=== PATIENT | female | born 1935 | race Two or more races ===

== ENCOUNTER 2016-11-28 20:26 | Inpatient (IN) | payer MEDICARE, OTHER ==
[~2016-11-28] VITALS: Ht 152.4 cm; Wt 47.2 kg
[2016-11-28] MEDS ORDERED: ALBUTEROL FS 2.5 MG/3 ML VIAL.NEB CONTNEB ONE (21:00)
[2016-11-28] MEDS ORDERED: IPRATROPIUM NEB FS 0.5 MG/2.5 ML AMPUL.NEB NEB ONE (21:00)
[2016-11-28] MEDS ORDERED: methylPREDNISolone SOD SUCC 125 MG/2ML VIAL IV ONE (21:00)
[2016-11-28] MEDS ORDERED: ALBUTEROL FS 2.5 MG/3 ML VIAL.NEB ONE (21:01)
[2016-11-28] MEDS ORDERED: IPRATROPIUM NEB FS 0.5 MG/2.5 ML AMPUL.NEB ONE (21:01)
[2016-11-28] MEDS ORDERED: methylPREDNISolone SOD SUCC 125 MG/2ML VIAL ONE (21:02)
[2016-11-28] MEDS ORDERED: CLAR500T PO (21:03)
[2016-11-28 21:05] LABS: BASOPHILS # (AUTO) 0.4 /CMM (0.0-0.2); BASOPHILS % (AUTO) 4.1 % (0.0-2.0); DIFF TOTAL % 100 %; EOSINOPHILS # (AUTO) 0.1 /CMM (0.0-0.7); EOSINOPHILS % (AUTO) 1.4 % (0.0-6.0); HEMATOCRIT 49 % (33-45); HEMOGLOBIN 15.2 g/dL (11.5-14.8); LYMPHOCYTES # (AUTO) 0.8 /CMM (0.8-4.8); LYMPHOCYTES % (AUTO) 7.5 % (20.0-44.0); MEAN CORPUSCULAR HEMOGLOBIN 29 PG (26.0-33.0); MEAN CORPUSCULAR HGB CONC 31 g/dl (31.0-36.0); MEAN CORPUSCULAR VOLUME 92 fL (82-100); MONOCYTES % (AUTO) 9.4 % (2.0-12.0); NEUTROPHILS # (AUTO) 7.9 /CMM (1.8-8.9); NEUTROPHILS % (AUTO) 77.6 % (43.0-81.0); PLATELET COUNT (AUTO) 380 /CMM (150-450); RED BLOOD CELL COUNT(AUTO) 5.28 MIL/uL (4.0-5.2); WHITE BLOOD COUNT (AUTO) 10.2 K/uL (4.3-11.0)
[2016-11-28 21:19] LABS: CALCIUM, SERUM 8.6 mg/dL (8.5-10.1); CREATININE 0.6 mg/dL (0.6-1.3); POTASSIUM 5.8 mmol/L (3.5-5.1)
[2016-11-28] MEDS ORDERED: FLUC50TA PO (21:35)
[2016-11-28] MEDS ORDERED: MIRALAX (21:35)
[2016-11-28] MEDS ORDERED: ALPR-388 PO (21:35)
[2016-11-28] MEDS ORDERED: GAS-X (21:35)
[2016-11-28] MEDS ORDERED: SPIRIVA (21:35)
[2016-11-28] MEDS ORDERED: RIFA300C4 PO (21:35)
[2016-11-28] MEDS ORDERED: ZOFRAN (21:35)
[2016-11-28] MEDS ORDERED: LEVA15HF2 INH (21:35)
[2016-11-28] MEDS ORDERED: ETHA400T8 PO (21:35)
[2016-11-28] MEDS ORDERED: MOXI400T31 PO (21:35)
[2016-11-28] MEDS ORDERED: IV SET PRIMARY PUMP SET 1 EA INFUS.SET MC ONE (22:23)
[2016-11-28] MEDS ORDERED: LEVOFLOXACIN 750 MG /D5W 150ML 150 ML IV ONE ×2 (22:23→22:30)
[2016-11-28 22:46] VITALS: BP 128/61
[2016-11-28 23:02] LABS: INR 0.93 (0.87-1.13)
[2016-11-28] MEDS ORDERED: MAGNESIUM HYDROXIDE 30 ML UDC PO PRN (23:30)
[2016-11-28] MEDS ORDERED: HYDROCODONE/APAP 5/325MG 1 EACH TABLET PO PRN (23:30)
[2016-11-28] MEDS ORDERED: ZOLPIDEM TARTRATE 5 MG TABLET PO PRN (23:30)
[2016-11-28] MEDS ORDERED: ONDANSETRON HCL/PF 4 MG/2 ML VIAL IVP PRN (23:30)
[2016-11-28] MEDS ORDERED: LEVOFLOXACIN 750 MG /D5W 150ML 750 MG in PREMIX 1 EA IV SCH (23:30)
[2016-11-28] MEDS ORDERED: ACETAMINOPHEN 325 MG TABLET PO PRN (23:30)
[2016-11-28] MEDS ORDERED: LORAZEPAM 0.5 MG TABLET PO PRN (23:30)
[2016-11-28] MEDS ORDERED: MAG HYDROX/AL HYDROX/SIMETH 30 ML UDC PO PRN (23:30)
[2016-11-28] MEDS ORDERED: Z GUARD REMEDY 2 OZ OINT TP PRN (23:30)
[2016-11-28] MEDS ORDERED: MORPHINE SULFATE INJ 2 MG/ML DISP.SYRIN IV PRN (23:30)
[2016-11-28] MEDS ORDERED: ENOXAPARIN SODIUM 40 MG/0.4 ML DISP.SYRIN SQ SCH (23:30)
[2016-11-29] VITALS: BP 109/45
[2016-11-29] MEDS ORDERED: ENOXAPARIN SODIUM 40 MG/0.4 ML DISP.SYRIN SQ ONE (00:29)
[2016-11-29] MEDS ORDERED: LORAZEPAM INJ 2 MG/ML VIAL ONE (03:49)
[2016-11-29 04:00] VITALS: BP 106/53
[2016-11-29] MEDS ORDERED: LORAZEPAM INJ 2 MG/ML VIAL IV PRN (04:00)
[2016-11-29 07:57] LABS: DIFF TOTAL % 100 %; HEMATOCRIT 41 % (33-45); HEMOGLOBIN 13.2 g/dL (11.5-14.8); LYMPHOCYTES # (AUTO) 0.3 /CMM (0.8-4.8); LYMPHOCYTES % (AUTO) 3.6 % (20.0-44.0); MEAN CORPUSCULAR HEMOGLOBIN 30 PG (26.0-33.0); MEAN CORPUSCULAR HGB CONC 32 g/dl (31.0-36.0); MEAN CORPUSCULAR VOLUME 93 fL (82-100); MONOCYTES # (AUTO) 0.1 /CMM (0.1-1.30); MONOCYTES % (AUTO) 1.8 % (2.0-12.0); NEUTROPHILS % (AUTO) 94.6 % (43.0-81.0); PLATELET COUNT (AUTO) 311 /CMM (150-450); RED BLOOD CELL COUNT(AUTO) 4.44 MIL/uL (4.0-5.2); WHITE BLOOD COUNT (AUTO) 7.4 K/uL (4.3-11.0)
[2016-11-29 08:00] VITALS: BP 106/47
[2016-11-29] MEDS: FUROSEMIDE 20 MG/2 ML VIAL IV SCH ×2 (09:00→17:48)
[2016-11-29] MEDS ORDERED: MOXIFLOXACIN HCL 400 MG PO SCH (09:00)
[2016-11-29] MEDS: PANTOPRAZOLE 40 MG VIAL IV SCH (09:00)
[2016-11-29] MEDS: CLARITHROMYCIN 500 MG TABLET PO SCH ×3 (09:00→17:49)
[2016-11-29] MEDS ORDERED: LEVOFLOXACIN 750 MG /D5W 150ML 750 MG in PREMIX 1 EA IV SCH (09:34)
[2016-11-29 09:41] LABS: ALBUMIN 2.3 g/dL (3.4-5.0); BILIRUBIN,TOTAL 0.2 mg/dL (0.2-1.0); CALCIUM, SERUM 8.3 mg/dL (8.5-10.1); CREATININE 0.5 mg/dL (0.6-1.3); PHOSPHORUS 4.3 mg/dL (2.5-4.9); POTASSIUM 5.7 mmol/L (3.5-5.1); TOTAL PROTEIN, SERUM 5.8 g/dL (6.4-8.2)
[2016-11-29] MEDS: methylPREDNISolone SOD SUCC 125 MG/2ML VIAL IV SCH (10:54)
[2016-11-29 12:00] VITALS: BP 132/62
[2016-11-29] MEDS: HYDROGEL DRESSING 90 GM TUBE TP SCH (13:00)
[2016-11-29] MEDS: ETHAMBUTOL HCL (400 MG) 400 MG TABLET PO SCH (14:37)
[2016-11-29] MEDS: RIFAMPIN 300 MG CAPSULE PO SCH (14:37)
[2016-11-29] MEDS: FLUCONAZOLE (100 MG) 100 MG TABLET PO SCH (14:37)
[2016-11-29 16:00] VITALS: BP 150/73
[2016-11-29] MEDS: ACETYLCYSTEINE 10% SOLN 400 MG/4 ML VIAL NEB SCH ×2 (17:19→23:00)
[2016-11-29] MEDS ORDERED: MORPHINE SULFATE INJ 2 MG/ML DISP.SYRIN IV PRN (18:00)
[2016-11-29 20:00] VITALS: BP 116/53
[2016-11-29] MEDS: IPRATROPIUM NEB FS 0.5 MG/2.5 ML AMPUL.NEB NEB SCH (20:25)
[2016-11-29] MEDS: ALBUTEROL HALF STRENGTH 1.25 MG/3 ML VIAL.NEB NEB SCH (20:25)
[2016-11-29] MEDS: ENOXAPARIN SODIUM 30 MG/0.3 ML DISP.SYRIN SQ SCH (21:39)
[2016-11-29] MEDS: LEVOFLOXACIN 750 MG /D5W 150ML 750 MG in PREMIX 1 EA IV SCH (23:19)
[2016-11-30] VITALS: BP 111/55
[2016-11-30] MEDS: ALBUTEROL HALF STRENGTH 1.25 MG/3 ML VIAL.NEB NEB SCH ×4 (01:37→19:32)
[2016-11-30] MEDS: IPRATROPIUM NEB FS 0.5 MG/2.5 ML AMPUL.NEB NEB SCH ×4 (01:37→19:32)
[2016-11-30 04:00] VITALS: BP 111/51
[2016-11-30] MEDS: ACETYLCYSTEINE 10% SOLN 400 MG/4 ML VIAL NEB SCH ×2 (07:22→15:14)
[2016-11-30 08:00] VITALS: BP 120/44
[2016-11-30] MEDS: CLARITHROMYCIN 500 MG TABLET PO SCH ×2 (08:48→17:32)
[2016-11-30] MEDS: RIFAMPIN 300 MG CAPSULE PO SCH (08:48)
[2016-11-30] MEDS: ETHAMBUTOL HCL (400 MG) 400 MG TABLET PO SCH (08:49)
[2016-11-30] MEDS: PANTOPRAZOLE 40 MG VIAL IV SCH (08:50)
[2016-11-30] MEDS: methylPREDNISolone SOD SUCC 125 MG/2ML VIAL IV SCH (08:50)
[2016-11-30] MEDS: FUROSEMIDE 20 MG/2 ML VIAL IV SCH (08:50)
[2016-11-30] MEDS: HYDROGEL DRESSING 90 GM TUBE TP SCH (08:51)
[2016-11-30 12:00] VITALS: BP 114/59
[2016-11-30 16:00] VITALS: BP 123/68
[2016-11-30 20:00] VITALS: BP 131/69
[2016-11-30] MEDS: ENOXAPARIN SODIUM 30 MG/0.3 ML DISP.SYRIN SQ SCH (21:17)
[2016-12-01] VITALS: BP 141/80
[2016-12-01] MEDS: ACETYLCYSTEINE 10% SOLN 400 MG/4 ML VIAL NEB SCH ×4 (00:13→23:38)
[2016-12-01] MEDS: IPRATROPIUM NEB FS 0.5 MG/2.5 ML AMPUL.NEB NEB SCH ×4 (00:14→20:18)
[2016-12-01] MEDS: ALBUTEROL HALF STRENGTH 1.25 MG/3 ML VIAL.NEB NEB SCH ×4 (00:14→20:18)
[2016-12-01] MEDS ORDERED: DILTIAZEM HCL 50 MG IV IV ONE (01:30)
[2016-12-01] MEDS ORDERED: DILTIAZEM HCL IV 125 MG in IV D5W 100 ML IV PRN (01:30)
[2016-12-01] MEDS ORDERED: IV SET PRIMARY PUMP SET 1 EA INFUS.SET MC ONE ×2 (01:48→20:47)
[2016-12-01] MEDS ORDERED: DILTIAZEM HCL 50 MG IV ONE (01:48)
[2016-12-01] MEDS ORDERED: DILTIAZEM HCL 25 MG IV ONE (01:49)
[2016-12-01] MEDS ORDERED: IV D5W 100 ML IV ONE (01:52)
[2016-12-01 04:00] VITALS: BP 132/68
[2016-12-01 08:00] VITALS: BP 126/58
[2016-12-01] MEDS: RIFAMPIN 300 MG CAPSULE PO SCH (08:41)
[2016-12-01] MEDS: PANTOPRAZOLE 40 MG VIAL IV SCH (08:41)
[2016-12-01] MEDS: ETHAMBUTOL HCL (400 MG) 400 MG TABLET PO SCH (08:41)
[2016-12-01] MEDS: FUROSEMIDE 20 MG/2 ML VIAL IV SCH (08:41)
[2016-12-01] MEDS: CLARITHROMYCIN 500 MG TABLET PO SCH ×2 (08:41→16:26)
[2016-12-01] MEDS: methylPREDNISolone SOD SUCC 125 MG/2ML VIAL IV SCH (08:41)
[2016-12-01] MEDS: HYDROGEL DRESSING 90 GM TUBE TP SCH (08:42)
[2016-12-01] MEDS: FLUCONAZOLE (100 MG) 100 MG TABLET PO SCH (09:16)
[2016-12-01 12:00] VITALS: BP 148/65
[2016-12-01 13:31] LABS: CALCIUM, SERUM 8.3 mg/dL (8.5-10.1); CREATININE 0.6 mg/dL (0.6-1.3)
[2016-12-01 16:00] VITALS: BP 130/72
[2016-12-01 20:00] VITALS: BP 119/68
[2016-12-01] MEDS: MEROPENEM 500 MG in IV NS 0.9% 50 ML IV SCH (20:44)
[2016-12-01] MEDS: ENOXAPARIN SODIUM 30 MG/0.3 ML DISP.SYRIN SQ SCH (20:46)
[2016-12-01] MEDS ORDERED: IV NS 0.9% 250 ML IV ONE (20:46)
[2016-12-01] MEDS ORDERED: SECONDARY IV SET 1 EA INFUS.SET MC ONE (20:47)
[2016-12-01] MEDS: LEVOFLOXACIN 750 MG /D5W 150ML 750 MG in PREMIX 1 EA IV SCH (23:56)
[2016-12-02] MEDS: ALBUTEROL HALF STRENGTH 1.25 MG/3 ML VIAL.NEB NEB SCH ×4 (01:19→20:18)
[2016-12-02] MEDS: IPRATROPIUM NEB FS 0.5 MG/2.5 ML AMPUL.NEB NEB SCH ×4 (01:19→20:18)
[2016-12-02 06:00] VITALS: BP 120/72
[2016-12-02] MEDS: methylPREDNISolone SOD SUCC 125 MG/2ML VIAL IV SCH (07:34)
[2016-12-02 08:00] VITALS: BP 144/71
[2016-12-02] MEDS: ACETYLCYSTEINE 10% SOLN 400 MG/4 ML VIAL NEB SCH ×3 (08:34→23:39)
[2016-12-02] MEDS ORDERED: SECONDARY IV SET 1 EA INFUS.SET MC ONE (08:49)
[2016-12-02] MEDS: PANTOPRAZOLE 40 MG VIAL IV SCH (08:55)
[2016-12-02] MEDS: FUROSEMIDE 20 MG/2 ML VIAL IV SCH (08:55)
[2016-12-02] MEDS: ETHAMBUTOL HCL (400 MG) 400 MG TABLET PO SCH (08:56)
[2016-12-02] MEDS: RIFAMPIN 300 MG CAPSULE PO SCH (08:56)
[2016-12-02] MEDS: CLARITHROMYCIN 500 MG TABLET PO SCH ×2 (08:56→16:55)
[2016-12-02] MEDS: MEROPENEM 500 MG in IV NS 0.9% 50 ML IV SCH ×2 (08:56→20:58)
[2016-12-02] MEDS: HYDROGEL DRESSING 90 GM TUBE TP SCH (08:57)
[2016-12-02 14:00] VITALS: BP 131/62
[2016-12-02 16:00] VITALS: BP 131/62
[2016-12-02 20:00] VITALS: BP 142/77
[2016-12-02] MEDS: ENOXAPARIN SODIUM 30 MG/0.3 ML DISP.SYRIN SQ SCH (20:59)
[2016-12-03] MEDS: ALBUTEROL HALF STRENGTH 1.25 MG/3 ML VIAL.NEB NEB SCH ×4 (01:36→19:26)
[2016-12-03] MEDS: IPRATROPIUM NEB FS 0.5 MG/2.5 ML AMPUL.NEB NEB SCH ×4 (01:36→19:26)
[2016-12-03 04:00] VITALS: BP 133/68
[2016-12-03] MEDS: ACETYLCYSTEINE 10% SOLN 400 MG/4 ML VIAL NEB SCH ×3 (07:18→22:33)
[2016-12-03 08:00] VITALS: BP 128/65
[2016-12-03] MEDS: FUROSEMIDE 20 MG/2 ML VIAL IV SCH (08:52)
[2016-12-03] MEDS: ETHAMBUTOL HCL (400 MG) 400 MG TABLET PO SCH (08:52)
[2016-12-03] MEDS: CLARITHROMYCIN 500 MG TABLET PO SCH ×2 (08:52→16:50)
[2016-12-03] MEDS: RIFAMPIN 300 MG CAPSULE PO SCH (08:52)
[2016-12-03] MEDS: MEROPENEM 500 MG in IV NS 0.9% 50 ML IV SCH ×2 (08:52→20:30)
[2016-12-03] MEDS: PANTOPRAZOLE 40 MG VIAL IV SCH (08:52)
[2016-12-03] MEDS ORDERED: methylPREDNISolone SOD SUCC 125 MG/2ML VIAL IV SCH (09:00)
[2016-12-03] MEDS: HYDROGEL DRESSING 90 GM TUBE TP SCH (09:00)
[2016-12-03] MEDS: HYDROGEL DRESSING 90 GM TUBE TP PRN ×2 (09:03→09:06)
[2016-12-03] MEDS: FLUCONAZOLE (100 MG) 100 MG TABLET PO SCH (10:08)
[2016-12-03 12:00] VITALS: BP 130/69
[2016-12-03 12:50] LABS: BASOPHILS % (AUTO) 0.5 % (0.0-2.0); DIFF TOTAL % 100 %; EOSINOPHILS # (AUTO) 0.1 /CMM (0.0-0.7); EOSINOPHILS % (AUTO) 0.9 % (0.0-6.0); HEMATOCRIT 46 % (33-45); HEMOGLOBIN 14.7 g/dL (11.5-14.8); LYMPHOCYTES # (AUTO) 0.8 /CMM (0.8-4.8); LYMPHOCYTES % (AUTO) 8.8 % (20.0-44.0); MEAN CORPUSCULAR HEMOGLOBIN 30 PG (26.0-33.0); MEAN CORPUSCULAR HGB CONC 32 g/dl (31.0-36.0); MEAN CORPUSCULAR VOLUME 91 fL (82-100); MONOCYTES # (AUTO) 0.7 /CMM (0.1-1.30); MONOCYTES % (AUTO) 7.5 % (2.0-12.0); NEUTROPHILS # (AUTO) 7.9 /CMM (1.8-8.9); NEUTROPHILS % (AUTO) 82.3 % (43.0-81.0); PLATELET COUNT (AUTO) 300 /CMM (150-450); WHITE BLOOD COUNT (AUTO) 9.6 K/uL (4.3-11.0)
[2016-12-03 13:01] LABS: CALCIUM, SERUM 8.2 mg/dL (8.5-10.1); CREATININE 0.4 mg/dL (0.6-1.3); POTASSIUM 4.3 mmol/L (3.5-5.1)
[2016-12-03] MEDS: predniSONE 20 MG TABLET PO SCH (14:03)
[2016-12-03 16:00] VITALS: BP 108/70
[2016-12-03 20:00] VITALS: BP 149/64
[2016-12-03] MEDS ORDERED: IV NS 0.9% 250 ML IV ONE (20:25)
[2016-12-03] MEDS: ENOXAPARIN SODIUM 30 MG/0.3 ML DISP.SYRIN SQ SCH (20:31)
[2016-12-03] MEDS ORDERED: ZOLPIDEM TARTRATE 5 MG TABLET ONE (21:39)
[2016-12-03] MEDS ORDERED: ZOLPIDEM TARTRATE 5 MG TABLET PO PRN (22:00)
[2016-12-03] MEDS: LEVOFLOXACIN 750 MG /D5W 150ML 750 MG in PREMIX 1 EA IV SCH (23:54)
[2016-12-04] MEDS: IPRATROPIUM NEB FS 0.5 MG/2.5 ML AMPUL.NEB NEB SCH ×3 (00:56→13:12)
[2016-12-04] MEDS: ALBUTEROL HALF STRENGTH 1.25 MG/3 ML VIAL.NEB NEB SCH ×3 (00:56→13:12)
[2016-12-04 04:00] VITALS: BP 115/61
[2016-12-04] MEDS: ACETYLCYSTEINE 10% SOLN 400 MG/4 ML VIAL NEB SCH ×2 (07:10→13:12)
[2016-12-04 08:00] VITALS: BP 116/56
[2016-12-04] MEDS: CLARITHROMYCIN 500 MG TABLET PO SCH ×2 (09:29→16:48)
[2016-12-04] MEDS: RIFAMPIN 300 MG CAPSULE PO SCH (09:29)
[2016-12-04] MEDS: MEROPENEM 500 MG in IV NS 0.9% 50 ML IV SCH ×2 (09:29→17:42)
[2016-12-04] MEDS: PANTOPRAZOLE 40 MG VIAL IV SCH (09:29)
[2016-12-04] MEDS ORDERED: SECONDARY IV SET 1 EA INFUS.SET MC ONE (09:29)
[2016-12-04] MEDS: ETHAMBUTOL HCL (400 MG) 400 MG TABLET PO SCH (09:29)
[2016-12-04] MEDS: FUROSEMIDE 20 MG/2 ML VIAL IV SCH (09:30)
[2016-12-04] MEDS: predniSONE 20 MG TABLET PO SCH (09:30)
[2016-12-04] MEDS: HYDROGEL DRESSING 90 GM TUBE TP SCH (09:45)
[2016-12-04 12:00] VITALS: BP 124/67
[2016-12-04 16:00] VITALS: BP 113/56
[2016-12-05] MEDS ORDERED: predniSONE 20 MG TABLET PO SCH (09:00)
== END 2016-12-04 19:30 | disposition home health service (06) | DRG 177 ==
LOC: ER 20:28 → TELE-TD 22:23 → TELE1 11-30 16:36 → TELE-TD 12-01 02:32 → TELE1 12-01 09:46 → MEDSG1 12-01 16:30
PROVIDERS: ADMIT Family Medicine; ATTEND Family Medicine
DX: A31.0 Pulmonary mycobacterial infection (principal); J96.01 Acute respiratory failure with hypoxia; I50.31 Acute diastolic (congestive) heart failure; E43 Unspecified severe protein-calorie malnutrition; G92 Toxic encephalopathy; J96.02 Acute respiratory failure with hypercapnia; J47.0 Bronchiectasis with acute lower respiratory infection; R64 Cachexia; J90 Pleural effusion, not elsewhere classified; J15.9 Unspecified bacterial pneumonia; E87.5 Hyperkalemia; J42 Unspecified chronic bronchitis; I27.2 Other secondary pulmonary hypertension; I48.0 Paroxysmal atrial fibrillation; I87.8 Other specified disorders of veins; Z99.81 Dependence on supplemental oxygen; G14 Postpolio syndrome; J20.8 Acute bronchitis due to other specified organisms; Z68.20 Body mass index [BMI] 20.0-20.9, adult
CPT/HCPCS: 36415; 71010-TC; 80048-TC; 80053-TC; 80061-TC; 82962-TC; 83605-TC; 83735-TC; 83880; 84100-TC; 84484-TC; 85025-TC; 85730-TC; 87040-TC; 87081-TC; 87400; 93307-TC; 93970-TC; 94799-TC; 97001-TC; 97110-TC; A4216; A4606; A6248; C9113; J1650; J1940; J1956; J2060; J2185; J2270; J2930; J3490; J7050; J7060; Z7610

== ENCOUNTER 2019-11-11 21:57 | Inpatient (IN) | payer MEDICARE, BC ==
[~2019-11-11] VITALS: Ht 172.7 cm; Wt 38.1 kg
[~2019-11-11 21:57] MED LIST: ALPR-388 PO; CLAR500T PO; ETHA400T8 PO; FLUC50TA PO; GAS-X; LEVA15HF4 INH; MIRALAX; MOXI400T31 PO; RIFA300C4 PO; SPIRIVA; ZOFRAN
--- NOTE | 2019-11-11 22:03 | NUR ---
PT BIB [facility] WITH A C/O SOB. PT IS ON 3L O2 VIA NC AND IS TRIPODING UPON ARRIVAL. RT WAS CALLED. PT SOUNDS TIGHT WITH SLIGHT AIR MOVEMENT. INSPIRATORY WHEEZES NOTED BILATERALLY. PT HAS COPD AND STATED THAT SHE IS ON 5L O2 AT HOME AND 3L O2 ON THE [facility]ER[facility] WHEN SHE IS OUT. PT IS ABLE TO SAY A FEW WORDS AT A TIME. PT IS ON THE MONITOR AND CONTINUOUS PULSE OX.
--- NOTE | 2019-11-11 22:07 | NUR ---
RT IS AT THE BEDSIDE.
--- NOTE | 2019-11-11 22:12 | NUR ---
PT IS ON A BREATHING TX.
[2019-11-11] MEDS ORDERED: ALBUTEROL FS 2.5 MG/3 ML VIAL.NEB ONE (22:13)
[2019-11-11] MEDS ORDERED: IPRATROPIUM NEB FS 0.5 MG/2.5 ML AMPUL.NEB ONE (22:14)
--- NOTE | 2019-11-11 22:23 | NUR ---
RFA 20G IV STARTED. BLOOD WAS DRAWN AND SENT TO LAB.
[2019-11-11 22:28] LABS: BASOPHILS % (AUTO) 0.3 % (0.0-2.0); HEMATOCRIT 39 % (33-45); HEMOGLOBIN 12.9 g/dL (11.5-14.8); LYMPHOCYTES # (AUTO) 0.9 /CMM (0.8-4.8); LYMPHOCYTES % (AUTO) 6.9 % (20.0-44.0); MEAN CORPUSCULAR HGB CONC 33 g/dl (31.0-36.0); MEAN CORPUSCULAR VOLUME 97 fL (82-100); MONOCYTES % (AUTO) 7.7 % (2.0-12.0); NEUTROPHILS # (AUTO) 11.2 /CMM (1.8-8.9); NEUTROPHILS % (AUTO) 83.1 % (43.0-81.0); PLATELET COUNT (AUTO) 383 /CMM (150-450); RED BLOOD CELL COUNT(AUTO) 4.07 MIL/uL (4.0-5.2); WHITE BLOOD COUNT (AUTO) 13.5 K/uL (4.3-11.0)
[2019-11-11] MEDS ORDERED: methylPREDNISolone SOD SUCC 125 MG/2ML VIAL ONE (22:29)
[2019-11-11] MEDS ORDERED: ALBUTEROL FS 2.5 MG/3 ML VIAL.NEB NEB ONE (22:30)
[2019-11-11] MEDS ORDERED: methylPREDNISolone SOD SUCC 125 MG/2ML VIAL IV ONE (22:30)
[2019-11-11] MEDS ORDERED: IPRATROPIUM NEB FS 0.5 MG/2.5 ML AMPUL.NEB NEB ONE (22:30)
--- NOTE | 2019-11-11 22:30 | NUR ---
DR BRADEN IS AT THE BEDSIDE.
--- NOTE | 2019-11-11 22:32 | NUR ---
CALLED PT'S HOUSE AND LEFT A VOICE MESSAGE FOR HER , POLLY. AT PT'S REQUEST.
--- NOTE | 2019-11-11 22:38 | NUR ---
PT'S , POLLY, ARRIVED AND IS AT THE BEDSIDE.
[2019-11-11 22:39] LABS: CALCIUM, SERUM 8.9 mg/dL (8.5-10.1); CARBON DIOXIDE 30 mmol/L (21-32); CHLORIDE 94 mmol/L (98-107); CREATININE 0.4 mg/dL (0.6-1.3); GLUCOSE 105 mg/dL (74-106); POTASSIUM 4.1 mmol/L (3.5-5.1); SODIUM SERUM 128 mmol/L (136-145); UREA NITROGEN, BLOOD 16 mg/dL (7-18)
--- NOTE | 2019-11-11 22:40 | NUR ---
PT'S CAREGIVER, MARLEN, ARRIVED AND IS AT THE BEDSIDE.
[2019-11-11 22:42] LABS: ABG BASE EXCESS 4.4 mmol/L; ABG OXYGEN SATURATION 97.8 % (92.0-98.5); ABG PCO2 55.6 mmHg (35.0-45.0); ABG PH 7.366 (7.350-7.450); ABG PO2 126.5 mmHg (75.0-100.0); AaDO2 152.9 mmHg; COHb 0.3 % (0.5-1.5); MetHb 0.4 % (0.0-1.5); O2Hb 97.1 % (94.0-97.0); SITE, ABG Right Radial
--- NOTE | 2019-11-11 22:43 | NUR ---
UNABLE TO OBTAIN EKG AT THIS TIME. WILL TRY AGAIN SHORTLY.
[2019-11-11 22:51] LABS: B-TYPE NATRIURETIC PEPTIDE 243 PG/ML (0-125)
--- NOTE | 2019-11-11 22:52 | NUR ---
CALL PRIMARY MANE GOMEZ [phone]. LEFT A MESSAGE WITH HIS ANSWERING SERVICE
--- NOTE | 2019-11-11 22:58 | NUR ---
WAS UNABLE TO OBTAIN A CXR
--- NOTE | 2019-11-11 22:58 | NUR ---
CXR IN PROGRESS AT THE BEDSIDE.
[2019-11-11] MEDS ORDERED: Magnesium 1GM/D5W 100ML PREMIX 200 ML IV ONE (22:59)
[2019-11-11] MEDS ORDERED: Magnesium 1 GM/2 ML VIAL IV ONE (23:00)
--- NOTE | 2019-11-11 23:06 | NUR ---
DR BRADEN IS AT THE BEDSIDE SPEAKING TO THE PT AND HER FAMILY.
--- NOTE | 2019-11-11 23:10 | NUR ---
PT WAS PLACED ON 5L O2 PER DR BRADEN.
--- NOTE | 2019-11-11 23:12 | NUR ---
CXR IN PROGRESS AT THE BEDSIDE.
--- NOTE | 2019-11-11 23:47 | NUR ---
PT WAS READJUSTED IN BED. PT HAS A WOUND ON THE RT BUTTOCK. PILLOW WAS PLACED UNDER THE RT SIDE TO OFF LOAD. PILLOW PLACED ON THE LEFT UNDER PT'S ARM FOR SUPPORT. PT REC'D A JUG OF WATER TO SWISH AND SPIT. PT IS C/O DRY MOUTH. PT IS ON 4L VIA NC AND IS SATURATING AT 96%. PT'S CAREGIVER IS AT THE BEDSIDE WITH HER .
[2019-11-12] MEDS ORDERED: IBUP-23 PO (00:02)
[2019-11-12] MEDS ORDERED: ONDA4TAB5 PO (00:02)
[2019-11-12] MEDS ORDERED: TIOT18CA3 IH (00:02)
--- NOTE | 2019-11-12 00:04 | NUR ---
MED REC REVIEWED WITH PT'S CAREGIVER.
--- NOTE | 2019-11-12 00:15 | NUR ---
REPORT GIVEN TO ALMA MONAHAN
[2019-11-12 00:30] VITALS: BP 153/73
--- NOTE | 2019-11-12 00:35 | NUR ---
PT WAS TRANSPORTED TO [facility] VIA [facility] PER PROTOCOL.
--- NOTE | 2019-11-12 00:40 | NUR ---
comber fixercatering administrative assistant notes Received Pt from ER nurse ALMA Sandy. Pt arrived at the unit with a gurney and ACLS protocol. Pt is alert and orientedX4. Pt's Juan Carlos and Pt's archana Arias at the bedside. Respiration is normal in 4 L NC. No SOB. No S/S of distress noted. IV sites RFA# 20 is clean, intact, patent and flush without resistance. Tele monitor showed sinus rhytm. Pt's belonging was checked by MARIO Snow. Pt's took all the belongings. Admission Orders received from Dr. Chu. Pt's refused skin assessment and pictures. Informed Pt that our hospital policy. Made aware risks and benefits. Pt keep refusing for skin assessment. Instructed to call. Safety precautions is maintained. Bed at low position, brakes locked, side rails upx3 and call light is within reach. Will continue to monitor.
[2019-11-12] MEDS ORDERED: ACETAMINOPHEN 325 MG TABLET PO PRN (01:00)
[2019-11-12] MEDS: ENOXAPARIN SODIUM 40 MG/0.4 ML DISP.SYRIN SQ SCH ×2 (01:00→22:19)
[2019-11-12] MEDS ORDERED: IBUPROFEN 200 MG TABLET PO PRN (01:00)
[2019-11-12] MEDS ORDERED: MAG HYDROX/AL HYDROX/SIMETH 30 ML UDC PO PRN (01:00)
[2019-11-12] MEDS ORDERED: Z GUARD REMEDY 2 OZ OINT TP PRN (01:00)
[2019-11-12] MEDS ORDERED: ONDANSETRON HCL/PF 4 MG/2 ML VIAL IVP PRN (01:00)
[2019-11-12] MEDS ORDERED: MAGNESIUM HYDROXIDE 30 ML UDC PO PRN (01:00)
[2019-11-12] MEDS ORDERED: HYDROCODONE/APAP 5/325MG 1 EACH TABLET PO PRN (01:00)
[2019-11-12] MEDS ORDERED: Medication Not On Formulary EA (Ondansetron Hcl (Zofran) 4 MG) PO SCH (01:00)
[2019-11-12] MEDS ORDERED: LEVOFLOXACIN 750 MG /D5W 150ML 750 MG in PREMIX 1 EA IV SCH (01:00)
[2019-11-12] MEDS ORDERED: Medication Not On Formulary EA (Levalbuterol Tartrate (Xopenex Hfa) 2 PUFF) INH SCH (01:00)
[2019-11-12] MEDS ORDERED: ZOLPIDEM TARTRATE 5 MG TABLET PO PRN (01:00)
[2019-11-12] MEDS ORDERED: LEVOFLOXACIN 500 MG /D5W 100ML 500 MG in PREMIX 1 EA IV ONE (01:30)
--- NOTE | 2019-11-12 01:48 | NUR ---
drapery cutter machine notes Pt is requesting meds to sleep. Administered ambien 5 mg/po as ordered for sleeping per Pt's request. Instructed to call. Will continue to monitor.
--- NOTE | 2019-11-12 01:55 | NUR ---
assembly detailer notes Pt refused lovenox 40 mg and levaquin/D5w 500 mg IVPB. Made aware risks and benefits. Offered multiple times. Pt's Juan Carlos and Pt's care provider Darshana are at the bedside. Pt keep refusing. Dr. Chu is aware and informed.
--- NOTE | 2019-11-12 02:00 | NUR ---
traveling accountant notes Dr. Chu is at the bedside.
[2019-11-12] MEDS: ALBUTEROL HALF STRENGTH 1.25 MG/3 ML VIAL.NEB NEB SCH ×5 (02:24→20:03)
[2019-11-12 04:00] VITALS: BP 139/75
--- NOTE | 2019-11-12 07:00 | NUR ---
nursing education specialist closing notes Pt is resting in bed comfortably. Respiration is normal in 4 L NC. No SOB. No S/S of distress noted. Peripheral IV sites at RFA# 20 is clean, intact, patent and SL. Pt's caregiver at the bedside. Pt refused routine meds. MD is aware and informed. Tele monitor showed sinus rhytm at 78. VS is stable. Afebrile. Kept Pt clean, dry and comfortable. Instructed to call. Bed at low position, brakes locked, side rails upX3 and call light is within reach. Will endorse to morning nurse for JULIA.
--- NOTE | 2019-11-12 07:00 | NUR ---
MOBILITY SPECIALIST NOTES PATIENT A/O X4 PATIENT IS AWAKE. PATIENT STATED " SHE DOESN'T FEEL COMFORTABLE. PATIENT HAS NC WITH 2L OXYGEN. PATIENT HAS WEAKNESS IN THE UPPER EXTREMITIES AND SEVER WEAKNESS IN THE LOWER EXTREMITIES. PATENT HAS RIGHT FA 20# PATENT AND INTACT. PATIENT SHOWS NO SIGNS OF ACUTE RESPIRATORY DISTRESS, NO SOB. BED LOCKED AND LOWEST POSITION CALL LIGHT WITH IN REACH. ALL SAFETY MEASURES IMPLEMENTED PER HOSPITAL POLICY PATIENTS SPA DIRECTOR/FINANCE BY BED SIDE
[2019-11-12 08:00] VITALS: BP 121/64
[2019-11-12] MEDS: methylPREDNISolone SOD SUCC 40 MG/ML VIAL IV SCH ×3 (09:10→16:43)
--- NOTE | 2019-11-12 09:30 | NUR ---
COTTONSEED MEAT PRESSER NOTES ATTENDING DR. CANALES IN ROOM WITH PATIENT AND FAMILY BY BED SIDE
--- NOTE | 2019-11-12 09:45 | NUR ---
CENTRAL SUPPLY TECHNICIAN SUPERVISOR NOTES DR OLEARY IN ROOM WITH PATIENT
[2019-11-12] MEDS ORDERED: ALPRAZOLAM 0.25 MG TABLET PO SCH (10:30)
[2019-11-12] MEDS: FLUCONAZOLE (100 MG) 100 MG TABLET PO SCH (10:50)
--- NOTE | 2019-11-12 11:32 | NUR ---
DR. OLEARY SEEN AND EVALUATED PATIENT AND ORDER TRANSFER BACK TO [facility] AGAIN,
--- NOTE | 2019-11-12 11:35 | NUR ---
PATIENT REFUSING TELE AND CT VERBALIZING TO LEAVE HER ALONE AND SHE WANTED TO REST.FAMILY AT BEDSIDE.DR. OLEARY NOTIFIED PATIENT NONCOMPLIANT AND REFUSING TELE/CT.WILL CONTINUE TO MONITOR ON [facility] FOR NOW.
[2019-11-12] MEDS: ACETYLCYSTEINE 10% SOLN 400 MG/4 ML VIAL NEB SCH ×3 (11:41→23:17)
[2019-11-12 12:00] VITALS: BP 142/65
--- NOTE | 2019-11-12 12:02 | NUR ---
REPORT RECEIVED FROM SIDRA MARQUEZ FOR JULIA.
--- NOTE | 2019-11-12 12:07 | NUR ---
EXTRACTION MACHINE OPERATOR NOTES ENDORSED TO JAVIER
--- NOTE | 2019-11-12 12:19 | NUR ---
SPOKE WITH DR. CANALES, ORDERS RECEIVED AND VERBAL READBACK. CONFIRMED ORDER. ORDERS CARRIED OUT.
[2019-11-12] MEDS ORDERED: ALPRAZOLAM 0.25 MG TABLET PO ONE (12:30)
--- NOTE | 2019-11-12 12:38 | NUR ---
PT REFUSING TO HAVE TELEMETRY BOX PLACED ON HER. PT WAS EDUCATED ON THE NEEDS FOR HAVING THE TELEMETRY BOX WILL CONTINUE TO MONITOR.
[2019-11-12] MEDS: ENSURE ENLIVE 237 ML LIQUID (VANILLA) PO SCH ×2 (13:58→16:43)
[2019-11-12] MEDS: IPRATROPIUM NEB FS 0.5 MG/2.5 ML AMPUL.NEB NEB SCH ×3 (15:09→23:17)
[2019-11-12 16:00] VITALS: BP 131/63
[2019-11-12] MEDS: ALPRAZOLAM 0.25 MG TABLET PO SCH (16:43)
--- NOTE | 2019-11-12 17:16 | NUR ---
PT COMPLAINING IV IS CAUSING PAIN. IV WAS REMOVED AND PT REFUSING TO START ANOTHER IV AT THIS POINT IN TIME.
--- NOTE | 2019-11-12 18:39 | NUR ---
RN NOTES NEW IV 22 GAUGE INSERTED R FOREARM BY [facility] CHARGE LOADER.
--- NOTE | 2019-11-12 18:42 | NUR ---
RN CLOSING NOTES PT DENIES ANY PAIN OR SOB AT PRESENT MOMENT. PT HAS A NEW 22 GAUGE IV IN RIGHT FOREARM SL. PT IN BED ON 4L O2 VIA NC. PT IN BED IN HIGH CALABRESE POSITION. CAREGIVER AND SPOUSE AT BEDSIDE. PT REPOSITIONED TO HER POSITION OF COMFORT. BED IS IN LOWEST POSITION WITH CALL LIGHT IN REACH WILL ENDORSE JULIA TO REEL AND REWINDER OPERATOR RN.
[2019-11-12 20:00] VITALS: BP 116/63
[2019-11-13] VITALS: BP 137/66
[2019-11-13] MEDS ORDERED: ZOLPIDEM TARTRATE 10 MG TABLET PO PRN (00:30)
--- NOTE | 2019-11-13 00:54 | NUR ---
TELE-TD/RN PATIENT REQUESTED SLEEPING MEDICATION, OBTAINED ORDER OF AMBIEN 5 MG PO Q HS PRN FROM DR. YU. AMBIEN WAS GIVEN. WILL MONITOR.
--- NOTE | 2019-11-13 02:08 | NUR ---
TELE-TD/RN PATIENT IS SLEEPING AT THIS TIME, APPEAR COMFORTABLE, NO DISTRESS NOTED, CAREGIVER AT BEDSIDE. WILL CONTINUE TO MONITOR.
[2019-11-13 06:00] VITALS: BP 129/71
[2019-11-13 06:21] LABS: BASOPHILS # (AUTO) 0.1 /CMM (0.0-0.2); BASOPHILS % (AUTO) 0.9 % (0.0-2.0); HEMATOCRIT 37 % (33-45); HEMOGLOBIN 12.4 g/dL (11.5-14.8); LYMPHOCYTES # (AUTO) 0.4 /CMM (0.8-4.8); LYMPHOCYTES % (AUTO) 3.6 % (20.0-44.0); MEAN CORPUSCULAR HGB CONC 33 g/dl (31.0-36.0); MEAN CORPUSCULAR VOLUME 96 fL (82-100); MONOCYTES # (AUTO) 1.1 /CMM (0.1-1.30); MONOCYTES % (AUTO) 9.2 % (2.0-12.0); NEUTROPHILS # (AUTO) 10.6 /CMM (1.8-8.9); NEUTROPHILS % (AUTO) 86.3 % (43.0-81.0); PLATELET COUNT (AUTO) 372 /CMM (150-450); RED BLOOD CELL COUNT(AUTO) 3.86 MIL/uL (4.0-5.2); WHITE BLOOD COUNT (AUTO) 12.3 K/uL (4.3-11.0)
--- NOTE | 2019-11-13 06:26 | NUR ---
TELE-TD/RN PATIENT APPEAR SLEEPING, APPEAR COMFORTABLE, NO DISTRESS NOTED, ALL NEEDS ATTENDED AT THIS TIME, PRIVATE CAREGIVER AT BEDSIDE. WILL CONTINUE TO MONITOR.
[2019-11-13 06:32] LABS: CALCIUM, SERUM 9.1 mg/dL (8.5-10.1); CARBON DIOXIDE 39 mmol/L (21-32); CHLORIDE 100 mmol/L (98-107); CREATININE 0.3 mg/dL (0.6-1.3); GLUCOSE 127 mg/dL (74-106); MAGNESIUM 2.6 mg/dL (1.8-2.4); PHOSPHORUS 2.6 mg/dL (2.5-4.9); POTASSIUM 4.8 mmol/L (3.5-5.1); SODIUM SERUM 139 mmol/L (136-145); UREA NITROGEN, BLOOD 29 mg/dL (7-18)
[2019-11-13 06:46] LABS: CHOLESTEROL 188 mg/dL (<200); HDL CHOLESTEROL 120 mg/dL (40-60); LDL 64 mg/dL (0-99); TRIGLYCERIDES 44 mg/dL (30-150)
[2019-11-13 08:00] VITALS: BP 133/81
--- NOTE | 2019-11-13 08:00 | NUR ---
[facility] RN NOTES Received pt in bed A/O x4. No sob noted. Congestion upon auscultation noted. PT has RT LF HL intact and flushed well. Bed in lowest position. Plan of care discussed with pt. Will continue to monitor closely. Put call light within reach. Caregiver at bedside.
[2019-11-13] MEDS ORDERED: ZOLPIDEM TARTRATE 5 MG TABLET PO PRN (08:32)
[2019-11-13] MEDS: IPRATROPIUM NEB FS 0.5 MG/2.5 ML AMPUL.NEB NEB SCH ×3 (08:59→19:35)
[2019-11-13] MEDS: ALBUTEROL HALF STRENGTH 1.25 MG/3 ML VIAL.NEB NEB SCH ×4 (08:59→19:35)
[2019-11-13] MEDS: ACETYLCYSTEINE 10% SOLN 400 MG/4 ML VIAL NEB SCH ×3 (08:59→23:51)
[2019-11-13] MEDS: ALPRAZOLAM 0.25 MG TABLET PO SCH ×2 (09:07→17:09)
[2019-11-13] MEDS: methylPREDNISolone SOD SUCC 40 MG/ML VIAL IV SCH ×3 (09:07→18:50)
[2019-11-13] MEDS: ENSURE ENLIVE 237 ML LIQUID (VANILLA) PO SCH ×3 (09:08→17:00)
[2019-11-13] MEDS: LEVOFLOXACIN 250 MG /D5W 50 ML 250 MG in PREMIX 1 EA IV SCH (09:08)
--- NOTE | 2019-11-13 11:51 | NUR ---
grayson rn note dr huntley at bedside aware that patient wants to go home , ok to give flu vaccine
--- NOTE | 2019-11-13 11:52 | NUR ---
[facility] RN NOTES Breathing tx given by rt, assisted to bedside commode , family at beside.
[2019-11-13 12:00] VITALS: BP 128/72
[2019-11-13] MEDS ORDERED: INFLUENZA VACCINE 2019-20 0.5 ML DISP.SYRIN IM ONE (12:00)
--- NOTE | 2019-11-13 15:26 | NUR ---
[facility] Rn NOTES PT at bedside, tried to do treatment but family and pt refused. Offered 2x, explained risks and benefits still refused. Will follow up tomorrow.
[2019-11-13 16:00] VITALS: BP 133/81
--- NOTE | 2019-11-13 19:13 | NUR ---
[facility] RN NOTES Patient in no acute distress. All meds were given and tolerated well. Family at bedside. All needs attended.
--- NOTE | 2019-11-13 19:30 | NUR ---
RN [facility] OPENING NOTES RECEIVED PATIENT IN BED AWAKE, ALERT AND ORIENTED X4, VERBALLY RESPONSIVE, ABLE TO MAKE NEEDS KNOWN. CAREGIVER AT BEDSIDE. BREATHING EVEN AND UNLABORED, ON 4LNC, NO SOB NOTED. DENIES PAIN OR DISCOMFORT. DENIES N/V. IV ON RIGHT FOREARM INTACT AND PATENT. PATIENT ABLE TO USE BEDSIDE COMMODE WITH ASSIST. PATIENT NOT ON TELE MONITOR DUE TO REFUSAL. ALL OTHER NEEDS ATTENDED TO. SAFETY MEASURES IN PLACE. CALL LIGHT WITHIN REACH. WILL CONTINUE TO MONITOR.
[2019-11-13 20:00] VITALS: BP 139/91
[2019-11-13] MEDS: ENOXAPARIN SODIUM 40 MG/0.4 ML DISP.SYRIN SQ SCH (21:29)
[2019-11-14] VITALS: BP 129/66
[2019-11-14] MEDS: IPRATROPIUM NEB FS 0.5 MG/2.5 ML AMPUL.NEB NEB SCH ×2 (01:30→07:35)
[2019-11-14 04:00] VITALS: BP 159/75
--- NOTE | 2019-11-14 05:38 | NUR ---
RN [facility] NOTES PATIENT REFUSED BLOOD DRAW THIS AM. PER PATIENT, SHE WANTS TO SLEEP MORE. INSTRUCTED PHLEB TO COME BACK AT A LATER TIME.
--- NOTE | 2019-11-14 06:16 | NUR ---
RN [facility] CLOSING NOTES PATIENT CURRENTLY SLEEPING. EASILY AROUSABLE. CAREGIVER AT BEDSIDE. BREATHING EVEN AND UNLABORED, ON 3LNC, NO SOB NOTED. DENIES PAIN OR DISCOMFORT. DENIES N/V. IV ON RIGHT FOREARM INTACT AND PATENT. ASSISTED TO BEDSIDE COMMODE THROUGHOUT SHIFT WITH MAX ASSIST. PATIENT IS NOT AMBULATORY. PATIENT NOT ON TELE MONITOR DUE TO REFUSAL. ALL OTHER NEEDS ATTENDED TO. SAFETY MEASURES IN PLACE. CALL LIGHT WITHIN REACH. WILL ENDORSE TO ONCOMING NURSE FOR JULIA.
--- NOTE | 2019-11-14 07:00 | NUR ---
RN NOTES RECEIVED PATIENT IN BED A/OX4 , VERBALLY RESPONSIVE, ABLE TO MAKE NEEDS KNOWN. CAREGIVER AT BEDSIDE. BREATHING EVEN AND UNLABORED, ON 4LNC, NO SOB NOTED. PT STATED WILL GO HOME TODAY, IV ON RIGHT FOREARM INTACT AND PATENT. PATIENT ABLE TO USE BEDSIDE COMMODE WITH ASSIST. PATIENT NOT ON TELE MONITOR DUE TO REFUSAL. SR UP x3, CALL LIGHT WITHIN EASY REACH, BED LOCKED AND IN LOWEST POSITION, WILL CONTINUE TO MONITOR.
[2019-11-14 07:17] LABS: BASOPHILS % (AUTO) 0.1 % (0.0-2.0); EOSINOPHILS % (AUTO) 0.1 % (0.0-6.0); HEMATOCRIT 38 % (33-45); HEMOGLOBIN 12.5 g/dL (11.5-14.8); LYMPHOCYTES # (AUTO) 0.8 /CMM (0.8-4.8); LYMPHOCYTES % (AUTO) 3.8 % (20.0-44.0); MEAN CORPUSCULAR HGB CONC 33 g/dl (31.0-36.0); MEAN CORPUSCULAR VOLUME 97 fL (82-100); MONOCYTES # (AUTO) 2.4 /CMM (0.1-1.30); MONOCYTES % (AUTO) 11.7 % (2.0-12.0); NEUTROPHILS % (AUTO) 84.3 % (43.0-81.0); PLATELET COUNT (AUTO) 422 /CMM (150-450); RED BLOOD CELL COUNT(AUTO) 3.97 MIL/uL (4.0-5.2); WHITE BLOOD COUNT (AUTO) 20.1 K/uL (4.3-11.0)
[2019-11-14] MEDS: ALBUTEROL HALF STRENGTH 1.25 MG/3 ML VIAL.NEB NEB SCH (07:35)
[2019-11-14] MEDS: ACETYLCYSTEINE 10% SOLN 400 MG/4 ML VIAL NEB SCH (07:35)
[2019-11-14 07:39] LABS: CALCIUM, SERUM 9.3 mg/dL (8.5-10.1); CARBON DIOXIDE 38 mmol/L (21-32); CHLORIDE 100 mmol/L (98-107); CREATININE 0.3 mg/dL (0.6-1.3); GLUCOSE 84 mg/dL (74-106); POTASSIUM 4.9 mmol/L (3.5-5.1); SODIUM SERUM 139 mmol/L (136-145); UREA NITROGEN, BLOOD 36 mg/dL (7-18)
[2019-11-14 08:00] VITALS: BP_SYST 139; BP_SYST 159; BP_DIAS 81; BP_DIAS 91
[2019-11-14] MEDS: ALPRAZOLAM 0.25 MG TABLET PO SCH (08:20)
[2019-11-14] MEDS: methylPREDNISolone SOD SUCC 40 MG/ML VIAL IV SCH ×2 (08:20→12:49)
[2019-11-14] MEDS: LEVOFLOXACIN 250 MG /D5W 50 ML 250 MG in PREMIX 1 EA IV SCH (08:20)
[2019-11-14] MEDS: ENSURE ENLIVE 237 ML LIQUID (VANILLA) PO SCH ×2 (08:23→12:48)
[2019-11-14] MEDS ORDERED: RIFAMPIN 300 MG CAPSULE PO SCH (09:00)
[2019-11-14] MEDS ORDERED: ETHAMBUTOL HCL (400 MG) 400 MG TABLET PO SCH (09:00)
[2019-11-14] MEDS: FLUCONAZOLE (100 MG) 100 MG TABLET PO SCH (10:15)
[2019-11-14 12:00] VITALS: BP 140/72
[2019-11-14] MEDS ORDERED: IV NS 0.9% 1,000 ML BAG IV PRN (12:00)
[2019-11-14] MEDS ORDERED: IV NS 0.9% 1,000 ML IV PRN (12:00)
--- NOTE | 2019-11-14 12:00 | NUR ---
RN NOTES PT STATED WANTS TO GO HOME , MD PARKSFED .
[2019-11-14] MEDS ORDERED: ALBU2.5V38 IH (13:26)
[2019-11-14] MEDS ORDERED: LEVO500T75 PO (13:26)
--- NOTE | 2019-11-14 14:00 | NUR ---
RN NOTE DISCHARGE INSTRUCTIONS GIVEN TO PT AND HIS , THEY VERBALIZED UNDERSTANDING , R AC IV SITE D/YOGI, PT LEFT THE FLOOR TO MAIN ENTRANCE ACCOMPANIED BY STAFF MEMBER AND HER IN STABLE CONDITION VIA W/C .
== END 2019-11-14 14:12 | disposition home health service (06) | DRG 189 ==
LOC: ER 21:58 → TELE1 11-12 00:14 → MEDSG1 11-12 10:05 → TELE-TD 11-12 11:25
PROVIDERS: ADMIT Hospitalist; ATTEND Hospitalist
DX: J96.21 Acute and chronic respiratory failure with hypoxia (principal); J84.9 Interstitial pulmonary disease, unspecified; E22.2 Syndrome of inappropriate secretion of antidiuretic hormone; A31.8 Other mycobacterial infections; J96.22 Acute and chronic respiratory failure with hypercapnia; Z87.891 Personal history of nicotine dependence; J47.9 Bronchiectasis, uncomplicated; G14 Postpolio syndrome; F41.9 Anxiety disorder, unspecified; E86.1 Hypovolemia; Z90.710 Acquired absence of both cervix and uterus; Z99.81 Dependence on supplemental oxygen; D72.829 Elevated white blood cell count, unspecified; I35.0 Nonrheumatic aortic (valve) stenosis; I37.1 Nonrheumatic pulmonary valve insufficiency
CPT/HCPCS: 36415; 36600; 71045-TC; 80048-TC; 80061-TC; 82803-TC; 83735-TC; 83880; 84100-TC; 84484-TC; 85025-TC; 87040-TC; 87081-TC; 93307-TC; 94799-TC; A4216; A6403; G0378; J1650; J1956; J2920; J2930; J3475; J7030; Q2036

== ENCOUNTER 2021-02-27 21:53 | Inpatient (IN) | payer MEDICARE, BC ==
[~2021-02-27] VITALS: Ht 172.7 cm; Wt 40.9 kg
[~2021-02-27 21:53] MED LIST changes: +ALBU2.5V38 IH; -CLAR500T PO; +ETHA400T31 PO; -ETHA400T8 PO; -GAS-X; +IBUP-23 PO; +LEVO500T23 PO; -MIRALAX; +ONDA4TAB5 PO; -SPIRIVA; +TIOT18CA3 IH; -ZOFRAN
[2021-02-27] MEDS ORDERED: VANCOMYCIN 1 GM VIAL ONE (22:18)
[2021-02-27] MEDS ORDERED: PIPERACILLIN /TAZOBACTAM 3.375 G VIAL IV ONE (22:18)
[2021-02-27] MEDS ORDERED: PIPERACILLIN /TAZOBACTAM 3.375 G in IV D5W 50 ML IV ONE (22:30)
[2021-02-27] MEDS ORDERED: VANCOMYCIN 1 GM in IV D5W 250 ML IV ONE (22:30)
[2021-02-27] MEDS ORDERED: IV NS 0.9% 1,000 ML BAG IV ONE (22:30)
[2021-02-27 22:31] LABS: BASOPHILS % (AUTO) 0.1 % (0.0-2.0); EOSINOPHILS % (AUTO) 0.4 % (0.0-6.0); HEMATOCRIT 38 % (33-45); HEMOGLOBIN 12.2 g/dL (11.5-14.8); LYMPHOCYTES # (AUTO) 0.4 /CMM (0.8-4.8); LYMPHOCYTES % (AUTO) 4.2 % (20.0-44.0); MEAN CORPUSCULAR HGB CONC 32 g/dl (31.0-36.0); MEAN CORPUSCULAR VOLUME 97 fL (82-100); MONOCYTES # (AUTO) 1.1 /CMM (0.1-1.30); MONOCYTES % (AUTO) 12.5 % (2.0-12.0); NEUTROPHILS # (AUTO) 7.5 /CMM (1.8-8.9); NEUTROPHILS % (AUTO) 82.8 % (43.0-81.0); PLATELET COUNT (AUTO) 346 /CMM (150-450); RED BLOOD CELL COUNT(AUTO) 3.93 MIL/uL (4.0-5.2); WHITE BLOOD COUNT (AUTO) 9.1 K/uL (4.3-11.0)
[2021-02-27 22:39] LABS: CALCIUM, SERUM 8.7 mg/dL (8.5-10.1); CHLORIDE 95 mmol/L (98-107); CREATININE 0.5 mg/dL (0.6-1.3); GLUCOSE 171 mg/dL (74-106); POTASSIUM 4.6 mmol/L (3.5-5.1); SODIUM SERUM 133 mmol/L (136-145); UREA NITROGEN, BLOOD 21 mg/dL (7-18)
[2021-02-27 22:42] LABS: ABG BASE EXCESS 2.4 mmol/L; ABG OXYGEN SATURATION 98.8 % (92.0-98.5); ABG PCO2 92.7 mmHg (35.0-45.0); ABG PO2 232.6 mmHg (75.0-100.0); COHb 0.3 % (0.5-1.5); MetHb 0.8 % (0.0-1.5); O2Hb 97.7 % (94.0-97.0); SITE, ABG Right Radial; VENT MODE, BG Nasal Cannula
[2021-02-27 22:42] LABS: BILIRUBIN,URINE NEGATIVE (NEGATIVE); LEUKOCYTE ESTERASE ,URINE MODERATE (NEGATIVE); NITRITE, URINE POSITIVE (NEGATIVE); PROTEIN,URINE 100 mg/dl (NEGATIVE); UGLUCOSE NEGATIVE (NEGATIVE); UROBILINOGEN,URINE 0.2 EU/dL (0.2)
--- NOTE | 2021-02-27 22:52 | NUR ---
SPOKE TO CHAD RE: PT'S CONDITION. EXPLAINED RE: POSS INTUBATION, AWARE. WILL DISCUSS WITH SON AND CALL BACK. DR FALLON MONTALVO
[2021-02-27 22:57] LABS: ALANINE AMINOTRANSFERASE 23 U/L (12-78); ALBUMIN 2.8 g/dL (3.4-5.0); ALKALINE PHOSPHATASE 91 U/L (46-116); ASPARTATE AMINOTRANSFERASE 27 U/L (15-37); BILIRUBIN,DIRECT 0.1 mg/dL (0.0-0.2); BILIRUBIN,TOTAL 0.2 mg/dL (0.2-1.0); TOTAL PROTEIN, SERUM 6.6 g/dL (6.4-8.2)
[2021-02-27 23:09] LABS: CARBON DIOXIDE 42 mmol/L (21-32)
[2021-02-27 23:18] LABS: COLOR,URINE YELLOW (YELLOW)
[2021-02-27 23:20] LABS: RBC,URINE 21-50 /HPF (0-2); WBC,URINE TOO NUMEROUS TO COUN /HPF (0-3)
[2021-02-27 23:21] LABS: BACTERIA,URINE Many /HPF (None Seen); SQUAMOUS EPITHELIAL CELL,UR Few /HPF (None Seen)
--- NOTE | 2021-02-27 23:28 | NUR ---
RT NOTE Pt rec'd on 6lnc. ABG taken and critical results given to md. Pt placed on Bipap on noted settings as charted per md orders. Alarms are set and audible. Bipap plugged into red outlet. Ambu bag bedside. Post bipap ABG to be taken within 1hr. will continue to monitor closely. Addendum: 02/27/21 at 2332 by DAVID DUCKWORTH RT Amended: Links added.
[2021-02-28] VITALS (22 sets, daily range): BP systolic 121–163; BP diastolic 54–98
--- NOTE | 2021-02-28 | NUR ---
CHAD () [phone] MI (SON) [phone] MARCH (CAREGIVER)
[2021-02-28 01:31] LABS: ABG BASE EXCESS 7.7 mmol/L; ABG PCO2 90.4 mmHg (35.0-45.0); ABG PH 7.241 (7.350-7.450); AaDO2 98.2 mmHg; MetHb 0.6 % (0.0-1.5); O2Hb 95.4 % (94.0-97.0); SITE, ABG Left Radial; VENT MODE, BG BIPAP 20/5 RR20 40%
--- NOTE | 2021-02-28 01:34 | NUR ---
RT NOTE ABG TAKEN POST BIPAP. BIPAP CHANGES MADE PER MD REQUEST. WILL CONTINUE TO MONITOR CLOSELY Addendum: 02/28/21 at 0135 by DAVID DUCKWORTH RT Amended: Links added.
--- NOTE | 2021-02-28 02:20 | NUR ---
REPORT GIVEN TO ALMA MARTINEZ FOR JULIA PT WILL BE TRANSPORTED TO ICU
[2021-02-28] MEDS ORDERED: ACETAMINOPHEN 650 MG/SUPP.RECT RC PRN (02:30)
[2021-02-28] MEDS ORDERED: ALBUTEROL FS 2.5 MG/3 ML VIAL.NEB IH PRN (02:30)
[2021-02-28] MEDS ORDERED: Z GUARD REMEDY 2 OZ OINT TP PRN (02:30)
[2021-02-28 03:08] LABS: ABG BASE EXCESS 13.6 mmol/L; ABG OXYGEN SATURATION 94.6 % (92.0-98.5); ABG PCO2 82.9 mmHg (35.0-45.0); ABG PH 7.331 (7.350-7.450); ABG PO2 69.7 mmHg (75.0-100.0); AaDO2 83.5 mmHg; COHb 0.3 % (0.5-1.5); MetHb 0.5 % (0.0-1.5); O2Hb 93.8 % (94.0-97.0); SITE, ABG Left Radial; VENT MODE, BG Bipap 24/5 RR20 35%
[2021-02-28] MEDS ORDERED: PIPERACILLIN /TAZOBACTAM 2.25 G VIAL IV ONE (03:48)
[2021-02-28] MEDS: IV NS 0.9% 250 ML IV PRN (04:00)
[2021-02-28] MEDS: ENOXAPARIN SODIUM 40 MG/0.4 ML DISP.SYRIN SQ SCH ×2 (04:01→21:26)
[2021-02-28 04:29] LABS: BASOPHILS % (AUTO) 0.4 % (0.0-2.0); EOSINOPHILS % (AUTO) 0.9 % (0.0-6.0); HEMATOCRIT 35 % (33-45); HEMOGLOBIN 11.2 g/dL (11.5-14.8); LYMPHOCYTES # (AUTO) 0.6 /CMM (0.8-4.8); MEAN CORPUSCULAR HGB CONC 32 g/dl (31.0-36.0); MEAN CORPUSCULAR VOLUME 96 fL (82-100); MONOCYTES # (AUTO) 1.4 /CMM (0.1-1.30); MONOCYTES % (AUTO) 15.7 % (2.0-12.0); NEUTROPHILS # (AUTO) 6.7 /CMM (1.8-8.9); PLATELET COUNT (AUTO) 303 /CMM (150-450); WHITE BLOOD COUNT (AUTO) 8.8 K/uL (4.3-11.0)
[2021-02-28] MEDS ORDERED: ZOSYN IVPB 2.25 G in IV D5W 50ml IV ONE (04:30)
[2021-02-28 05:04] LABS: ALANINE AMINOTRANSFERASE 20 U/L (12-78); ALBUMIN 2.6 g/dL (3.4-5.0); ALKALINE PHOSPHATASE 82 U/L (46-116); ASPARTATE AMINOTRANSFERASE 17 U/L (15-37); BILIRUBIN,TOTAL 0.2 mg/dL (0.2-1.0); CALCIUM, SERUM 8.6 mg/dL (8.5-10.1); CHLORIDE 96 mmol/L (98-107); CREATININE 0.4 mg/dL (0.6-1.3); GLUCOSE 109 mg/dL (74-106); MAGNESIUM 2.1 mg/dL (1.8-2.4); PHOSPHORUS 2.7 mg/dL (2.5-4.9); POTASSIUM 4.4 mmol/L (3.5-5.1); SODIUM SERUM 136 mmol/L (136-145); TOTAL PROTEIN, SERUM 6.2 g/dL (6.4-8.2); UREA NITROGEN, BLOOD 19 mg/dL (7-18)
[2021-02-28 05:43] LABS: CARBON DIOXIDE 42 mmol/L (21-32)
[2021-02-28 06:26] LABS: ABG BASE EXCESS 12.7 mmol/L; ABG OXYGEN SATURATION 96.7 % (92.0-98.5); ABG PCO2 69.3 mmHg (35.0-45.0); ABG PH 7.384 (7.350-7.450); ABG PO2 78.1 mmHg (75.0-100.0); AaDO2 90.9 mmHg; COHb 0.6 % (0.5-1.5); MetHb 0.3 % (0.0-1.5); O2Hb 95.8 % (94.0-97.0); SITE, ABG Right Radial; VENT MODE, BG Bipap 24/5 35% RR 20
[2021-02-28 06:34] LABS: BAND % (MANUAL) 2 % (0.0-5.0); LYMPHOCYTES % (MANUAL) 10 % (16-48); MONOCYTES % (MANUAL) 13 % (0-11.0); NEUTROPHILS % (MANUAL) 75 (42-76)
--- NOTE | 2021-02-28 07:20 | NUR ---
ICU/RN PT IS ON BI-PAP, FIO2-35%.SAT O2-98%.V/S STABLE,AFEBRILE.NO PAIN REPORTED AT THIS TIME.PT IS AWAKE,ALERT.FOLLOWS COMMAND .PERIFERAL IV.TKO. F/C DRAINING WITH MINIMAL AMOUNT OF CLOUDY URINE OUTPUT .GENERELIZED EDEMA PRESENT.PT HAS MULTIPLY WOUNDS ON BLE AND LOWER BACK COVERED WITH DRESSING.LABS REVIEW.
--- NOTE | 2021-02-28 08:30 | NUR ---
WOUND CARE CONSULT: PT PRESENTS WITH LOWER LEG WOUNDS, DUSKY COLOR TO FEET WITH EDEMA, DEEP TISSUE INJURIES IN EVOLUTION TO SACRUM, RT BUTTOCK AND LEFT BUTTOCK INTACT DEEP TISSUE INJURY, ALL PRESENT ON ADMISSION. RECOMMEND DPM AND SURGICAL CONSULTS. DR BHATIA AND RADHA CASSIDY NOTIFIED OF CONSULT REQUESTS. RECOMMENDATIONS MADE FOR SKIN PROTECTION AND FOR WOUND CARE OF DEEP TISSUE INJURIES. DISCUSSED WITH NURSING STAFF. PT IS ON CARLOS ISOFLEX LOW AIRSS BED. IN AGREEMENT WITH PLAN OF CARE. Addendum: 02/28/21 at 0833 by ISABELL LAUREN WNDNU Amended: Links added.
--- NOTE | 2021-02-28 09:00 | NUR ---
ICU/RN PT WAS LESS THEN 2HRS OFF BI-PAP.HAS SOB,SAT O2-85%.DR OLEARY NOTIFIED.PT PLACED BACK ON BI-PAP.TALK TO THE FAMILY SON [facility] [phone]. PT IS FULL CODE.CONTINUE MONITORING.REPOSITION FOR COMFORT.
[2021-02-28] MEDS ORDERED: ENOXAPARIN SODIUM 40 MG/0.4 ML DISP.SYRIN SQ SCH (10:00)
[2021-02-28] MEDS: IPRATROPIUM NEB FS 0.5 MG/2.5 ML AMPUL.NEB NEB SCH ×3 (10:29→19:42)
[2021-02-28] MEDS: ALBUTEROL FS 2.5 MG/3 ML VIAL.NEB IH SCH ×3 (10:30→19:42)
[2021-02-28] MEDS ORDERED: ENOXAPARIN SODIUM 30 MG/0.3 ML DISP.SYRIN SQ SCH (10:30)
[2021-02-28] MEDS: PIPERACILLIN /TAZOBACTAM 2.25 G in IV D5W 50 ML IV SCH ×2 (12:24→17:42)
[2021-02-28] MEDS ORDERED: IBUPROFEN 400 MG TABLET PO PRN (14:00)
[2021-02-28] MEDS ORDERED: ETHAMBUTOL HCL (400 MG) 400 MG TABLET PO SCH (14:00)
[2021-02-28] MEDS ORDERED: RIFAMPIN 300 MG CAPSULE PO SCH (14:00)
--- NOTE | 2021-02-28 16:03 | NUR ---
Boring Mill Operator For Metal: This SW made an APS report for multiple bed sores/deep tissue injuries. Report number is #[id number].
--- NOTE | 2021-02-28 16:03 | NUR ---
Dado Operator Consult: director of maternity services consult requested to assess patients living arrangements and safe plan of care. Patient is a 85-year-old, white female. SW met with the patient in her hospital room on the [facility] surgical unit. Patient was alert and oriented x4. Patient appears to be lethargic. Patient was admitted 02/28/2021 due to sepsis. Patient is currently living at home with her and has multiple caregivers. Patient is disabled and bed bound. Patient is currently on a BI-PAP machine and attempted to mouth words but was not understandable. Patient was able to nod yes and no to answer questions as well. SW asked patient if this SW could speak to the patients son Garry [phone]. Patient nodded yes. SW will discuss plan of care with the patients son. PLAN: SW will contact patients son, Garry to discuss the patients plan of care at a later time. This SW will make an APS report due to multiple bed sores/deep tissue injuries. SW will follow up with nursing, as needed.
--- NOTE | 2021-02-28 17:00 | NUR ---
ICU/RN PM CARE PROVIDED.WOUND DRESSING DONE ORDERED.DUE MEDS ARE GIVEN ORDERED.PT IS STILL ON BI-PAP FIO2-305.SAT O2-94-97%.V/S STABLE ,AFEBRILE.NO PAIN REPORTED AT THIS TIME.
[2021-02-28] MEDS: VANCOMYCIN 500 MG in IV D5W 100 ML IV SCH (17:42)
[2021-02-28] MEDS: PANTOPRAZOLE 40 MG VIAL IV SCH (17:43)
[2021-02-28] MEDS: ALPRAZOLAM 0.25 MG TABLET PO SCH (17:43)
[2021-02-28] MEDS: CIPROFLOXACIN HCL 0.3% 5 ML BOTTLE EACHEYE SCH (17:43)
--- NOTE | 2021-02-28 19:30 | NUR ---
LOBBY ATTENDANT RCD PT W/DX RESP FAIL. NSR ON MONITOR. ON BIPAP 24/5 20 30%. LEONARDO CATH DRAINING YELLOW COLORED URINE W/SEDIMENT. PT NPO AT THIS TIME. MULTIPLE WOUNDS W/DRESSING C/D/I. PT FOR MIDLINE PLACEMENT.
--- NOTE | 2021-02-28 21:00 | NUR ---
DELIVERY RECRUITER MIDLINE PLACED ON DENNIS. PT TOLERATED WELL.
--- NOTE | 2021-02-28 23:57 | NUR ---
WILD LIFE MANAGER PT CONSTANTLY REMOVING BIPAP; EDUCATED PT ON THE NEED TO MAINTAIN BIPAP ON; REQUIRES REINFORCEMENT.
[2021-03-01] VITALS (25 sets, daily range): BP systolic 108–156; BP diastolic 47–114
[2021-03-01] MEDS: PIPERACILLIN /TAZOBACTAM 2.25 G in IV D5W 50 ML IV SCH ×5 (00:50→23:15)
[2021-03-01] MEDS: IPRATROPIUM NEB FS 0.5 MG/2.5 ML AMPUL.NEB NEB SCH ×4 (02:40→19:36)
[2021-03-01] MEDS: ALBUTEROL FS 2.5 MG/3 ML VIAL.NEB IH SCH ×4 (02:40→19:36)
[2021-03-01 04:25] LABS: BASOPHILS # (AUTO) 0.1 /CMM (0.0-0.2); BASOPHILS % (AUTO) 0.8 % (0.0-2.0); EOSINOPHILS % (AUTO) 1.4 % (0.0-6.0); HEMATOCRIT 35 % (33-45); HEMOGLOBIN 11.5 g/dL (11.5-14.8); LYMPHOCYTES # (AUTO) 0.7 /CMM (0.8-4.8); LYMPHOCYTES % (AUTO) 9.1 % (20.0-44.0); MEAN CORPUSCULAR HGB CONC 33 g/dl (31.0-36.0); MEAN CORPUSCULAR VOLUME 95 fL (82-100); MONOCYTES # (AUTO) 1.2 /CMM (0.1-1.30); MONOCYTES % (AUTO) 14.9 % (2.0-12.0); NEUTROPHILS # (AUTO) 6.1 /CMM (1.8-8.9); NEUTROPHILS % (AUTO) 73.8 % (43.0-81.0); PLATELET COUNT (AUTO) 343 /CMM (150-450); WHITE BLOOD COUNT (AUTO) 8.2 K/uL (4.3-11.0)
[2021-03-01 04:36] LABS: CALCIUM, SERUM 8.5 mg/dL (8.5-10.1); CARBON DIOXIDE 38 mmol/L (21-32); CHLORIDE 95 mmol/L (98-107); CREATININE 0.4 mg/dL (0.6-1.3); GLUCOSE 78 mg/dL (74-106); PHOSPHORUS 2.4 mg/dL (2.5-4.9); POTASSIUM 3.6 mmol/L (3.5-5.1); SODIUM SERUM 136 mmol/L (136-145); UREA NITROGEN, BLOOD 14 mg/dL (7-18)
--- NOTE | 2021-03-01 05:15 | NUR ---
RT NOTE Pt rec'd on Bipap on noted settings as charted. pt shows no signs of resp distress or sob. pt on under the nose bipap mask. no skin tear or redness noted. Alarms are set and audible. Bipap plugged into red outlet. Ambu bag bedside. will continue to monitor closely. Addendum: 03/01/21 at 0516 by DAVID DUCKWROTH RT Amended: Links added.
--- NOTE | 2021-03-01 06:52 | NUR ---
EXPERIENCED TRUCK DRIVER PT NOTED TO BE IN AFIB 150s. EKG ORDERED. CALL PLACED TO .
--- NOTE | 2021-03-01 07:25 | NUR ---
ICU/RN PTIS ON BI-PAP,FIO2-30%,SAT O2-98%.PT A-FIB WITH RVR HR-13O-160 BPM.MD NOTIFIED. EKG DONE.BP STABLE,PT IS AWAKE.ALERT. RIGHT UPPER ARM ML.F/C DRAINING WITH CLOUDY URINE.BLE WOUNDS COVERED WITH DRESSING SACRAL AREA WOUND AND RIGHT BUTTOCK COVERED WITH DRY CLEAN DRESSING.LABS REVIEW.GENERELIZED EDEMA PRESENT.
[2021-03-01] MEDS: ALPRAZOLAM 0.25 MG TABLET PO SCH ×2 (08:29→16:45)
[2021-03-01] MEDS: CIPROFLOXACIN HCL 0.3% 5 ML BOTTLE EACHEYE SCH ×3 (08:31→16:46)
--- NOTE | 2021-03-01 09:00 | NUR ---
ICU/RN PT IS OFF BI-PAP,ON 3L N/C .SAT O2-98%.DUE MEDS ARE GIVEN ORDERED.HR IS 80-90 SR WITH PVC .CONTINUE MONITORING.
[2021-03-01] MEDS: FUROSEMIDE 40 MG/4 ML VIAL IV SCH (09:23)
--- NOTE | 2021-03-01 10:00 | NUR ---
ICU/RN ABG DONE.PT PLACED ON 1 L N/C,SAT O2-92-93%.PT HAS COPD.LASIX 40 MG IV GIVEN ORDERED BY DR HUSSEIN.CONTINUE MONITORING.
--- NOTE | 2021-03-01 11:20 | NUR ---
ICU/RN PT IS BACK TO A-FIB.DR SORIANO NOTIFIED.NEW ORDERS RECIEVED.
[2021-03-01] MEDS: VANCOMYCIN 500 MG in IV D5W 100 ML IV SCH (11:34)
[2021-03-01] MEDS: DIGOXIN INJ 0.5 MG/2 ML AMPUL IV SCH ×3 (11:37→23:15)
[2021-03-01] MEDS ORDERED: Sodium Phosphate 15 MMOL in IV NS 0.9% 245 ML IV SCH (12:00)
[2021-03-01] MEDS: PANTOPRAZOLE 40 MG VIAL IV SCH (13:56)
--- NOTE | 2021-03-01 15:35 | NUR ---
ICU/RN PM CARE PROVIDED.WOUND DRESSING DONE ORDERED.REPOSITION FOR COMFORT.CONTINUE MONITORING.
[2021-03-01 16:19] LABS: ABG BASE EXCESS 12.9 mmol/L; ABG OXYGEN SATURATION 97.5 % (92.0-98.5); ABG PCO2 53.8 mmHg (35.0-45.0); ABG PH 7.474 (7.350-7.450); ABG PO2 91.7 mmHg (75.0-100.0); AaDO2 73.5 mmHg; COHb 0.2 % (0.5-1.5); MetHb 0.3 % (0.0-1.5); SITE, ABG Right Radial
[2021-03-01] MEDS: IV NS 0.9% 250 ML IV PRN (18:24)
--- NOTE | 2021-03-01 19:15 | NUR ---
RECEIVED PT ON BED AWAKE A/OX 2 WITH EPISODE OF CONFUSION, CURRENTLY ON O2 1L VIA NC SPO2 97% NO SIGN AND SYMPTOMS OF DISTRESS, BEDSIDE MONITOR READS AFIB CONTROLLED 110'S MD IS AWARE, HAVE DENNIS MIDLINE PATENT AND FLUSHED, BED ON LOWEST POSITION AND LOCKED SIDE RAILS UP X2 CALL LIGHT WITHIN REACH WILL CONT TO MONITOR THE PT
[2021-03-01] MEDS: ENOXAPARIN SODIUM 40 MG/0.4 ML DISP.SYRIN SQ SCH (20:44)
--- NOTE | 2021-03-01 23:53 | NUR ---
RT PUT ON THE BIPAP TO THE PATIENT SETTING PER MD PT TOLERATING WELL WITH CURRENT SPO2 96% NO COMPLAINT FROM THE PT WILL CONT TO MONITOR THE PT
[2021-03-02] VITALS (19 sets, daily range): BP systolic 108–157; BP diastolic 43–78
--- NOTE | 2021-03-02 | NUR ---
PT PLACED ON NOC BIPAP Addendum: 03/02/21 at 0000 by MALACHI WHITMORE RT Amended: Links added.
[2021-03-02] MEDS: IPRATROPIUM NEB FS 0.5 MG/2.5 ML AMPUL.NEB NEB SCH ×4 (01:38→20:21)
[2021-03-02] MEDS: ALBUTEROL FS 2.5 MG/3 ML VIAL.NEB IH SCH ×4 (01:38→20:21)
[2021-03-02 04:46] LABS: BASOPHILS # (AUTO) 0.1 /CMM (0.0-0.2); BASOPHILS % (AUTO) 0.5 % (0.0-2.0); EOSINOPHILS % (AUTO) 1.6 % (0.0-6.0); HEMATOCRIT 34 % (33-45); HEMOGLOBIN 11.3 g/dL (11.5-14.8); LYMPHOCYTES # (AUTO) 0.8 /CMM (0.8-4.8); LYMPHOCYTES % (AUTO) 8.4 % (20.0-44.0); MEAN CORPUSCULAR HGB CONC 33 g/dl (31.0-36.0); MEAN CORPUSCULAR VOLUME 93 fL (82-100); MONOCYTES # (AUTO) 1.3 /CMM (0.1-1.30); MONOCYTES % (AUTO) 13.2 % (2.0-12.0); NEUTROPHILS # (AUTO) 7.4 /CMM (1.8-8.9); NEUTROPHILS % (AUTO) 76.3 % (43.0-81.0); PLATELET COUNT (AUTO) 348 /CMM (150-450); RED BLOOD CELL COUNT(AUTO) 3.63 MIL/uL (4.0-5.2); WHITE BLOOD COUNT (AUTO) 9.7 K/uL (4.3-11.0)
[2021-03-02 05:15] LABS: CARBON DIOXIDE 38 mmol/L (21-32); CHLORIDE 94 mmol/L (98-107); CREATININE 0.4 mg/dL (0.6-1.3); GLUCOSE 78 mg/dL (74-106); MAGNESIUM 1.9 mg/dL (1.8-2.4); PHOSPHORUS 4.4 mg/dL (2.5-4.9); POTASSIUM 3.2 mmol/L (3.5-5.1); SODIUM SERUM 136 mmol/L (136-145); UREA NITROGEN, BLOOD 12 mg/dL (7-18)
[2021-03-02] MEDS: PIPERACILLIN /TAZOBACTAM 2.25 G in IV D5W 50 ML IV SCH ×2 (05:34→12:11)
--- NOTE | 2021-03-02 05:36 | NUR ---
PT TAKEN OFF BIPAP AND PLACED ON 2L NC. RN NOTIFIED.
[2021-03-02] MEDS: VANCOMYCIN 500 MG in IV D5W 100 ML IV SCH (06:12)
--- NOTE | 2021-03-02 06:53 | NUR ---
PT ON BED SLEEPING EASY TO WAKE UP STILL ON 02 1L VIA NC SPO2 98% NO SIGN OF ANY DISTRESS, PATIENT BACK TO SINUS RHYTHM 80S SINCE OTHER THAN THAT NO SIGNIFICANT CHANGES ON CONDITION NOTED, ALL NEEDS ATTENDED BED ON LOWEST POSITION AND LOCKED, SIDE RAILS UP X2 CALL LIGHT WITHIN REACH WILL ENDORSE TO AM SHIFT NURSE
--- NOTE | 2021-03-02 07:30 | NUR ---
INSIDE SALES SPECIALIST OPENING NOTE PT AWAKE A/Ox3 WITH PERIODS OF CONFUSION, SR ON BEDSIDE TELEMONITOR, BREATHING ON NC 5LPM WITH NO SIGNS OF RESP DISTRESS OR SOB, BREATHING EVEN AND UNLABORED, SPO2 97%. PT DENIES PAIN. PT HAS DENNIS MIDLINE TKO AND LAC #20 SL, BOTH FLUSHED, PATENT WITH NO S/S OF INFECTION OR INFILTRATION. PT HAS BLE SKIN TEARS CURRENTLY COVERED IN MEPILEX AND KERLIX; SACRAL AND RT BUTTOCK DTI COVERED IN MEPILEX. PT HAS LEONARDO CATH PATENT AND DRAINING CLEAR YELLOW URINE TO GRAVITY. ALL PT SAFETY PRECAUTIONS IN PLACE, WILL CONT TO MONITOR FOR JULIA
[2021-03-02] MEDS: ALPRAZOLAM 0.25 MG TABLET PO SCH ×2 (08:43→19:20)
[2021-03-02] MEDS: ETHAMBUTOL HCL (400 MG) 400 MG TABLET PO SCH (08:44)
[2021-03-02] MEDS: FUROSEMIDE 40 MG/4 ML VIAL IV SCH (08:44)
[2021-03-02] MEDS: RIFAMPIN 300 MG CAPSULE PO SCH (08:44)
[2021-03-02] MEDS: CIPROFLOXACIN HCL 0.3% 5 ML BOTTLE EACHEYE SCH ×3 (08:46→16:13)
[2021-03-02] MEDS ORDERED: FLUCONAZOLE (100 MG) 100 MG TABLET PO SCH (09:00)
--- NOTE | 2021-03-02 10:15 | NUR ---
RN NOTE SPOKE WITH PT'S SON MI REGARDING PT CONDITION, ALL QUESTIONS ANSWERED TO HIS SATISFACTION
[2021-03-02] MEDS: POTASSIUM CHLORIDE 20 MEQ POWDER PACKET PO SCH ×2 (10:46→11:29)
[2021-03-02] MEDS: ONDANSETRON HCL/PF 4 MG/2 ML VIAL IVP PRN (11:29)
--- NOTE | 2021-03-02 12:00 | NUR ---
Casino Dealer Follow Up: OWEN discussed plan of care with the patient's son, Garry [phone]. Garry expressed concern regarding the patient's bed sores/deep tissue wounds. Garry stated that the patient has been receiving care for her wounds but they are reoccurring as the patient is bed bound and has polio. Prior to admission, patient was living with her at home and cared for by multiple caregivers. [facility] stated that the patient requires medical care and would prefer to have an RN come to their home in order to provide her with consistent medical care. [facility] requested for the patient to have home health care or care in a facility if needed. OWEN stated that these options will be discussed with case management and also provided [facility] with contact information for case management [phone]. OWEN will follow up as needed.
[2021-03-02] MEDS: ENSURE ENLIVE 237 ML LIQUID (VANILLA) PO SCH ×2 (13:30→17:00)
[2021-03-02] MEDS ORDERED: POTASSIUM CHLORIDE 20 MEQ TAB.PRT.SR PO ONE (14:00)
[2021-03-02] MEDS: METOCLOPRAMIDE HCL 10 MG/2 ML VIAL IV PRN (14:07)
[2021-03-02] MEDS: CEFTRIAXONE 1 G in IV D5W 50 ML IV SCH (16:13)
--- NOTE | 2021-03-02 18:00 | NUR ---
ELECTRONICS ENGINEER NOTE PT TRANSFERRED TO [facility] IN STABLE CONDITION, NO SIGNS OF RESP DISTRESS OR SOB. I WILL CONTINUE TO CARE FOR PT IN [facility] FOR REMAINDER OF SHIFT Addendum: 03/02/21 at 1950 by SUSI HORTON RN PT VITALS: TEMP 98.0, HR 63, RR 18, SPO2 97%, BP 144/60
--- NOTE | 2021-03-02 19:00 | NUR ---
RN [facility] CLOSING NOTE NO CHANGES TO PT STATUS DURING SHIFT. NO SIGNS OF RESP DISTRESS OR SOB. ALL PT SAFETY PRECAUTIONS IN PLACE. WILL ENDORSE JULIA TO ONCOMING RN
[2021-03-02] MEDS: ENOXAPARIN SODIUM 40 MG/0.4 ML DISP.SYRIN SQ SCH (21:37)
[2021-03-02] MEDS ORDERED: VANCOMYCIN 0.75 GM in IV D5W 250 ML IV SCH (23:00)
[2021-03-03] VITALS: BP 119/65
[2021-03-03] MEDS: ALBUTEROL FS 2.5 MG/3 ML VIAL.NEB IH SCH ×4 (01:42→20:05)
[2021-03-03] MEDS: IPRATROPIUM NEB FS 0.5 MG/2.5 ML AMPUL.NEB NEB SCH ×4 (01:42→20:05)
[2021-03-03 04:00] VITALS: BP 138/78
--- NOTE | 2021-03-03 05:44 | NUR ---
TELE-TD/EXECUTIVE ADVISOR PT TAKEN OFF OF BIPAP. PLACED ON 1L NASAL CANULA.
[2021-03-03 06:49] LABS: BASOPHILS # (AUTO) 0.1 /CMM (0.0-0.2); BASOPHILS % (AUTO) 0.7 % (0.0-2.0); EOSINOPHILS % (AUTO) 2.5 % (0.0-6.0); HEMATOCRIT 35 % (33-45); HEMOGLOBIN 11.6 g/dL (11.5-14.8); LYMPHOCYTES # (AUTO) 0.8 /CMM (0.8-4.8); LYMPHOCYTES % (AUTO) 8.4 % (20.0-44.0); MEAN CORPUSCULAR HGB CONC 33 g/dl (31.0-36.0); MEAN CORPUSCULAR VOLUME 94 fL (82-100); MONOCYTES # (AUTO) 1.2 /CMM (0.1-1.30); MONOCYTES % (AUTO) 13.2 % (2.0-12.0); NEUTROPHILS # (AUTO) 6.8 /CMM (1.8-8.9); NEUTROPHILS % (AUTO) 75.2 % (43.0-81.0); PLATELET COUNT (AUTO) 334 /CMM (150-450); RED BLOOD CELL COUNT(AUTO) 3.75 MIL/uL (4.0-5.2); WHITE BLOOD COUNT (AUTO) 9.1 K/uL (4.3-11.0)
[2021-03-03 07:16] LABS: CALCIUM, SERUM 8.4 mg/dL (8.5-10.1); CHLORIDE 92 mmol/L (98-107); CREATININE 0.3 mg/dL (0.6-1.3); GLUCOSE 78 mg/dL (74-106); MAGNESIUM 2.1 mg/dL (1.8-2.4); PHOSPHORUS 3.4 mg/dL (2.5-4.9); POTASSIUM 4.1 mmol/L (3.5-5.1); SODIUM SERUM 131 mmol/L (136-145); UREA NITROGEN, BLOOD 8 mg/dL (7-18)
[2021-03-03 07:29] LABS: CARBON DIOXIDE 41 mmol/L (21-32)
--- NOTE | 2021-03-03 07:30 | NUR ---
RN [facility] OPENING NOTE PT AWAKE A/Ox3 WITH PERIODS OF CONFUSION, SR ON TELE-BOX, BREATHING ON NC 1 LPM WITH NO SIGNS OF RESP DISTRESS OR SOB, BREATHING EVEN AND UNLABORED, SPO2 100%. PT DENIES PAIN. PT HAS DENNIS MIDLINE SL FLUSHED, PATENT WITH NO S/S OF INFECTION OR INFILTRATION. PT HAS BLE SKIN TEARS CURRENTLY COVERED IN MEPILEX AND KERLIX; SACRAL AND RT BUTTOCK DTI COVERED IN MEPILEX. PT HAS LEONARDO CATH PATENT AND DRAINING CLEAR YELLOW URINE TO GRAVITY. ALL PT SAFETY PRECAUTIONS IN PLACE, WILL CONT TO MONITOR FOR JULIA
[2021-03-03 08:00] VITALS: BP 150/69
--- NOTE | 2021-03-03 08:00 | NUR ---
RN NOTE NOTIFIED DR ORTEGA OF COS VALUE 41
[2021-03-03] MEDS: FUROSEMIDE 40 MG/4 ML VIAL IV SCH ×2 (09:00→09:04)
[2021-03-03] MEDS: ALPRAZOLAM 0.25 MG TABLET PO SCH ×2 (09:04→17:40)
[2021-03-03] MEDS: PANTOPRAZOLE 40 MG TABLET.DR PO SCH (09:04)
[2021-03-03] MEDS: CIPROFLOXACIN HCL 0.3% 5 ML BOTTLE EACHEYE SCH ×3 (09:04→16:11)
[2021-03-03] MEDS: ENSURE ENLIVE 237 ML LIQUID (VANILLA) PO SCH ×3 (09:04→17:41)
[2021-03-03 12:00] VITALS: BP 103/54
[2021-03-03] MEDS ORDERED: LIDOCAINE 1% INJ 50 ML MDV IJ ONE (13:00)
[2021-03-03] MEDS ORDERED: SILVER NITRATE APPLICATOR 1 EA BOX TP ONE (13:30)
[2021-03-03] MEDS ORDERED: MORPHINE SULFATE INJ 2 MG/ML DISP.SYRIN IV ONE (13:30)
[2021-03-03] MEDS: ONDANSETRON HCL/PF 4 MG/2 ML VIAL IVP PRN (13:41)
--- NOTE | 2021-03-03 15:00 | NUR ---
RN NOTE PT SACRAL PRESSURE ULCER EXCISIONAL DEBRIDEMENT COMPLETED. 9ML OF 1% LIDOCAINE GIVEN, MORPHINE 1MG GIVEN. PT TOLERATED WELL. WILL CONT TO MONITOR
[2021-03-03 16:00] VITALS: BP 115/60
[2021-03-03] MEDS: CEFTRIAXONE 1 G in IV D5W 50 ML IV SCH (17:40)
--- NOTE | 2021-03-03 19:00 | NUR ---
RN CLOSING NOTE NO CHANGES TO PT DURING SHIFT, NO SIGNS OF RESP DEPRESSION OR SOB. PT IN STABLE CONDITION. ALL PT SAFETY PRECAUTIONS IN PLACE. WILL ENDORSE JULIA TO ONCOMING RN
--- NOTE | 2021-03-03 19:20 | NUR ---
RECEIVED PT ON BED AWAKE A/OX 2 WITH EPISODE OF CONFUSION, CURRENTLY ON O2 1L VIA NC SPO2 97% NO SIGN AND SYMPTOMS OF DISTRESS,TELE MONIOR READS SINUS RHYTHM 80'S, HAVE DENNIS MIDLINE PATENT AND FLUSHED, BED ON LOWEST POSITION AND LOCKED SIDE RAILS UP X2 CALL LIGHT WITHIN REACH WILL CONT TO MONITOR THE PT
[2021-03-03 20:00] VITALS: BP 106/51
[2021-03-03] MEDS: ENOXAPARIN SODIUM 40 MG/0.4 ML DISP.SYRIN SQ SCH (20:16)
--- NOTE | 2021-03-03 23:36 | NUR ---
RT NOTE PT REFUSED NOC BIPAP. INFORMED HER OF BENEFITS TO NOC BIPAP. STILL REFUSED. CURRENTLY ON 2LPM NC. NO SOB OR S/S OF DISTRESS NOTED. RN RAJIV MONTALVO. WILL CONTINUE TO MONITOR T/O SHIFT
[2021-03-04] VITALS: BP 114/50
[2021-03-04] MEDS: ALBUTEROL FS 2.5 MG/3 ML VIAL.NEB IH SCH ×4 (00:50→20:24)
[2021-03-04] MEDS: IPRATROPIUM NEB FS 0.5 MG/2.5 ML AMPUL.NEB NEB SCH ×4 (00:50→20:24)
[2021-03-04 04:00] VITALS: BP 133/64
--- NOTE | 2021-03-04 06:51 | NUR ---
PT ON BED SLEEPING EASY TO WAKE UP A/O X2 WITH EPISODES OF CONFUSION STILL ON 02 1L VIA NC SPO2 94% NO SIGN OF ANY DISTRESS, PATIENT TELE READINGS OF SINUS RHYTHM 80S NO SIGNIFICANT CHANGES ON CONDITION NOTED, ALL NEEDS ATTENDED BED ON LOWEST POSITION AND LOCKED, SIDE RAILS UP X2 CALL LIGHT WITHIN REACH WILL ENDORSE TO AM SHIFT NURSE
--- NOTE | 2021-03-04 07:15 | NUR ---
rn notes received patient aox1-2 with confusion , re oriented to date time and place , on 1lpm nc spo2 of 95% , sr 75 on bedside monitor , fc drianing via gravity , sacral wound dressing c/d/i , moriah midline patent and intact sl , lac # 20 patent and intact sl , all needs attended , bed on low and locked position , side rails x2 ,call light within reach hob @ 45 , will continue to monitor .
[2021-03-04 08:00] VITALS: BP 140/57
[2021-03-04] MEDS: ENSURE ENLIVE 237 ML LIQUID (VANILLA) PO SCH ×3 (08:22→16:08)
[2021-03-04] MEDS: ALPRAZOLAM 0.25 MG TABLET PO SCH ×2 (08:34→16:08)
[2021-03-04] MEDS: PANTOPRAZOLE 40 MG TABLET.DR PO SCH (08:34)
[2021-03-04] MEDS: RIFAMPIN 300 MG CAPSULE PO SCH (08:34)
[2021-03-04] MEDS: ETHAMBUTOL HCL (400 MG) 400 MG TABLET PO SCH (08:34)
[2021-03-04] MEDS: CIPROFLOXACIN HCL 0.3% 5 ML BOTTLE EACHEYE SCH ×3 (08:35→16:08)
[2021-03-04 09:02] LABS: ABG BASE EXCESS 5.3 mmol/L; ABG OXYGEN SATURATION 87.7 % (92.0-98.5); ABG PCO2 51.2 mmHg (35.0-45.0); ABG PH 7.403 (7.350-7.450); ABG PO2 52.2 mmHg (75.0-100.0); COHb 0.6 % (0.5-1.5); MetHb 0.4 % (0.0-1.5); O2Hb 86.8 % (94.0-97.0); SITE, ABG Right Radial; VENT MODE, BG 2L NC
[2021-03-04 11:32] LABS: BASOPHILS % (AUTO) 0.4 % (0.0-2.0); EOSINOPHILS % (AUTO) 1.1 % (0.0-6.0); HEMATOCRIT 38 % (33-45); HEMOGLOBIN 12.3 g/dL (11.5-14.8); LYMPHOCYTES # (AUTO) 0.4 /CMM (0.8-4.8); LYMPHOCYTES % (AUTO) 3.4 % (20.0-44.0); MEAN CORPUSCULAR HGB CONC 33 g/dl (31.0-36.0); MEAN CORPUSCULAR VOLUME 94 fL (82-100); MONOCYTES # (AUTO) 0.9 /CMM (0.1-1.30); MONOCYTES % (AUTO) 8.2 % (2.0-12.0); NEUTROPHILS % (AUTO) 86.9 % (43.0-81.0); PLATELET COUNT (AUTO) 358 /CMM (150-450); RED BLOOD CELL COUNT(AUTO) 4.01 MIL/uL (4.0-5.2); WHITE BLOOD COUNT (AUTO) 10.4 K/uL (4.3-11.0)
[2021-03-04 12:00] VITALS: BP 129/53
[2021-03-04 12:11] LABS: CALCIUM, SERUM 8.9 mg/dL (8.5-10.1); CARBON DIOXIDE 35 mmol/L (21-32); CHLORIDE 97 mmol/L (98-107); CREATININE 0.3 mg/dL (0.6-1.3); GLUCOSE 181 mg/dL (74-106); MAGNESIUM 2.3 mg/dL (1.8-2.4); PHOSPHORUS 2.6 mg/dL (2.5-4.9); POTASSIUM 4.4 mmol/L (3.5-5.1); SODIUM SERUM 136 mmol/L (136-145); UREA NITROGEN, BLOOD 15 mg/dL (7-18)
--- NOTE | 2021-03-04 12:41 | NUR ---
Depositing Machine Operator Note: protective services social worker followed up with Bench Manager Abida and patient's son Garry [phone] to discuss discharge plan. LILY Tai stated that the patient's family will be visiting [facility] ([address] [place] [address]; ) today and are looking into SNF placement options at this time. SW spoke to patient's son Garry to discuss this plan and ask if any assistance or resources were needed. Garry stated that the family is on their way to see the facility and will contact LILY Tai to discuss discharge plan. No SS interventions needed at this time however, SW will remain available as needed.
[2021-03-04] MEDS: CEFTRIAXONE 1 G in IV D5W 50 ML IV SCH (15:02)
[2021-03-04 16:00] VITALS: BP 134/61
--- NOTE | 2021-03-04 19:30 | NUR ---
RN OPENING NOTES: RECEIVED PT A/OX1-2 IN BED RESTING COMFORTABLY. PATIENT IN NO S/SX OF ACUTE DISTRESS AT THIS TIME. NO SOB NOTED. PATIENT'S BREATHING IS EVEN AND UNLABORED. PATIENT IS ON 2.5L OF OXYGEN VIA NC; TOLERATING WELL. PATIENT ON TELE MONITORING READING SINUS RHYTHM HR IS @80S AT THE TIME OF RECEIVED. PATIENT ON REGULAR DIET; TOLERATES WELL. NOTED IV SITE ON R UA MIDLINE #18 AND L AC #20; PATENT, INTACT AND FLUSHING WELL; NO S/S OF INFECTION OR INFILTRATION. LEONARDO CATH IN PLACE, MINIMAL URINE OUTPUT NOTED. SAFETY MEASURES HAVE BEEN PROVIDED AND IMPLEMENTED. PATIENT BED ALARM IS ON. HEAD OF BED ELEVATED. BED IS LOCKED, IN LOWEST POSITION AND SIDE RAILS UP. CALL LIGHT WITHIN REACH OF THE PATIENT. APPLICABLE ISOLATION PRECAUTIONS IN PLACE. WILL CONTINUE TO MONITOR AND REASSESS FOR ANY CHANGES AND WILL CARRY OUT ANY ONGOING AND ACTIVE MD ORDER.
[2021-03-04] MEDS: METOCLOPRAMIDE HCL 10 MG/2 ML VIAL IV PRN (19:56)
[2021-03-04 20:00] VITALS: BP 135/66
[2021-03-04] MEDS: ENOXAPARIN SODIUM 40 MG/0.4 ML DISP.SYRIN SQ SCH (21:04)
--- NOTE | 2021-03-04 22:50 | NUR ---
RN NOTES PATIENT'S FAMILY CALLED TO GET UPDATES. SPOKE WITH ([facility]-[phone]), PROVIDED GENERAL UPDATES ABOUT PT'S CONDITION.FACILITATED CALL OF THE PATIENT WITH MI (SON). ASSURED PATIENT RELATIVE THAT WILL KEEP THEM POSTED FOR ANY SUDDEN CHANGES TO PT'S CONDITION. FAMILY VERY THANKFUL ABOUT CARE BEING PROVIDED TO THE PATIENT. RN ACKNOWLEDGED.
--- NOTE | 2021-03-04 23:00 | NUR ---
RN NOTES NO CHANGE IN PATIENT CONDITION AT THIS TIME PATIENT VITALS STABLE, NO SIGNS OF ACUTE RESPIRATORY DISTRESS. LENS HARDENER MADE AWARE. WILL CONTINUE TO MONITOR AND REASSESS FOR ANY CHANGES THROUGHOUT THE SHIFT
[2021-03-05] VITALS (8 sets, daily range): BP systolic 116–147; BP diastolic 45–100
--- NOTE | 2021-03-05 01:00 | NUR ---
RN NOTES NOTED EPISODES OF CONFUSION, PT IS CALM BUT CONFUSED AND DISORIENTED. WILL CONTINUE TO ASSESS AND MONITOR THROUGHOUT THE SHIFT.
[2021-03-05] MEDS: IPRATROPIUM NEB FS 0.5 MG/2.5 ML AMPUL.NEB NEB SCH ×5 (02:00→20:13)
[2021-03-05] MEDS: ALBUTEROL FS 2.5 MG/3 ML VIAL.NEB IH SCH ×5 (02:00→20:13)
--- NOTE | 2021-03-05 02:05 | NUR ---
RN NOTES RT COORDINATED THAT PT REQUESTED FOR BIPAP TO BE UN-HOOKED DUE TO FEELING UNEASY; WAS HOOKED BACK TO NC WITH 3L OF 02, RN ACKNOWLEDGED. REVISITED O2 SAT OF PT; RUNNING O2 SAT IS @98%. CLOTHESPIN DRIER OPERATOR MADE AWARE. WILL CONTINUE TO MONITOR AND ASSESS THROUGHOUT THE SHIFT.
--- NOTE | 2021-03-05 03:00 | NUR ---
RN NOTES PATIENT REMAINS IN NO ACUTE RESPIRATORY DISTRESS AT THIS TIME, NO CHANGES TO CONDITION/STATUS. SAUSAGE SMOKER WELL AWARE. WILL CONTINUE TO MONITOR AND REASSESS FOR ANY CHANGES THROUGHOUT THE SHIFT
--- NOTE | 2021-03-05 04:05 | NUR ---
RN NOTES NOTED EPISODES OF CONFUSION, PT IS CALM BUT CONFUSED AND DISORIENTED. PT IS ALSO ASKING FOR SLEEP MEDICATION AT THIS TIME, ADVISED PT THAT THERES NO CURRENT ORDER FOR ANY SLEEPING MEDICATION, ADVISED PT THAT RN WILL SECURE ORDER IN THE MORNING FOR PT'S REQUEST. NON DESTRUCTIVE EVALUATION TECHNICIAN MADE AWARE. WILL CONTINUE TO ASSESS AND MONITOR THROUGHOUT THE SHIFT.
--- NOTE | 2021-03-05 04:28 | NUR ---
RN NOTES ATTEMPTED TO CALL [facility]- [phone] (SON OF PT) TO PROVIDE UPDATE. ROUTED TO AND REQUESTED FOR CALLBACK. SPORTS AGENT MADE AWARE.
[2021-03-05 06:28] LABS: BASOPHILS # (AUTO) 0.1 /CMM (0.0-0.2); BASOPHILS % (AUTO) 0.5 % (0.0-2.0); EOSINOPHILS % (AUTO) 1.8 % (0.0-6.0); HEMATOCRIT 36 % (33-45); HEMOGLOBIN 11.5 g/dL (11.5-14.8); LYMPHOCYTES # (AUTO) 0.8 /CMM (0.8-4.8); LYMPHOCYTES % (AUTO) 6.1 % (20.0-44.0); MEAN CORPUSCULAR HGB CONC 32 g/dl (31.0-36.0); MEAN CORPUSCULAR VOLUME 95 fL (82-100); MONOCYTES # (AUTO) 1.2 /CMM (0.1-1.30); MONOCYTES % (AUTO) 9.5 % (2.0-12.0); NEUTROPHILS # (AUTO) 10.2 /CMM (1.8-8.9); NEUTROPHILS % (AUTO) 82.1 % (43.0-81.0); PLATELET COUNT (AUTO) 309 /CMM (150-450); WHITE BLOOD COUNT (AUTO) 12.4 K/uL (4.3-11.0)
--- NOTE | 2021-03-05 06:42 | NUR ---
RN CLOSING NOTE: PATIENT REMAINS IN ROOM IN NO SIGNS OF RESPIRATORY DISTRESS, PATIENT STILL ON 3L OF 02 VIA NC;TOLERATING WELL SATURATING @ >95% SP02. SAFETY MEASURES IMPLEMENTED, BED IN LOWEST POSITION, LOCKED, SIDE RAILS UP, CALL LIGHT WITHIN REACH. ALL NEEDS AND ORDERS ADDRESSED DURING THE SHIFT. IV ACCESS MAINTAINED INTACT, SECURED AND FLUSHING WELL. ALL DUE MEDS GIVEN ORDERED & SCHEDULED ; PATIENT TOLERATED WELL. PATIENT KEPT CLEAN AND COMFORTABLE WITHIN THE SHIFT. PATIENT ENDORSED TO INCOMING SHIFT RN WITH STABLE VITAL SIGN AND FOR CONTINUITY OF CARE, WILL ALSO ADVISE AM SHIFT RN TO TOUCH BASE WITH MD TO SECURE PRN MEDS FOR SLEEPING REQUESTED BY PATIENT. AM EXTENSION AGENT MADE AWARE.
--- NOTE | 2021-03-05 07:30 | NUR ---
RN OPENING NOTES PATIENT RECEIVED IN BED ON 3 LITERS 02 VIA N/C WITH 02 SATURATION OF 98%. NO C/O PAIN OR DISCOMFORT. HOB KEPT ELEVATED. BED IS IN LOWEST AND LOCKED POSITION. CALL LIGHT WITH IN REACH,.
--- NOTE | 2021-03-05 07:30 | NUR ---
RN OPENING NOTES PATIENT RECEIVED IN BED IN STABLE CONDITION. ON ROOM AIR WITH 02 OF 98 %. IV SITE TO LEFT ARM NOTED PATENT AND WITH SALINE LOCK. BED IS IN LOWEST AND LOCKED POSITION. CALL LIGHT WITH IN REACH. Addendum: 03/05/21 at 1233 by JOSELITO BELLO RN WRONG PATIENT'S CHART
[2021-03-05 07:57] LABS: ALANINE AMINOTRANSFERASE 20 U/L (12-78); ALBUMIN 2.7 g/dL (3.4-5.0); ALKALINE PHOSPHATASE 68 U/L (46-116); ASPARTATE AMINOTRANSFERASE 28 U/L (15-37); BILIRUBIN,TOTAL 0.2 mg/dL (0.2-1.0); CALCIUM, SERUM 8.7 mg/dL (8.5-10.1); CARBON DIOXIDE 35 mmol/L (21-32); CHLORIDE 98 mmol/L (98-107); CREATININE 0.3 mg/dL (0.6-1.3); GLUCOSE 86 mg/dL (74-106); MAGNESIUM 2.5 mg/dL (1.8-2.4); PHOSPHORUS 2.9 mg/dL (2.5-4.9); POTASSIUM 4.6 mmol/L (3.5-5.1); SODIUM SERUM 136 mmol/L (136-145); TOTAL PROTEIN, SERUM 6.3 g/dL (6.4-8.2); UREA NITROGEN, BLOOD 20 mg/dL (7-18)
[2021-03-05] MEDS: PANTOPRAZOLE 40 MG TABLET.DR PO SCH (09:49)
[2021-03-05] MEDS: ALPRAZOLAM 0.25 MG TABLET PO SCH ×2 (09:49→16:46)
[2021-03-05] MEDS: ENSURE ENLIVE 237 ML LIQUID (VANILLA) PO SCH ×3 (09:55→16:43)
[2021-03-05] MEDS: CIPROFLOXACIN HCL 0.3% 5 ML BOTTLE EACHEYE SCH ×3 (09:55→16:43)
--- NOTE | 2021-03-05 12:30 | NUR ---
Patient discharged to home in stable condition and no c/o pain or discomfort. Patient teaching done regarding discharge and to follow up with cardiology and digoxin to be taken qday per MD españa. Patient left the facility with daughter shadia in private car. VITALS WNL. Addendum: 03/05/21 at 1233 by JOSELITO BELLO RN WRONG PATIENT CHART
[2021-03-05] MEDS: CEFTRIAXONE 1 G in IV D5W 50 ML IV SCH (16:00)
--- NOTE | 2021-03-05 17:27 | NUR ---
Patient transferred to [facility] on 3 liters 02 via n/c, accompanied by investment underwriter and son. Patient did not c/o respiratory distress. patient given motrin and pm meds prior to transfer. Report given to kala and patient in stable condition during and after transfer. Informed Dr Canela that patient is requesting a sleeping aid prn and awaiting response.
--- NOTE | 2021-03-05 17:30 | NUR ---
ROUSTABOUT SUPERVISOR NOTE RECEIVED PATIENT FROM [facility]. PATIENT IS IN NO ACUTE DISTRESS. PATIENT IS ON 3L OXYGEN ON NASAL CANNULA. PATIENT IS ANXIOUS WITH THE MOVE. PATIENT IS ON TELE MONITOR READING SR. PATIENT HAS MULTIPLE WOUNDS ON RIGHT BUTTOCK AND BILATERAL EXTREMITIES. SAFETY PRECAUTIONS ARE ON, BED IN THE LOWEST POSITION WITH SIDE RAILS UP, CALL LIGHT WITHIN REACH. WILL CONTINUE TO MONITOR.
--- NOTE | 2021-03-05 19:00 | NUR ---
RECEIVED PT ALERT AND ORIENTATED X4 IN BED NO RESP DISTRESS NOTES VERBALIZES HER NEEDS BED ALARM SUPERVISOR OVENS LIGHT WITHIN REACH TV ON
--- NOTE | 2021-03-05 19:32 | NUR ---
TRAFFIC CHIEF CLOSING NOTE PATIENT IS IN BED RESTING, PATIENT IS IN NO ACUTE DISTRESS. PATIENT IS ON 3L OXYGEN ON NASAL CANNULA. PATIENT IS ON TELE MONITOR READING SR. PATIENT HAS MULTIPLE WOUNDS ON RIGHT BUTTOCK AND BILATERAL EXTREMITIES. SAFETY PRECAUTIONS ARE ON, BED IN THE LOWEST POSITION WITH SIDE RAILS UP, CALL LIGHT WITHIN REACH. ENDORSE PATIENT TO MEASUREMENT SPECIALIST NURSE FOR JULIA.
[2021-03-05] MEDS: ENOXAPARIN SODIUM 40 MG/0.4 ML DISP.SYRIN SQ SCH (20:25)
[2021-03-06] VITALS: BP 123/58
[2021-03-06] MEDS: IPRATROPIUM NEB FS 0.5 MG/2.5 ML AMPUL.NEB NEB SCH ×4 (01:40→19:48)
[2021-03-06] MEDS: ALBUTEROL FS 2.5 MG/3 ML VIAL.NEB IH SCH ×4 (01:40→19:48)
--- NOTE | 2021-03-06 02:30 | NUR ---
RT NOTE PATIENT REFUSING TO WEAR BIPAP. PT EXPRESSES THAT SHE CANNOT STAND WEARING IT. EXPLAINED TO THE PATIENT BENEFITS OF BIPAP AND RISKS OF NOT USING IT BUT PATIENT STILL REFUSING. PT PLACED ON 3LPM N/C. NO DISTRESS NOTED. WILL CONTINUE TO MONITOR PATIENT. Addendum: 03/06/21 at 0359 by SONIA BROWN RT Amended: Links added.
--- NOTE | 2021-03-06 03:46 | NUR ---
ENDING NOTES: RESP ATTEMPTED TO PLACE THE BIPAP ON. PT REFUSED. SHE CAN'T STAND TO WEAR THW MASK. EXPLAINATION EXPLAINED TO HER , CONTINUE TO NOT WANT THE BIPAP. RESP EVEN AND UNLABORED. CALL LIGHT WITHIN HER REACH. NO SOB THIS 12 HOURS. A COMFORTABLE NIGHT
[2021-03-06 03:58] VITALS: BP 143/72
[2021-03-06 04:00] VITALS: BP 143/72
[2021-03-06 06:11] LABS: BASOPHILS # (AUTO) 0.1 /CMM (0.0-0.2); BASOPHILS % (AUTO) 0.5 % (0.0-2.0); HEMATOCRIT 35 % (33-45); HEMOGLOBIN 11.3 g/dL (11.5-14.8); LYMPHOCYTES # (AUTO) 0.7 /CMM (0.8-4.8); LYMPHOCYTES % (AUTO) 6.7 % (20.0-44.0); MEAN CORPUSCULAR HGB CONC 32 g/dl (31.0-36.0); MEAN CORPUSCULAR VOLUME 95 fL (82-100); NEUTROPHILS % (AUTO) 80.8 % (43.0-81.0); PLATELET COUNT (AUTO) 327 /CMM (150-450); RED BLOOD CELL COUNT(AUTO) 3.72 MIL/uL (4.0-5.2); WHITE BLOOD COUNT (AUTO) 11.1 K/uL (4.3-11.0)
[2021-03-06 06:12] LABS: CARBON DIOXIDE 35 mmol/L (21-32); CHLORIDE 97 mmol/L (98-107); CREATININE 0.3 mg/dL (0.6-1.3); GLUCOSE 81 mg/dL (74-106); MAGNESIUM 2.4 mg/dL (1.8-2.4); PHOSPHORUS 3.5 mg/dL (2.5-4.9); POTASSIUM 4.6 mmol/L (3.5-5.1); SODIUM SERUM 135 mmol/L (136-145); UREA NITROGEN, BLOOD 20 mg/dL (7-18)
--- NOTE | 2021-03-06 07:17 | NUR ---
CLERK OPENING NOTES PT RECEIVED AWAKE IN BED IN NO ACUTE SIGNS OF DISTRESS. A/O X3. VERBALLY RESPONSIVE, DENIES PAIN OR ANY DISCOMFORTS AT THIS TIME. ON TELE MONITORING WITH CURRENT READING OF NSR WITH HR ON THE 70'S, NO C/O CARDIAC DISTRESS VOICED. ON 02 VIA N/C @ 3LPM, TOLERATING WELL, BREATHING EVEN AND UNLABORED. IV SL ON LAC G#20 AND DENNIS MIDLINE BOTH INTACT, PATENT AND FLUSHES WELL. LEONARDO CATH IN PLACE WITH CLOUDY YELLOW URINE OUTPUT NOTED. SAFETY PRECAUTIONS IN PLACE: BED IN LOWEST LOCKED POSITION WITH SR UP X2. CALL LIGHT W/I REACH. WILL CONTINUE TO MONITOR PT ACCORDINGLY.
[2021-03-06 08:00] VITALS: BP 114/57
[2021-03-06] MEDS: PANTOPRAZOLE 40 MG TABLET.DR PO SCH (08:14)
[2021-03-06] MEDS: ALPRAZOLAM 0.25 MG TABLET PO SCH ×2 (08:14→17:12)
[2021-03-06] MEDS: CIPROFLOXACIN HCL 0.3% 5 ML BOTTLE EACHEYE SCH ×3 (08:16→17:12)
[2021-03-06] MEDS: ENSURE ENLIVE 237 ML LIQUID (VANILLA) PO SCH ×3 (08:16→17:12)
[2021-03-06] MEDS: ONDANSETRON HCL/PF 4 MG/2 ML VIAL IVP PRN (09:46)
--- NOTE | 2021-03-06 09:56 | NUR ---
RN NOTES PT C/O NAUSEA, PRN ZOFRAN 4MG/2 ML IVP ADMINISTERED AT 0946. WILL CONTINUE TO MONITOR.
--- NOTE | 2021-03-06 11:10 | NUR ---
RN NOTES PT NOTED FORGETFUL AND CONFUSED. RE-ORIENTED AND EMOTIONAL SUPPORT GIVEN. WILL CONTINUE TO MONITOR
[2021-03-06] MEDS: CEFTRIAXONE 1 G in IV D5W 50 ML IV SCH (15:25)
[2021-03-06] MEDS: KETOROLAC TROMETHAMINE INJ 30 MG/ML VIAL IV PRN ×2 (15:31→22:10)
--- NOTE | 2021-03-06 15:35 | NUR ---
RN NOTES/PAIN MANAGEMENT PT C/O PAIN ON HER SACRAL WOUND, PRN TORADOL 15MG IV ADMINISTERED AT 1531, WILL CONTINUE TO MONITOR AND REASSESS PT.
[2021-03-06 16:00] VITALS: BP 107/49
--- NOTE | 2021-03-06 18:49 | NUR ---
ARTILLERY METEOROLOGICAL MAN CLOSING NOTES PT IN BED AWAKE AND WATCHING TV AT THIS TIME. A/O X3. ABLE TO MAKE NEEDS KNOWN. FORGETFUL WITH PERIODS OF CONFUSION NOTED DURING THE DAY. RE-ORIENTATION AND EMOTIONAL SUPPORT GIVEN. ON TELE MONITORING WITH CURRENT READING OF NSR WITH HR ON THE 7-80'S, NO C/O CARDIAC DISTRESS VOICED. ON 02 VIA N/C @ 2LPM, TOLERATING WELL, BREATHING EVEN AND UNLABORED. IV SL ON LAC G#20 AND DENNIS MIDLINE BOTH INTACT, PATENT AND FLUSHES WELL. LEONAROD CATH IN PLACE WITH CLOUDY YELLOW URINE OUTPUT NOTED, LEONARDO CARE DONE. PT TURNED AND REPOSITIONED Q 2HRS AND PRN. ALL NEEDS AND CARE PROVIDED WELL. SAFETY PRECAUTIONS IN PLACE: BED IN LOWEST LOCKED POSITION WITH SR UP X2. CALL LIGHT W/I REACH. WILL ENDORSE JULIA TO SPIRAL TUBE WINDER HELPER NURSE
[2021-03-06] MEDS: ENOXAPARIN SODIUM 40 MG/0.4 ML DISP.SYRIN SQ SCH (21:58)
[2021-03-06 23:58] VITALS: BP 108/52
--- NOTE | 2021-03-07 00:30 | NUR ---
PARKER CONTACTED REGARDING PAIN; NO ORDERS RECIEVED. PATIENT COMPLAINING OF PAIN 07/05 TO LEFT HIP AND LEG. INFORMED DR. CANALES OF PT REQUEST FOR MORE PAIN MEDICATION. REVIEWED PAIN MEDICATION ORDERED. REVIEWED HISTORY AND CURRENT CONDITION. NO NEW ORDERS RECIEVED. Addendum: 03/07/21 at 0243 by RANDY TRINIDAD RN ENTERED ON WRONG PATIENT.
[2021-03-07] MEDS: IPRATROPIUM NEB FS 0.5 MG/2.5 ML AMPUL.NEB NEB SCH ×3 (01:44→13:50)
[2021-03-07] MEDS: ALBUTEROL FS 2.5 MG/3 ML VIAL.NEB IH SCH ×3 (01:44→13:50)
[2021-03-07 04:00] VITALS: BP 126/67
--- NOTE | 2021-03-07 05:40 | NUR ---
dressing change performed; new pics taken of wounds; placed on chart
[2021-03-07 06:09] LABS: CALCIUM, SERUM 9.1 mg/dL (8.5-10.1); CARBON DIOXIDE 37 mmol/L (21-32); CHLORIDE 98 mmol/L (98-107); CREATININE 0.4 mg/dL (0.6-1.3); GLUCOSE 88 mg/dL (74-106); MAGNESIUM 2.4 mg/dL (1.8-2.4); PHOSPHORUS 3.7 mg/dL (2.5-4.9); POTASSIUM 5.1 mmol/L (3.5-5.1); SODIUM SERUM 135 mmol/L (136-145); UREA NITROGEN, BLOOD 38 mg/dL (7-18)
[2021-03-07 06:23] LABS: BASOPHILS % (AUTO) 0.4 % (0.0-2.0); EOSINOPHILS % (AUTO) 2.2 % (0.0-6.0); HEMATOCRIT 35 % (33-45); HEMOGLOBIN 11.4 g/dL (11.5-14.8); LYMPHOCYTES # (AUTO) 0.7 /CMM (0.8-4.8); LYMPHOCYTES % (AUTO) 6.6 % (20.0-44.0); MEAN CORPUSCULAR HGB CONC 32 g/dl (31.0-36.0); MEAN CORPUSCULAR VOLUME 94 fL (82-100); MONOCYTES # (AUTO) 0.9 /CMM (0.1-1.30); MONOCYTES % (AUTO) 7.7 % (2.0-12.0); NEUTROPHILS # (AUTO) 9.3 /CMM (1.8-8.9); NEUTROPHILS % (AUTO) 83.1 % (43.0-81.0); PLATELET COUNT (AUTO) 348 /CMM (150-450); RED BLOOD CELL COUNT(AUTO) 3.72 MIL/uL (4.0-5.2); WHITE BLOOD COUNT (AUTO) 11.2 K/uL (4.3-11.0)
[2021-03-07 08:00] VITALS: BP 112/64
--- NOTE | 2021-03-07 08:00 | NUR ---
RN OPENING NOTE PATIENT AWAKE IN BED RESTING. A/O X3 AND FLUENT IN AZERI. NO COMPLAINT OF PAIN OR NAUSEA. NO SOB OR RESPIRATORY DISTRESS PRESENT. SINUS RHYTHM ON HOUSEKEEPING/LAUNDRY. NO EDEMA PRESENT. REDNESS PRESENT ON SACRUM, B HEELS. WOUNDS PRESENT ON L KNEE. F/C PRESENT. HL PRESNET ON L AC. ML PRESENT ON R AC. SAFETY MEASURES IN PLACE. SIDE RAILS RAISED. BED LOWERED. CALL LIGHT WITHIN REACH. WILL CONTINUE TO MONITOR.
[2021-03-07] MEDS: RIFAMPIN 300 MG CAPSULE PO SCH (08:06)
[2021-03-07] MEDS: CIPROFLOXACIN HCL 0.3% 5 ML BOTTLE EACHEYE SCH ×3 (08:06→16:14)
[2021-03-07] MEDS: ENSURE ENLIVE 237 ML LIQUID (VANILLA) PO SCH ×3 (08:06→16:14)
[2021-03-07] MEDS: PANTOPRAZOLE 40 MG TABLET.DR PO SCH (08:06)
[2021-03-07] MEDS: ALPRAZOLAM 0.25 MG TABLET PO SCH ×2 (08:06→16:14)
[2021-03-07] MEDS: ETHAMBUTOL HCL (400 MG) 400 MG TABLET PO SCH (08:06)
[2021-03-07] MEDS ORDERED: HYDROGEL DRESSING 90 GM TUBE TP SCH (09:00)
[2021-03-07] MEDS: ONDANSETRON HCL/PF 4 MG/2 ML VIAL IVP PRN (11:45)
[2021-03-07] MEDS ORDERED: RIFA300C4 PO (13:52)
[2021-03-07] MEDS ORDERED: CIPR5DRO18 EACHEYE (13:52)
[2021-03-07] MEDS ORDERED: ALPR0.255 PO (13:52)
[2021-03-07] MEDS ORDERED: ETHA400T31 PO (13:52)
[2021-03-07] MEDS ORDERED: ALLA266C2 TP (13:52)
[2021-03-07] MEDS ORDERED: AMOX-427 PO (14:36)
[2021-03-07] MEDS ORDERED: FLUC150T PO (14:36)
[2021-03-07 16:00] VITALS: BP 108/43
[2021-03-07] MEDS: CEFTRIAXONE 1 G in IV D5W 50 ML IV SCH (16:14)
[2021-03-07] MEDS ORDERED: ACETAMINOPHEN 325 MG TABLET PO ONE (17:30)
--- NOTE | 2021-03-07 19:35 | NUR ---
HAULING CONTRACTOR NOTE PATIENT DISCHARGED TO [facility]. FAMILY NOTIFIED AND PATIENT NOTIFIED. IV LINES REMOVED. ID BANDS REMOVED. PICTURES OF WOUNDS TAKEN. EXITCARE EDUCATION UTILIZED. REPORT GIVEN TO NAEEM MARQUEZ. TRANSPORTED TO FACILITY VIA AMBULANCE WITH REPORT GIVEN TO EMT. VITALS STABLE.
== END 2021-03-07 19:35 | DRG 166 ==
LOC: ER 21:55 → ICU 02-28 01:37 → TELE-TD 03-02 17:40 → TELE1 03-04 08:13 → TELE 03-05 17:15 → MED 03-07 10:34
PROVIDERS: ADMIT Nurse Practitioner Acute Care; ATTEND Student in an Organized Health Care Education/Training Program
PROC: 5A09457 Assistance with Respiratory Ventilation, 24-96 Consecutive Hours, Continuous Positive Airway Pressure (ICD-10-PCS; 2021-02-27)
PROC: 0JBP0ZZ Excision of Left Lower Leg Subcutaneous Tissue and Fascia, Open Approach (ICD-10-PCS; principal; 2021-02-28)
PROC: 0JBN0ZZ Excision of Right Lower Leg Subcutaneous Tissue and Fascia, Open Approach (ICD-10-PCS; 2021-02-28)
PROC: 05H933Z Insertion of Infusion Device into Right Brachial Vein, Percutaneous Approach (ICD-10-PCS; 2021-02-28)
PROC: 0JB70ZZ Excision of Back Subcutaneous Tissue and Fascia, Open Approach (ICD-10-PCS; 2021-03-03)
PROC: 0JB90ZZ Excision of Buttock Subcutaneous Tissue and Fascia, Open Approach (ICD-10-PCS; 2021-03-03)
PROC: 0JBN0ZZ Excision of Right Lower Leg Subcutaneous Tissue and Fascia, Open Approach (ICD-10-PCS; 2021-03-07)
DX: J96.22 Acute and chronic respiratory failure with hypercapnia (principal); G93.41 Metabolic encephalopathy; I21.A1 Myocardial infarction type 2; E43 Unspecified severe protein-calorie malnutrition; I87.313 Chronic venous hypertension (idiopathic) with ulcer of bilateral lower extremity; L97.829 Non-pressure chronic ulcer of other part of left lower leg with unspecified severity; L97.819 Non-pressure chronic ulcer of other part of right lower leg with unspecified severity; N39.0 Urinary tract infection, site not specified; E22.2 Syndrome of inappropriate secretion of antidiuretic hormone; E87.4 Mixed disorder of acid-base balance; J84.9 Interstitial pulmonary disease, unspecified; J96.21 Acute and chronic respiratory failure with hypoxia; B96.20 Unspecified Escherichia coli [E. coli] as the cause of diseases classified elsewhere; D64.9 Anemia, unspecified; E87.6 Hypokalemia; F03.90 Unspecified dementia, unspecified severity, without behavioral disturbance, psychotic disturbance, mood disturbance, and anxiety; Z20.822 Contact with and (suspected) exposure to COVID-19; G14 Postpolio syndrome; Z79.51 Long term (current) use of inhaled steroids; Z79.899 Other long term (current) drug therapy; M89.9 Disorder of bone, unspecified; Z90.710 Acquired absence of both cervix and uterus; F09 Unspecified mental disorder due to known physiological condition; I87.2 Venous insufficiency (chronic) (peripheral); E88.9 Metabolic disorder, unspecified; I35.0 Nonrheumatic aortic (valve) stenosis; I48.91 Unspecified atrial fibrillation; I73.9 Peripheral vascular disease, unspecified; I27.20 Pulmonary hypertension, unspecified; J47.9 Bronchiectasis, uncomplicated; T50.2X5A Adverse effect of carbonic-anhydrase inhibitors, benzothiadiazides and other diuretics, initial encounter; Y92.9 Unspecified place or not applicable; M62.562 Muscle wasting and atrophy, not elsewhere classified, left lower leg; M62.561 Muscle wasting and atrophy, not elsewhere classified, right lower leg; L89.316 Pressure-induced deep tissue damage of right buttock; R73.9 Hyperglycemia, unspecified; L89.156 Pressure-induced deep tissue damage of sacral region
CPT/HCPCS: 36415; 36600; 70450-TC; 71045-TC; 80048-TC; 80053-TC; 80076-TC; 80202-TC; 81001; 82140-TC; 82803-TC; 82962-TC; 83605-TC; 83735-TC; 84100-TC; 84484-TC; 85025-TC; 85730-TC; 87040-TC; 87070-TC; 87081-TC; 87086-TC; 87186-TC; 93307-TC; 94003-TC; 94660; 94760-TC; 94799-TC; 97112-TC; 97530-TC; A6248; A6253; A6403; A9563; C9113; C9803; G0378; J0696; J1160; J1650; J1885; J1940; J2270; J2405; J2543; J2765; J3370; J3490; J7030; J7050; J7060

== ENCOUNTER 2021-04-04 12:13 | Emergency (ER) | payer MEDICARE, BC ==
[~2021-04-04] VITALS: Ht 170.2 cm; Wt 61.2 kg
[~2021-04-04 12:13] MED LIST changes: +ALLA266C2 TP; +ALPR0.255 PO; +AMOX-427 PO; +CIPR5DRO18 EACHEYE; +FLUC150T PO; -FLUC50TA PO; -LEVO500T23 PO; -MOXI400T31 PO
[2021-04-04 12:15] VITALS: BP 153/68
--- NOTE | 2021-04-04 12:15 | NUR ---
The patient is bibpa, from home, for nelson catheter change. Noted bladder distension.
--- NOTE | 2021-04-04 12:37 | NUR ---
The patient alert and oriented x3. Phillip cath changed. Drained 1000 ml urine. Vital signs checked. Patient discharged to home in stable condition. Written and verbal after care instructions given. Patient verbalizes understanding of instruction.
== END 2021-04-04 12:39 | disposition home or self-care (01) ==
LOC: ER 12:23
DX: Z46.6 Encounter for fitting and adjustment of urinary device (principal); N13.9 Obstructive and reflux uropathy, unspecified; I10 Essential (primary) hypertension; Z88.2 Allergy status to sulfonamides; Z88.5 Allergy status to narcotic agent; Z79.899 Other long term (current) drug therapy

== ENCOUNTER 2021-04-07 20:59 | Inpatient (IN) | payer MEDICARE, BC ==
[~2021-04-07] VITALS: Ht 172.7 cm; Wt 37.2 kg
--- NOTE | 2021-04-07 21:11 | NUR ---
PRESENTED TO THE ER FOR C/O SOB X 2 HRS. PT W/ HX OF COPD AND ON O2 AT 2LPM VIA NC ON BASE LINE AT HOME, CURRENTLY SATTING AT 96% ON 4 LITER O2. PT A, OX3, WAS ASSISTED TO BED 5 ER AND WAS PLACED ON A MONITOR, AFEBRILE .WILL CONT TO MONITOR ,
--- NOTE | 2021-04-07 21:13 | NUR ---
DR KATZ AT BED SIDE
[2021-04-07] MEDS ORDERED: ALBUTEROL FS 2.5 MG/3 ML VIAL.NEB NEB ONE (21:30)
[2021-04-07] MEDS ORDERED: IPRATROPIUM NEB FS 0.5 MG/2.5 ML AMPUL.NEB NEB ONE (21:30)
[2021-04-07 21:38] LABS: ABG BASE EXCESS 7.8 mmol/L; ABG OXYGEN SATURATION 98.2 % (92.0-98.5); ABG PCO2 59.9 mmHg (35.0-45.0); ABG PH 7.381 (7.350-7.450); ABG PO2 137.2 mmHg (75.0-100.0); AaDO2 79.1 mmHg; COHb 0.4 % (0.5-1.5); MetHb 0.5 % (0.0-1.5); O2Hb 97.3 % (94.0-97.0); SITE, ABG Left Brachial
[2021-04-07] MEDS ORDERED: ALBUTEROL FS 2.5 MG/3 ML VIAL.NEB ONE (21:43)
[2021-04-07] MEDS ORDERED: IPRATROPIUM NEB FS 0.5 MG/2.5 ML AMPUL.NEB ONE (21:44)
[2021-04-07 21:52] LABS: BASOPHILS # (AUTO) 0.1 /CMM (0.0-0.2); BASOPHILS % (AUTO) 0.7 % (0.0-2.0); EOSINOPHILS % (AUTO) 5.9 % (0.0-6.0); HEMATOCRIT 36 % (33-45); HEMOGLOBIN 11.7 g/dL (11.5-14.8); LYMPHOCYTES # (AUTO) 0.9 /CMM (0.8-4.8); MEAN CORPUSCULAR HGB CONC 33 g/dl (31.0-36.0); MEAN CORPUSCULAR VOLUME 91 fL (82-100); MONOCYTES # (AUTO) 0.9 /CMM (0.1-1.30); MONOCYTES % (AUTO) 10.2 % (2.0-12.0); NEUTROPHILS # (AUTO) 6.6 /CMM (1.8-8.9); NEUTROPHILS % (AUTO) 73.2 % (43.0-81.0); PLATELET COUNT (AUTO) 351 /CMM (150-450); RED BLOOD CELL COUNT(AUTO) 3.92 MIL/uL (4.0-5.2)
[2021-04-07 21:58] LABS: CALCIUM, SERUM 8.7 mg/dL (8.5-10.1); CARBON DIOXIDE 33 mmol/L (21-32); CHLORIDE 91 mmol/L (98-107); CREATININE 0.2 mg/dL (0.6-1.3); GLUCOSE 105 mg/dL (74-106); POTASSIUM 4.3 mmol/L (3.5-5.1); SODIUM SERUM 125 mmol/L (136-145); UREA NITROGEN, BLOOD 11 mg/dL (7-18)
--- NOTE | 2021-04-07 22:00 | NUR ---
COVID SWAB SENT TO LAB
--- NOTE | 2021-04-07 22:00 | NUR ---
, SORIANO: [phone] AGRICULTURAL MECHANIC, [place]: [phone]
[2021-04-07 22:08] LABS: ALANINE AMINOTRANSFERASE 26 U/L (12-78); ALBUMIN 2.9 g/dL (3.4-5.0); ALKALINE PHOSPHATASE 89 U/L (46-116); ASPARTATE AMINOTRANSFERASE 28 U/L (15-37); B-TYPE NATRIURETIC PEPTIDE 522 PG/ML (0-125); BILIRUBIN,DIRECT 0.1 mg/dL (0.0-0.2); BILIRUBIN,TOTAL 0.2 mg/dL (0.2-1.0); TOTAL PROTEIN, SERUM 6.5 g/dL (6.4-8.2)
[2021-04-07] MEDS ORDERED: CLAR-45 PO (22:42)
[2021-04-07] MEDS ORDERED: IBUPROFEN 200 MG TABLET PO PRN (23:30)
[2021-04-07] MEDS ORDERED: ACETAMINOPHEN 325 MG TABLET PO PRN (23:30)
[2021-04-07] MEDS ORDERED: MAGNESIUM HYDROXIDE 30 ML UDC PO PRN (23:30)
[2021-04-07] MEDS ORDERED: HYDROCODONE/APAP 5/325MG TABLET PO PRN (23:30)
[2021-04-07] MEDS ORDERED: Z GUARD REMEDY 2 OZ OINT TP PRN (23:30)
[2021-04-07] MEDS ORDERED: ONDANSETRON HCL/PF 4 MG/2 ML VIAL IVP PRN (23:30)
[2021-04-07] MEDS ORDERED: IV NS 0.9% 1,000 ML IV PRN (23:30)
[2021-04-07] MEDS ORDERED: ZOLPIDEM TARTRATE 5 MG TABLET PO PRN (23:30)
--- NOTE | 2021-04-07 23:55 | NUR ---
RN NOTES RECEIVED ER ADMISSION REPORT FROM [facility]. ALL PERTINENT ADMISSION INFO REGARDING PT NOTED. WILL WAIT FOR PT TO BE TRANSFERRED TO UNIT AND ADDRESS NEEDS ACCORDINGLY.
--- NOTE | 2021-04-07 23:57 | NUR ---
REPORT GIVEN TO HOLLIS ON FIRST FLOOR
[2021-04-08] MEDS ORDERED: TEMAZEPAM 7.5 MG CAPSULE PO PRN
--- NOTE | 2021-04-08 00:02 | NUR ---
PT WAS TRANSFERRED TO [facility] RM 107 UNDER ACLS.
--- NOTE | 2021-04-08 00:05 | NUR ---
RN NOTES RECEIVED PT FROM ER VIA GURNEY ACCOMPANIED BY 2 ER STAFF AND TRANSFERRED TO BED VIA 2 PERSON ASSIST. PT IS ALERT AND ORIENTED X3-4. PT ON 3L OF 02 VIA NC WITH RESPIRATIONS EVEN AND SLIGHTLY LABORED; 02 SATURATION AT THE TIME OF RECEIVED IS AT 97%. COMPREHENSIVE PHYSICAL ASSESSMENT AND PATIENT CARE DONE. CALL LIGHT WITHIN REACH, SAFETY MEASURES AND ISOLATION PRECAUTION IN PLACE, WILL CONTINUE MONITOR AND ASSESS THROUGHOUT THE SHIFT. WILL CARRY OUT MD ORDERS ACCORDINGLY. UPPER LINING CEMENTER MADE AWARE.
[2021-04-08 00:30] VITALS: BP 112/56
[2021-04-08] MEDS: IPRATROPIUM NEB FS 0.5 MG/2.5 ML AMPUL.NEB NEB SCH ×4 (01:43→19:46)
--- NOTE | 2021-04-08 03:00 | NUR ---
RN NOTES PATIENT REMAINS IN NO ACUTE RESPIRATORY DISTRESS AT THIS TIME, NO CHANGES TO CONDITION/STATUS. AM PATIENT CARE DONE. WILL CONTINUE TO MONITOR AND REASSESS FOR ANY CHANGES THROUGHOUT THE SHIFT
[2021-04-08 04:00] VITALS: BP 101/67
[2021-04-08 06:39] LABS: BASOPHILS # (AUTO) 0.1 /CMM (0.0-0.2); BASOPHILS % (AUTO) 0.9 % (0.0-2.0); EOSINOPHILS % (AUTO) 5.6 % (0.0-6.0); HEMATOCRIT 33 % (33-45); HEMOGLOBIN 11.1 g/dL (11.5-14.8); LYMPHOCYTES # (AUTO) 0.8 /CMM (0.8-4.8); LYMPHOCYTES % (AUTO) 10.5 % (20.0-44.0); MEAN CORPUSCULAR HGB CONC 33 g/dl (31.0-36.0); MEAN CORPUSCULAR VOLUME 90 fL (82-100); MONOCYTES # (AUTO) 0.8 /CMM (0.1-1.30); MONOCYTES % (AUTO) 10.9 % (2.0-12.0); NEUTROPHILS # (AUTO) 5.4 /CMM (1.8-8.9); NEUTROPHILS % (AUTO) 72.1 % (43.0-81.0); PLATELET COUNT (AUTO) 295 /CMM (150-450); RED BLOOD CELL COUNT(AUTO) 3.68 MIL/uL (4.0-5.2); WHITE BLOOD COUNT (AUTO) 7.5 K/uL (4.3-11.0)
[2021-04-08 06:45] LABS: CHOLESTEROL 187 mg/dL (<200); HDL CHOLESTEROL 93 mg/dL (40-60); LDL 82 mg/dL (0-99); TRIGLYCERIDES 26 mg/dL (30-150)
--- NOTE | 2021-04-08 06:53 | NUR ---
RN CLOSING NOTE: PATIENT REMAINS IN ROOM IN NO SIGNS OF RESPIRATORY DISTRESS, PATIENT STILL ON 3L OF 02 VIA NC;TOLERATING WELL SATURATING @ >95% SP02. SAFETY MEASURES IMPLEMENTED, BED IN LOWEST POSITION, LOCKED, SIDE RAILS UP, CALL LIGHT WITHIN REACH. ALL NEEDS AND ORDERS ADDRESSED DURING THE SHIFT. IV ACCESS MAINTAINED INTACT, SECURED AND FLUSHING WELL. ALL DUE MEDS GIVEN ORDERED & SCHEDULED ; PATIENT TOLERATED WELL. PATIENT KEPT CLEAN AND COMFORTABLE WITHIN THE SHIFT. PATIENT ENDORSED TO INCOMING SHIFT RN WITH STABLE VITAL SIGN AND FOR CONTINUITY OF CARE.
[2021-04-08 06:56] LABS: CALCIUM, SERUM 8.7 mg/dL (8.5-10.1); CARBON DIOXIDE 35 mmol/L (21-32); CHLORIDE 95 mmol/L (98-107); CREATININE 0.2 mg/dL (0.6-1.3); GLUCOSE 81 mg/dL (74-106); MAGNESIUM 2.1 mg/dL (1.8-2.4); PHOSPHORUS 3.4 mg/dL (2.5-4.9); POTASSIUM 4.2 mmol/L (3.5-5.1); SODIUM SERUM 130 mmol/L (136-145); UREA NITROGEN, BLOOD 9 mg/dL (7-18)
--- NOTE | 2021-04-08 07:30 | NUR ---
RN OPENING NOTES PATIENT PRESENT IN BED, A//OX4, WITH NC ON 2L, TOLERATING SETTINGS WELL, SPO2 MONITOR ON, 97%, NO SOB NOTED, DENIES PAIN, POSITIONED COMFORTABLY, IV LINE NOTED OCCLUDED AND REMOVED, LEONARDO CATH IN PLACE, DRAINING YELLOW URINE BY GRAVITY, SAFETY MEASURES IN PLACE, BED LOCKED, LOWEST POSITION, CALL LIGHT AND TELEPHONE IN REACH, WILL CONT TO MONITOR
[2021-04-08 08:00] VITALS: BP 119/66
[2021-04-08] MEDS ORDERED: HYDROCODONE/APAP 5/325MG TABLET PO PRN (08:30)
[2021-04-08 08:48] LABS: IRON, SERUM 24 ug/dl (50-175); TOTAL IRON BINDING CAPACITY 299 ug/dl (250-450)
[2021-04-08] MEDS ORDERED: ETHAMBUTOL HCL (400 MG) 400 MG TABLET PO SCH (09:00)
[2021-04-08] MEDS ORDERED: MORPHINE SULFATE INJ 2 MG/ML DISP.SYRIN IV PRN (09:00)
[2021-04-08] MEDS ORDERED: ALPRAZOLAM 0.25 MG TABLET PO SCH (09:00)
[2021-04-08] MEDS ORDERED: RIFAMPIN 300 MG CAPSULE PO SCH (09:00)
[2021-04-08] MEDS: CIPROFLOXACIN HCL 0.3% 5 ML BOTTLE EACHEYE SCH ×3 (09:00→17:00)
[2021-04-08] MEDS ORDERED: TIOTROPIUM BROMIDE 6 CAP/BOX CAP.W.DEV IH SCH (09:00)
[2021-04-08 09:06] LABS: FERRITIN 19 ng/mL (8-388)
--- NOTE | 2021-04-08 09:10 | NUR ---
WOUND CARE CONSULT: PT PRESENTS WITH SACRAL AND RT BUTTOCK STAGE 3 ULCERS AND WOUNDS TO LOWER EXTREMITIES, PRESENT ON ADMISSION. PT IS CACHECTIC. RECOMMENDATIONS MADE FOR SKIN PROTECTION AND WOUND CARE. DISCUSSED WITH NURSING STAFF. SURGICAL AND DPM CONSULTS CALLED TO DR YOLI CASSIDY AND DR BHATIA. DIETARY CONSULT IN PLACE. PT IS ON CARLOS ISOFLEX LOW AIRLOSS BED. IN AGREEMENT WITH PLAN OF CARE. Addendum: 04/08/21 at 0911 by ISABELL LAUREN WNDNU Amended: Links added.
[2021-04-08] MEDS ORDERED: HYDROGEL DRESSING 90 GM TUBE TP PRN (09:30)
[2021-04-08] MEDS: ENOXAPARIN SODIUM 40 MG/0.4 ML DISP.SYRIN SQ SCH (09:31)
--- NOTE | 2021-04-08 10:02 | NUR ---
CHARGE NURSE NOTE SPOKE WITH DR. ZAVALA FOR MIDLINE PLACEMENT, PER HIM, OKAY WITH NO IV ACCESS.
[2021-04-08] MEDS: CLARITHROMYCIN 500 MG TABLET PO SCH ×2 (10:15→17:56)
[2021-04-08] MEDS: HYDROGEL DRESSING 90 GM TUBE TP SCH (10:16)
[2021-04-08 12:00] VITALS: BP 123/57
[2021-04-08] MEDS ORDERED: ALPRAZOLAM 0.25 MG TABLET PO PRN (13:00)
--- NOTE | 2021-04-08 13:00 | NUR ---
RN NOTE Non administer eye drops, since it is not stocked in patient's cassette, pharmacy notifyed
--- NOTE | 2021-04-08 13:56 | NUR ---
TERRAZZO FINISHER NOTES PER NURSING SENIOR PRODUCT DESIGNER NADEEM MENDOSA, PATIENT'S CAREGIVER ALLOWED BY Cahy SIMEON SWANSON TO STAY FOR THE NIGHT. PER NADEEM, ACCORDING TO SPOUSE, CAREGIVER IS FULLY VACCINATED. INSTRUCTED THAT CAREGIVER MUST WEAR A FACEMASK AT ALL TIMES DURING HOSPITAL STAY.
[2021-04-08] MEDS: GUAIFENESIN LA 600 MG TABLET.SA PO SCH ×2 (14:01→21:03)
--- NOTE | 2021-04-08 15:42 | NUR ---
Sales Apprentice consult: social services designee consult requested to discuss plan of care due to stage 3 ulcers. Patient is an 85-year-old, female. SW met with the patient at her bedside on the med-surg unit. Patient was alert and oriented x4. Patient was resting and watching television. Per chart, patient presented to the ER on 04/07/21 for respiratory failure. SW asked patient about her current living arrangement and patient stated that she currently lives with her [place], [place], [place] [address] [place] [address]; [phone]. SW discussed her current care at home and patient stated that she has caretakers come in 24h/day and reports that her family plans to hire RNs for additional care. Patient stated that her ulcers have improved since her last visit at [facility]. SW assessed patients current social support and patient stated that she has adequate support from her family. Patient is disabled and bed bound. Patient receives SSI. Patient denies history of substance use. Patient denies any history of mental illness or suicidal or homicidal ideation. SW discussed discharge plan with the patient and patient stated that she plans to return to her home at the time of discharge. Patient stated that her family will call an ambulance to pick her up. SW will file an APS report due to the patient's ulcers. PLAN: Patient plans to return to her prior living arrangement with her spouse. SW will file an APS report due to the patients ulcers. No further SS interventions at this time, however SS will be available as needed.
[2021-04-08 16:00] VITALS: BP 130/71
--- NOTE | 2021-04-08 19:03 | NUR ---
RN CLOSING NOTE CAREGIVER FLOR AT BED SITE, VACCINATION CARD CHECKED, INSTRUCTIONS GIVEN, PATIENT RESTING COMFORTABLY, MEDICATIONS GIVEN, COMFORT NEEDS ATTENDED, REPOSITIONED Q2H, WILL ENDORSE TO PM SHIFT RN FOR JULIA
--- NOTE | 2021-04-08 19:30 | NUR ---
RN OPENING NOTES: RECEIVED PT A/OX 4 IN BED RESTING COMFORTABLY. PATIENT IN NO S/SX OF ACUTE DISTRESS AT THIS TIME. NO SOB NOTED. PATIENT'S BREATHING IS EVEN AND UNLABORED. PATIENT IS ON 2L OF OXYGEN VIA NC; TOLERATING WELL. PATIENT ON TELE MONITORING READING SINUS RHYTHM HR IS @70S AT THE TIME OF RECEIVED. PATIENT ON 2G SODIUM DIET; TOLERATES WELL. NO IV SITE/ACCESS NOTED; DR ZAVALA WELL AWARE PER AM ENDORSEMENT. LEONARDO CATH IN PLACE, MODERATE URINE OUTPUT NOTED. PATIENT'S CAREGIVER IN PT'S ROOM AND WILL BE STAYING UNTIL JAY AM. SAFETY MEASURES HAVE BEEN PROVIDED AND IMPLEMENTED. PATIENT BED ALARM IS ON. HEAD OF BED ELEVATED. BED IS LOCKED, IN LOWEST POSITION AND SIDE RAILS UP. CALL LIGHT WITHIN REACH OF THE PATIENT. APPLICABLE ISOLATION PRECAUTIONS IN PLACE. WILL CONTINUE TO MONITOR AND REASSESS FOR ANY CHANGES AND WILL CARRY OUT ANY ONGOING AND ACTIVE MD ORDER.
[2021-04-08 20:00] VITALS: BP 123/82
--- NOTE | 2021-04-08 23:00 | NUR ---
RN NOTES NO CHANGE IN PATIENT CONDITION AT THIS TIME PATIENT VITALS STABLE, NO SIGNS OF ACUTE RESPIRATORY DISTRESS. WILL CONTINUE TO MONITOR AND REASSESS FOR ANY CHANGES THROUGHOUT THE SHIFT.
[2021-04-09] VITALS: BP 115/60
[2021-04-09] MEDS: IPRATROPIUM NEB FS 0.5 MG/2.5 ML AMPUL.NEB NEB SCH ×2 (01:27→08:09)
--- NOTE | 2021-04-09 01:41 | NUR ---
RT PT TOLERATED BIPAP FOR AN HOUR. TX WAS GIVING WITH NEB AND MASK AND PATIENT REFUSED TO GO BACK ON BIPAP. PT PLACED ON 2 LPM NC. NO RESPIRATORY DISTRESS OR SOB AT THIS TIME.
[2021-04-09] MEDS ORDERED: diphenhydrAMINE HCL 25 MG CAPSULE PO ONE (02:00)
--- NOTE | 2021-04-09 03:50 | NUR ---
RT ATTEMPTED TO PLACE PT ON BIPAP, PT REFUSED BIPAP WITH CAREGIVER AT BEDSIDE. PT REMAINS ON 2 LPM NC
[2021-04-09 04:00] VITALS: BP 120/65
[2021-04-09 06:26] LABS: CARBON DIOXIDE 35 mmol/L (21-32); CHLORIDE 93 mmol/L (98-107); CREATININE 0.3 mg/dL (0.6-1.3); GLUCOSE 85 mg/dL (74-106); PHOSPHORUS 3.5 mg/dL (2.5-4.9); POTASSIUM 4.5 mmol/L (3.5-5.1); SODIUM SERUM 131 mmol/L (136-145); UREA NITROGEN, BLOOD 10 mg/dL (7-18)
--- NOTE | 2021-04-09 06:57 | NUR ---
RN CLOSING NOTE: PATIENT REMAINS IN ROOM IN NO SIGNS OF RESPIRATORY DISTRESS, PATIENT STILL ON 2L OF 02 VIA NC;TOLERATING WELL SATURATING @ >95% SP02. SAFETY MEASURES IMPLEMENTED, BED IN LOWEST POSITION, LOCKED, SIDE RAILS UP, CALL LIGHT WITHIN REACH. ALL NEEDS AND ORDERS ADDRESSED DURING THE SHIFT. NO IV ACCESS. ALL DUE MEDS GIVEN ORDERED & SCHEDULED ; PATIENT TOLERATED WELL. PATIENT KEPT CLEAN AND COMFORTABLE WITHIN THE SHIFT. PATIENT ENDORSED TO INCOMING SHIFT RN WITH STABLE VITAL SIGN AND FOR CONTINUITY OF CARE.
--- NOTE | 2021-04-09 07:30 | NUR ---
RN OPENING NOTES: PT A/OX 4 IN BED SEMIFOWLER'S BREATHING NC 2L SPO2 OF 97%, NO S/S OF RESP DISTRESS OR SOB, BREATHING EVEN AND UNLABORED. PATIENT ON TELE MONITORING READING SINUS RHYTHM HR IN 70S CURRENTLY. NO IV SITE/ACCESS; AWARE, POSSIBLE D/C TODAY. LEONARDO CATH IN PLACE, CLEAR IVET URINE DRAINING TO GRAVITY. PATIENT'S CAREGIVER IN PT'S ROOM AND WILL BE STAYING A FEW HOURS LONGER. ALL PT SAFETY MEASURES IN PLACE, PATIENT BED ALARM IS ON. HEAD OF BED ELEVATED. BED IS LOCKED, IN LOWEST POSITION AND SIDE RAILS UP. CALL LIGHT WITHIN REACH OF THE PATIENT. WILL CONTINUE TO MONITOR
[2021-04-09 08:00] VITALS: BP 102/46
[2021-04-09] MEDS: CLARITHROMYCIN 500 MG TABLET PO SCH (08:53)
[2021-04-09] MEDS: GUAIFENESIN LA 600 MG TABLET.SA PO SCH (08:53)
[2021-04-09] MEDS: HYDROGEL DRESSING 90 GM TUBE TP SCH (08:55)
[2021-04-09] MEDS: CIPROFLOXACIN HCL 0.3% 5 ML BOTTLE EACHEYE SCH ×2 (08:58→13:02)
[2021-04-09] MEDS: ENOXAPARIN SODIUM 40 MG/0.4 ML DISP.SYRIN SQ SCH (08:58)
[2021-04-09 09:35] LABS: THYROID STIMULATING HORMONE 2.985 uIU/mL (0.358-3.74); URIC ACID 2.2 mg/dL (2.6-7.2)
[2021-04-09 12:00] VITALS: BP 120/52
[2021-04-09] MEDS ORDERED: ENSURE ENLIVE 237 ML LIQUID (VANILLA) PO SCH (13:00)
--- NOTE | 2021-04-09 13:15 | NUR ---
patient cleared by dr. oliveira for discharge,instructed patient about discharge and ok to leave nelson in per patient request,hanane javier aware and per cm pt. has her own private nurse and 24 hours caregiver.
[2021-04-09] MEDS ORDERED: SOD FERRIC GLUC 125 MG in IV NS 0.9% 100 ML IV SCH (14:00)
--- NOTE | 2021-04-09 14:30 | NUR ---
RN NOTE PT DISCHARGED TO HOME IN STABLE CONDITION, NO SIGNS OF RESP DISTRESS OR SOB, PT ON NC 2L.
== END 2021-04-09 14:28 | disposition home health service (06) | DRG 166 ==
LOC: ER 20:59 → TELE1 23:52 → TELE-TD 04-08 05:17 → TELE1 04-08 09:32
PROVIDERS: ADMIT Nurse Practitioner Acute Care
PROC: 0JBN0ZZ Excision of Right Lower Leg Subcutaneous Tissue and Fascia, Open Approach (ICD-10-PCS; principal; 2021-04-08)
DX: J96.21 Acute and chronic respiratory failure with hypoxia (principal); L89.154 Pressure ulcer of sacral region, stage 4; E44.0 Moderate protein-calorie malnutrition; E22.2 Syndrome of inappropriate secretion of antidiuretic hormone; R64 Cachexia; J96.22 Acute and chronic respiratory failure with hypercapnia; G14 Postpolio syndrome; E86.1 Hypovolemia; J44.9 Chronic obstructive pulmonary disease, unspecified; J96.12 Chronic respiratory failure with hypercapnia; J96.11 Chronic respiratory failure with hypoxia; Z90.710 Acquired absence of both cervix and uterus; Z99.81 Dependence on supplemental oxygen; I11.0 Hypertensive heart disease with heart failure; F41.9 Anxiety disorder, unspecified; F03.90 Unspecified dementia, unspecified severity, without behavioral disturbance, psychotic disturbance, mood disturbance, and anxiety; Z88.5 Allergy status to narcotic agent; Z88.2 Allergy status to sulfonamides; Z79.51 Long term (current) use of inhaled steroids; Z79.899 Other long term (current) drug therapy; I50.9 Heart failure, unspecified; I87.2 Venous insufficiency (chronic) (peripheral); I25.2 Old myocardial infarction; I35.0 Nonrheumatic aortic (valve) stenosis; Z86.19 Personal history of other infectious and parasitic diseases; D64.9 Anemia, unspecified; L89.316 Pressure-induced deep tissue damage of right buttock; I48.0 Paroxysmal atrial fibrillation
CPT/HCPCS: 36415; 36600; 71045-TC; 80048-TC; 80061-TC; 80076-TC; 82728-TC; 83540-TC; 83605-TC; 83735-TC; 83880; 84100-TC; 84295-TC; 84443-TC; 84484-TC; 84550-TC; 85025-TC; 85730-TC; 87040-TC; 87081-TC; 94760-TC; 94799-TC; A6248; A6253; A6403; C9803; G0378; J1650; J2916; J7030; Q0163

== ENCOUNTER 2021-04-24 21:15 | Inpatient (IN) | payer MEDICARE, BC ==
[~2021-04-24] VITALS: Ht 172.7 cm; Wt 37.2 kg
[~2021-04-24 21:15] MED LIST changes: +CLAR-45 PO
--- NOTE | 2021-04-24 21:27 | NUR ---
PATIENT CAME TO ER BED 7 BIBRA FROM HOME C/O SOB ALL DAY. PATIENT HX OF COPD. PATIENT SATURATION AT 89% AT 2L N/C ON ARRIVAL. PATIENT IS AAOX4. BREATHING WITH ACCESSORY MUSCLES. PATIENT PLACED ON 4L N/C WITH 93% O2 SATURATION. PATIENT IS CONNECTED TO THE COMPOSITION WORKER.
--- NOTE | 2021-04-24 21:45 | NUR ---
BLOOD AND URINE COLLECTED AND SENT TO THE LAB.
--- NOTE | 2021-04-24 22:01 | NUR ---
XRAY AT BEDSIDE
[2021-04-24 22:09] LABS: BASOPHILS % (AUTO) 0.2 % (0.0-2.0); EOSINOPHILS % (AUTO) 1.6 % (0.0-6.0); HEMATOCRIT 38 % (33-45); HEMOGLOBIN 12.6 g/dL (11.5-14.8); LYMPHOCYTES # (AUTO) 0.1 /CMM (0.8-4.8); LYMPHOCYTES % (AUTO) 1.3 % (20.0-44.0); MEAN CORPUSCULAR HGB CONC 33 g/dl (31.0-36.0); MEAN CORPUSCULAR VOLUME 89 fL (82-100); MONOCYTES # (AUTO) 0.4 /CMM (0.1-1.30); MONOCYTES % (AUTO) 3.6 % (2.0-12.0); NEUTROPHILS # (AUTO) 9.6 /CMM (1.8-8.9); NEUTROPHILS % (AUTO) 93.3 % (43.0-81.0); PLATELET COUNT (AUTO) 363 /CMM (150-450); WHITE BLOOD COUNT (AUTO) 10.3 K/uL (4.3-11.0)
--- NOTE | 2021-04-24 22:12 | NUR ---
RT AT BEDSIDE. PATIENT ON BREATHING TREATMENT.
[2021-04-24] MEDS ORDERED: ALBUTEROL FS 2.5 MG/3 ML VIAL.NEB ONE (22:18)
[2021-04-24 22:19] LABS: CARBON DIOXIDE 30 mmol/L (21-32); CHLORIDE 90 mmol/L (98-107); CREATININE 0.5 mg/dL (0.6-1.3); GLUCOSE 182 mg/dL (74-106); POTASSIUM 3.7 mmol/L (3.5-5.1); SODIUM SERUM 127 mmol/L (136-145); UREA NITROGEN, BLOOD 18 mg/dL (7-18)
[2021-04-24 22:27] LABS: BILIRUBIN,URINE NEGATIVE (NEGATIVE); COLOR,URINE YELLOW (YELLOW); LEUKOCYTE ESTERASE ,URINE SMALL (NEGATIVE); NITRITE, URINE NEGATIVE (NEGATIVE); PH,URINE 5.5 (5.0-8.0); PROTEIN,URINE 30 mg/dl (NEGATIVE); UGLUCOSE NEGATIVE (NEGATIVE); UROBILINOGEN,URINE 0.2 EU/dL (0.2)
[2021-04-24] MEDS ORDERED: LEVOFLOXACIN 750 MG /D5W 150ML 750 MG in PREMIX 1 EA IV SCH (22:30)
[2021-04-24] MEDS ORDERED: methylPREDNISolone SOD SUCC 125 MG/2ML VIAL IV ONE (22:30)
[2021-04-24] MEDS ORDERED: ALBUTEROL FS 2.5 MG/3 ML VIAL.NEB CONTNEB ONE (22:30)
[2021-04-24 22:31] LABS: ALANINE AMINOTRANSFERASE 42 U/L (12-78); ALBUMIN 3.7 g/dL (3.4-5.0); ALKALINE PHOSPHATASE 120 U/L (46-116); ASPARTATE AMINOTRANSFERASE 40 U/L (15-37); BILIRUBIN,DIRECT 0.1 mg/dL (0.0-0.2); BILIRUBIN,TOTAL 0.3 mg/dL (0.2-1.0); NT-PRO BNP 540 pg/mL (0-125); TOTAL PROTEIN, SERUM 7.7 g/dL (6.4-8.2)
[2021-04-24] MEDS ORDERED: LEVOFLOXACIN 750 MG /D5W 150ML 150 ML IV ONE (22:33)
[2021-04-24] MEDS ORDERED: methylPREDNISolone SOD SUCC 125 MG/2ML VIAL ONE (22:33)
--- NOTE | 2021-04-24 23:00 | NUR ---
INFLUENZA SWAB COLLECTED AND SENT TO THE LAB.
[2021-04-24 23:05] LABS: BACTERIA,URINE Many /HPF (None Seen); SQUAMOUS EPITHELIAL CELL,UR Moderate /HPF (None Seen); WBC,URINE 81-100 /HPF (0-3)
--- NOTE | 2021-04-24 23:27 | NUR ---
[facility] CALLED. FACESHEET AND CLINICALS FAXED.
--- NOTE | 2021-04-24 23:41 | NUR ---
PATIENT FINISHED WITH BREATHING TREATMENT.
--- NOTE | 2021-04-24 23:51 | NUR ---
PATIENT PLACED ON 10L FACE MASK PER MD ORDER
--- NOTE | 2021-04-24 23:55 | NUR ---
CALL BACK FROM [facility]. NO AVAILABLE BEDS AT [place].
--- NOTE | 2021-04-24 23:57 | NUR ---
PT WAS PLACED ON O2 AT 10LPM VIA NRB MASK PER DR PALMA'S ORDER. O2 SAT INCREASED TO 95%
--- NOTE | 2021-04-25 | NUR ---
BED ASSIGNMENT: 310-1
--- NOTE | 2021-04-25 00:28 | NUR ---
REPORT GIVEN ASHLEY MARQUEZ FOR JULIA.
[2021-04-25] MEDS ORDERED: MAG HYDROX/AL HYDROX/SIMETH 30 ML UDC PO PRN (00:30)
[2021-04-25] MEDS ORDERED: IPRATROPIUM NEB FS 0.5 MG/2.5 ML AMPUL.NEB NEB PRN (00:30)
[2021-04-25] MEDS ORDERED: Z GUARD REMEDY 2 OZ OINT TP PRN (00:30)
[2021-04-25] MEDS ORDERED: ACETAMINOPHEN 325 MG TABLET PO PRN (00:30)
[2021-04-25] MEDS ORDERED: MAGNESIUM HYDROXIDE 30 ML UDC PO PRN (00:30)
[2021-04-25] MEDS ORDERED: ONDANSETRON HCL/PF 4 MG/2 ML VIAL IVP PRN (00:30)
[2021-04-25] MEDS ORDERED: ALBUTEROL FS 2.5 MG/0.5 ML VIAL.NEB NEB PRN (00:30)
--- NOTE | 2021-04-25 00:35 | NUR ---
RN OPENING NOTE ADMIT 85 YEAR OLD FEMALE TO [facility] FROM ER TO ROOM 116 WITH DIAGNOSIS:CUTE HYPOXIC HYPERCAPNIC, RESPIRATORY FAILURE,ALERT ORIENTED X3 VERBALLY RESPONSIVE ON 10 L OXYGEN VIA MASK O2:98% IV SITE IS ON LEFT FOREARM #20 INTACT PATENT MULTIPLES SKIN DISCOLORATION AND DTI ON BUTTOCKS AND SACRUM AREA,AND SKIN TEAR ON LEFT LOWER LEG INCONTINENT TO BOWEL/BLADDER SAFETY MEASURE IMPLEMENT,BED IN LOW POSITION AND LOCKED CONTINUE TO MONITOR.
[2021-04-25] MEDS ORDERED: LORAZEPAM INJ 2 MG/ML VIAL IV PRN (01:00)
[2021-04-25] MEDS ORDERED: ENOXAPARIN SODIUM 40 MG/0.4 ML DISP.SYRIN SQ SCH (01:00)
--- NOTE | 2021-04-25 01:50 | NUR ---
RN NOTE RECEIVED CRITICAL LAB REPORT LACTIC ACID 4.1 NOTIFIED MOJGAN CHEEK WITH NO NEW ORDER.
--- NOTE | 2021-04-25 02:00 | NUR ---
RN NOTE RT PUT PATIENT ON 2L OXYGEN VIA NASAL CANNULA O2:98% CONTINUE TO MONITOR.
[2021-04-25 04:00] VITALS: BP 97/46
[2021-04-25] MEDS: methylPREDNISolone SOD SUCC 40 MG/ML VIAL IV SCH ×2 (05:09→12:52)
[2021-04-25] MEDS ORDERED: PANTOPRAZOLE 40 MG TABLET.DR PO SCH (07:00)
--- NOTE | 2021-04-25 07:11 | NUR ---
RN CLOSING NOTE PATIENT REMAINS ON ALERT ORIENTED X3 VERBALLY RESPONSIVE NO [facility] MONITORING ON 2L OXYGEN VIA NASAL CANNULA, 02:98% ALL DUE MED GIVEN MD ORDERED KEEP CLEAN AND DRY ALL THE TIME ALL NEEDS MET.
--- NOTE | 2021-04-25 07:30 | NUR ---
RN OPENING NOTE PT A/Ox3 WITH PERIODS OF CONFUSION BREATHING NC 2LPM, SPO2 93%, SOB NOTED WHEN SPEAKING WITH PT, INCREASED NC TO 4LPM, WILL MONITOR. PT HAS RFA #20 SL, FLUSHED, INTACT AND PATENT WITH NO SIGNS OF INFECTION/INFILTRATION. PT STATES 5/10 RT HIP PAIN, WILL ADMIN MEDS ORDERED. PT HAS SACRAL AND BUTTOCKS WOUNDS COVERED IN MEPILEX AND BILAT LEG SKIN TEARS COVERED WELL. ALL PT SAFETY PRECAUTIONS IN PLACE, WILL CONT TO MONITOR
[2021-04-25 08:00] VITALS: BP 115/59
[2021-04-25] MEDS ORDERED: ZOLP5TAB8 PO (08:31)
[2021-04-25] MEDS ORDERED: ALBU2.5V38 IH (08:31)
--- NOTE | 2021-04-25 09:35 | NUR ---
RN NOTE NOTIFIED BLIND TEACHER GINNA MUÑIZ OF PT LACTIC ACID LEVEL OF 4.1
[2021-04-25] MEDS ORDERED: LEVOFLOXACIN 500 MG /D5W 100ML 500 MG in PREMIX 1 EA IV SCH (10:00)
[2021-04-25] MEDS ORDERED: IV NS 0.9% 1,000 ML IV ONE (10:00)
[2021-04-25] MEDS ORDERED: IV NS 0.9% 500 ML IV ONE (10:30)
[2021-04-25] MEDS: ACETYLCYSTEINE 10% SOLN 400 MG/4 ML VIAL NEB SCH ×2 (11:00→15:11)
[2021-04-25] MEDS: IPRATROPIUM NEB FS 0.5 MG/2.5 ML AMPUL.NEB NEB SCH ×2 (11:13→15:11)
[2021-04-25] MEDS: ALBUTEROL FS 2.5 MG/0.5 ML VIAL.NEB NEB SCH ×2 (11:13→15:11)
[2021-04-25 12:00] VITALS: BP 111/57
[2021-04-25] MEDS ORDERED: ENSURE ENLIVE 237 ML LIQUID (VANILLA) PO SCH (13:00)
[2021-04-25 14:18] LABS: ABG BASE EXCESS 2.1 mmol/L; ABG OXYGEN SATURATION 96.5 % (92.0-98.5); ABG PCO2 44.6 mmHg (35.0-45.0); ABG PH 7.403 (7.350-7.450); ABG PO2 81.3 mmHg (75.0-100.0); AaDO2 101.9 mmHg; COHb 0.1 % (0.5-1.5); MetHb 0.4 % (0.0-1.5); SITE, ABG Right Brachial; VENT MODE, BG nasal cannula
[2021-04-25 16:00] VITALS: BP 117/49
--- NOTE | 2021-04-25 16:30 | NUR ---
RN NOTE PT REPORT GIVEN TO [facility] AT [facility] FOR JULIA
--- NOTE | 2021-04-25 17:29 | NUR ---
RN NOTE PT REPORT GIVEN TO EMT FOR PT TRANSFER TO [facility] Addendum: 04/25/21 at 1731 by SUSI HORTON RN PT ON NC 3L SPO2 OF 95%, NO SIGNS OF RESP DISTRESS OR SOB. PT RFA #[address] PER RECEIVING FACILITY REQUEST. PT IN STABLE CONDITION.
[2021-04-25] MEDS ORDERED: LEVO500P10 IV (18:25)
[2021-04-25] MEDS ORDERED: PANT40TA2 PO (18:25)
[2021-04-25] MEDS ORDERED: ALBUT2 CONTNEB (18:25)
[2021-04-25] MEDS ORDERED: ACET1OOV6 NEB (18:25)
[2021-04-25] MEDS ORDERED: methylPREDNISolone SOD SUCC IV (18:25)
[2021-04-25] MEDS ORDERED: ENOX40DI SQ (18:25)
[2021-04-25] MEDS ORDERED: LEVOFLOXACIN 250 MG /D5W 50 ML 250 MG in PREMIX 1 EA IV SCH (21:00)
== END 2021-04-25 17:33 | disposition short-term general hospital (02) | DRG 190 ==
LOC: ER 21:17 → TELE1 04-25 00:12 → TELE-TD 04-25 05:49 → TELE1 04-25 12:13
PROVIDERS: ADMIT Nurse Practitioner Acute Care; ATTEND Nurse Practitioner Acute Care
DX: J44.1 Chronic obstructive pulmonary disease with (acute) exacerbation (principal); A41.9 Sepsis, unspecified organism; J96.01 Acute respiratory failure with hypoxia; J96.02 Acute respiratory failure with hypercapnia; E43 Unspecified severe protein-calorie malnutrition; N39.0 Urinary tract infection, site not specified; D68.59 Other primary thrombophilia; E87.2 Acidosis; R64 Cachexia; I87.313 Chronic venous hypertension (idiopathic) with ulcer of bilateral lower extremity; L97.829 Non-pressure chronic ulcer of other part of left lower leg with unspecified severity; L97.819 Non-pressure chronic ulcer of other part of right lower leg with unspecified severity; Z68.1 Body mass index [BMI] 19.9 or less, adult; E22.2 Syndrome of inappropriate secretion of antidiuretic hormone; D50.9 Iron deficiency anemia, unspecified; E86.0 Dehydration; F41.9 Anxiety disorder, unspecified; I10 Essential (primary) hypertension; I48.0 Paroxysmal atrial fibrillation; Z74.01 Bed confinement status; Z87.891 Personal history of nicotine dependence; Z90.710 Acquired absence of both cervix and uterus; Z87.440 Personal history of urinary (tract) infections; I35.0 Nonrheumatic aortic (valve) stenosis; Z86.11 Personal history of tuberculosis; B96.20 Unspecified Escherichia coli [E. coli] as the cause of diseases classified elsewhere; I70.90 Unspecified atherosclerosis; Z20.822 Contact with and (suspected) exposure to COVID-19; G14 Postpolio syndrome; I73.9 Peripheral vascular disease, unspecified; L89.159 Pressure ulcer of sacral region, unspecified stage
CPT/HCPCS: 36415; 36600; 71045-TC; 80048-TC; 80076-TC; 81001; 82803-TC; 83605-TC; 83880; 84484-TC; 85025-TC; 85730-TC; 87040-TC; 87081-TC; 87086-TC; 87186-TC; 92526; 92611-TC; 94799-TC; A4216; C9803; G0378; J1650; J1956; J2920; J2930; J7040

== ENCOUNTER 2021-11-16 12:54 | Inpatient (IN) | payer MEDICARE, BC ==
[~2021-11-16] VITALS: Ht 157.5 cm; Wt 49.6 kg
[2021-11-16] VITALS (32 sets, daily range): BP systolic 61–115; BP diastolic 26–65
[~2021-11-16 12:54] MED LIST changes: +ACET1OOV6 NEB; +ALBUT2 CONTNEB; -ALLA266C2 TP; -ALPR0.255 PO; -AMOX-427 PO; -CIPR5DRO18 EACHEYE; +ENOX40DI SQ; -ETHA400T31 PO; +ETHA400T8 PO; -FLUC150T PO; -IBUP-23 PO; +LEVO500P10 IV; -ONDA4TAB5 PO; +PANT40TA2 PO; +ZOLP5TAB8 PO; +methylPREDNISolone SOD SUCC IV
--- NOTE | 2021-11-16 12:59 | NUR ---
PT BIB RA 78 FROM HOME,AMS, O2SAT 80-85% ON R/A. PUT ON O2 TOLERATING 4L N/C AT 100%. CONNECECTEC PT TO POX AND MONITOR. SAFETY MEASURES IN PLACE
--- NOTE | 2021-11-16 13:20 | NUR ---
RAC #20G S/L; PATENT AND INTACT. BLOOD COLLECTED AND SENT TO LAB URINE COLLECTED AND SENT TO LAB
--- NOTE | 2021-11-16 13:23 | NUR ---
CEMENT HANDLER AT PT'S BEDSIDE
--- NOTE | 2021-11-16 13:26 | NUR ---
COVID ANTIGEN AND PCR COLLECTED AND SENT TO LAB
--- NOTE | 2021-11-16 13:36 | NUR ---
PT TAKEN TO CT ON M[place] VIA ACLS PROTOCOL
[2021-11-16 13:39] LABS: BILIRUBIN,URINE NEGATIVE (NEGATIVE); COLOR,URINE YELLOW (YELLOW); NITRITE, URINE POSITIVE (NEGATIVE); PH,URINE 5.5 (5.0-8.0); PROTEIN,URINE 100 mg/dl (NEGATIVE); UGLUCOSE NEGATIVE (NEGATIVE); UROBILINOGEN,URINE 0.2 EU/dL (0.2)
[2021-11-16 13:44] LABS: BACTERIA,URINE 1+ /HPF (None Seen); LEUKOCYTE ESTERASE ,URINE 2+ (NEGATIVE); RBC,URINE 0-2 /HPF (0-2); SQUAMOUS EPITHELIAL CELL,UR Few /HPF (None Seen); WBC,URINE TOO NUMEROUS TO COUN /HPF (0-3); YEAST,URINE Many /HPF (None Seen)
--- NOTE | 2021-11-16 13:52 | NUR ---
RT AT PT'S BEDSIDE FOR ABG
[2021-11-16 14:15] LABS: ALCOHOL, BLOOD < 3 mg/dL (0-0)
[2021-11-16 14:16] LABS: ACETAMINOPHEN 0 ug/ml (10-30)
[2021-11-16] MEDS ORDERED: LEVA0.6320 INH (14:27)
[2021-11-16] MEDS ORDERED: PANT40TA49 PO (14:27)
[2021-11-16] MEDS ORDERED: SENN8.6T19 PO (14:27)
[2021-11-16] MEDS ORDERED: SENN-261 PO (14:27)
[2021-11-16] MEDS ORDERED: NITR100C PO (14:27)
[2021-11-16] MEDS ORDERED: IPRA0.2S9 INH (14:27)
[2021-11-16] MEDS ORDERED: LACT10SO3 PO (14:27)
[2021-11-16] MEDS ORDERED: FURO20TA4 PO (14:27)
[2021-11-16] MEDS ORDERED: ALPR0.255 PO (14:27)
[2021-11-16] MEDS ORDERED: FERR325T23 PO (14:27)
[2021-11-16] MEDS ORDERED: SUCR1TAB PO (14:27)
[2021-11-16] MEDS ORDERED: FUROSEMIDE 40 MG/4 ML VIAL ONE (14:29)
[2021-11-16] MEDS ORDERED: IV NS 0.9% 500 ML BAG IV ONE (14:30)
[2021-11-16] MEDS ORDERED: CEFTRIAXONE 1GM BAG (ER ONLY) 50 ML IV ONE ×2 (14:30)
[2021-11-16] MEDS ORDERED: PROPOFOL 100 ML ONE (14:30)
--- NOTE | 2021-11-16 14:40 | NUR ---
RT AND JAY SPRAGUE AT PT'S BEDSIDE JAY SPRAGUE GAVER VERBAL ORDERS AND WERE ADMINISTERED: -1420 EPI .2MG IVP -1420 BICARB 25MG -1421 ETOMIDATE 20 MG IVP -1422 ROCURONIUM 50MG IVP 1423 PT INTUBATED BY JAY SPRAGUE ETT 7.0; 21CM AT THE LIP VENT SETTINGS: -TV 400 RR 222 FIO2 50% PEEP 5 1427 - PACK PULLER AT PT'S BEDSIDE 1435 - ETT ADVANCED TO 26CM AT THE LIP. 1440INITATED PROPOFOL AT 5MCG/ML IV PT TOLREATED PROCEDURE WELL SPO2 100%. VSS
--- NOTE | 2021-11-16 14:41 | NUR ---
[facility] CALLED [employer] [facility] PAGED.
[2021-11-16] MEDS ORDERED: FUROSEMIDE 40 MG/4 ML VIAL IV ONE (15:00)
[2021-11-16] MEDS ORDERED: RIFAMPIN 300 MG CAPSULE PO SCH ×2 (15:00→17:45)
[2021-11-16] MEDS ORDERED: ETHAMBUTOL HCL (400 MG) 400 MG TABLET PO SCH (15:00)
--- NOTE | 2021-11-16 15:11 | NUR ---
DR. VEGAS AT PT'S BEDSIDE
[2021-11-16 15:14] LABS: BASOPHILS % (AUTO) 0.3 % (0.0-2.0); EOSINOPHILS % (AUTO) 3.4 % (0.0-6.0); HEMATOCRIT 35 % (33-45); HEMOGLOBIN 10.8 g/dL (11.5-14.8); LYMPHOCYTES # (AUTO) 0.8 K/uL (0.8-4.8); LYMPHOCYTES % (AUTO) 5.6 % (20.0-44.0); MEAN CORPUSCULAR HGB CONC 31 g/dl (31.0-36.0); MEAN CORPUSCULAR VOLUME 91 fL (82-100); MONOCYTES # (AUTO) 0.9 K/uL (0.1-1.30); MONOCYTES % (AUTO) 6.2 % (2.0-12.0); NEUTROPHILS # (AUTO) 12.4 K/uL (1.8-8.9); NEUTROPHILS % (AUTO) 84.5 % (43.0-81.0); PLATELET COUNT (AUTO) 327 K/uL (150-450); RED BLOOD CELL COUNT(AUTO) 3.82 MIL/uL (4.0-5.2); WHITE BLOOD COUNT (AUTO) 14.7 K/uL (4.3-11.0)
[2021-11-16 15:33] LABS: ALBUMIN 3.3 g/dL (3.4-5.0); BILIRUBIN,DIRECT 0.2 mg/dL (0.0-0.2); BILIRUBIN,TOTAL 0.3 mg/dL (0.2-1.0); TOTAL PROTEIN, SERUM 7.3 g/dL (6.4-8.2)
--- NOTE | 2021-11-16 15:34 | NUR ---
ASSIGNED TO [id number]
[2021-11-16 15:38] LABS: CARBON DIOXIDE 33 mmol/L (21-32); CHLORIDE 98 mmol/L (98-107); GLUCOSE 143 mg/dL (74-106); POTASSIUM 4.7 mmol/L (3.5-5.1); SODIUM SERUM 139 mmol/L (136-145)
[2021-11-16 15:39] LABS: CALCIUM, SERUM 9.1 mg/dL (8.5-10.1); CREATININE 0.4 mg/dL (0.6-1.3); UREA NITROGEN, BLOOD 19 mg/dL (7-18)
--- NOTE | 2021-11-16 15:40 | NUR ---
REPORT GIVEN TO MAGALIS MARQUEZ FOR JULIA
--- NOTE | 2021-11-16 15:51 | NUR ---
UPDATED CHAD () ON PT'S CARE AND PT BEING TRANSFERRED TO ICU CAREGIVER LIUDMILA
--- NOTE | 2021-11-16 15:51 | NUR ---
PT COVID VACCINATED PER [facility] 1) PFIZER 12/23/20 2) PFIZER 01/13/21 3) PFIZER 11/10/21
[2021-11-16] MEDS ORDERED: PANTOPRAZOLE 40 MG VIAL IV SCH (16:00)
[2021-11-16] MEDS ORDERED: IPRATROPIUM NEB FS 0.5 MG/2.5 ML AMPUL.NEB NEB SCH (16:00)
[2021-11-16] MEDS ORDERED: ENOXAPARIN SODIUM 40 MG/0.4 ML DISP.SYRIN SQ SCH (16:00)
[2021-11-16] MEDS ORDERED: PROPOFOL 100 ML IV PRN ×2 (16:00)
[2021-11-16] MEDS ORDERED: ACETAMINOPHEN 325 MG TABLET PO PRN (16:00)
[2021-11-16] MEDS ORDERED: ZOLPIDEM TARTRATE 5 MG TABLET PO PRN (16:00)
--- NOTE | 2021-11-16 16:15 | NUR ---
PT TRANSFERRED TO ICU VIA ACLS PROTOCOL WITH RT. PT ON PROPOFOL. PT TOLERATED TRANSFER WELL.
--- NOTE | 2021-11-16 16:20 | NUR ---
ICU/RN PT IS ADMITTED FROM ER.INTUBATED ON THE VENT AC MODE ,FIO2-50% .SAT O2-100%.LOW BP.SEDATED WITH DIPRIVAN .RIGHT HAND IV.OG TUBE INSERTED ORDERED.F/C IN PLACE,DRAINING WITH YELLOW URINE. MULTIPLY BRUISES AND SKIN TEARS NOTED ALL OVER THE BODY.BILATERAL LOWER LEGS WOUNDS NOTED.WOUND CARE DONE.SACRAL AREA WOUND,AND RIGHT BUTTOCK DTI.PHOTO TAKEN .WOUND NURSE NOTIFIED. LABS REVIEW.BILATERAL SOFT WRIST RESTRAINS ON.
[2021-11-16 16:41] LABS: ABG BASE EXCESS 8.3 mmol/L; ABG OXYGEN SATURATION 99.3 % (92.0-98.5); ABG PCO2 174.7 mmHg (35.0-45.0); ABG PO2 262.2 mmHg (75.0-100.0); COHb 0.2 % (0.5-1.5); MetHb 0.3 % (0.0-1.5); O2Hb 98.8 % (94.0-97.0); SITE, ABG Left Radial; VENT MODE, BG Nasal Cannula
[2021-11-16 16:41] LABS: ABG BASE EXCESS 10.3 mmol/L; ABG OXYGEN SATURATION 99.6 % (92.0-98.5); ABG PCO2 64.8 mmHg (35.0-45.0); ABG PH 7.381 (7.350-7.450); ABG PO2 239.6 mmHg (75.0-100.0); COHb 0.6 % (0.5-1.5); MetHb 0.2 % (0.0-1.5); O2Hb 98.8 % (94.0-97.0); PEEP,BG 5 cm H2O; SITE, ABG Right Brachial; VT, ABG 400 mL
[2021-11-16] MEDS ORDERED: FERROUS SULFATE (325 MG) 325 MG/TAB TABLET PO SCH (17:00)
[2021-11-16] MEDS ORDERED: CLARITHROMYCIN 500 MG TABLET PO SCH (17:00)
[2021-11-16] MEDS ORDERED: SUCRALFATE 1 G TABLET PO SCH (17:00)
[2021-11-16] MEDS ORDERED: PHARMACY TO CHANGE PO MEDS TO GT/NG XX PRN (17:30)
[2021-11-16] MEDS ORDERED: ZOLPIDEM TARTRATE 5 MG TABLET GT PRN (17:33)
[2021-11-16] MEDS ORDERED: CLARITHROMYCIN 500 MG TABLET GT SCH (17:39)
[2021-11-16] MEDS ORDERED: ACETAMINOPHEN 650 MG/20.3 ML UDC PO PRN (18:00)
[2021-11-16] MEDS ORDERED: SENNOSIDES 8.6 MG TABLET PO SCH (18:00)
[2021-11-16] MEDS ORDERED: ACETAMINOPHEN 650 MG/20.3 ML UDC GT PRN (18:00)
[2021-11-16 18:20] LABS: BAND % (MANUAL) 1 % (0.0-5.0); EOSINOPHILS % (MANUAL) 5 % (0-4); LYMPHOCYTES % (MANUAL) 8 % (16-48); MONOCYTES % (MANUAL) 3 % (0-11.0); NEUTROPHILS % (MANUAL) 83 (42-76)
--- NOTE | 2021-11-16 18:25 | NUR ---
ICU/RN DUE MEDS ARE GIVEN ORDERED.LEVOPHED STARTED.PICC LINE CONSENT SIGN.WAITING FOR THE PICC LINE NURSE.
[2021-11-16] MEDS: PROPOFOL 100 ML IV PRN (18:33)
[2021-11-16] MEDS: NOREPINEPHRINE 8 MG in IV NS 0.9% 242 ML IV PRN (18:34)
[2021-11-16] MEDS: PIPERACILLIN /TAZOBACTAM 4.5 G in IV D5W 50 ML IV SCH (18:41)
[2021-11-16] MEDS: IV NS 0.9% 1,000 ML IV PRN (18:41)
[2021-11-16] MEDS: LEVOFLOXACIN 500 MG /D5W 100ML 100 ML IV SCH (18:41)
[2021-11-16] MEDS: methylPREDNISolone SOD SUCC 125 MG/2ML VIAL IV SCH ×2 (18:42→21:00)
[2021-11-16] MEDS: Z GUARD REMEDY 2 OZ OINT TP SCH (18:42)
[2021-11-16] MEDS: VANCOMYCIN 1 GM in IV D5W 250ml IV SCH (18:42)
[2021-11-16] MEDS: FERROUS SULFATE (325 MG) 325 MG/TAB TABLET GT SCH (18:43)
[2021-11-16] MEDS: SENNOSIDES 8.6 MG TABLET GT SCH (18:43)
[2021-11-16] MEDS: RIFAMPIN 300 MG CAPSULE GT SCH (18:43)
[2021-11-16] MEDS: ETHAMBUTOL HCL (400 MG) 400 MG TABLET GT SCH (18:43)
[2021-11-16] MEDS: ENOXAPARIN SODIUM 40 MG/0.4 ML DISP.SYRIN SQ SCH (18:44)
[2021-11-16] MEDS: SUCRALFATE 1 G TABLET GT SCH ×2 (18:44→21:00)
[2021-11-16] MEDS: CLARITHROMYCIN 500 MG TABLET GT SCH (18:45)
[2021-11-16] MEDS: ALBUTEROL FS 2.5 MG/3 ML VIAL.NEB NEB SCH ×2 (19:30→23:30)
[2021-11-16] MEDS: IPRATROPIUM BROMIDE 14 GM INHALER (or 12.9 GM) IH SCH (19:43)
--- NOTE | 2021-11-16 20:29 | NUR ---
RECEIVED PT INTUBATED 7.0 ETT SECURED AT 26CM AT THE LIP. SX'D SMALL AMT OF THICK YELLOW SECRETIONS. PT TOLERATING VENT SETTINGS. ALARMS SET AND AUDIBLE. CONTINUE TO MONITOR. Addendum: 11/16/21 at 2030 by MALACHI WHITMORE RT Amended: Links added.
[2021-11-16] MEDS: MICAFUNGIN SODIUM 100 MG in IV NS 0.9% 100 ML IV SCH (20:35)
[2021-11-16 21:10] LABS: CALCIUM, SERUM 8.2 mg/dL (8.5-10.1); CARBON DIOXIDE 28 mmol/L (21-32); CHLORIDE 98 mmol/L (98-107); CREATININE 0.4 mg/dL (0.6-1.3); GLUCOSE 103 mg/dL (74-106); POTASSIUM 4.4 mmol/L (3.5-5.1); SODIUM SERUM 133 mmol/L (136-145); UREA NITROGEN, BLOOD 20 mg/dL (7-18)
--- NOTE | 2021-11-16 21:42 | NUR ---
POST TRONIC MACHINE OPERATOR NON ADMIN MEDS THEY WERE PREVIOUSLY GIVEN TOO CLOSE IN PROXIMITY
[2021-11-16] MEDS: IV NS 0.9% 250 ML IV PRN (23:40)
[2021-11-17] VITALS (96 sets, daily range): BP systolic 75–144; BP diastolic 18–69
[2021-11-17] MEDS: PIPERACILLIN /TAZOBACTAM 4.5 G in IV D5W 50 ML IV SCH ×5 (00:15→23:13)
[2021-11-17] MEDS: PROPOFOL 100 ML IV PRN ×3 (00:31→20:16)
[2021-11-17 00:53] LABS: CALCIUM, SERUM 7.7 mg/dL (8.5-10.1); CARBON DIOXIDE 36 mmol/L (21-32); CHLORIDE 96 mmol/L (98-107); CREATININE 0.4 mg/dL (0.6-1.3); GLUCOSE 92 mg/dL (74-106); POTASSIUM 3.3 mmol/L (3.5-5.1); SODIUM SERUM 137 mmol/L (136-145); UREA NITROGEN, BLOOD 18 mg/dL (7-18)
[2021-11-17] MEDS: IPRATROPIUM BROMIDE 14 GM INHALER (or 12.9 GM) IH SCH ×4 (01:11→19:30)
[2021-11-17] MEDS: ALBUTEROL FS 2.5 MG/3 ML VIAL.NEB NEB SCH ×6 (03:25→23:30)
[2021-11-17 05:07] LABS: BASOPHILS # (AUTO) 0.1 K/uL (0.0-0.2); BASOPHILS % (AUTO) 0.5 % (0.0-2.0); EOSINOPHILS % (AUTO) 6.2 % (0.0-6.0); HEMATOCRIT 29 % (33-45); HEMOGLOBIN 9.5 g/dL (11.5-14.8); LYMPHOCYTES # (AUTO) 0.6 K/uL (0.8-4.8); LYMPHOCYTES % (AUTO) 5.6 % (20.0-44.0); MEAN CORPUSCULAR HGB CONC 32 g/dl (31.0-36.0); MEAN CORPUSCULAR VOLUME 88 fL (82-100); MONOCYTES # (AUTO) 0.8 K/uL (0.1-1.30); MONOCYTES % (AUTO) 7.7 % (2.0-12.0); NEUTROPHILS # (AUTO) 8.7 K/uL (1.8-8.9); PLATELET COUNT (AUTO) 278 K/uL (150-450); RED BLOOD CELL COUNT(AUTO) 3.34 MIL/uL (4.0-5.2); WHITE BLOOD COUNT (AUTO) 10.8 K/uL (4.3-11.0)
[2021-11-17 05:20] LABS: ALANINE AMINOTRANSFERASE 31 U/L (12-78); ALBUMIN 2.4 g/dL (3.4-5.0); ALKALINE PHOSPHATASE 79 U/L (46-116); ASPARTATE AMINOTRANSFERASE 22 U/L (15-37); BILIRUBIN,TOTAL 0.3 mg/dL (0.2-1.0); CARBON DIOXIDE 35 mmol/L (21-32); CHLORIDE 97 mmol/L (98-107); CREATININE 0.4 mg/dL (0.6-1.3); GLUCOSE 85 mg/dL (74-106); PHOSPHORUS 2.5 mg/dL (2.5-4.9); POTASSIUM 3.1 mmol/L (3.5-5.1); SODIUM SERUM 138 mmol/L (136-145); TOTAL PROTEIN, SERUM 5.7 g/dL (6.4-8.2); UREA NITROGEN, BLOOD 18 mg/dL (7-18)
[2021-11-17] MEDS: methylPREDNISolone SOD SUCC 125 MG/2ML VIAL IV SCH (05:25)
[2021-11-17] MEDS ORDERED: PANTOPRAZOLE 40 MG TABLET.DR PO SCH (07:30)
--- NOTE | 2021-11-17 07:40 | NUR ---
ICU/RN PT IS INTUBATED ON THE VENT AC MODE,FIO2-40%,SAT O2-100%.SEDATED WITH DIPRIVAN .ON LEVOPHED DRIP.RIGHT UPPER ARM PICC LINE.IV FLUIDS ON.OG TUBE CLAMPED.BILATERAL SOFT WRIST RESTRAINS ON.F/C IN PLACE DRAINING WITH YELLOW URINE .PT HAS BRUISES AND SKIN TEARS ON BILATERAL ARMS.BILATERAL LOWER LEGS WOUNDS COVERED WITH DRESSING.BLE EDEMA NOTED.SACRAL AREA WOUND COVERED WITH CLEAN DRESSING.LABS REVIEW K-3.1 .DR SORIANO NOTIFIED.NEW ORDERS RECEIVED.
[2021-11-17] MEDS ORDERED: POTASSIUM CHLORIDE 20 MEQ POWDER PACKET GT ONE (08:30)
[2021-11-17] MEDS ORDERED: ETOMIDATE 2 MG/ML VIAL IV ONE (08:34)
[2021-11-17] MEDS ORDERED: ROCURONIUM BROMIDE 50 MG/5 ML IV ONE (08:34)
[2021-11-17] MEDS: PANTOPRAZOLE 40 MG VIAL IV SCH (08:35)
[2021-11-17] MEDS: SUCRALFATE 1 G TABLET GT SCH ×4 (08:36→20:16)
[2021-11-17] MEDS: SENNOSIDES 8.6 MG TABLET GT SCH ×2 (08:36→17:45)
[2021-11-17] MEDS: FERROUS SULFATE (325 MG) 325 MG/TAB TABLET GT SCH ×2 (08:36→17:07)
--- NOTE | 2021-11-17 08:36 | NUR ---
WOUND CARE CONSULT: PT PRESENTS WITH MULTIPLE SKIN ISSUES INCLUDING UNSTAGEABLE SACRAL PRESSURE ULCER, INTACT DEEP TISSUE INJURY TO RT BUTTOCK, CACHEXIA, DUSKY COLOR TO HEELS, SKIN TEAR WITH DISCOLORATIONS TO LEFT UPPER ARM AND LOWER LEGS, ALL PRESENT ON ADMISSION. RECOMMENDATIONS MADE FOR SKIN PROTECTION AND WOUND CARE. DISCUSSED WITH NURSING STAFF. SURGICAL AND DPM CONSULTS CALLED TO DR YOLI CASSIDY AND DR HAMPAPUR. SPRAGUE IN AGREEMENT WITH PLAN OF CARE. PT IS ON CARLOS ISOFLEX LOW AIRLOSS BED. Addendum: 11/17/21 at 0840 by ISABELL LAUREN WNDNU Amended: Links added.
[2021-11-17] MEDS: CLARITHROMYCIN 500 MG TABLET GT SCH ×2 (08:37→17:06)
[2021-11-17] MEDS: Z GUARD REMEDY 2 OZ OINT TP SCH ×2 (08:37→20:17)
[2021-11-17 08:55] LABS: ABG BASE EXCESS 3.6 mmol/L; ABG PO2 108.1 mmHg (75.0-100.0); AaDO2 121.9 mmHg; COHb 0.3 % (0.5-1.5); MetHb 0.2 % (0.0-1.5); O2Hb 97.5 % (94.0-97.0); PEEP,BG 5 cm H2O; SITE, ABG Right Brachial; VT, ABG 380 mL
[2021-11-17] MEDS: HYDROCORTISONE SOD SUCCINATE 100 MG/2 ML VIAL IV SCH ×3 (09:00→20:16)
--- NOTE | 2021-11-17 09:24 | NUR ---
ICU/RN DUE MEDS ARE GIVEN ORDERED.SUCTION PROVIDED.SEDATION VACATION PROVIDED.PT IS AWAKE,FOLLOWS COMMAND.
[2021-11-17] MEDS: HYDROGEL DRESSING 90 GM TUBE TP SCH (09:47)
[2021-11-17] MEDS: NOREPINEPHRINE 8 MG in IV NS 0.9% 242 ML IV PRN (09:48)
[2021-11-17] MEDS: IV NS 0.9% 1,000 ML IV PRN (11:49)
--- NOTE | 2021-11-17 12:04 | NUR ---
SS consult: SS Consult requested for pt. "comes from home with pressure ulcers, Cachexia". The pt. is an 86 year old female admitted to ICU for SOB & AMS per EMR. The pt. is not able to able to provide Hx. at this time. SW called the pt.'s , Les Alvarez [phone] to gather collateral information. Per Les, the pt. has Hx. of Polio, Pneumonia and has been bedridden for the past 3-5 years. Per , the pt. has 4 caregivers available to provide 24 hour caregiving. states caregivers turn the pt. to minimize pressure wounds and they sit her in wheelchair at times. Kylah Lubin [phone] is one of the caregivers. SW explored if pt. has a wound care nurse. states pt. does have a wound nurse who sees pt. 1x/week provided by [employer]. could not provide phone number for company at this time. SW explored pt.'s mental health Hx. states pt. has no Hx. of mental illness. states pt. does not use drug or ETOH. states pt. does not receive financial assistance like SSI or SSDI. states pt. is not in need of any additional resources/ services at this time. SW will remain available as needed. OWEN placed senior resources in chart to be given to family upon DC: ABUSE PREVENTION: ELDER ABUSE HOTLINE (18/06) ADULT PROTECTIVE SERVICES HOTLINE LONG-TERM CARE [facility] Region AREA ON AGING (HOTLINE) ADULT DAY HEALTH CARE CARE CENTERS: Private pay or Medi-dale funded adult day care [place] [facility] [place] , [facility] Services , [facility] , [facility] Adult [facility] Care , [facility] Adult [facility] Health Care , [facility] Adult [facility] , [facility] , [facility] Adult Center , [place] ALZHEIMERS DISEASE/DEMENTIA: Alzheimers Association Helpline [facility] Chapter www.alz.org/[facility] Department of Aging www.lacity.org Family Caregiver [place] www.caregiver.org [place] Caregiver Resources Center/Family Support www.[facility].org CANCER RESOURCES: [place] Cancer Society www.cancer.org Cancer Support Community www.CancerSupportVvsb.org: CancerCare www.cancercare.org [facility] Cancer Support [place] www.[facility].org [facility] HEALTH ASSOCIATIONS: AARP www.aarp.org ALS Association (ask for Debra) www.als.org [place] Diabetes Association www.diabetes.org [place] Heart Association www.heart.org Iceland[place] Lung Association www.lungusa.org Icelandic Parkinson Disease Association www.apdaparkinson.org [place]ic Pateros , www.redcross.org Arthritis Foundation www.arthritis.org Crohns & Colitis Foundation of [place]ic www.ccfa.org/chapters/reece National Multiple Sclerosis Society www.nationalmssociety.org Myasthenia Gravis Foundation www.myasthenia-ca.org National Stroke Association www.stroke.org CONSERVATORSHIP & GUARDIANSHIP: AARP Zoe [place] Legal Services Center for Health Care Rights Eldercare Information and Referral Veterinary Laboratory Technician [place] [facility]: [facility] Bar Referral Service [facility] Legal Services Office of the Public Guardian [place] EYESIGHT DISORDER RESOURCES: [place] Macular Degeneration Foundation [facility] www.[facility].org GRIEF AND BEREAVEMENT RESOURCES: The Gathering Place , [facility] THE HOPE Connection , [facility] Bereavement Center , [place] HEARING DISORDER RESOURCES: [place] Telephone Access Program Deaf and Disabled Telecommunications Program www.ddtp.[facility].ca.gov HearRx Hearing Centers ([place]) Better Hearing Systems , [place] GLAD ([facility] Agency on Deafness) V/ TTY; Double Bass Player , [facility] Hearing [place] [facility] -low income hearing aid assistance www.[facility] centerfoundation.org [place] Hearing Care , Joceline HELP AT HOME CAREGIVER SUPPORT: In Home Support Services (Must have Medi-Dale to be eligible) *Ask for a list of agencies that provide services to assist with care in the home. Local Senior Centers also have listings of care providers. HOME SAFETY MODIFICATIONS AND EQUIPMENT: Senior centers have additional referrals. MD Housing and Community Investment Dept. Handyworker Program (low income) or Visit http://hcidla.[facility].org/yph-osihzo-kj for more information National Seating and Mobility and/or ; Forever Active www.foreverCmyCasa.Protagonist Therapeutics Stay Home Safe www.Stayhomesafe.com LIFE ALERT RESPONSE SYSTEM: Brainiac TV Services 932-677-7756 www. QuizFortune Life Alert 719-637-0696 www.WorkVoices.Protagonist Therapeutics Life Station 680-941-1064 www.Zooppaation.Protagonist Therapeutics Safe Return 386-246-7590 www.eCareer.or/safereturn Cell Phones for Seniors www.Bundlr MEALS AND FOOD PROGRAMS: [place] Meals on Wheels [phone] [place] Meals on Wheels [phone] [facility] [phone] [place] to the Homebound [phone] [place] to the Homebound [phone] [facility] to the Homebound [phone] [facility] to the Homebound [phone] [facility] [phone] [facility] [phone] ONE Generation [phone] [facility] [phone] [facility] [phone] Meals on Wheels [phone] For all ages: $6.85/ meal w side. Delivered M-F from 10 am-1pm. Application and payment is done over the phone. Frozen meals available for weekends. Emergency Food [facility] [phone] [facility] Fire Sprinkler Installer [phone] [facility] [phone] [facility]- Brown bag lunches [phone] [facility] [phone] MEAL/GROCERY DELIVERY PROGRAMS: [facility] Gourmet Meals [phone]- [facility] [phone] [facility] Magic Kitchen [phone] Moms Meals [phone] (ask Zapata for Discount Select grocery stores may provide delivery. MEDICAL INSURANCE SUPPORT SERVICES: Center for Health Care Rights [phone] Health Insurance Counseling/Advocacy Programs (HICAP)-Must have Medicare. Offers counseling for Medi-Dale eligibility [phone] Department of Public Fire Sprinkler Installer [phone] www.[facility].ca.gov Medicare [phone] www.socialsecurity.org Social Security [phone] SENIOR ACTIVITY PROGRAMS: *Contact a local senior center, adult school, recreation facility or community college for education, fitness, recreation, and social programs. Aquatic Therapy and Adapted Exercise programs through [facility] [phone] Encore at [facility] [phone] www.[facility]/encore U- Senior Friends [phone] [place] Senior Programs [phone] www.oasisnet.org Suddenly 65 www.wjyzbrzp77.Protagonist Therapeutics SENIOR CENTERS: [facility] [phone] [facility] [place] [phone] [facility] [phone] [facility] [phone] [facility] [phone] [facility] [phone] [facility] [phone] [facility] [phone] [facility] [phone] [facility] [phone] [facility] [phone] [facility] [phone] [facility] [phone] TRANSPORTATION: Local [facility] may have applications for transportation programs and additional resources. ACCESS Services [phone] Transportation for seniors and disabled persons 7 days a week requiring 254 hr. advance reservation. Must apply and register for program curt eligible. CITY RIDE [phone] or [phone] Transportation for seniors and persons with ADA card/metro disabled card in the [facility]. M-F only. Must register for services. ONE GENERATION [phone] Serves 65 years + in conjunction with [facility] ride program. Must be registered with both programs. A to B Transport [phone] Provides wheelchair/gurney van service. Adult Medical Transport [phone] Accepts [facility] with prior authorization. Care Van [phone] Provides wheelchair Transport. [facility] Wide Transportation [phone] Provides gurney service Gentle Care [phone] Gurney Transport. All Town Transportation [phone] wheelchair & gurney transport D Transportation [phone] wheelchair & gurney transport [place] Non-Emergency Transport [phone] wheelchair & gurney transport [facility] [phone] Short Term Transportation primarily for adults with disabilities on social security income. Nominal fee may apply and a reservation is required. City Cab [phone] or [phone] [facility] [phone] [place] [address] Services [phone] For additional programs & services VETERANS RESOURCES: Submissions for Aid and Attendance should be done directly to Federal VA office locatd at : [address] [facility] [phone] National Caregiver Support Line [phone] [place] [facility] Field Office [phone] [place] Department of [place] Affairs [phone] Pension Information [phone]
--- NOTE | 2021-11-17 13:00 | NUR ---
APS REPORT COMPLETED (INTAKE # [id number]) FOR POSSIBLE NEGLECT.
[2021-11-17 13:34] LABS: FERRITIN 96 ng/mL (8-388); IRON, SERUM 26 ug/dl (50-175); TOTAL IRON BINDING CAPACITY 211 ug/dl (250-450)
[2021-11-17] MEDS: ENOXAPARIN SODIUM 40 MG/0.4 ML DISP.SYRIN SQ SCH (15:12)
[2021-11-17] MEDS: VANCOMYCIN 1 GM in IV D5W 250ml IV SCH (17:06)
--- NOTE | 2021-11-17 19:30 | NUR ---
RN OPENING NOTE RECEIVED PATIENT IN BED. SEDATED, ON PROPOFOL @45. ON MECHANICAL VETN VIA ET TUBE 06/19. SETTINGS AC 16 TV 380 FIO2 40 PEEP 5. NO RESP DISTRESS NOTED. NO S/S OF PAIN. TELE MONITOR READS SINUS RHYTHM/ SINUS MAITE WITH BBB. IN NO APPARENT DISTRESS. IV ACCESS IN DENNIS PICC LINE RUNNING PROPOFOL, LEVOPHED@0.15, NS @75ML/HR. AND RIGHT HAND #20 SALINE LOCKED. LEONARDO CATHETER IS DRAINING BY GRAVITY, URINE IS YELLOW WITH SEDIMENTS. BILATERAL SOFT WRIST RESTRAINTS PRESENT, NO REDNESS. OG TUBE IS PRESENT. BED IS LOW AND LOCKED, HOB ELEVTAED IN SEMI FOWLERS, SIDE RAILS UP X2.
[2021-11-17] MEDS: MICAFUNGIN SODIUM 100 MG in IV NS 0.9% 100 ML IV SCH (20:12)
[2021-11-17] MEDS: IV NS 0.9% 250 ML IV PRN (23:14)
[2021-11-18] VITALS (69 sets, daily range): BP systolic 70–181; BP diastolic 21–94
[2021-11-18] MEDS: IPRATROPIUM BROMIDE 14 GM INHALER (or 12.9 GM) IH SCH ×4 (00:56→19:30)
[2021-11-18] MEDS: IV NS 0.9% 1,000 ML IV PRN ×2 (02:51→17:09)
[2021-11-18] MEDS: ALBUTEROL FS 2.5 MG/3 ML VIAL.NEB NEB SCH ×6 (03:10→23:30)
[2021-11-18] MEDS: HYDROCORTISONE SOD SUCCINATE 100 MG/2 ML VIAL IV SCH ×3 (04:24→20:32)
[2021-11-18] MEDS: PIPERACILLIN /TAZOBACTAM 4.5 G in IV D5W 50 ML IV SCH ×4 (05:47→23:54)
[2021-11-18] MEDS: PROPOFOL 100 ML IV PRN (05:47)
--- NOTE | 2021-11-18 07:05 | NUR ---
RN NOTES RECEIVED PT ON BED, INTUBATED AND SEDATED, TOLERAING VENT SETTING WELL, ON TELE SB HR IN 50'S , LEONARDO DRAINING TO GRAVITY, ON LEVO AT .01 AND DIPRIVAN AT 25MCG/KG/MIN , NS AT 75CC/HR RUNNING , IV SITES CLEAN ,DRY AND INTACT, SR UP x3, CALL LIGHT WITHIN EASY REACH, BED LOCKED AND IN LOWEST POSITION, CONTINUE TO MONITOR.
--- NOTE | 2021-11-18 07:23 | NUR ---
RN CLOSING NOTE PATIENT IN BED. SEDATED, ON PROPOFOL @25. MECHANICAL VENT, NO CHANGES IN SETTINGS. NO RESP DISTRESS. NO PAIN. SINUS MAITE WITH BBB. DENNIS PICC RUNNING PROPOFOL, LEVOPHED@0.01, NS @75ML/HR. AND RIGHT HAND #20INTACT. LEONARDO CATHETER OUTPUT 425CC. BILATERAL SOFT WRIST RESTRAINTS MAINTAINED WITH NO REDNESS. OG TUBE IS MAINTAINED. BED REMAINS LOW AND LOCKED, HOB ELEVATED IN SEMI FOWLERS, SIDE RAILS UP X2. WILL ENDORSE TO ONCOMING SHIFT.
[2021-11-18] MEDS: NOREPINEPHRINE 8 MG in IV NS 0.9% 242 ML IV PRN (07:47)
[2021-11-18 08:21] LABS: CALCIUM, SERUM 7.9 mg/dL (8.5-10.1); CARBON DIOXIDE 27 mmol/L (21-32); CHLORIDE 100 mmol/L (98-107); CREATININE 0.4 mg/dL (0.6-1.3); GLUCOSE 104 mg/dL (74-106); POTASSIUM 3.2 mmol/L (3.5-5.1); SODIUM SERUM 138 mmol/L (136-145); UREA NITROGEN, BLOOD 15 mg/dL (7-18)
[2021-11-18] MEDS: RIFAMPIN 300 MG CAPSULE GT SCH (08:23)
[2021-11-18] MEDS: PANTOPRAZOLE 40 MG VIAL IV SCH (08:23)
[2021-11-18] MEDS: SENNOSIDES 8.6 MG TABLET GT SCH ×2 (08:24→17:09)
[2021-11-18] MEDS: ETHAMBUTOL HCL (400 MG) 400 MG TABLET GT SCH (08:24)
[2021-11-18] MEDS: SUCRALFATE 1 G TABLET GT SCH ×4 (08:25→20:32)
[2021-11-18] MEDS: CLARITHROMYCIN 500 MG TABLET GT SCH ×2 (08:25→16:45)
[2021-11-18] MEDS: HYDROGEL DRESSING 90 GM TUBE TP SCH (08:26)
[2021-11-18] MEDS: Z GUARD REMEDY 2 OZ OINT TP SCH ×2 (08:26→20:30)
--- NOTE | 2021-11-18 08:45 | NUR ---
RECEIVED CALL FROM RADIOLOGY RE: OROGASTRIC TUBE - ADVANCED 10 CM PER RECS BY ALMA DONATO.
[2021-11-18] MEDS ORDERED: DC PROPOFOL WHEN EXTUBATED XX PRN (09:00)
--- NOTE | 2021-11-18 09:00 | NUR ---
RN NOTES OGT ADVANCE 10 CC PER RADIOLOGY REPORT, OG TUBE PLACEMENT CHECKED , CONTINUE TO MONITOR .
[2021-11-18] MEDS: POTASSIUM CL. PREMIX PERIPHER. 50 ML IV SCH ×4 (10:12→13:43)
--- NOTE | 2021-11-18 11:46 | NUR ---
PT SX ORALLY AND THRU ET TUBE. PT EXTUBATED. AYSHA WELL. RESP TX DEFERRED PER PTS REQUEST PT PLACED ON 2LPM VIA N/C Addendum: 11/18/21 at 1147 by FABRICIO PATTON RT Amended: Links added.
--- NOTE | 2021-11-18 11:46 | NUR ---
RN NOTES PT EXTUBATED BY DR MAMTA THOMPSON , ON 2L O2 N/C , O2 SAT WNL, CONTINUE TO MONITOR .
[2021-11-18 13:03] LABS: ABG BASE EXCESS 0.3 mmol/L; ABG OXYGEN SATURATION 98.8 % (92.0-98.5); ABG PCO2 40.8 mmHg (35.0-45.0); ABG PH 7.406 (7.350-7.450); ABG PO2 148.7 mmHg (75.0-100.0); AaDO2 89.6 mmHg; COHb 0.3 % (0.5-1.5); MetHb 0.1 % (0.0-1.5); O2Hb 98.4 % (94.0-97.0); SITE, ABG Right Radial; VENT MODE, BG SIMV 4 40% +5
--- NOTE | 2021-11-18 14:00 | NUR ---
RN NOTES PT STATED THAT SHE IS VERY HUNGERY , SWALLOWING EVAL ORDERED, NURSING SWALLOWING EVAL DONE ,NO PROBLEM NOTED .
[2021-11-18] MEDS: SOD FERRIC GLUC 125 MG in IV NS 0.9% 100 ML IV SCH (14:45)
[2021-11-18] MEDS: LEVOFLOXACIN 500 MG /D5W 100ML 100 ML IV SCH (16:25)
[2021-11-18] MEDS: ENOXAPARIN SODIUM 40 MG/0.4 ML DISP.SYRIN SQ SCH (16:25)
[2021-11-18] MEDS: VANCOMYCIN 1 GM in IV D5W 250ml IV SCH (17:34)
--- NOTE | 2021-11-18 18:00 | NUR ---
RN NOTES PT REMAINS ON O2 AT 2-3 L, N/C , O2 SAT WNL, NO RESPIRATORY DISTRESS NOTED , PT OFF LEVO AND DIPRIVAN, BP STABLE, TOLERATING PUREE DIET WELL, SR UP x3, CALL LIGHT WITHIN EASY REACH, BED LOCKED AND IN LOWEST POSITION, WILL ENDORSE TO ELECTRICAL APPLIANCE MECHANIC NURSE FOR CONTINUITY OF CARE .
--- NOTE | 2021-11-18 19:30 | NUR ---
RN OPENING NOTE RECEIVED PATIENT IN BED. A/OX3.ON OXYGEN 3L /MIN VIA NASAL CANNULA. RESPIRATIONS ARE EVEN AND UNLABORED. NO S/S SOB NOTED. NO C/O OF PAIN. TELE MONITOR READS SINUS TACHYCARDIA HR 120S. PATIENT IS ANXIOUS. IV ACCESS IN DENNIS PICC LINE RUNNING NS @75ML/HR. AND RIGHT HAND #20 SALINE LOCKED. LEONARDO CATHETER IS DRAINING BY GRAVITY, URINE IS YELLOW WITH SEDIMENTS. BED IS LOW AND LOCKED, HOB ELEVATED IN SEMI FOWLERS, SIDE RAILS UP X2.
[2021-11-18] MEDS: MICAFUNGIN SODIUM 100 MG in IV NS 0.9% 100 ML IV SCH (20:29)
[2021-11-19] VITALS (24 sets, daily range): BP systolic 88–126; BP diastolic 32–62
[2021-11-19] MEDS: IPRATROPIUM BROMIDE 14 GM INHALER (or 12.9 GM) IH SCH ×3 (01:15→19:30)
--- NOTE | 2021-11-19 02:00 | NUR ---
RN NOTE ASKED PATIENT IF SHE WOULD LIKE A BED BATH OR LINEN CHANGE, SHE STATES NO. REPOSITIONING ALLOWED AND DONE TO HER LIKING. WILL ASK AGAIN FOR CHANGE OF [place] AND BED BATH.
[2021-11-19] MEDS: ALBUTEROL FS 2.5 MG/3 ML VIAL.NEB NEB SCH ×6 (03:30→23:30)
--- NOTE | 2021-11-19 04:40 | NUR ---
RN NOTE PATIENT HAS REFUSED BED BATH AND LINEN CHANGE AGAIN.
[2021-11-19] MEDS: PIPERACILLIN /TAZOBACTAM 4.5 G in IV D5W 50 ML IV SCH ×4 (05:23→23:08)
[2021-11-19] MEDS: HYDROCORTISONE SOD SUCCINATE 100 MG/2 ML VIAL IV SCH (05:23)
[2021-11-19] MEDS: IV NS 0.9% 250 ML IV PRN (06:14)
[2021-11-19] MEDS: IV NS 0.9% 1,000 ML IV PRN (06:14)
--- NOTE | 2021-11-19 06:27 | NUR ---
RN OPENING NOTE PATIENT RESTING IN BED. A/OX3.ON OXYGEN 2L /MIN VIA NASAL CANNULA.NO RESP DISTRESS. I DID ATTEMPT TO TITRATE TO ROOM AIR BUT PATIENTS SPO2 DECREASED TO 88%. PLACED BACK ON 2L/MIN VIA NASAL CANNULA. CO PAIN IN LEFT POLLARD BUT REFUSED PAIN MEDICATION. TELE IS SINUS RHYTHM. PATIENT REFUSED BED BATH AND LINEN CHANGE, PARTIAL LINENS WERE CHANGED. TURNED PATIENT Q2HR. DENNIS PICC LINE RUNNING NS @75ML/HR. LEONARDO CATHETER OUTPUT 325CC. BED REMAINS LOW AND LOCKED, HOB ELEVATED IN SEMI FOWLERS, SIDE RAILS UP X2. WILL ENDORSE TO ONCOMING SHIFT. Addendum: 11/19/21 at 0635 by KWAKU KOHLI RN THIS IS A CLOSING NOTE, NOT AN OPENING NOTE
--- NOTE | 2021-11-19 07:00 | NUR ---
RN NOTES RECEIVED PT ON BED ,A/Ox3, ON 2L O2 N/C , O2 SAT WNL, ON TELE SR , LEONARDO DRAINING TO GRAVITY, IV SITES CLEAN ,DRY AND INTACT , PT DENIES ANY DISTRESS AT THIS TIME, CONTINUE TO MONITOR .
[2021-11-19 07:26] LABS: EOSINOPHILS % (AUTO) 0.1 % (0.0-6.0); HEMATOCRIT 29 % (33-45); HEMOGLOBIN 9.5 g/dL (11.5-14.8); LYMPHOCYTES # (AUTO) 0.3 K/uL (0.8-4.8); LYMPHOCYTES % (AUTO) 3.3 % (20.0-44.0); MEAN CORPUSCULAR HGB CONC 33 g/dl (31.0-36.0); MEAN CORPUSCULAR VOLUME 89 fL (82-100); MONOCYTES # (AUTO) 0.5 K/uL (0.1-1.30); MONOCYTES % (AUTO) 5.8 % (2.0-12.0); NEUTROPHILS % (AUTO) 90.8 % (43.0-81.0); PLATELET COUNT (AUTO) 243 K/uL (150-450); RED BLOOD CELL COUNT(AUTO) 3.27 MIL/uL (4.0-5.2); WHITE BLOOD COUNT (AUTO) 8.8 K/uL (4.3-11.0)
[2021-11-19] MEDS: SENNOSIDES 8.6 MG TABLET GT SCH ×2 (08:11→17:06)
[2021-11-19] MEDS: PANTOPRAZOLE 40 MG VIAL IV SCH (08:12)
[2021-11-19] MEDS: SUCRALFATE 1 G TABLET GT SCH ×4 (08:12→22:22)
[2021-11-19] MEDS: CLARITHROMYCIN 500 MG TABLET GT SCH ×2 (08:12→16:21)
[2021-11-19] MEDS: Z GUARD REMEDY 2 OZ OINT TP SCH ×2 (08:13→22:23)
[2021-11-19] MEDS: HYDROGEL DRESSING 90 GM TUBE TP SCH (08:13)
[2021-11-19] MEDS ORDERED: FUROSEMIDE 20 MG/2 ML VIAL IV SCH (09:00)
[2021-11-19] MEDS: predniSONE 20 MG TABLET PO SCH (10:58)
--- NOTE | 2021-11-19 12:00 | NUR ---
RN NOTES PT JUNIOR ANY DISTRESS , CONTINUE TO MONITOR ,
[2021-11-19] MEDS: SOD FERRIC GLUC 125 MG in IV NS 0.9% 100 ML IV SCH (14:37)
[2021-11-19] MEDS: ENOXAPARIN SODIUM 40 MG/0.4 ML DISP.SYRIN SQ SCH (16:20)
[2021-11-19] MEDS ORDERED: VANCOMYCIN 0.75 GM in IV D5W 250 ML IV SCH (17:00)
--- NOTE | 2021-11-19 17:40 | NUR ---
RN NOTES PT TRANSFERRED TO ROOM 116-1 DARIA STATUS VIA ACLS PROTOCOL IN STABLE CONDITION, NO BELONGINGS NOTED, REPORT GIVEN TO NICOLE MARQUEZ FOR CONTINUITY OF CARE .
--- NOTE | 2021-11-19 17:55 | NUR ---
RN NOTE RECEIVE BED SIDE REPORT FROM ICU NURSE JANNA. PATIENT IN STABLE CONDITION WITH NO SIGN OF DISTRESS. ON 2L OF OXYGEN VIA NC. A/O X3. LACING OPERATOR SHOWS SINUS RHYTHM IN THE 60S. PROPER ISOLATION PRECAUTION PROTOCOL IN PLACE. ALL SAFETY MEASURE IN PLACE. BED ON LOWEST POSITION WITH HOB ELEVATED. WITH 3 SIDE RAIL UP. BED ALARM ON. CALL LIGHT WITHIN REACH. WILL CONTINUE TO MONITOR.
--- NOTE | 2021-11-19 18:38 | NUR ---
RN CLOSING NOTE PATIENT IN STABLE CONDITION WITH NO SIGN OF DISTRESS. ON 2L OF OXYGEN VIA NC. A/O X3. CONSUME 75% OF DINNER. SWALLOW EVALUATION PENDING. DR. ROBLEDO TO GIVE PUREED DIET. ALL WOUND DRESSING WAS CHANGED PER ICU NURSE PRIOR TO TRANSFER. ALL DRESSING CLEAN AND DRY. OPERATIONS ADMINISTRATIVE ASSISTANT SHOWS SINUS RHYTHM IN THE 60S. PROPER ISOLATION PRECAUTION PROTOCOL IN PLACE. ALL SAFETY MEASURE IN PLACE. BED ON LOWEST POSITION WITH HOB ELEVATED. WITH 3 SIDE RAIL UP. BED ALARM ON. CALL LIGHT WITHIN REACH. WILL CONTINUE TO MONITOR AND GIVE REPORT TO ANIMAL SHELTER CLERK NURSE.
--- NOTE | 2021-11-19 19:30 | NUR ---
RN NOTES RECEIVED PT FOR JULIA. PATIENT IN NO S/SX OF ACUTE DISTRESS AT THIS TIME. WILL ENSURE SAFETY MEASURES WITHIN THE SHIFT. PATIENT BED ALARM IS ON. HEAD OF BED ELEVATED. BED IS LOCKED, IN LOWEST POSITION AND SIDE RAILS UP. CALL LIGHT WITHIN REACH OF THE PATIENT. APPLICABLE ISOLATION PRECAUTIONS IN PLACE. WILL CONTINUE TO MONITOR AND REASSESS FOR ANY CHANGES AND WILL CARRY OUT ANY ONGOING AND ACTIVE MD ORDER.
--- NOTE | 2021-11-19 19:52 | NUR ---
RT BREATHING TREATMENT WAS NOT GIVEN AT THIS TIME DUE TO PENDING PCR TEST. Addendum: 11/19/21 at 4 by SOTO BUITRAGO RT Amended: Links added.
[2021-11-19] MEDS: MICAFUNGIN SODIUM 100 MG in IV NS 0.9% 100 ML IV SCH (20:04)
[2021-11-19 20:08] LABS: ALANINE AMINOTRANSFERASE 22 U/L (12-78); ALBUMIN 2.1 g/dL (3.4-5.0); ALKALINE PHOSPHATASE 59 U/L (46-116); ASPARTATE AMINOTRANSFERASE 18 U/L (15-37); BILIRUBIN,TOTAL 0.2 mg/dL (0.2-1.0); CALCIUM, SERUM 7.5 mg/dL (8.5-10.1); CARBON DIOXIDE 30 mmol/L (21-32); CHLORIDE 104 mmol/L (98-107); CREATININE 0.3 mg/dL (0.6-1.3); GLUCOSE 104 mg/dL (74-106); MAGNESIUM 2.2 mg/dL (1.8-2.4); PHOSPHORUS 3.2 mg/dL (2.5-4.9); SODIUM SERUM 140 mmol/L (136-145); TOTAL PROTEIN, SERUM 4.8 g/dL (6.4-8.2); UREA NITROGEN, BLOOD 13 mg/dL (7-18)
[2021-11-20] VITALS: BP 103/48
--- NOTE | 2021-11-20 | NUR ---
RN NOTES PATIENT REMAINED TO BE IN NO SIGNS OF ACUTE RESPIRATORY DISTRESS , VITAL SIGNS WNL AT THIS TIME. ENGINEER STATION MAINLINE MADE AWARE. WILL CONTINUE TO MONITOR AND REASSESS FOR ANY CHANGES THROUGHOUT THE SHIFT.
[2021-11-20] MEDS: IPRATROPIUM BROMIDE 14 GM INHALER (or 12.9 GM) IH SCH ×4 (01:30→22:00)
[2021-11-20] MEDS: ALBUTEROL FS 2.5 MG/3 ML VIAL.NEB NEB SCH ×6 (03:30→23:51)
[2021-11-20 04:00] VITALS: BP 110/48
--- NOTE | 2021-11-20 04:00 | NUR ---
ALMA NOTES BORING MACHINE FEEDER INFORMED RN THAT PT REFUSED TO GET AM PATIENT CARE. WENT TO SEE PT AND EXPLAINED BENEFITS OF GETTING AM PATIENT CARE BUT PT STILL REFUSED. RN AND BORING MACHINE FEEDER ACKNOWLEDGED. ANA MARQUEZ MADE AWARE. WILL ATTEMPT TO OFFER PT CARE AGAIN WITHIN THE SHIFT. Addendum: 11/20/21 at 0636 by CLARENCE LAU RN @0630- REATTEMPTED TO INITIATE PT CARE BU PT STILL REFUSED AND VERBALIZED THAT SHE WANTS MORE SLEEP. RN ACKNOWLEDGED. WILL ENDORSE TO AM SHIFT. ANA MARQUEZ MADE AWARE.
[2021-11-20] MEDS: PIPERACILLIN /TAZOBACTAM 4.5 G in IV D5W 50 ML IV SCH ×3 (05:11→17:03)
--- NOTE | 2021-11-20 06:48 | NUR ---
RN CLOSING NOTE: PATIENT REMAINS IN ROOM IN NO SIGNS OF RESPIRATORY DISTRESS, PATIENT STILL ON 2L OF 02 VIA NC; TOLERATING WELL SATURATING @ >95% SP02. SAFETY MEASURES IMPLEMENTED, BED IN LOWEST POSITION, LOCKED, SIDE RAILS UP, CALL LIGHT WITHIN REACH. ALL NEEDS AND ORDERS ADDRESSED DURING THE SHIFT. IV ACCESS MAINTAINED INTACT, SECURED AND FLUSHING WELL. ALL DUE MEDS GIVEN ORDERED & SCHEDULED ; PATIENT TOLERATED WELL. PATIENT KEPT CLEAN AND COMFORTABLE WITHIN THE SHIFT. PATIENT ENDORSED TO INCOMING SHIFT RN WITH STABLE VITAL SIGN AND FOR CONTINUITY OF CARE.
[2021-11-20 07:19] LABS: BASOPHILS % (AUTO) 0.1 % (0.0-2.0); EOSINOPHILS % (AUTO) 0.6 % (0.0-6.0); HEMATOCRIT 31 % (33-45); LYMPHOCYTES # (AUTO) 0.8 K/uL (0.8-4.8); LYMPHOCYTES % (AUTO) 11.4 % (20.0-44.0); MEAN CORPUSCULAR HGB CONC 32 g/dl (31.0-36.0); MEAN CORPUSCULAR VOLUME 89 fL (82-100); MONOCYTES # (AUTO) 0.8 K/uL (0.1-1.30); MONOCYTES % (AUTO) 11.8 % (2.0-12.0); NEUTROPHILS # (AUTO) 5.3 K/uL (1.8-8.9); NEUTROPHILS % (AUTO) 76.1 % (43.0-81.0); PLATELET COUNT (AUTO) 285 K/uL (150-450); WHITE BLOOD COUNT (AUTO) 6.9 K/uL (4.3-11.0)
[2021-11-20 07:48] LABS: ALANINE AMINOTRANSFERASE 20 U/L (12-78); ALBUMIN 2.1 g/dL (3.4-5.0); ALKALINE PHOSPHATASE 55 U/L (46-116); ASPARTATE AMINOTRANSFERASE 17 U/L (15-37); BILIRUBIN,TOTAL 0.2 mg/dL (0.2-1.0); CALCIUM, SERUM 8.6 mg/dL (8.5-10.1); CARBON DIOXIDE 33 mmol/L (21-32); CHLORIDE 106 mmol/L (98-107); CREATININE 0.4 mg/dL (0.6-1.3); GLUCOSE 83 mg/dL (74-106); MAGNESIUM 2.2 mg/dL (1.8-2.4); PHOSPHORUS 2.6 mg/dL (2.5-4.9); POTASSIUM 3.2 mmol/L (3.5-5.1); SODIUM SERUM 144 mmol/L (136-145); TOTAL PROTEIN, SERUM 5.3 g/dL (6.4-8.2); UREA NITROGEN, BLOOD 13 mg/dL (7-18)
[2021-11-20 08:00] VITALS: BP 102/59
[2021-11-20] MEDS: predniSONE 20 MG TABLET PO SCH (09:29)
[2021-11-20] MEDS: SUCRALFATE 1 G TABLET GT SCH ×4 (09:30→20:20)
[2021-11-20] MEDS: SENNOSIDES 8.6 MG TABLET GT SCH ×2 (09:30→17:12)
[2021-11-20] MEDS: CLARITHROMYCIN 500 MG TABLET GT SCH ×2 (09:30→16:44)
[2021-11-20] MEDS: PANTOPRAZOLE 40 MG VIAL IV SCH (09:30)
[2021-11-20] MEDS: Z GUARD REMEDY 2 OZ OINT TP SCH ×2 (09:52→20:20)
[2021-11-20] MEDS: HYDROGEL DRESSING 90 GM TUBE TP PRN (09:52)
[2021-11-20] MEDS ORDERED: POTASSIUM CHLORIDE 20 MEQ POWDER PACKET PO SCH (10:00)
[2021-11-20] MEDS: HYDROGEL DRESSING 90 GM TUBE TP SCH (10:07)
[2021-11-20] MEDS: POTASSIUM CHLORIDE 20 MEQ POWDER PACKET PO SCH ×2 (11:10→12:04)
[2021-11-20 12:00] VITALS: BP 102/59
[2021-11-20] MEDS: SOD FERRIC GLUC 125 MG in IV NS 0.9% 100 ML IV SCH (14:50)
[2021-11-20] MEDS: LEVOFLOXACIN 500 MG /D5W 100ML 100 ML IV SCH (15:52)
[2021-11-20] MEDS: ENOXAPARIN SODIUM 40 MG/0.4 ML DISP.SYRIN SQ SCH (16:45)
[2021-11-20] MEDS: ENSURE ENLIVE 237 ML LIQUID (VANILLA) PO SCH (18:00)
--- NOTE | 2021-11-20 18:45 | NUR ---
TRANSFER NOTE Received patient from DARIA. Patient is A/O x 3-4, able to make needs known. On O2 at 2 LPM, breathing evenly and unlabored. No SOB or s/s of distress noted. V/S taken as follows: BP 100/47, RR 18, IA 69, Temp 97.8, SPO2 100%. Patient made comfortable, oriented to room and how to use the call light. Safety measures in place: bed in low, locked position; siderails up x 2; call light within reach. Will endorse to plant operator/shift supervisor nurse for JULIA.
--- NOTE | 2021-11-20 18:54 | NUR ---
RN NOTE PT TRANSFERRED TO [place] 3 [place]. IN [place] CONDITION, CONTINUES IN O2 @2L VIA NC, NOT IN RESPIRATORY DISTRESS. ALERT AND VERBALLY RESPONSIVE. NO COMPLAINTS OF PAIN AND DISCOMFORT. ENDORSED AND GAVE REPORT TO RN REKHA.
[2021-11-20 20:00] VITALS: BP_SYST 100; BP_SYST 109; BP_DIAS 47; BP_DIAS 54
[2021-11-20] MEDS: MICAFUNGIN SODIUM 100 MG in IV NS 0.9% 100 ML IV SCH (20:24)
[2021-11-21] VITALS: BP 113/53
[2021-11-21] MEDS: IPRATROPIUM BROMIDE 14 GM INHALER (or 12.9 GM) IH SCH ×3 (00:33→13:30)
--- NOTE | 2021-11-21 01:00 | NUR ---
Pt. tips of fingers purpleish, blanchable. Improves with heat pack. history of PAD. but pt caregiver says she has not seen this. Pt. reports being cold. O2 sat to earlobe 100% on 2L via NC. Mentation at baseline. On-call provider misc. order for warm blankets on pt. and heat pack to both hands.
[2021-11-21] MEDS: ALBUTEROL FS 2.5 MG/3 ML VIAL.NEB NEB SCH ×6 (03:30→23:59)
[2021-11-21 04:00] VITALS: BP 109/54
--- NOTE | 2021-11-21 04:24 | NUR ---
RT PT NEB TX NOT GIVEN, PT ADVISED SHE DID NOT WANT TO WAKEN UP. RN INFORMED.
[2021-11-21 06:37] LABS: BASOPHILS % (AUTO) 0.3 % (0.0-2.0); EOSINOPHILS % (AUTO) 1.2 % (0.0-6.0); HEMATOCRIT 34 % (33-45); HEMOGLOBIN 10.7 g/dL (11.5-14.8); LYMPHOCYTES # (AUTO) 0.8 K/uL (0.8-4.8); LYMPHOCYTES % (AUTO) 9.3 % (20.0-44.0); MEAN CORPUSCULAR HGB CONC 32 g/dl (31.0-36.0); MEAN CORPUSCULAR VOLUME 92 fL (82-100); MONOCYTES # (AUTO) 0.9 K/uL (0.1-1.30); MONOCYTES % (AUTO) 10.9 % (2.0-12.0); NEUTROPHILS # (AUTO) 6.7 K/uL (1.8-8.9); NEUTROPHILS % (AUTO) 78.3 % (43.0-81.0); PLATELET COUNT (AUTO) 277 K/uL (150-450); RED BLOOD CELL COUNT(AUTO) 3.68 MIL/uL (4.0-5.2); WHITE BLOOD COUNT (AUTO) 8.5 K/uL (4.3-11.0)
--- NOTE | 2021-11-21 06:48 | NUR ---
MARKETING AUTOMATION SPECIALIST CLOSING NOTES Patient is A&Ox3, VSS overnight. Purple fingertips greatly improved with heat packs and warms blankets to body -Cap refill <3 seconds and fingertip color WNL well perfused after intervention. Caregiver at bedside. Pt. appetite has improved though does not want to drink fluids, though encouraged. Phillip cath output 300cc overnight. x2 soft brown BMs. Tolerating IV ABX well. Denies pain or discomfort. wound care given and pictures taken for chart. O2 sat 100% on 2L via NC.
[2021-11-21 08:00] VITALS: BP 113/59
[2021-11-21] MEDS: ENSURE ENLIVE 237 ML LIQUID (VANILLA) PO SCH ×3 (08:00→17:34)
[2021-11-21] MEDS ORDERED: PHARMACY TO CHANGE GT/NG MEDS TO PO XX PRN (08:00)
--- NOTE | 2021-11-21 08:00 | NUR ---
RN OPENING NOTE PT AWAKE IN BED RESTING. ON RA WITH SOB PRESENT. A/O X4 AND PERSIAN SPEAKING. ON WOUND CARE SPECIALIST. DIAPER PRESENT. F/C PRESENT. ON BEDREST. WOUND PRESENT AND WOUND CARE TO BE GIVEN. PUREE DIET, ASPIRATION PRECAUTIONS. DENNIS PICC LINE PRESENT. LABS AND ORDERS CHECKED. SAFETY MEASURES IN PLACE. SIDE RAILS RAISED. BED LOWERED. CALL LIGHT WITHIN REACH. WILL CONTINUE TO MONITOR.
[2021-11-21 08:34] LABS: ALANINE AMINOTRANSFERASE 25 U/L (12-78); ALBUMIN 2.2 g/dL (3.4-5.0); ALKALINE PHOSPHATASE 60 U/L (46-116); ASPARTATE AMINOTRANSFERASE 30 U/L (15-37); BILIRUBIN,TOTAL 0.2 mg/dL (0.2-1.0); CALCIUM, SERUM 8.3 mg/dL (8.5-10.1); CARBON DIOXIDE 30 mmol/L (21-32); CHLORIDE 109 mmol/L (98-107); CREATININE 0.3 mg/dL (0.6-1.3); GLUCOSE 102 mg/dL (74-106); MAGNESIUM 2.1 mg/dL (1.8-2.4); PHOSPHORUS 2.3 mg/dL (2.5-4.9); POTASSIUM 4.5 mmol/L (3.5-5.1); SODIUM SERUM 144 mmol/L (136-145); TOTAL PROTEIN, SERUM 5.5 g/dL (6.4-8.2)
--- NOTE | 2021-11-21 08:45 | NUR ---
RT: PATIENT SAT ON THE FINGER WAS 85% WITH FINGER NAILS AND POOR CIRCULATION. PATIENT CHARGE AND RN NOTIFIED . PROCED TECH SAID FOR PATIENT RN TO PLACED PATIENT ON PULSE OXIMETER. PATIENT APPEARED WITH DISTRESS OR SOB.
[2021-11-21] MEDS: predniSONE 20 MG TABLET PO SCH (08:55)
[2021-11-21] MEDS: PANTOPRAZOLE 40 MG TABLET.DR PO SCH (08:55)
[2021-11-21] MEDS: SENNOSIDES 8.6 MG TABLET PO SCH ×2 (08:55→17:17)
[2021-11-21] MEDS: RIFAMPIN 300 MG CAPSULE PO SCH (08:55)
[2021-11-21] MEDS: SUCRALFATE 1 G TABLET PO SCH ×4 (08:56→21:36)
[2021-11-21] MEDS: CLARITHROMYCIN 500 MG TABLET PO SCH ×2 (08:59→16:23)
[2021-11-21] MEDS: HYDROGEL DRESSING 90 GM TUBE TP SCH (09:00)
[2021-11-21] MEDS: Z GUARD REMEDY 2 OZ OINT TP SCH ×2 (09:00→21:36)
[2021-11-21] MEDS: ETHAMBUTOL HCL (400 MG) 400 MG TABLET GT SCH (10:20)
[2021-11-21 10:24] LABS: ABG BASE EXCESS 3.6 mmol/L; ABG OXYGEN SATURATION 94.9 % (92.0-98.5); ABG PCO2 59.2 mmHg (35.0-45.0); ABG PH 7.332 (7.350-7.450); ABG PO2 72.2 mmHg (75.0-100.0); AaDO2 57.6 mmHg; COHb 0.3 % (0.5-1.5); MetHb 0.1 % (0.0-1.5); O2Hb 94.5 % (94.0-97.0); SITE, ABG Right Radial; VENT MODE, BG NASAL CANNULA
--- NOTE | 2021-11-21 10:29 | NUR ---
RT: 02 FLOW DECREASED TO [address] GREGORIO RN NOTIFIED. Addendum: 11/21/21 at 1030 by ANNEMARIE MURRAY RT Amended: Links added.
[2021-11-21] MEDS ORDERED: K PHOS NEUTRAL 250 MG TABLET PO ONE (10:30)
[2021-11-21 10:37] LABS: UREA NITROGEN, BLOOD 12 mg/dL (7-18)
[2021-11-21] MEDS ORDERED: FLUC100T8 PO (11:11)
[2021-11-21] MEDS: FLUCONAZOLE (100 MG) 100 MG TABLET PO SCH (14:47)
[2021-11-21] MEDS: SOD FERRIC GLUC 125 MG in IV NS 0.9% 100 ML IV SCH (14:48)
[2021-11-21] MEDS: LEVOFLOXACIN (250MG) 250 MG TABLET PO SCH (14:48)
[2021-11-21] MEDS: LIDOCAINE 5% (PATCH) 1 EA PATCH TP SCH (14:53)
[2021-11-21 16:00] VITALS: BP 126/59
[2021-11-21] MEDS: ENOXAPARIN SODIUM 40 MG/0.4 ML DISP.SYRIN SQ SCH (16:00)
--- NOTE | 2021-11-21 18:53 | NUR ---
RN CLOSING NOTE PT IN STABLE CONDITION. GIVE REPORT TO NIGHT NURSE FOR JULIA
--- NOTE | 2021-11-21 19:05 | NUR ---
MS RN OPENING NOTES: RECEIVED PATIENT IN BED, AWAKE, A/OX3, NO S/S OF DISTRESS NOTED. NO COMPLAIN OF PAIN. CALL LIGHT WITHIN REACH. BED ALRM ON. BED IN LOWEST AND LOCKED POSITION. HOB ELEVATED. WITH CAREGIVER AT THE BEDSIDE. ON O2 AT 1L/MIN NASAL CANNULA. BREATHING IS EVEN AND UN-LABORED. WITH LEONARDO CATHETER INTACT,DRAINING CLEAR YELLOW URINE OUTPUT.
[2021-11-21 20:00] VITALS: BP 109/54
--- NOTE | 2021-11-21 21:03 | NUR ---
RT NOTE TX GIVEN, NO COMPLAINTS. ATTEMPTED PLACED PT ON NOC BIPAP. PT WAS NOT COMFY WITH HOSPITAL FACE MASK FROM [facility]. PTS WELL HER CAREGIVER ASKED TO BRING FULL FACE FROM HOME TO ATTEMPT USE ON OUR V60 BIPAP. WILL ATTEMPT TO USE FACE MASK FROM HOME. PT WAS NOT SHOWING S/S OF SOB OR INCREASED WOB ON 1 LPM NC. PTS SPO2 IS 91-94% ON CURRENT LPMS. WILL CONTINUE TO MONITOR.
--- NOTE | 2021-11-21 21:09 | NUR ---
RT NOTE CONTINUOUS PULSE OX BY BEDSIDE.
[2021-11-21] MEDS: ZOLPIDEM TARTRATE 5 MG TABLET PO PRN (22:29)
--- NOTE | 2021-11-22 01:34 | NUR ---
RT NOTE PT FAMILY BROUGHT FULL FACE MASK FROM HOME FOR BIPAP. ATTEMPTED TO HAVE PT USE FULL FACE MASK FOR COMFORT. PT REFUSED SAID SHE DIDN'T LIKE THE FEELING. RN REDD NOTIFIED OF PT COMPLAINT. INSTRUCTED PT OF BENEFITS OF BIPAP. WILL CONTINUE TO MONITOR T/O SHIFT. CONTINUOUS PULSEOX ON.
[2021-11-22] MEDS: IPRATROPIUM BROMIDE 14 GM INHALER (or 12.9 GM) IH SCH ×4 (01:54→20:04)
[2021-11-22] MEDS: ALBUTEROL FS 2.5 MG/3 ML VIAL.NEB NEB SCH ×6 (03:21→23:22)
[2021-11-22 06:31] LABS: BASOPHILS # (AUTO) 0.1 K/uL (0.0-0.2); BASOPHILS % (AUTO) 0.6 % (0.0-2.0); EOSINOPHILS % (AUTO) 1.5 % (0.0-6.0); HEMATOCRIT 30 % (33-45); HEMOGLOBIN 9.8 g/dL (11.5-14.8); LYMPHOCYTES # (AUTO) 0.8 K/uL (0.8-4.8); LYMPHOCYTES % (AUTO) 8.5 % (20.0-44.0); MEAN CORPUSCULAR HGB CONC 33 g/dl (31.0-36.0); MEAN CORPUSCULAR VOLUME 89 fL (82-100); MONOCYTES # (AUTO) 0.8 K/uL (0.1-1.30); MONOCYTES % (AUTO) 8.7 % (2.0-12.0); NEUTROPHILS # (AUTO) 7.7 K/uL (1.8-8.9); NEUTROPHILS % (AUTO) 80.7 % (43.0-81.0); PLATELET COUNT (AUTO) 268 K/uL (150-450); WHITE BLOOD COUNT (AUTO) 9.5 K/uL (4.3-11.0)
[2021-11-22 06:50] LABS: ALANINE AMINOTRANSFERASE 24 U/L (12-78); ALKALINE PHOSPHATASE 58 U/L (46-116); ASPARTATE AMINOTRANSFERASE 21 U/L (15-37); BILIRUBIN,TOTAL 0.2 mg/dL (0.2-1.0); CALCIUM, SERUM 8.2 mg/dL (8.5-10.1); CARBON DIOXIDE 31 mmol/L (21-32); CHLORIDE 106 mmol/L (98-107); CREATININE 0.3 mg/dL (0.6-1.3); GLUCOSE 82 mg/dL (74-106); MAGNESIUM 2.3 mg/dL (1.8-2.4); PHOSPHORUS 1.8 mg/dL (2.5-4.9); POTASSIUM 4.2 mmol/L (3.5-5.1); SODIUM SERUM 141 mmol/L (136-145); TOTAL PROTEIN, SERUM 5.2 g/dL (6.4-8.2); UREA NITROGEN, BLOOD 12 mg/dL (7-18)
--- NOTE | 2021-11-22 07:18 | NUR ---
RN NOTES PATIENT IN BED RESTING, AWAKE AND VERBALLY RESPONSIVE. A/O X3, ABLE TO MAKE NEEDS KNOWN. BREATHING EVEN AND UNLABORED, ON O2 AT 1L VIA NC, NO RESPIRATORY DISTRESS NOTED. BIPAP AT NIGHT PER FACILITY SUPERVISOR RN REPORT. CAREGIVER AT BEDSIDE ABLE TO ASSIST PATIENT. DENNIS PICC LINE INTACT AND PATENT. LEONARDO CATH IN PLACE, DRAINING YELLOW-COLORED URINE. WOUND CARE NURSE AT BEDSIDE TO DO WOUND CARE EVAL. SAFETY MEASURES IN PLACE. WILL CONTINUE TO MONITOR.
[2021-11-22 08:00] VITALS: BP 132/54
[2021-11-22] MEDS: ENSURE ENLIVE 237 ML LIQUID (VANILLA) PO SCH ×3 (08:08→17:05)
[2021-11-22] MEDS: PANTOPRAZOLE 40 MG TABLET.DR PO SCH (08:11)
[2021-11-22] MEDS: FLUCONAZOLE (100 MG) 100 MG TABLET PO SCH (08:11)
[2021-11-22] MEDS: SUCRALFATE 1 G TABLET PO SCH ×4 (08:12→22:15)
[2021-11-22] MEDS: SENNOSIDES 8.6 MG TABLET PO SCH ×2 (08:12→17:03)
[2021-11-22] MEDS: predniSONE 20 MG TABLET PO SCH (08:14)
[2021-11-22] MEDS: CLARITHROMYCIN 500 MG TABLET PO SCH ×2 (08:14→16:40)
--- NOTE | 2021-11-22 08:25 | NUR ---
RN NOTES PATIENT SEEN BY DR. CANALES, MADE AWARE OF PLAN OF CARE.
[2021-11-22] MEDS: HYDROGEL DRESSING 90 GM TUBE TP SCH (08:36)
[2021-11-22] MEDS: Z GUARD REMEDY 2 OZ OINT TP SCH ×2 (08:37→22:18)
[2021-11-22] MEDS: ONDANSETRON HCL/PF 4 MG/2 ML VIAL IVP PRN (08:39)
--- NOTE | 2021-11-22 08:40 | NUR ---
WOUND CARE CONSULT: PT SEEN FOR DIFFUSE AREAS OF DISCOLORATION TO LEFT HIP AND BUTTOCK. PT NOTED TO HAVE VERY FRAGILE SKIN WITH GENERALIZED EDEMA. RECOMMENDATIONS MADE FOR SKIN PROTECTION. DISCUSSED WITH NURSING STAFF AND SURGICAL Justyna YEUNG. PT CAREGIVER AT BEDSIDE. IN AGREEMENT WITH PLAN OF CARE. Addendum: 11/22/21 at 0841 by ISABELL LAUREN WNDNU Amended: Links added.
--- NOTE | 2021-11-22 11:05 | NUR ---
RN NOTES RECEIVED CALL FROM PATIENT'S SON, [place] ([phone]), AND EMPHASIZED THAT PATIENT CANNOT GO HOME AT THIS TIME BECAUSE SHE IS NOT STABLE; REQUESTS TO SPEAK W/ DR. OLEARY.
[2021-11-22] MEDS: LEVOFLOXACIN (250MG) 250 MG TABLET PO SCH (12:53)
[2021-11-22] MEDS: LIDOCAINE 5% (PATCH) 1 EA PATCH TP SCH (14:23)
--- NOTE | 2021-11-22 15:22 | NUR ---
RN NOTES SPOKE W/ DR. OLEARY AND WAS INFORMED THAT HE SPOKE W/ THE SON (MI) VIA PHONE; ORDERS NOTED.
[2021-11-22] MEDS: SOD FERRIC GLUC 125 MG in IV NS 0.9% 100 ML IV SCH (15:46)
[2021-11-22 16:00] VITALS: BP 117/57
[2021-11-22] MEDS: ENOXAPARIN SODIUM 40 MG/0.4 ML DISP.SYRIN SQ SCH (16:00)
--- NOTE | 2021-11-22 16:03 | NUR ---
RN NOTES LOVENOX DOSE HELD PATIENT HAS EXCISIONAL DEBRIDEMENT OF SACRAL WOUND W/ MIC TAPIA.
[2021-11-22] MEDS ORDERED: K PHOS NEUTRAL 250 MG TABLET PO ONE (16:30)
--- NOTE | 2021-11-22 17:28 | NUR ---
RN NOTES MI, SON, AT BEDSIDE; MADE AWARE OF PLAN OF CARE.
--- NOTE | 2021-11-22 19:02 | NUR ---
RN NOTES CAREGIVER AT BEDSIDE ASSISTING PATIENT. NOTED IN BED RESTING, AWAKE AND VERBALLY RESPONSIVE. A/O X3, ABLE TO MAKE NEEDS KNOWN. BREATHING EVEN AND UNLABORED, CONTINUES ON O2 AT 1L VIA NC, NO RESPIRATORY DISTRESS NOTED. DENNIS PICC LINE INTACT AND PATENT; DUE MEDS GIVEN. LEONARDO CATH IN PLACE, DRAINING YELLOW-COLORED URINE. WOUND CARE DONE IN AM; ASSISTED W/ REPOSITIONING FOR COMFORT AND OFF-LOADING. SAFETY MEASURES MAINTAINED. WILL ENDORSE TO TRACE CLERK RN FOR JULIA.
--- NOTE | 2021-11-22 19:10 | NUR ---
MS RN OPENING NOTES: RECEIVED PATIENT RESTING IN BED, EATING ASSISTED BY THE CAREGIVER, A/O X3. NO S/S OF DISTRESS NOTED. NO COMPLAIN OF PAIN. CALL LIGHT WITHIN REACH. BED ALARM ON. BED IN LOWEST AND LOCKED POSITION. HOB ELEVATED. HAD A DEBRIDEMENT OF SACRAL WOUND TODAY BY MIC TAPIA. WITH LEONARDO CATHETER INTACT. ON O2 AT 1L/MIN NASAL CANNULA.
[2021-11-22 20:51] VITALS: BP 117/49
[2021-11-22] MEDS: ALPRAZOLAM 0.25 MG TABLET PO SCH (22:15)
[2021-11-22] MEDS: ZOLPIDEM TARTRATE 5 MG TABLET PO PRN (23:11)
--- NOTE | 2021-11-22 23:18 | NUR ---
CALLED RT VALENTE FOR THE BIPAP MACHINE.
[2021-11-23] MEDS: IPRATROPIUM BROMIDE 14 GM INHALER (or 12.9 GM) IH SCH ×2 (01:36→19:30)
[2021-11-23] MEDS: ALBUTEROL FS 2.5 MG/3 ML VIAL.NEB NEB SCH ×6 (03:28→23:49)
--- NOTE | 2021-11-23 06:04 | NUR ---
MS RN CLOSING NOTES: PATIENT IN BED, AWAKE, A/O X3. NO S/S OF DISTRESS NOTED. NO COMPLAIN OF PAIN. CALL LIGHT WITHIN REACH. BED ALARM ON. BED IN LOWEST AND LOCKED POSITION. TURNED AND REPOSITIONED. HEELS OFFLOADED. WITH CAREGIVER AT THE BEDSIDE. HOB ELEVATED. WITH LEONARDO CATHETER INTACT. WOUND TREATMENTS DONE ORDERED. HAD BM TODAY, CLEANED WITH SOAP AND WATER, Z-GUARD APPLIED. DRESSING ON THE SACRAL AREA IS CLEAN, DRY AND INTACT. OFFLOADED.
[2021-11-23 06:53] LABS: BASOPHILS % (AUTO) 0.2 % (0.0-2.0); EOSINOPHILS % (AUTO) 2.1 % (0.0-6.0); HEMATOCRIT 30 % (33-45); HEMOGLOBIN 9.7 g/dL (11.5-14.8); LYMPHOCYTES # (AUTO) 1.1 K/uL (0.8-4.8); LYMPHOCYTES % (AUTO) 12.5 % (20.0-44.0); MEAN CORPUSCULAR HGB CONC 33 g/dl (31.0-36.0); MEAN CORPUSCULAR VOLUME 88 fL (82-100); MONOCYTES # (AUTO) 0.8 K/uL (0.1-1.30); MONOCYTES % (AUTO) 8.6 % (2.0-12.0); NEUTROPHILS % (AUTO) 76.6 % (43.0-81.0); PLATELET COUNT (AUTO) 252 K/uL (150-450); RED BLOOD CELL COUNT(AUTO) 3.36 MIL/uL (4.0-5.2); WHITE BLOOD COUNT (AUTO) 9.2 K/uL (4.3-11.0)
--- NOTE | 2021-11-23 07:30 | NUR ---
MS RN OPENING NOTES: RECEIVED PATIENT RESTING IN BED AND A/O X3. NO S/S OF DISTRESS NOTED. ON O2 AT 1LPM VIA NASAL CANNULA TOLERATING WELL. WITH NO COMPLAINTS OF PAIN OR DISCOMFORT AT THIS TIME WITH IV ACCESS AT RIGHT UPPER ARM PICC LINE, SALINE LOCKED, INTACT AND PATENT. WITH LEONARDO CATHETER IN PLACED. SAFETY MEASURES IN PLACED. CALL LIGHT WITHIN REACH. BED ALARM ON. BED IN LOWEST AND LOCKED POSITION. HOB ELEVATED. WILL CONTINUE TO MONITOR.
[2021-11-23 07:35] LABS: CALCIUM, SERUM 8.7 mg/dL (8.5-10.1); CARBON DIOXIDE 35 mmol/L (21-32); CHLORIDE 102 mmol/L (98-107); CREATININE 0.3 mg/dL (0.6-1.3); GLUCOSE 79 mg/dL (74-106); POTASSIUM 4.5 mmol/L (3.5-5.1); SODIUM SERUM 140 mmol/L (136-145); UREA NITROGEN, BLOOD 13 mg/dL (7-18)
[2021-11-23 07:36] LABS: PHOSPHORUS 2.4 mg/dL (2.5-4.9)
[2021-11-23 08:00] VITALS: BP 112/51
[2021-11-23] MEDS: PANTOPRAZOLE 40 MG TABLET.DR PO SCH (08:47)
[2021-11-23] MEDS: ETHAMBUTOL HCL (400 MG) 400 MG TABLET GT SCH (08:47)
[2021-11-23] MEDS: FLUCONAZOLE (100 MG) 100 MG TABLET PO SCH (08:48)
[2021-11-23] MEDS: NEUTRA PHOS 1 POWD.PACKET PO SCH ×2 (08:49→17:19)
[2021-11-23] MEDS: SENNOSIDES 8.6 MG TABLET PO SCH ×2 (08:49→17:18)
[2021-11-23] MEDS: predniSONE 20 MG TABLET PO SCH (08:49)
[2021-11-23] MEDS: CLARITHROMYCIN 500 MG TABLET PO SCH ×2 (08:49→17:18)
[2021-11-23] MEDS: SUCRALFATE 1 G TABLET PO SCH ×4 (08:49→21:55)
[2021-11-23] MEDS: RIFAMPIN 300 MG CAPSULE PO SCH (08:49)
[2021-11-23] MEDS: ENSURE ENLIVE 237 ML LIQUID (VANILLA) PO SCH ×3 (08:52→17:19)
[2021-11-23] MEDS: Z GUARD REMEDY 2 OZ OINT TP SCH (08:59)
[2021-11-23] MEDS: HYDROGEL DRESSING 90 GM TUBE TP PRN (09:46)
[2021-11-23] MEDS: HYDROGEL DRESSING 90 GM TUBE TP SCH (09:48)
[2021-11-23] MEDS: ACETAMINOPHEN 650 MG/20.3 ML UDC PO PRN ×3 (11:08→23:36)
[2021-11-23] MEDS: LEVOFLOXACIN (250MG) 250 MG TABLET PO SCH (13:12)
[2021-11-23] MEDS: ENOXAPARIN SODIUM 40 MG/0.4 ML DISP.SYRIN SQ SCH (15:47)
[2021-11-23] MEDS: LIDOCAINE 5% (PATCH) 1 EA PATCH TP SCH (15:48)
[2021-11-23 16:00] VITALS: BP 133/56
--- NOTE | 2021-11-23 18:43 | NUR ---
MS RN CLOSING NOTES: PATIENT RESTING IN BED AND A/O X3. NO S/S OF DISTRESS NOTED. ON O2 AT 1LPM VIA NASAL CANNULA TOLERATING WELL. WITH NO COMPLAINTS OF PAIN OR DISCOMFORT AT THIS TIME. WITH LEONARDO CATHETER IN PLACED. SAFETY MEASURES IN PLACED. CALL LIGHT WITHIN REACH. BED ALARM ON. BED IN LOWEST AND LOCKED POSITION. HOB ELEVATED. FOR INSERTION OF PICC LINEON RIGHT UPPER ARM. FOR REMOVAL OF PICC LINE ON RIGHT UPPER ARM. WILL ENDORSE TO NEXT SHIFT FOR JULIA.
--- NOTE | 2021-11-23 19:25 | NUR ---
MS RN OPENING NOTES RECEIVED PATIENT RESTING IN BED AND A/O X3. RESPIRATORY EVEN AND UNLABORED NO SOB NOTED, NO S/S OF DISTRESS NOTED. ON O2 AT 1LPM VIA NASAL CANNULA TOLERATING WELL. WITH IV ACCESS AT RIGHT UPPER ARM PICC LINE, SALINE LOCKED, INTACT AND PATENT. WITH LEONARDO CATHETER IN PLACED, DRFAINING WELL. SAFETY MEASURES IN PLACED. CALL LIGHT WITHIN REACH. BED ALARM ON. BED IN LOWEST AND LOCKED POSITION. HOB ELEVATED. WILL CONTINUE TO MONITOR.
[2021-11-23] MEDS: ONDANSETRON HCL/PF 4 MG/2 ML VIAL IVP PRN (19:54)
--- NOTE | 2021-11-23 19:55 | NUR ---
RN NOTES PATIENT C/O OF NAUSEA, ZOFRAN GIVEN PER MD'S ORDER. WILL MONITOR FOR ANY ADVERSE CHANGES.
[2021-11-23 20:00] VITALS: BP 125/63
[2021-11-23] MEDS: Z GUARD REMEDY 2 OZ OINT TP PRN (23:15)
[2021-11-23] MEDS: ALPRAZOLAM 0.25 MG TABLET PO SCH (23:35)
--- NOTE | 2021-11-23 23:58 | NUR ---
RT NOTE PT PLACED ON BIPAP AT THIS TIME. MASK SECURED. CONT. PULSE OX CONNECTED. ALARMS ON AND AUDIBLE. SITTER @ BEDSIDE. NO RESPIRATORY DISTRESS NOTED AT THIS TIME. WILL CONTINUE TO MONITOR.
[2021-11-24] MEDS: IPRATROPIUM BROMIDE 14 GM INHALER (or 12.9 GM) IH SCH ×2 (01:30→07:35)
[2021-11-24] MEDS: ALBUTEROL FS 2.5 MG/3 ML VIAL.NEB NEB SCH ×6 (03:30→23:42)
[2021-11-24] MEDS: Z GUARD REMEDY 2 OZ OINT TP PRN (04:52)
[2021-11-24] MEDS: Z GUARD REMEDY 2 OZ OINT TP SCH ×3 (04:53→20:53)
[2021-11-24 07:02] LABS: BASOPHILS % (AUTO) 0.5 % (0.0-2.0); HEMATOCRIT 29 % (33-45); HEMOGLOBIN 9.5 g/dL (11.5-14.8); LYMPHOCYTES # (AUTO) 1.2 K/uL (0.8-4.8); LYMPHOCYTES % (AUTO) 14.7 % (20.0-44.0); MEAN CORPUSCULAR HGB CONC 33 g/dl (31.0-36.0); MEAN CORPUSCULAR VOLUME 89 fL (82-100); MONOCYTES # (AUTO) 0.7 K/uL (0.1-1.30); MONOCYTES % (AUTO) 8.4 % (2.0-12.0); NEUTROPHILS # (AUTO) 6.1 K/uL (1.8-8.9); NEUTROPHILS % (AUTO) 72.4 % (43.0-81.0); PLATELET COUNT (AUTO) 260 K/uL (150-450); RED BLOOD CELL COUNT(AUTO) 3.23 MIL/uL (4.0-5.2); WHITE BLOOD COUNT (AUTO) 8.4 K/uL (4.3-11.0)
--- NOTE | 2021-11-24 07:30 | NUR ---
RN CLOSING NOTES PATIENT REMAIN STABLE THROUGH OUT THE SHIFT, RESTING IN BED AND A/O X3. RESPIRATORY EVEN AND UNLABORED NO SOB NOTED, NO S/S OF DISTRESS NOTED. ON O2 AT 1LPM VIA NASAL CANNULA TOLERATING WELL. WITH IV ACCESS AT RIGHT UPPER ARM PICC LINE, SALINE LOCKED, INTACT AND PATENT. WITH LEONARDO CATHETER IN PLACED, DRAINING WELL. ALL DUE MEDS GIVEN ORDERED. SAFETY MEASURES IN PLACED. CALL LIGHT WITHIN REACH. BED ALARM ON. BED IN LOWEST AND LOCKED POSITION. HOB ELEVATED. WILL CONTINUE TO MONITOR.
--- NOTE | 2021-11-24 07:30 | NUR ---
MS RN OPENING NOTES: RECEIVED PATIENT RESTING IN BED AND A/O X3. NO S/S OF DISTRESS NOTED. ON O2 AT 1LPM VIA NASAL CANNULA TOLERATING WELL. WITH NO COMPLAINTS OF PAIN OR DISCOMFORT AT THIS TIME WITH IV ACCESS AT RIGHT UPPER ARM PICC LINE, SALINE LOCKED, INTACT AND PATENT. WITH LEONARDO CATHETER IN PLACED. SAFETY MEASURES IN PLACED. CALL LIGHT WITHIN REACH. BED ALARM ON. BED IN LOWEST AND LOCKED POSITION. HOB ELEVATED. FOR INSERTION OF PICC LINE AT LEFT UPPER ARM AND FOR REMOVAL OF PICC LINE ON RIGHT UPPER ARM DUE TO SWELLING. WILL CONTINUE TO MONITOR.
[2021-11-24 07:40] LABS: CALCIUM, SERUM 8.5 mg/dL (8.5-10.1); CARBON DIOXIDE 37 mmol/L (21-32); CHLORIDE 99 mmol/L (98-107); CREATININE 0.3 mg/dL (0.6-1.3); GLUCOSE 77 mg/dL (74-106); POTASSIUM 4.6 mmol/L (3.5-5.1); SODIUM SERUM 138 mmol/L (136-145); UREA NITROGEN, BLOOD 11 mg/dL (7-18)
[2021-11-24 08:00] VITALS: BP 130/63
[2021-11-24] MEDS: SUCRALFATE 1 G TABLET PO SCH ×4 (09:07→21:03)
[2021-11-24] MEDS: SENNOSIDES 8.6 MG TABLET PO SCH ×2 (09:07→17:02)
[2021-11-24] MEDS: predniSONE 20 MG TABLET PO SCH (09:07)
[2021-11-24] MEDS: FLUCONAZOLE (100 MG) 100 MG TABLET PO SCH (09:07)
[2021-11-24] MEDS: PANTOPRAZOLE 40 MG TABLET.DR PO SCH (09:07)
[2021-11-24] MEDS: CLARITHROMYCIN 500 MG TABLET PO SCH ×2 (09:07→16:29)
[2021-11-24] MEDS: ENSURE ENLIVE 237 ML LIQUID (VANILLA) PO SCH ×4 (09:08→16:29)
[2021-11-24] MEDS: HYDROGEL DRESSING 90 GM TUBE TP SCH (09:11)
--- NOTE | 2021-11-24 09:32 | NUR ---
WOUND CARE CONSULT: PT PRESENTS WITH DISCOLORATION TO LOWER LEGS WITH SKIN TEAR TO RT LOWER LEG. THERE IS XEROFORM DRESSING ON SKIN TEAR. PT NOTED TO HAVE VERY FRAGILE SKIN WITH WEEPING EDEMA TO UPPER AND LOWER EXTREMITIES. DR BHATIA NOTIFIED OF SKIN TEAR AND DISCOLORATION TO LOWER EXTREMITIES. DEFER TO DPM. IN AGREEMENT WITH PLAN OF CARE.
--- NOTE | 2021-11-24 10:30 | NUR ---
MS MARQUEZ OPENING NOTES: RECEIVED PATIENT RESTING IN BED AND A/O X3. NO S/S OF DISTRESS NOTED. ON O2 AT 1LPM VIA NASAL CANNULA TOLERATING WELL. WITH NO COMPLAINTS OF PAIN OR DISCOMFORT AT THIS TIME WITH IV ACCESS AT RIGHT UPPER ARM PICC LINE, SALINE LOCKED, INTACT AND PATENT. WITH LEONARDO CATHETER IN PLACED. SAFETY MEASURES IN PLACED. CALL LIGHT WITHIN REACH. BED ALARM ON. BED IN LOWEST AND LOCKED POSITION. HOB ELEVATED. FOR INSERTION OF PICC LINE AT LEFT UPPER ARM AND FOR REMOVAL OF PICC LINE ON RIGHT UPPER ARM DUE TO SWELLING. WILL CONTINUE TO MONITOR. Addendum: 11/24/21 at 1033 by BLAKE YOU RN ERROR.
[2021-11-24] MEDS: ACETAMINOPHEN 650 MG/20.3 ML UDC PO PRN (11:51)
[2021-11-24] MEDS: ARGININE/GLUTAMINE/CALCIUM BMB 1 EACH POWD.PACK PO SCH ×2 (13:44→16:30)
--- NOTE | 2021-11-24 15:00 | NUR ---
RN NOTES REMOVED PICC LINE ON RIGHT UPPER ARM AND APPLIED PRESSURE. NO BLEEDING NOTED.
--- NOTE | 2021-11-24 15:02 | NUR ---
APS FOLLOW UP: OWEN received call from QUEENIE camilo [phone] stating she is the assigned APS worker tot he case. OWEN addressed her questions regarding DC plan and provided number to [facility] for DC date. SW will remain available.
[2021-11-24 16:00] VITALS: BP 117/64
[2021-11-24] MEDS: ENOXAPARIN SODIUM 40 MG/0.4 ML DISP.SYRIN SQ SCH (16:28)
[2021-11-24] MEDS: LIDOCAINE 5% (PATCH) 1 EA PATCH TP SCH (16:29)
--- NOTE | 2021-11-24 19:32 | NUR ---
MS RN CLOSING NOTES: PATIENT RESTING IN BED AND A/O X3. NO S/S OF DISTRESS NOTED. ON O2 AT 1LPM VIA NASAL CANNULA TOLERATING WELL. WITH NO COMPLAINTS OF PAIN OR DISCOMFORT AT THIS TIME. WITH IV ACCESS AT LEFT UPPER ARM, SALINE LOCKED, INTACT AND PATENT. WITH LEONARDO CATHETER IN PLACED. DUE MEDS GIVEN. SAFETY MEASURES IN PLACED. CALL LIGHT WITHIN REACH. BED ALARM ON. BED IN LOWEST AND LOCKED POSITION. HOB ELEVATED. WILL ENDORSE TO NEXT SHIFT FOC JULIA.
--- NOTE | 2021-11-24 19:35 | NUR ---
MS RN OPENING NOTES: RECEIVED REPORT AT PATIENT'S BEDSIDE. PATIENT IS COMMUNICATIVE AND VERBALIZING NEEDS EFFECTIVELY, IN NAD AND VSS AT THIS TIME. MENTATION TO BASELINE. HOB IN SEMI FOWLERS POSITION. BED LOW AND LOCKED. SIDE RAILS UP X3. CAREGIVER AT BEDSIDE. NC IN PLACE AT 1 LPM. KITA PERIPHERAL IV SL FLUSHED PER FACILITY POLICY -- PATENT AND WITHOUT S/SX OF INFILTRATION. DRESSING CDI. PATIENT DEMONSTRATES ABILITY TO USE CALL LIGHT. CALL LIGHT AND FREQUENTLY USED ITEMS WITHIN REACH.
[2021-11-24 20:00] VITALS: BP 146/69
[2021-11-24] MEDS: ALPRAZOLAM 0.25 MG TABLET PO SCH (21:03)
--- NOTE | 2021-11-24 22:00 | NUR ---
MS RN NOTES: NOTIFIED UTILITY PLANT OPERATIVE RE PATIENT'S C/O 8-09/04 PAIN TO SACRUM AND BUTTOCKS THAT IS UNRELIEVED WITH TYLENOL PER PATIENT'S REPORTS. NEW ORDER FOR DILAUDID 0.25 MG IVP Q4 HR PRN SEVERE PAIN OBTAINED.
[2021-11-24] MEDS: HYDROMORPHONE 1 MG/1 ML DISP.SYRIN IV PRN (22:37)
--- NOTE | 2021-11-25 00:04 | NUR ---
RT PT PLACED ON BIPAP, ALARMS ARE ON AND AUDIBLE. PT COMFORTABLE AND SHOWS NO SIGNS OF SOB OR RESPIRATORY DISTRESS. SITTER IS IN PT ROOM AT THIS TIME. RN MADE AWARE.
[2021-11-25] MEDS: IPRATROPIUM BROMIDE 14 GM INHALER (or 12.9 GM) IH SCH ×2 (00:13→01:30)
[2021-11-25] MEDS: ZOLPIDEM TARTRATE 5 MG TABLET PO PRN (00:39)
[2021-11-25] MEDS: ALBUTEROL FS 2.5 MG/3 ML VIAL.NEB NEB SCH ×3 (04:04→11:33)
--- NOTE | 2021-11-25 04:15 | NUR ---
RT PT ASKED TO BE REMOVED FROM BIPAP, PT PLACED ON 2 LPM NC. NO SOB OR RESPIRATORY DISTRESS NOTED. SITTER IS AT PT BEDSIDE IN ROOM AND RN INFORMED PT OFF BIPAP.
[2021-11-25] MEDS: HYDROMORPHONE 1 MG/1 ML DISP.SYRIN IV PRN (05:08)
--- NOTE | 2021-11-25 05:30 | NUR ---
RT PT PLACED BACK ON BIPAP. ALARMS ARE ON AND AUDIBLE. SITTER IS IN ROOM AT BEDSIDE. RN MADE AWARE. Addendum: 11/25/21 at 0540 by SRINIVASA CARRERO RT NO SOB OR RESPIRATORY DISTRESS NOTED AT THIS TIME. PT WAS AWAKE AND VERBAL.
--- NOTE | 2021-11-25 06:41 | NUR ---
MS RN CLOSING NOTES: PATIENT SLEEPING. EYES CLOSED, RR EVEN AND UNLABORED, IN NAD, VSS. PATIENT IS EASILY AROUSED TO VOICE COMMAND, ALERT AND ORIENTED TO BASELINE; IS CURRENTLY ON BIPAP DEVICE. PATIENT'S DENNIS IS WEEPY AND WRAPPED WITH KERLIX IT FREQUENTLY DRENCHES HER GOWN AND CHUCKS PADS -- THIS NURSE CHANGED HER TWICE IN THE SHIFT. L UA #20 SL AT THIS TIME FLUSHED AND PATENT. NO INFILTRATION AND NO S/SX OF INFECTION TO OR SURROUNDING INSERTION SITE. BUTTOCKS AND SACRAL WOUNDS CLEANSED AND REDRESSED WITH MEPILEX. DRESSINGS TO BLE AND BILATERAL HEELS CDI AT THIS TIME. PATIENT'S SKIN IS VERY FRAGILE. SHE C/O SEVERE PAIN AND ADMINISTERED DILAUDID 0.25 MG IVP X2 WITH MODERATE EFFECTIVENESS. BILATERAL LUNG SOUNDS DIMINISHED AT BASES.
[2021-11-25 06:51] LABS: BASOPHILS % (AUTO) 0.3 % (0.0-2.0); HEMATOCRIT 30 % (33-45); HEMOGLOBIN 9.9 g/dL (11.5-14.8); LYMPHOCYTES # (AUTO) 1.3 K/uL (0.8-4.8); LYMPHOCYTES % (AUTO) 13.7 % (20.0-44.0); MEAN CORPUSCULAR HGB CONC 33 g/dl (31.0-36.0); MEAN CORPUSCULAR VOLUME 90 fL (82-100); MONOCYTES # (AUTO) 0.9 K/uL (0.1-1.30); MONOCYTES % (AUTO) 9.6 % (2.0-12.0); NEUTROPHILS # (AUTO) 6.9 K/uL (1.8-8.9); NEUTROPHILS % (AUTO) 73.4 % (43.0-81.0); PLATELET COUNT (AUTO) 293 K/uL (150-450); RED BLOOD CELL COUNT(AUTO) 3.35 MIL/uL (4.0-5.2); WHITE BLOOD COUNT (AUTO) 9.4 K/uL (4.3-11.0)
[2021-11-25 07:24] LABS: CALCIUM, SERUM 8.7 mg/dL (8.5-10.1); CARBON DIOXIDE 38 mmol/L (21-32); CHLORIDE 98 mmol/L (98-107); CREATININE 0.3 mg/dL (0.6-1.3); GLUCOSE 98 mg/dL (74-106); POTASSIUM 4.4 mmol/L (3.5-5.1); SODIUM SERUM 137 mmol/L (136-145); UREA NITROGEN, BLOOD 15 mg/dL (7-18)
--- NOTE | 2021-11-25 07:35 | NUR ---
MS RN OPENING NOTES RECEIVED PT IN BED, AWAKE, ALERT, VERBALLY RESPONSIVE, NO SIGNS OF ACUTE DISTRESS NOTED. ON O2 @1LPM VIA N/C, NO SOB NOTED, BREATHING EVEN AND UNLABORED. NO C/O PAIN AT THIS TIME. IV ACCESS ON KITA #20G INTACT. CAREGIVER AT BEDSIDE. SAFETY MEASURES IN PLACE, BED LOCKED AND IN LOWEST POSITION, SR UP, CALL LIGHT PLACED WITHIN EASY REACH. WILL CONTINUE TO MONITOR.
[2021-11-25] MEDS: PANTOPRAZOLE 40 MG TABLET.DR PO SCH (07:54)
[2021-11-25] MEDS: ENSURE ENLIVE 237 ML LIQUID (VANILLA) PO SCH ×2 (08:10→12:05)
[2021-11-25] MEDS: SUCRALFATE 1 G TABLET PO SCH ×2 (08:32→12:13)
[2021-11-25] MEDS: CLARITHROMYCIN 500 MG TABLET PO SCH (08:32)
[2021-11-25 08:33] VITALS: BP 141/64
[2021-11-25] MEDS: ETHAMBUTOL HCL (400 MG) 400 MG TABLET GT SCH (08:33)
[2021-11-25] MEDS: FLUCONAZOLE (100 MG) 100 MG TABLET PO SCH (08:33)
[2021-11-25] MEDS: predniSONE 20 MG TABLET PO SCH (08:33)
[2021-11-25] MEDS: ARGININE/GLUTAMINE/CALCIUM BMB 1 EACH POWD.PACK PO SCH (08:33)
[2021-11-25] MEDS: RIFAMPIN 300 MG CAPSULE PO SCH (08:34)
[2021-11-25] MEDS: SENNOSIDES 8.6 MG TABLET PO SCH (08:34)
[2021-11-25] MEDS: Z GUARD REMEDY 2 OZ OINT TP SCH (08:35)
[2021-11-25] MEDS: HYDROGEL DRESSING 90 GM TUBE TP SCH (08:51)
[2021-11-25] MEDS ORDERED: ALPRAZOLAM 0.25 MG TABLET PO SCH (09:00)
[2021-11-25] MEDS: ONDANSETRON HCL/PF 4 MG/2 ML VIAL IVP PRN (12:13)
--- NOTE | 2021-11-25 14:35 | NUR ---
LANDSCAPE CREW MEMBER NOTES PATIENT DISCHARGED HOME IN STABLE CONDITION, A/O X3, VERBALLY RESPONSIVE, ABLE TO MAKE NEEDS KNOWN. VITAL SIGNS TAKEN, STABLE AND RECORDED. IV ACCESS ON LAC REMOVED, NO BLEEDING NOTED, PRESSURE DRESSING APPLIED. NAME ARMBAND REMOVED. DISCHARGE INSTRUCTIONS GIVEN TO PATIENTS CAREGIVER AND WITH VERBALIZATION OF UNDERSTANDING. PHOTOS OF SKIN ISSUES TAKEN AND PLACED IN CHART, TREATMENT DONE PRIOR DISCHARGE. PATIENT DOESN'T HAVE BELONGINGS ON ADMISSION, FORM SIGNED BY . PATIENT LEFT UNIT @1430 P/U BY [facility] [employer]. CN AWARE OF DISCHARGE.
--- NOTE | 2021-11-29 11:10 | NUR ---
OWEN received call from APS Louie lopez [phone] requesting where pt. was DC to. OWEN addressed all questions. SW will remain available as needed.
== END 2021-11-25 14:45 | disposition home health service (06) | DRG 853 ==
LOC: ER 12:59 → ICU 15:24 → TELE1 11-19 17:27 → TELE 11-20 18:44 → MED 11-21 11:13
PROVIDERS: ADMIT Internal Medicine; ATTEND Family Medicine
PROC: 5A1945Z Respiratory Ventilation, 24-96 Consecutive Hours (ICD-10-PCS; principal; 2021-11-16)
PROC: 0BH18EZ Insertion of Endotracheal Airway into Trachea, Via Natural or Artificial Opening Endoscopic (ICD-10-PCS; 2021-11-16)
PROC: 02HV33Z Insertion of Infusion Device into Superior Vena Cava, Percutaneous Approach (ICD-10-PCS; 2021-11-16)
PROC: B548ZZA Ultrasonography of Superior Vena Cava, Guidance (ICD-10-PCS; 2021-11-16)
PROC: 0JB70ZZ Excision of Back Subcutaneous Tissue and Fascia, Open Approach (ICD-10-PCS; 2021-11-22)
DX: A41.9 Sepsis, unspecified organism (principal); L89.154 Pressure ulcer of sacral region, stage 4; E43 Unspecified severe protein-calorie malnutrition; I21.A1 Myocardial infarction type 2; J96.22 Acute and chronic respiratory failure with hypercapnia; J96.21 Acute and chronic respiratory failure with hypoxia; R65.21 Severe sepsis with septic shock; D68.59 Other primary thrombophilia; B37.49 Other urogenital candidiasis; R64 Cachexia; L97.929 Non-pressure chronic ulcer of unspecified part of left lower leg with unspecified severity; L97.919 Non-pressure chronic ulcer of unspecified part of right lower leg with unspecified severity; I48.0 Paroxysmal atrial fibrillation; I11.0 Hypertensive heart disease with heart failure; D64.9 Anemia, unspecified; E87.6 Hypokalemia; F41.9 Anxiety disorder, unspecified; G14 Postpolio syndrome; I27.20 Pulmonary hypertension, unspecified; I35.0 Nonrheumatic aortic (valve) stenosis; I50.9 Heart failure, unspecified; I73.9 Peripheral vascular disease, unspecified; Z86.19 Personal history of other infectious and parasitic diseases; J47.9 Bronchiectasis, uncomplicated; M20.41 Other hammer toe(s) (acquired), right foot; M20.42 Other hammer toe(s) (acquired), left foot; S31.819A Unspecified open wound of right buttock, initial encounter; S81.811A Laceration without foreign body, right lower leg, initial encounter; S90.32XA Contusion of left foot, initial encounter; S90.31XA Contusion of right foot, initial encounter; Z74.01 Bed confinement status; X58.XXXA Exposure to other specified factors, initial encounter; Y93.9 Activity, unspecified; Y92.9 Unspecified place or not applicable; Z20.822 Contact with and (suspected) exposure to COVID-19; Z79.899 Other long term (current) drug therapy; Z88.2 Allergy status to sulfonamides; Z90.710 Acquired absence of both cervix and uterus; Z88.5 Allergy status to narcotic agent; R54 Age-related physical debility
CPT/HCPCS: 31720; 36415; 36600; 70450-TC; 71045-TC; 80048-TC; 80053-TC; 80076-TC; 80202-TC; 81001; 82533; 82728-TC; 82803-TC; 83540-TC; 83605-TC; 83690-TC; 83735-TC; 83880; 84100-TC; 84484-TC; 85025-TC; 87040-TC; 87070-TC; 87081-TC; 87086-TC; 87186-TC; 92526; 92611-TC; 93307-TC; 93971-TC; 94002-TC; 94003-TC; 94640; 94640-TC; 94660; 94664; 94760-TC; 94762-TC; 94799-TC; 99082-TC; A6248; A6253; A6403; C9113; C9803; G0378; G0480; J0696; J1170; J1650; J1720; J1940; J1956; J2248; J2405; J2543; J2916; J2930; J3370; J3480; J3490; J7030; J7040; J7050; J7060; U0003

== ENCOUNTER 2022-08-03 19:14 | Inpatient (IN) | payer MEDICARE, BC ==
[~2022-08-03] VITALS: Ht 149.9 cm; Wt 48.5 kg
[~2022-08-03 19:14] MED LIST changes: -ACET1OOV6 NEB; -ALBU2.5V38 IH; -ALBUT2 CONTNEB; -ALPR-388 PO; +ALPR0.255 PO; -ENOX40DI SQ; +FERR325T23 PO; +FLUC100T8 PO; +FURO20TA4 PO; +IPRA0.2S9 INH; +LACT10SO3 PO; +LEVA0.6320 INH; -LEVA15HF4 INH; -LEVO500P10 IV; -PANT40TA2 PO; +PANT40TA49 PO; +SENN-261 PO; +SENN8.6T19 PO; +SUCR1TAB PO; -methylPREDNISolone SOD SUCC IV
[2022-08-03] MEDS ORDERED: IV NS 0.9% 500 ML BAG IV ONE (19:30)
--- NOTE | 2022-08-03 19:30 | NUR ---
[id number] FROM HOME C/O SOB WHEN OFF BIPAP. PATIENT CAME ON BIPAP. LETHARGIC. PLACED COMFORTABLY IN BED. VITALS CHECKED.
--- NOTE | 2022-08-03 19:45 | NUR ---
PATIENT IS IN BIPAP WITH SETTING OF 18/5. FiO2 30%. RATE 16 SATURATING 96%. PATIENT HAS ABDOMINAL MASS ON LEFT LOWER QUADRANT. CAME WITH F16 IFC CATHETER.
--- NOTE | 2022-08-03 20:00 | NUR ---
RT NOTE LATE ENTRY Pt rec'd on home bipap at 7LPM per caregiver. ABG taken and critically high CO2 noted and reported to Charlie SPRAGUE. Pt placed on noted bipap settings per Charlie SPRAGUE. Alarms are set and audible. ambu bag at bedside. Bipap plugged into red outlet. ABG to be taken within 1 hr Addendum: 08/03/22 at 2041 by DAVID DUCKWORTH RT Amended: Links added.
--- NOTE | 2022-08-03 20:05 | NUR ---
20G IV ESTABLISHED AT . SALINE LOCKED AND SECURED.
[2022-08-03 20:51] LABS: BASOPHILS % (AUTO) 0.3 % (0.0-2.0); EOSINOPHILS % (AUTO) 0.8 % (0.0-6.0); HEMATOCRIT 28 % (33-45); HEMOGLOBIN 9.2 g/dL (11.5-14.8); LYMPHOCYTES % (AUTO) 3.6 % (20.0-44.0); MEAN CORPUSCULAR HGB CONC 33 g/dl (31.0-36.0); MEAN CORPUSCULAR VOLUME 93 fL (82-100); MONOCYTES % (AUTO) 7.1 % (2.0-12.0); NEUTROPHILS % (AUTO) 88.2 % (43.0-81.0); PLATELET COUNT (AUTO) 326 K/uL (150-450); RED BLOOD CELL COUNT(AUTO) 3.02 MIL/uL (4.0-5.2); WHITE BLOOD COUNT (AUTO) 9.3 K/uL (4.3-11.0)
[2022-08-03 20:52] LABS: LYMPHOCYTES # (AUTO) 0.3 K/uL (0.8-4.8); MONOCYTES # (AUTO) 0.7 K/uL (0.1-1.30); NEUTROPHILS # (AUTO) 8.2 K/uL (1.8-8.9)
[2022-08-03 21:22] LABS: ALANINE AMINOTRANSFERASE 18 U/L (12-78); ALBUMIN 2.1 g/dL (3.4-5.0); ALKALINE PHOSPHATASE 86 U/L (46-116); ASPARTATE AMINOTRANSFERASE 25 U/L (15-37); BILIRUBIN,DIRECT 0.1 mg/dL (0.0-0.2); BILIRUBIN,TOTAL 0.2 mg/dL (0.2-1.0); CALCIUM, SERUM 8.2 mg/dL (8.5-10.1); CHLORIDE 90 mmol/L (98-107); CREATININE 0.2 mg/dL (0.6-1.3); GLUCOSE 108 mg/dL (74-106); POTASSIUM 3.8 mmol/L (3.5-5.1); SODIUM SERUM 131 mmol/L (136-145); TOTAL PROTEIN, SERUM 6.1 g/dL (6.4-8.2); UREA NITROGEN, BLOOD 11 mg/dL (7-18)
--- NOTE | 2022-08-03 21:40 | NUR ---
RT AT BEDSIDE TO DO ABG
[2022-08-03 21:41] LABS: CARBON DIOXIDE 41 mmol/L (21-32)
[2022-08-03] MEDS ORDERED: AZITHROMYCIN 500 MG in IV D5W 250 ML IV ONE (22:00)
[2022-08-03] MEDS ORDERED: CEFTRIAXONE 1GM BAG (ER ONLY) 50 ML IV ONE (22:00)
[2022-08-03 22:05] LABS: ABG BASE EXCESS 13.6 mmol/L; ABG PCO2 91.5 mmHg (35.0-45.0); ABG PH 7.294 (7.350-7.450); ABG PO2 378.6 mmHg (75.0-100.0); MetHb 0.5 % (0.0-1.5); O2Hb 99.1 % (94.0-97.0); SITE, ABG Right Radial; VENT MODE, BG Home Bipap/AVAPS; VT, ABG 350 mL
--- NOTE | 2022-08-03 22:06 | NUR ---
URINE SPECIMEN SENT TO LAB
--- NOTE | 2022-08-03 22:10 | NUR ---
RT NOTE LATE ENTRY ABG TAKEN AND RESULTS REPORTED TO IFTIKHAR SPRAGUE. FIO2 INCREASED TO 60% Addendum: 08/03/22 at 2236 by DAVID DUCKWORTH RT Amended: Links added.
[2022-08-03] MEDS ORDERED: AZITHROMYCIN 500 MG VIAL ONE (22:12)
[2022-08-03] MEDS ORDERED: CEFTRIAXONE 1 G VIAL ONE (22:13)
--- NOTE | 2022-08-03 22:15 | NUR ---
RT NOTE LATE ENTRY ABG RESULTS UNABLE TO TRANSFER. DOWNTIME FORM PLACED IN PT CHART. Addendum: 08/04/22 at 0613 by DAVID DUCKWORTH RT Amended: Links added.
[2022-08-03 22:53] LABS: BILIRUBIN,URINE NEGATIVE (NEGATIVE); COLOR,URINE YELLOW (YELLOW); LEUKOCYTE ESTERASE ,URINE MODERATE (NEGATIVE); NITRITE, URINE NEGATIVE (NEGATIVE); PROTEIN,URINE 30 mg/dl (NEGATIVE); UGLUCOSE NEGATIVE (NEGATIVE); UROBILINOGEN,URINE 0.2 EU/dL (0.2)
[2022-08-04] VITALS (14 sets, daily range): BP systolic 103–145; BP diastolic 58–78
--- NOTE | 2022-08-04 00:03 | NUR ---
SPOKE TO SON MI. GAVE HIM AN UPDATE WITH REGARDS TO HIS MOM'S CONDITION
--- NOTE | 2022-08-04 04:04 | NUR ---
NEEDS ATTENDED. PATIENT HAS HER OWN SUPERVISOR GEAR REPAIR AT BEDSIDE.
--- NOTE | 2022-08-04 06:13 | NUR ---
RT NOTE KLEVER DIRECTOR VACCINE NOTIFIED TO CANCEL ABG ORDER
[2022-08-04 06:38] LABS: ABG PCO2 71.5 mmHg (35.0-45.0); ABG PH 7.402 (7.350-7.450); COHb 0.3 % (0.5-1.5); MetHb 0.1 % (0.0-1.5); O2Hb 85.7 % (94.0-97.0); SITE, ABG Right Radial; VENT MODE, BG Bipap 18/5 30% RR16
--- NOTE | 2022-08-04 06:41 | NUR ---
PATIENT IS ASLEEP BUT AROUSABLE
[2022-08-04 07:06] LABS: BACTERIA,URINE Few /HPF (None Seen); HYALINE CASTS, URINE Rare /LPF (None Seen); MUCUS,URINE Moderate /LPF (None Seen); WBC,URINE 21-50 /HPF (0-3)
[2022-08-04 07:07] LABS: SQUAMOUS EPITHELIAL CELL,UR Moderate /HPF (None Seen)
--- NOTE | 2022-08-04 07:41 | NUR ---
REPORT GIVEN TO ALMA DIEGO
--- NOTE | 2022-08-04 07:45 | NUR ---
RT Received patient awake on BIPAP: IPAP 18 EPAP 5 FIO2 40%. Adjusted mask. HR 64 RR 18 SPO2 100%.
[2022-08-04] MEDS ORDERED: ALBU2.5V38 IH (09:01)
[2022-08-04] MEDS ORDERED: MIRT-121 PO (09:01)
--- NOTE | 2022-08-04 09:16 | NUR ---
ANJANA KAPOOR SON [phone] GIVEN UPDATES RE PT CONDITION
--- NOTE | 2022-08-04 09:41 | NUR ---
WOUND CARE CONSULT: PT PRESENTS WITH VERY FRAGILE SKIN, CACHEXIA, STAGE 4 SACRAL ULCER AND LOWER LEG WOUNDS, PRESENT ON ADMISSION. DIFFICULT ASSESSMENT DUE TO PT UNABLE TO TOLERATE HAVING HER HEAD OF BED LOWERED. DR YOLI CASSIDY AND DR DUMAS CALLED FOR SURGICAL AND DPM CONSULTS. RECOMMENDATIONS MADE FOR WOUND CARE AND SKIN PROTECTION. DISCUSSED WITH NURSING STAFF. FIRST STEP LOW AIRLOSS MATTRESS IS ON ORDER. MD IN AGREEMENT WITH PLAN OF CARE. Addendum: 08/04/22 at 0943 by ISABELL LAUREN WNDNU Amended: Links added.
[2022-08-04] MEDS: THERAHONEY GEL 1.5 OZ TUBE TP SCH (10:00)
[2022-08-04] MEDS: DAKINS QUARTER STRENGTH (0.125%) 480 ML BOTTLE TOP SCH (10:00)
[2022-08-04] MEDS: Z GUARD REMEDY 4 OZ OINT TP SCH (10:00)
--- NOTE | 2022-08-04 10:10 | NUR ---
Oj haro in [facility] - 08/04/22 at 1014 by [place]Y [place] [id number]
--- NOTE | 2022-08-04 10:18 | NUR ---
ICU NURSE NOT AVAILABLE. WILL CALL BACK IN 10MIN
--- NOTE | 2022-08-04 10:29 | NUR ---
ICU STAFF INTUBATING A PATIENT. WILL CALL BACK FOR REPORT.
--- NOTE | 2022-08-04 10:48 | NUR ---
REPORT GIVEN TO ALMA HANKINS
--- NOTE | 2022-08-04 11:52 | NUR ---
PT TRANSFERRED TO [facility] ACLS PROTOCOL. WARM HANDOFF GIVEN TO ALMA HANKINS.
--- NOTE | 2022-08-04 12:00 | NUR ---
PATIENT RECIEVED FROM EMERGENCY DEPARTMENT. WILL CONTINUE PLAN OF CARE AND ANTICIPATE NEEDS.
[2022-08-04] MEDS: methylPREDNISolone SOD SUCC 125 MG/2ML VIAL IV SCH ×2 (13:27→17:21)
[2022-08-04] MEDS: IPRATROPIUM NEB FS 0.5 MG/2.5 ML AMPUL.NEB NEB SCH ×2 (13:30→19:40)
[2022-08-04] MEDS: ENOXAPARIN SODIUM 30 MG/0.3 ML DISP.SYRIN SQ SCH (13:30)
[2022-08-04] MEDS: IV D5/ 0.9% NACL 1,000 ML IV PRN (13:54)
[2022-08-04] MEDS ORDERED: DIGOXIN INJ 0.5 MG/2 ML AMPUL IV ONE ×2 (14:30→19:00)
[2022-08-04] MEDS ORDERED: DILTIAZEM HCL 50 MG IV IV ONE (14:30)
[2022-08-04] MEDS: ETHAMBUTOL HCL (400 MG) 400 MG TABLET PO SCH (14:30)
--- NOTE | 2022-08-04 14:30 | NUR ---
RT HHN tx deferred. RT unavailable. Zero distress noted.
--- NOTE | 2022-08-04 14:50 | NUR ---
NON ADMIN FOR MYAMBUTOL. PATIENT IS ON BIPAP
--- NOTE | 2022-08-04 18:52 | NUR ---
RN CLOSING NOTES PATIENT REMAINS IN BED ON BIPAP TOLERATING SETTINGS WELL. O2 SATURATION IN THE LOW 90S. PATIENT IS ALERT TO NAME ONLY. LEONARDO CATHETER ATTACHED DRAINING CLEAR YELLOW URINE. SKIN ALTERATIONS DOCUMENTED IN PHYSICAL CHART. IV ACCESS ON LEFT FOREARM 20 GAUGE AND LEFT WRIST 20 GAUGE. RUNNING D5W AT 75 MLS AN HOUR. PATIENTS CAREGIVER AT THE BEDSIDE. SAFETY MEASURES IMPLEMENTED CALL LIGHT WITHIN REACH, BED IN LOWEST LOCKED POSITION, SIDE RAILS UP TIMES 2. WILL ENDORSE TO NIGHTSHIFT RN FOR CONTINUATION OF CARE.
--- NOTE | 2022-08-04 20:00 | NUR ---
Received patient resting on BIPAP.DX: Hypercarbic Respiratory Failure.O2 saturation 96%. No acute distress noted.ST 120's-130's.Digoxin pm dose given.IVF infusing.FC to gravity. With multiple wounds dressing intact.Skin protocol implemented.Turned and repositioned to comfort.lead software tester from home at bedside.
--- NOTE | 2022-08-04 20:15 | NUR ---
Patient son called to get medical records at [facility] for the reason patient had a bad heart and the doctor will be informed of patient heart history.
[2022-08-04] MEDS: CEFTRIAXONE 1 G in IV D5W 50 ML IV SCH (21:18)
[2022-08-04] MEDS: AZITHROMYCIN 500 MG in IV D5W 250 ML IV SCH (22:34)
[2022-08-05] VITALS (32 sets, daily range): BP systolic 98–149; BP diastolic 47–85
[2022-08-05] MEDS: IPRATROPIUM NEB FS 0.5 MG/2.5 ML AMPUL.NEB NEB SCH ×4 (01:24→20:03)
[2022-08-05] MEDS: IV D5/ 0.9% NACL 1,000 ML IV PRN ×2 (03:52→14:59)
[2022-08-05 04:56] LABS: CALCIUM, SERUM 8.5 mg/dL (8.5-10.1); CARBON DIOXIDE 34 mmol/L (21-32); CHLORIDE 91 mmol/L (98-107); CREATININE 0.3 mg/dL (0.6-1.3); GLUCOSE 149 mg/dL (74-106); MAGNESIUM 2.1 mg/dL (1.8-2.4); PHOSPHORUS 3.1 mg/dL (2.5-4.9); POTASSIUM 3.9 mmol/L (3.5-5.1); SODIUM SERUM 128 mmol/L (136-145); UREA NITROGEN, BLOOD 16 mg/dL (7-18)
[2022-08-05 04:58] LABS: EOSINOPHILS % (AUTO) 1.6 % (0.0-6.0); HEMATOCRIT 33 % (33-45); HEMOGLOBIN 10.6 g/dL (11.5-14.8); LYMPHOCYTES # (AUTO) 0.3 K/uL (0.8-4.8); MEAN CORPUSCULAR HGB CONC 32 g/dl (31.0-36.0); MEAN CORPUSCULAR VOLUME 95 fL (82-100); MONOCYTES # (AUTO) 0.3 K/uL (0.1-1.30); MONOCYTES % (AUTO) 3.3 % (2.0-12.0); NEUTROPHILS # (AUTO) 7.7 K/uL (1.8-8.9); NEUTROPHILS % (AUTO) 92.1 % (43.0-81.0); PLATELET COUNT (AUTO) 337 K/uL (150-450); WHITE BLOOD COUNT (AUTO) 8.3 K/uL (4.3-11.0)
--- NOTE | 2022-08-05 06:15 | NUR ---
Patient resting in no acute distress.BIPAP well tolerated.VS remains stable.SR 70'S-80'S. All due medications administered.Turned and repositioned.BM X1 during the night.Kept clean and dry.Will endorse to day shift to follow up and get patient medical records from [place].
[2022-08-05] MEDS: ENOXAPARIN SODIUM 30 MG/0.3 ML DISP.SYRIN SQ SCH (08:39)
[2022-08-05] MEDS: methylPREDNISolone SOD SUCC 125 MG/2ML VIAL IV SCH ×2 (08:40→16:43)
[2022-08-05] MEDS: DAKINS QUARTER STRENGTH (0.125%) 480 ML BOTTLE TOP SCH (08:41)
[2022-08-05] MEDS: Z GUARD REMEDY 4 OZ OINT TP SCH (08:41)
[2022-08-05] MEDS: THERAHONEY GEL 1.5 OZ TUBE TP SCH (08:42)
[2022-08-05] MEDS: SILVER SULFADIAZINE 50 GM JAR TP SCH ×2 (09:18→16:43)
[2022-08-05] MEDS: ACETAMINOPHEN 650 MG/20.3 ML UDC NG PRN (09:38)
--- NOTE | 2022-08-05 13:12 | NUR ---
SPOKE TO DR. MUÑIZ ABOUT PT HAVING LOW URINE OUTPUT. ORDER FOR 250ML BOLUS
[2022-08-05 13:20] LABS: ABG BASE EXCESS 9.4 mmol/L; ABG OXYGEN SATURATION 97.2 % (92.0-98.5); ABG PCO2 90.3 mmHg (35.0-45.0); ABG PH 7.259 (7.350-7.450); ABG PO2 104.3 mmHg (75.0-100.0); AaDO2 40.3 mmHg; COHb 0.7 % (0.5-1.5); MetHb 0.2 % (0.0-1.5); O2Hb 96.3 % (94.0-97.0); SITE, ABG Right Radial; VENT MODE, BG N/C
[2022-08-05] MEDS: DIGOXIN INJ 0.5 MG/2 ML AMPUL IV SCH (13:28)
[2022-08-05] MEDS ORDERED: IV NS 0.9% 250 ML IV ONE (13:30)
[2022-08-05 17:28] LABS: OCCULT BLOOD STOOL NEGATIVE (NEGATIVE)
--- NOTE | 2022-08-05 20:00 | NUR ---
Patient resting in no acute distress.BIPAP in place well tolerated saturation 100%. SR 60'S.With multiple wounds dressing intact.Placed patient on KCI mattress.Turned and repositioned.brooch and bracelet maker at bedside.Continue monitoring.
[2022-08-05] MEDS ORDERED: AZITHROMYCIN 500 MG VIAL ONE (20:31)
[2022-08-05] MEDS: CEFTRIAXONE 1 G in IV D5W 50 ML IV SCH (21:15)
[2022-08-05] MEDS: AZITHROMYCIN 500 MG in IV D5W 250 ML IV SCH (22:20)
[2022-08-06] VITALS (25 sets, daily range): BP systolic 116–154; BP diastolic 25–88
[2022-08-06] MEDS: IPRATROPIUM NEB FS 0.5 MG/2.5 ML AMPUL.NEB NEB SCH ×4 (01:50→19:51)
[2022-08-06] MEDS: IV D5/ 0.9% NACL 1,000 ML IV PRN (03:40)
[2022-08-06 04:52] LABS: BASOPHILS % (AUTO) 0.6 % (0.0-2.0); HEMATOCRIT 31 % (33-45); HEMOGLOBIN 10.2 g/dL (11.5-14.8); LYMPHOCYTES # (AUTO) 0.3 K/uL (0.8-4.8); LYMPHOCYTES % (AUTO) 3.7 % (20.0-44.0); MEAN CORPUSCULAR HGB CONC 33 g/dl (31.0-36.0); MEAN CORPUSCULAR VOLUME 93 fL (82-100); MONOCYTES # (AUTO) 0.4 K/uL (0.1-1.30); MONOCYTES % (AUTO) 5.1 % (2.0-12.0); NEUTROPHILS # (AUTO) 7.2 K/uL (1.8-8.9); NEUTROPHILS % (AUTO) 90.6 % (43.0-81.0); PLATELET COUNT (AUTO) 387 K/uL (150-450); RED BLOOD CELL COUNT(AUTO) 3.36 MIL/uL (4.0-5.2); WHITE BLOOD COUNT (AUTO) 7.9 K/uL (4.3-11.0)
[2022-08-06 05:11] LABS: CALCIUM, SERUM 8.6 mg/dL (8.5-10.1); CHLORIDE 95 mmol/L (98-107); CREATININE 0.2 mg/dL (0.6-1.3); GLUCOSE 150 mg/dL (74-106); MAGNESIUM 2.2 mg/dL (1.8-2.4); PHOSPHORUS 2.9 mg/dL (2.5-4.9); SODIUM SERUM 134 mmol/L (136-145); UREA NITROGEN, BLOOD 13 mg/dL (7-18)
[2022-08-06 05:15] LABS: CARBON DIOXIDE 40 mmol/L (21-32)
--- NOTE | 2022-08-06 06:00 | NUR ---
Patient resting more awake and verbally responsive.O2 saturation remains hi 99%-100%. BIPAP FIO2 titrated down to 30% by RT.Continue monitoring.Current saturation 96%-97%. AM care.Wound care done.Turned and repositioned.Patient verbalized she is hungry.Awaiting diet order.
--- NOTE | 2022-08-06 07:46 | NUR ---
placed into 0.5 lpm o2 flow via nasal cannula. spo2 99% bipap on stand by @ bedside Addendum: 08/06/22 at 0747 by GIOVANNI TRISTAN RT Amended: Links added.
--- NOTE | 2022-08-06 08:07 | NUR ---
@ 0807 PLACED BACK INTO BIPAP WITH SAME SETTINGS BELOW DUE TO INCREASED WORK OF BREATHING: IPAP 15 EPAP 5 RATE 16 FIO2 30% PT. IS MORE COMFORTABLE ON BIPAP Addendum: 08/06/22 at 0845 by GIOVANNI TRISTAN RT Amended: Links added.
[2022-08-06] MEDS: methylPREDNISolone SOD SUCC 125 MG/2ML VIAL IV SCH ×2 (08:14→18:16)
[2022-08-06] MEDS: ENOXAPARIN SODIUM 30 MG/0.3 ML DISP.SYRIN SQ SCH (08:16)
[2022-08-06] MEDS: DAKINS QUARTER STRENGTH (0.125%) 480 ML BOTTLE TOP SCH (08:22)
[2022-08-06] MEDS: Z GUARD REMEDY 4 OZ OINT TP SCH (08:23)
[2022-08-06] MEDS: Z GUARD REMEDY 4 OZ OINT TP PRN (08:23)
[2022-08-06] MEDS: SILVER SULFADIAZINE 50 GM JAR TP SCH ×2 (08:24→18:16)
[2022-08-06] MEDS: THERAHONEY GEL 1.5 OZ TUBE TP SCH (08:24)
--- NOTE | 2022-08-06 08:42 | NUR ---
OFF SAVITAAP @ 0725 Addendum: 08/06/22 at 0842 by GIOVANNI TRISTAN RT Amended: Links added.
[2022-08-06 11:28] LABS: ABG BASE EXCESS 10.3 mmol/L; ABG PCO2 66.2 mmHg (35.0-45.0); ABG PH 7.373 (7.350-7.450); ABG PO2 79.4 mmHg (75.0-100.0); AaDO2 56.7 mmHg; COHb 0.6 % (0.5-1.5); MetHb 0.1 % (0.0-1.5); O2Hb 95.3 % (94.0-97.0); SITE, ABG Right Radial; VENT MODE, BG IPAP 15 / EPAP 5
[2022-08-06] MEDS: DIGOXIN INJ 0.5 MG/2 ML AMPUL IV SCH (13:00)
--- NOTE | 2022-08-06 18:52 | NUR ---
RN/ICU PT RESTING IN BED HAS BEEN ON BIPAP THE ENTIRE SHIFT PER MD ORDER SATS REMAINED IN THE LOW TO MID 90S. THIS MORNING THERE WAS A TRIAL TO REMOVE THE BIPAP, WITHIN 30 MINUTES PT BEGAN TO DESAT TO THE 70'S AND WAS PUT BACK ON BIPAP. PT REMAINED ON SR AND SINUS MAITE. BLOOD PRESSURE REMIANED SLIGHTLY ELEVATED. ALL WOUNDS DRESSED AND TREATED PER MD ORDERS. MIDLINE PATENT AND RUNNING IV FLUIDS NO S/S OF INFILTRATION. HOB ELVATED TO 45 DEGREES BED LOCKED
--- NOTE | 2022-08-06 19:10 | NUR ---
RN OPENING NOTES RECEIVED PATIENT ON BED, A/0 X 1. ON BIPAP WITH SETTINGS 15/5, AC-16, FIO2-30% SATING AT 92%. WITH DENNIS MID LINE, LEFT FOREARM #20 AND LEFT WRIST #20 PERIPHERAL LINE, PATENT, INTACT, FLUSHED WITH NS. NO S/S OF INFILTRATION NOTED. WITH IVF RUNNING WITH D5NS @ 75 ML/HR. LEONARDO CATHETER PATENT INTACT DRAINING CLEAR YELLOW URINE VIA GRAVITY. ALL SAFETY PRECAUTION PROVIDED, BED IN LOWEST POSITION, LOCKED. BED ALARM ARMED. CALL LIGHT WITH IN REACH. CONTINUE TO MONITOR.
[2022-08-06] MEDS: CEFTRIAXONE 1 G in IV D5W 50 ML IV SCH (22:43)
[2022-08-06] MEDS: AZITHROMYCIN 500 MG in IV D5W 250 ML IV SCH (23:49)
[2022-08-07] VITALS (24 sets, daily range): BP systolic 95–154; BP diastolic 38–73
[2022-08-07] MEDS: IV D5/ 0.9% NACL 1,000 ML IV PRN ×2 (00:29→12:52)
[2022-08-07] MEDS: IPRATROPIUM NEB FS 0.5 MG/2.5 ML AMPUL.NEB NEB SCH ×4 (01:33→19:46)
[2022-08-07 04:57] LABS: BASOPHILS % (AUTO) 0.2 % (0.0-2.0); HEMATOCRIT 29 % (33-45); HEMOGLOBIN 9.6 g/dL (11.5-14.8); LYMPHOCYTES # (AUTO) 0.2 K/uL (0.8-4.8); LYMPHOCYTES % (AUTO) 4.6 % (20.0-44.0); MEAN CORPUSCULAR HGB CONC 33 g/dl (31.0-36.0); MEAN CORPUSCULAR VOLUME 93 fL (82-100); MONOCYTES # (AUTO) 0.4 K/uL (0.1-1.30); MONOCYTES % (AUTO) 7.5 % (2.0-12.0); NEUTROPHILS # (AUTO) 4.8 K/uL (1.8-8.9); NEUTROPHILS % (AUTO) 87.7 % (43.0-81.0); PLATELET COUNT (AUTO) 352 K/uL (150-450); RED BLOOD CELL COUNT(AUTO) 3.12 MIL/uL (4.0-5.2); WHITE BLOOD COUNT (AUTO) 5.4 K/uL (4.3-11.0)
[2022-08-07 05:20] LABS: CALCIUM, SERUM 8.9 mg/dL (8.5-10.1); CHLORIDE 99 mmol/L (98-107); CREATININE 0.3 mg/dL (0.6-1.3); GLUCOSE 144 mg/dL (74-106); MAGNESIUM 1.9 mg/dL (1.8-2.4); PHOSPHORUS 2.4 mg/dL (2.5-4.9); POTASSIUM 3.8 mmol/L (3.5-5.1); SODIUM SERUM 137 mmol/L (136-145); UREA NITROGEN, BLOOD 13 mg/dL (7-18)
[2022-08-07 05:30] LABS: CARBON DIOXIDE 40 mmol/L (21-32)
--- NOTE | 2022-08-07 07:10 | NUR ---
RN NOTES PATIENT SLEEPING ON BED EASY TO AROUSE,REMAIN STABLE THROUGH OUT THE SHIT. STILL ON BIPAP WITH SETTINGS 15/5, AC-16, FIO2-30% SATING AT 92%. WITH IVF RUNNING WITH D5NS @ 75 ML/HR. LEONARDO CATHETER PATENT INTACT DRAINING CLEAR YELLOW URINE VIA GRAVITY. ALL DUE MEDS GIVEN. CAREGIVER AT BEDSIDE. ALL SAFETY PRECAUTION PROVIDED, BED IN LOWEST POSITION, LOCKED. BED ALARM ARMED. CALL LIGHT WITH IN REACH. REPORT GIVEN TO MORNING SHIFT NURSE FOR CONTINUITY OF CARE.
--- NOTE | 2022-08-07 07:20 | NUR ---
AIRPORT MANAGER Bedside report taken from [facility] nurse Pipe MARQUEZ. pt asleep, easily arousable. AAo x1, drowsy, follows simple commands. perrla. moves bue and ble 1/5. pt on bipap with fio2 30%, tolerating well. azul lung sounds clear but diminished. pt NSR on monitor, bue and ble pulses present. pt has nelson intact and draining small amount of dorcas urine. pt oliguric. pt has multiple wounds noted, see MAR. all lines traced. all drips verified. safety measures in place. 24 hr caregiver at bedside. no sigsn of acute distress at this time. will continue to monitor.
--- NOTE | 2022-08-07 08:00 | NUR ---
LOCAL COMPANY REFRIGERATED TRUCK DRIVER Pt taken off bipap and placed on 2 L n/c by Glenn SOL. pt awake, tolerating well. vitals stable. will continue to monitor.
[2022-08-07] MEDS: methylPREDNISolone SOD SUCC 125 MG/2ML VIAL IV SCH ×2 (08:03→17:32)
[2022-08-07] MEDS: ENOXAPARIN SODIUM 30 MG/0.3 ML DISP.SYRIN SQ SCH (08:06)
[2022-08-07] MEDS: Z GUARD REMEDY 4 OZ OINT TP SCH (08:07)
[2022-08-07] MEDS: DAKINS QUARTER STRENGTH (0.125%) 480 ML BOTTLE TOP SCH (08:07)
[2022-08-07] MEDS: SILVER SULFADIAZINE 50 GM JAR TP SCH ×2 (08:08→17:33)
[2022-08-07] MEDS: THERAHONEY GEL 1.5 OZ TUBE TP SCH (08:08)
--- NOTE | 2022-08-07 08:44 | NUR ---
SALESPERSON WIGS signed medical record request faxed to [facility] per MD request at [phone]
--- NOTE | 2022-08-07 09:20 | NUR ---
CARDIOVASCULAR RADIOLOGIC TECHNOLOGIST Oxygen increased to 4L n/c per pt request and pt stating she has difficulty breathing. vitals stable. spo2 100%, pt has no episode of desaturation. will continue to monitor.
--- NOTE | 2022-08-07 10:31 | NUR ---
[employer] Mariama SENIOR SOLUTIONS WORKFLOW CONSULTANT messaged, made aware that pt phos 2.4. awaiting for orders for electrolyte replacement. charge nurse Jennie MARQUEZ aware.
--- NOTE | 2022-08-07 10:37 | NUR ---
HEAD BAKER Per Mariama [facility] pharmacy to replace phosphorus levels per charge nurse Jennie MARQUEZ
[2022-08-07] MEDS ORDERED: Sodium Phosphate 15 MMOL in IV NS 0.9% 245 ML IV SCH (11:30)
--- NOTE | 2022-08-07 11:43 | NUR ---
ACCOUNTS RECEIVABLE ADMINISTRATOR 1141- Mariama OPERATORS SCHOOL MANAGER at bedside assessing pt and updated on pt status. made aware that pt off bipap 8am and placed on 2 L n/c was tolerating well and then pt complaining of needing more oxygen, spo2 94%, no signs of labored breathing or distress, so oxygen increased to 4 L n/c for comfort spo2 94%. pt repositioned, facing left side and started desaturating spo2 50s, pt placed back on bipap by RN with fio2 100%, mariama O[employer] at bedside. Glenn SOL called to bedside. Bipap settings and placement verified by RT. 1143- stat order for chest xray placed by mariama HAILE , radiology called spoke to Abdoul informed of stat cxr, tech to be at bedside shortly, charge nurse Jennie MARQUEZ aware.
--- NOTE | 2022-08-07 11:45 | NUR ---
RT PATIENT WAS UNABLE TO TOLERATE BEING OFF THE BIPAP MACHINE. NOTED DISTRESS AND DESATURATION. PATIENT PLACED BACK ON BIPAP WITH 100% DR OLEARY NOTIFIED Addendum: 08/07/22 at 1157 by LANA CARDOZO RT Amended: Links added.
--- NOTE | 2022-08-07 12:20 | NUR ---
CLIENT RELATIONSHIP EXECUTIVE 1220- Spoke to pt son Garry via caregiver Dominga cellphone, informed pt son on pt condition and events. son updated that at 8am pt off bipap placed on 2L n/c was saturating >94% no signs of acute distress, tolerating well, 9am pt complaining of needing more oxygen, no signs of labored breathing and spo2>94% oxygen increased to 4 L for comfort, pt tolerating well. 1140 pt repositioned facing left side Mariama SOCIAL SERVICE AGENCY DIRECTOR at bedside and pt desaturating to 50s, pt placed back on bipap with fio2 100%, recovered well, spo2 100% but pt has weak breathing, stat chest xray ordered per Mariama HAILE and completed. Son informed that Mariama SOCIAL SERVICE AGENCY DIRECTOR to call him to discuss condition and plan of care with mother, discuss how aggressive of care he would like for mom because although she is stable at this time on bipap fio2 100%, there is a huge possibility that pt will get fatigued and go into respiratory or cardiac distress and could end up intubated and on ventilator. more of pts history obtained from son. son understands and verbally acknowledged education and updates on moms condition and informed that Mariama SOCIAL SERVICE AGENCY DIRECTOR will be called and requested to call him for further discussion on care. 1224- Mariama HAILE called and informed of long informative and detailed discussion with pt son [facility] about pt condition and events from morning and possibility of intubation and aggressive measures if pt continues to decline. Mariama HAILE given contact infor for [facility] [phone], and requested that he is available anytime after 1245 pm d/t work meeting, ok per SOCIAL SERVICE AGENCY DIRECTOR, SOCIAL SERVICE AGENCY DIRECTOR to call son. charge nurse Jennie MARQUEZ aware.
--- NOTE | 2022-08-07 12:54 | NUR ---
SNOUT PULLER Called pharmacy , spoke to pharmacist to follow up on Naphos replacement, per pharmacist med to be delivered shortly.
--- NOTE | 2022-08-07 14:13 | NUR ---
MAINTENANCE ENGINEER Pt son Garry and pt at bedside. Mariama ACTIVATED SLUDGE OPERATOR messaged and informed that pt son and at bedside and would like to speak with him. Per ACTIVATED SLUDGE OPERATOR unable to be at bedside at this time he is off hospital campus. Dr Layton at bedside talking to family and updating about pt condition and plan of care and discussing care options. Charge nurse Jennie RN aware. [phone]- Dr Lopez pt PCP toxics program officer called per Dr Layton and Allen Castañeda request, Dr Layton and Dr Lopez discussing pt condition and plan of care at this time. 1413- Dr Caro pt PCP called per Dr Layton and Allen Castañeda request. no answer, message left, call back number left. awaiting call back. Dr Layton aware and Pt son Garry aware.
[2022-08-07] MEDS: ETHAMBUTOL HCL (400 MG) 400 MG TABLET PO SCH (14:30)
[2022-08-07] MEDS: DIGOXIN INJ 0.5 MG/2 ML AMPUL IV SCH (14:50)
--- NOTE | 2022-08-07 16:38 | NUR ---
NEWS CAMERA PERSON Pt bathed and cleaned. linen change done. skin check done, no new wounds noted. wound care done per protocol. pt tolerated well. vitals stable. will continue to monitor.
--- NOTE | 2022-08-07 19:15 | NUR ---
COREMAKER APPRENTICE Bedside report given to [facility] Pipe MARQUEZ. pt asleep on bipap, tolerating well, spo2 95 %. all lines traced. all drips verified. pt clean and dry. vital stable. no signs of acute distress at this time. safety measures in place. caregiver at bedside.
[2022-08-07] MEDS: ALBUTEROL FS 2.5 MG/3 ML VIAL.NEB NEB SCH (19:47)
--- NOTE | 2022-08-07 20:42 | NUR ---
RN OPENING NOTES RECEIVED PATIENT ON BED, A/0 X 1. OPEN EYES WHEN CALLED HER NAME. ON BIPAP WITH SETTINGS 15/5, AC-16, FIO2-40% SATING AT 96%. WITH DENNIS MID LINE, LEFT FOREARM #20 AND LEFT WRIST #20 PERIPHERAL LINE, PATENT, INTACT, FLUSHED WITH NS. NO S/S OF INFILTRATION NOTED. WITH IVF RUNNING WITH D5NS @ 75 ML/HR. LEONARDO CATHETER PATENT INTACT DRAINING CLEAR YELLOW URINE VIA GRAVITY. ALL SAFETY PRECAUTION PROVIDED, BED IN LOWEST POSITION, LOCKED. BED ALARM ARMED. CALL LIGHT WITH IN REACH. CONTINUE TO MONITOR.
[2022-08-07] MEDS: CEFTRIAXONE 1 G in IV D5W 50 ML IV SCH (21:27)
[2022-08-07] MEDS: AZITHROMYCIN 500 MG in IV D5W 250 ML IV SCH (22:53)
[2022-08-08] VITALS (25 sets, daily range): BP systolic 103–168; BP diastolic 44–95
[2022-08-08] MEDS: ALBUTEROL FS 2.5 MG/3 ML VIAL.NEB NEB SCH ×4 (01:51→19:45)
[2022-08-08] MEDS: IPRATROPIUM NEB FS 0.5 MG/2.5 ML AMPUL.NEB NEB SCH ×4 (01:51→19:45)
[2022-08-08] MEDS: IV D5/ 0.9% NACL 1,000 ML IV PRN (03:42)
[2022-08-08 04:57] LABS: CALCIUM, SERUM 6.3 mg/dL (8.5-10.1); CARBON DIOXIDE 24 mmol/L (21-32); CHLORIDE 99 mmol/L (98-107); GLUCOSE 134 mg/dL (74-106); PHOSPHORUS 6.9 mg/dL (2.5-4.9); POTASSIUM 4.4 mmol/L (3.5-5.1); SODIUM SERUM 135 mmol/L (136-145); UREA NITROGEN, BLOOD 45 mg/dL (7-18)
--- NOTE | 2022-08-08 07:50 | NUR ---
0745 Off BiPAP trial after Breathing treatment 0747 Pt desat from high 90's to low 70's O2 Sat in matter of seconds 0748 Pt back on BiPap, O2 Sat >92%
--- NOTE | 2022-08-08 08:00 | NUR ---
Sudden increase of BUN/Cr noted to 45/5.0. previously (Bun/Cr 13/.3). AM Charge Nurse and PM ICU nurse made aware of lab finding. will notify PMD. May need poss redraw for verification
[2022-08-08] MEDS: methylPREDNISolone SOD SUCC 125 MG/2ML VIAL IV SCH ×2 (08:22→17:14)
[2022-08-08] MEDS: ENOXAPARIN SODIUM 30 MG/0.3 ML DISP.SYRIN SQ SCH (08:23)
[2022-08-08] MEDS: DAKINS QUARTER STRENGTH (0.125%) 480 ML BOTTLE TOP SCH (08:24)
[2022-08-08] MEDS: Z GUARD REMEDY 4 OZ OINT TP SCH (08:24)
[2022-08-08] MEDS: THERAHONEY GEL 1.5 OZ TUBE TP SCH (08:25)
[2022-08-08] MEDS: SILVER SULFADIAZINE 50 GM JAR TP SCH ×2 (08:25→17:15)
[2022-08-08] MEDS ORDERED: TPN AA IV PRN (09:00)
[2022-08-08] MEDS ORDERED: TPN ADDITIVES IV PRN (09:00)
[2022-08-08] MEDS ORDERED: [UNRECOGNIZED DRUG - OTHER] IV PRN (09:00)
[2022-08-08 11:03] LABS: ALANINE AMINOTRANSFERASE 18 U/L (12-78); ALBUMIN 2.4 g/dL (3.4-5.0); ALKALINE PHOSPHATASE 76 U/L (46-116); ASPARTATE AMINOTRANSFERASE 21 U/L (15-37); BILIRUBIN,TOTAL 0.2 mg/dL (0.2-1.0); CALCIUM, SERUM 8.8 mg/dL (8.5-10.1); CHLORIDE 102 mmol/L (98-107); CREATININE 0.2 mg/dL (0.6-1.3); GLUCOSE 122 mg/dL (74-106); POTASSIUM 4.2 mmol/L (3.5-5.1); SODIUM SERUM 141 mmol/L (136-145); TOTAL PROTEIN, SERUM 6.3 g/dL (6.4-8.2); UREA NITROGEN, BLOOD 12 mg/dL (7-18)
[2022-08-08 11:22] LABS: CARBON DIOXIDE 41 mmol/L (21-32)
[2022-08-08] MEDS: DIGOXIN INJ 0.5 MG/2 ML AMPUL IV SCH (13:12)
--- NOTE | 2022-08-08 13:49 | NUR ---
Verified "PPN" order with Pharmacy for the second time per charge nurse request Insisting that Pt needs consent for PICC line / Central Line. Pharmacy verifies that solution is "PPN" and does not need central ine to administer at this time.
[2022-08-08] MEDS ORDERED: TPN BAG #1 IV SCH ×8 (14:00)
[2022-08-08] MEDS ORDERED: INSULIN REGULAR, HUMAN 100 UNIT/ML 3 ML VIAL SQ PRN (14:00)
[2022-08-08] MEDS ORDERED: DEXTROSE 50%-WATER 50 ML DISP.SYRIN IV PRN (15:00)
[2022-08-08] MEDS: BLOOD SUGAR DIAGNOSTIC 1 EACH STRIP IN SCH (17:15)
[2022-08-08] MEDS: INSULIN REGULAR, HUMAN 100 UNIT/ML 3 ML VIAL SQ PRN (17:19)
--- NOTE | 2022-08-08 18:30 | NUR ---
Remains on BiPAP, not tolerate transition to nasal cannula this am. Started and initiated PPN as ordered for nutritional support Wound care done Personal Guy @ bedside Cont with plan of care.
[2022-08-08 18:33] LABS: ABG BASE EXCESS 12.2 mmol/L; ABG PCO2 75.7 mmHg (35.0-45.0); ABG PH 7.347 (7.350-7.450); ABG PO2 64.6 mmHg (75.0-100.0); AaDO2 60.4 mmHg; COHb 0.7 % (0.5-1.5); MetHb 0.3 % (0.0-1.5); O2Hb 91.1 % (94.0-97.0); SITE, ABG Left Radial
--- NOTE | 2022-08-08 19:15 | NUR ---
RN OPENING NOTES RECEIVED PATIENT ON BED, A/0 X 1. OPEN EYES WHEN CALLED HER NAME. ON BIPAP WITH SETTINGS 15/5, AC-16, FIO2-30% SATING AT 96%. WITH DENNIS MID LINE, LEFT FOREARM #20 AND LEFT WRIST #20 PERIPHERAL LINE, PATENT, INTACT, FLUSHED WITH NS. NO S/S OF INFILTRATION NOTED. WITH TPN RUNNING @ 74.59 ML/HR. LEONARDO CATHETER PATENT INTACT DRAINING CLEAR YELLOW URINE VIA GRAVITY. REPOSITION EVERY 2 HRS. ALL SAFETY PRECAUTION PROVIDED, BED IN LOWEST POSITION, LOCKED. BED ALARM ARMED. CALL LIGHT WITH IN REACH. CONTINUE TO MONITOR.
[2022-08-08] MEDS: CEFTRIAXONE 1 G in IV D5W 50 ML IV SCH (22:03)
[2022-08-08] MEDS: IV NS 0.9% 250 ML IV PRN (22:08)
--- NOTE | 2022-08-08 23:08 | NUR ---
RN NOTES PATIENT NOTED WITH BP- 169/66, PULSE- 80, PATIENT NOT IN DISTRESS, NOT AGITATED. NOTIFIED RESEARCH FOOD TECHNOLOGIST FELISHA COLVIN WITH NEW ORDER NOTED AND CARRIED OUT.
[2022-08-09] VITALS (24 sets, daily range): BP systolic 108–171; BP diastolic 43–70
--- NOTE | 2022-08-09 | NUR ---
RN NOTES NOTED WITH BP-171/70, PULSE 79. HYDRALAZINE 10MG IV GIVEN.
[2022-08-09] MEDS: hydrALAZINE HCL IV 20 MG VIAL IV PRN (00:03)
--- NOTE | 2022-08-09 00:15 | NUR ---
RN NOTES NO INSULIN COVERAGE PER SLIDING SCALE, NO S/S OF HYPOGLYCEMIA NOTED AT THIS TIME.
[2022-08-09] MEDS: INSULIN REGULAR, HUMAN 100 UNIT/ML 3 ML VIAL SQ PRN ×4 (00:16→23:49)
[2022-08-09] MEDS: BLOOD SUGAR DIAGNOSTIC 1 EACH STRIP IN SCH ×5 (00:16→23:48)
--- NOTE | 2022-08-09 00:25 | NUR ---
RN NOTES PATIENT NOTED WITH O2SAT- 84%, NOTIFIED RT, ADJUST FIO2 TO 40%, NOW PATIENT SATING AT 96%.
--- NOTE | 2022-08-09 00:35 | NUR ---
RN NOTES BP RECHECKED AND OBTAINED 156/65, PULSE- 83.
[2022-08-09] MEDS: IPRATROPIUM NEB FS 0.5 MG/2.5 ML AMPUL.NEB NEB SCH ×4 (02:09→19:42)
[2022-08-09] MEDS: ALBUTEROL FS 2.5 MG/3 ML VIAL.NEB NEB SCH ×4 (02:09→19:42)
[2022-08-09 04:44] LABS: BASOPHILS % (AUTO) 0.2 % (0.0-2.0); EOSINOPHILS % (AUTO) 0.1 % (0.0-6.0); HEMATOCRIT 31 % (33-45); HEMOGLOBIN 10.2 g/dL (11.5-14.8); LYMPHOCYTES # (AUTO) 0.6 K/uL (0.8-4.8); LYMPHOCYTES % (AUTO) 5.3 % (20.0-44.0); MEAN CORPUSCULAR HGB CONC 33 g/dl (31.0-36.0); MEAN CORPUSCULAR VOLUME 95 fL (82-100); MONOCYTES # (AUTO) 0.8 K/uL (0.1-1.30); MONOCYTES % (AUTO) 7.5 % (2.0-12.0); NEUTROPHILS # (AUTO) 9.2 K/uL (1.8-8.9); NEUTROPHILS % (AUTO) 86.9 % (43.0-81.0); PLATELET COUNT (AUTO) 374 K/uL (150-450); RED BLOOD CELL COUNT(AUTO) 3.29 MIL/uL (4.0-5.2); WHITE BLOOD COUNT (AUTO) 10.6 K/uL (4.3-11.0)
[2022-08-09 05:09] LABS: ALANINE AMINOTRANSFERASE 18 U/L (12-78); ALBUMIN 2.3 g/dL (3.4-5.0); ALKALINE PHOSPHATASE 74 U/L (46-116); ASPARTATE AMINOTRANSFERASE 19 U/L (15-37); BILIRUBIN,TOTAL 0.2 mg/dL (0.2-1.0); CALCIUM, SERUM 8.5 mg/dL (8.5-10.1); CHLORIDE 101 mmol/L (98-107); CREATININE 0.3 mg/dL (0.6-1.3); GLUCOSE 122 mg/dL (74-106); PHOSPHORUS 2.2 mg/dL (2.5-4.9); POTASSIUM 4.1 mmol/L (3.5-5.1); SODIUM SERUM 140 mmol/L (136-145); TOTAL PROTEIN, SERUM 6.1 g/dL (6.4-8.2); UREA NITROGEN, BLOOD 17 mg/dL (7-18)
[2022-08-09 05:38] LABS: CARBON DIOXIDE 42 mmol/L (21-32)
--- NOTE | 2022-08-09 05:48 | NUR ---
RN NOTES RN NOTES BLOOD SUGAR 119 mg/dL, NO INSULIN COVERAGE PER SLIDING SCALE, NO S/S OF HYPOGLYCEMIA NOTED AT THIS TIME.
--- NOTE | 2022-08-09 05:50 | NUR ---
RN NOTES NOTIFIED WRITING TUTOR FELISHA COLVIN REGARDING PATIENT LATEST CO2-42, NO NEW ORDER.
--- NOTE | 2022-08-09 06:10 | NUR ---
RN NOTES PATIENT NOTED WITH T9ATJ-11%, NOTIFIED RT AND ADJUST FIO2 TO 35%, NOW SATING AT 94%. CONTINUE TO MONITOR.
--- NOTE | 2022-08-09 07:18 | NUR ---
RN NOTES PATIENT SLEEPING ON BED EASY TO AROUSE,REMAIN STABLE THROUGH OUT THE SHIT. STILL ON BIPAP WITH SETTINGS 12/5, AC-16, FIO2-35% SATING AT 94%. WITH TPN RUNNING @ 74.59 ML/HR. LEONARDO CATHETER PATENT INTACT DRAINING CLEAR YELLOW URINE VIA GRAVITY. ALL DUE MEDS GIVEN. CAREGIVER AT BEDSIDE. REPOSITION Q2HRS. ALL SAFETY PRECAUTION PROVIDED, BED IN LOWEST POSITION, LOCKED. BED ALARM ARMED. CALL LIGHT WITH IN REACH. REPORT GIVEN TO MORNING SHIFT NURSE FOR CONTINUITY OF CARE.
--- NOTE | 2022-08-09 07:58 | NUR ---
Continue to tolerate BiPAP overnight. Plan to transition to Venturi Mask. Pt "mouth breather" RT aware. Cont with plan of care
--- NOTE | 2022-08-09 08:11 | NUR ---
PEEP OF +[address] OLEARY Addendum: 08/09/22 at 0812 by GIOVANNI TRISTAN RT Amended: Links added.
[2022-08-09] MEDS: methylPREDNISolone SOD SUCC 125 MG/2ML VIAL IV SCH ×2 (08:48→17:38)
[2022-08-09] MEDS: ENOXAPARIN SODIUM 30 MG/0.3 ML DISP.SYRIN SQ SCH (08:50)
[2022-08-09] MEDS: DAKINS QUARTER STRENGTH (0.125%) 480 ML BOTTLE TOP SCH (08:50)
[2022-08-09] MEDS: Z GUARD REMEDY 4 OZ OINT TP SCH (08:51)
[2022-08-09] MEDS: SILVER SULFADIAZINE 50 GM JAR TP SCH ×2 (08:52→16:14)
[2022-08-09] MEDS: THERAHONEY GEL 1.5 OZ TUBE TP SCH (08:53)
[2022-08-09] MEDS ORDERED: Sodium Phosphate 30 MMOL in IV NS 0.9% 250 ML IV SCH (11:00)
[2022-08-09] MEDS: DIGOXIN INJ 0.5 MG/2 ML AMPUL IV SCH (12:14)
[2022-08-09] MEDS ORDERED: PPN BAG #2 IV SCH ×4 (14:00)
[2022-08-09] MEDS: ETHAMBUTOL HCL (400 MG) 400 MG TABLET PO SCH (14:30)
--- NOTE | 2022-08-09 18:00 | NUR ---
Remains on BiPAP, Plan to transition to Venturi Mask tomorrow (08/10/22) am. Cont to administer PPN as ordered for nutritional support. Monitoe BS with Insulin coverage per scale Wound healing noted. Cont wound care as ordered Update Family members. All questions and concerns adddressed. Personal Guy remains @ bedside. Cont with plan of care.
--- NOTE | 2022-08-09 20:00 | NUR ---
Received patient resting in no acute distress.Continue on BIPAP as ordered saturation hi 90's. Open eyes spontaneously.SR 70's.VSS.PPN infusing at 60 ml/hr via DENNIS ML site intact.FC to gravity.With multiple wounds dressing c/d/i.Maintained on KCI mattress.Turned and repositioned. Private home care rn at bedside.
--- NOTE | 2022-08-09 20:40 | NUR ---
RECEIVED PT ON BIPAP. SITTER AT BEDSIDE. PT TOLERATING SETTINGS. CONTINUE TO MONITOR. Addendum: 08/09/22 at 2039 by MALACHI WHITMORE RT Amended: Links added.
[2022-08-09] MEDS: CEFTRIAXONE 1 G in IV D5W 50 ML IV SCH (21:42)
[2022-08-10] VITALS (61 sets, daily range): BP systolic 80–164; BP diastolic 35–83
[2022-08-10] MEDS: ALBUTEROL FS 2.5 MG/3 ML VIAL.NEB NEB SCH ×4 (01:04→20:04)
[2022-08-10] MEDS: IPRATROPIUM NEB FS 0.5 MG/2.5 ML AMPUL.NEB NEB SCH ×4 (01:04→20:04)
[2022-08-10] MEDS: IV NS 0.9% 250 ML IV PRN (02:30)
--- NOTE | 2022-08-10 02:40 | NUR ---
Patient desat to 67%.HOB elevated and RT,MEGAN increased FIO2 TO 40%.
[2022-08-10 05:15] LABS: BASOPHILS % (AUTO) 0.1 % (0.0-2.0); EOSINOPHILS % (AUTO) 0.1 % (0.0-6.0); HEMATOCRIT 34 % (33-45); HEMOGLOBIN 10.9 g/dL (11.5-14.8); LYMPHOCYTES # (AUTO) 0.2 K/uL (0.8-4.8); LYMPHOCYTES % (AUTO) 2.7 % (20.0-44.0); MEAN CORPUSCULAR HGB CONC 32 g/dl (31.0-36.0); MEAN CORPUSCULAR VOLUME 95 fL (82-100); MONOCYTES # (AUTO) 0.2 K/uL (0.1-1.30); MONOCYTES % (AUTO) 2.1 % (2.0-12.0); NEUTROPHILS # (AUTO) 8.3 K/uL (1.8-8.9); PLATELET COUNT (AUTO) 355 K/uL (150-450); RED BLOOD CELL COUNT(AUTO) 3.54 MIL/uL (4.0-5.2); WHITE BLOOD COUNT (AUTO) 8.8 K/uL (4.3-11.0)
--- NOTE | 2022-08-10 05:30 | NUR ---
Patient desat to 74% and RT increased FIO2 TO 70%.No acute distress noted.
--- NOTE | 2022-08-10 05:34 | NUR ---
FIO2 INCREASED TO 70% DUE TO LOW O2 SAT 77% RN NOTIFIED.
[2022-08-10 05:36] LABS: ALANINE AMINOTRANSFERASE 17 U/L (12-78); ALBUMIN 2.3 g/dL (3.4-5.0); ALKALINE PHOSPHATASE 80 U/L (46-116); ASPARTATE AMINOTRANSFERASE 16 U/L (15-37); BILIRUBIN,TOTAL 0.2 mg/dL (0.2-1.0); CALCIUM, SERUM 8.4 mg/dL (8.5-10.1); CHLORIDE 99 mmol/L (98-107); CREATININE 0.3 mg/dL (0.6-1.3); GLUCOSE 121 mg/dL (74-106); PHOSPHORUS 3.4 mg/dL (2.5-4.9); SODIUM SERUM 137 mmol/L (136-145); TOTAL PROTEIN, SERUM 6.4 g/dL (6.4-8.2); UREA NITROGEN, BLOOD 19 mg/dL (7-18)
[2022-08-10] MEDS: BLOOD SUGAR DIAGNOSTIC 1 EACH STRIP IN SCH ×4 (05:43→23:39)
[2022-08-10 06:29] LABS: CARBON DIOXIDE 40 mmol/L (21-32)
--- NOTE | 2022-08-10 06:30 | NUR ---
Patient AM labs resulted.CO2 40.23 called to no new orders received.Will endorse to day shift RN for continuity of care.
--- NOTE | 2022-08-10 07:20 | NUR ---
professor of journalism opening note patient is sleeping in bed. patient easily to arouse. patient is alert and oriented x1. patient is on tele monitor currently on tele monitor sinus rhytm. patient is still on bipap with settings bipap 10/5 rate 16, fio2 70%. patient saturating at above 90%. patient has tpn running at 74.59 ml/hr. nelson cathether patent. yellow color draining to gravity. caregiver at bedside. bed ALL SAFETY PRECAUTIONs in place, BED loced and IN LOWEST POSITION. BED ALARM ARMED. CALL LIGHT WITH IN REACH.
[2022-08-10] MEDS: methylPREDNISolone SOD SUCC 125 MG/2ML VIAL IV SCH ×2 (09:35→16:45)
[2022-08-10] MEDS: ENOXAPARIN SODIUM 30 MG/0.3 ML DISP.SYRIN SQ SCH (09:37)
[2022-08-10] MEDS: THERAHONEY GEL 1.5 OZ TUBE TP SCH (09:58)
[2022-08-10] MEDS: SILVER SULFADIAZINE 50 GM JAR TP SCH ×2 (10:00→16:45)
[2022-08-10] MEDS: Z GUARD REMEDY 4 OZ OINT TP SCH (10:00)
[2022-08-10] MEDS: DAKINS QUARTER STRENGTH (0.125%) 480 ML BOTTLE TOP SCH (10:02)
--- NOTE | 2022-08-10 10:40 | NUR ---
patient intubated per dr. ryan mtz
--- NOTE | 2022-08-10 10:40 | NUR ---
pt orally intubated with 7.0 et-tube secured @24cm settings as ordered. alarms set and audible. small pale yellow sputum. b/s equal positive co2 detected. vent plugged into red outlet ambu-bag at head of bed. zero distress noted Addendum: 08/10/22 at 1146 by JITENDRA JIMÉNEZ RT Amended: Links added.
[2022-08-10] MEDS ORDERED: PROPOFOL 10MG/ML 50ML 50 ML IV PRN (11:00)
[2022-08-10] MEDS: PROPOFOL 100 ML IV PRN ×2 (11:29→20:02)
[2022-08-10 11:39] LABS: ABG BASE EXCESS 13.9 mmol/L; ABG OXYGEN SATURATION 99.2 % (92.0-98.5); ABG PCO2 121.9 mmHg (35.0-45.0); ABG PH 7.195 (7.350-7.450); ABG PO2 183.3 mmHg (75.0-100.0); AaDO2 110.4 mmHg; COHb 0.8 % (0.5-1.5); MetHb 0.1 % (0.0-1.5); O2Hb 98.3 % (94.0-97.0); SITE, ABG Right Radial
--- NOTE | 2022-08-10 12:00 | NUR ---
RN NOTES NGT ADVANCED 14 CM PER RADIOLOGIST ORDER.
[2022-08-10 12:31] LABS: ABG BASE EXCESS 11.8 mmol/L; ABG OXYGEN SATURATION 96.6 % (92.0-98.5); ABG PCO2 65.3 mmHg (35.0-45.0); ABG PH 7.394 (7.350-7.450); COHb 1.1 % (0.5-1.5); MetHb 0.1 % (0.0-1.5); O2Hb 95.4 % (94.0-97.0); PEEP,BG 5 cm H2O; SITE, ABG Right Radial; VT, ABG 350 mL
[2022-08-10] MEDS: DIGOXIN INJ 0.5 MG/2 ML AMPUL IV SCH (13:00)
--- NOTE | 2022-08-10 13:30 | NUR ---
RN NOTE DIGOXIN HELD DUE TO LOW HEART RATE 58
[2022-08-10] MEDS ORDERED: PPN BAG #3 IV SCH ×4 (14:00)
[2022-08-10] MEDS ORDERED: ETOMIDATE 2 MG/ML VIAL IV ONE (14:28)
[2022-08-10] MEDS ORDERED: ROCURONIUM BROMIDE 50 MG/5 ML IV ONE (14:28)
--- NOTE | 2022-08-10 19:00 | NUR ---
RN NOTES PATIENT SLEEPING ON BED EASY TO AROUSE,REMAIN STABLE THROUGH OUT THE SHIT. PATIENT INTUBATED TODAY IN THE MORNING. TPN RUNNING @80 ML/HR. LEONARDO CATHETER PATENT INTACT DRAINING CLEAR YELLOW URINE VIA GRAVITY. ALL DUE MEDS GIVEN. CAREGIVER AT BEDSIDE. REPOSITION Q2HRS. ALL SAFETY PRECAUTION PROVIDED, BED IN LOWEST POSITION, LOCKED. BED ALARM ARMED. CALL LIGHT WITH IN REACH. REPORT GIVEN TO SECTIONAL BELT MOLD ASSEMBLER NURSE FOR JULIA.
--- NOTE | 2022-08-10 20:05 | NUR ---
PT RCVD ORALLY INTUBATED WITH ETT 7.0 SECURED @ 24 CM [facility] WITH THE SETTINGS OF AC 22,VT 350 , FIO2 50%, PEEP 5 . Q6 BREATHING TX GIVEN PER MD'S ORDER, NO ADVERSE REACTION NOTED. SUCTIONED MODERATE AMOUNT OF YELLOW THICK SECRETIONS. VENT PLUGGED INTO RED OUTLET, VENT ALARMS ON AND AUDIBLE. AMBU BAG AT BEDSIDE. WILL CONTINUE TO MONITOR T/O SHIFT.
[2022-08-10] MEDS: CEFTRIAXONE 1 G in IV D5W 50 ML IV SCH (22:32)
[2022-08-11] VITALS (49 sets, daily range): BP systolic 104–165; BP diastolic 45–98
[2022-08-11] MEDS: IPRATROPIUM NEB FS 0.5 MG/2.5 ML AMPUL.NEB NEB SCH ×4 (01:30→19:48)
[2022-08-11] MEDS: ALBUTEROL FS 2.5 MG/3 ML VIAL.NEB NEB SCH ×4 (01:30→19:48)
[2022-08-11 04:49] LABS: BASOPHILS % (AUTO) 0.4 % (0.0-2.0); EOSINOPHILS % (AUTO) 0.1 % (0.0-6.0); HEMATOCRIT 28 % (33-45); HEMOGLOBIN 9.1 g/dL (11.5-14.8); LYMPHOCYTES # (AUTO) 0.3 K/uL (0.8-4.8); LYMPHOCYTES % (AUTO) 4.5 % (20.0-44.0); MEAN CORPUSCULAR HGB CONC 33 g/dl (31.0-36.0); MEAN CORPUSCULAR VOLUME 93 fL (82-100); MONOCYTES # (AUTO) 0.4 K/uL (0.1-1.30); MONOCYTES % (AUTO) 5.6 % (2.0-12.0); NEUTROPHILS # (AUTO) 6.7 K/uL (1.8-8.9); NEUTROPHILS % (AUTO) 89.4 % (43.0-81.0); PLATELET COUNT (AUTO) 207 K/uL (150-450); RED BLOOD CELL COUNT(AUTO) 2.98 MIL/uL (4.0-5.2); WHITE BLOOD COUNT (AUTO) 7.5 K/uL (4.3-11.0)
[2022-08-11 05:03] LABS: ALANINE AMINOTRANSFERASE 13 U/L (12-78); ALBUMIN 1.8 g/dL (3.4-5.0); ALKALINE PHOSPHATASE 55 U/L (46-116); ASPARTATE AMINOTRANSFERASE 16 U/L (15-37); BILIRUBIN,TOTAL 0.2 mg/dL (0.2-1.0); CALCIUM, SERUM 8.2 mg/dL (8.5-10.1); CHLORIDE 100 mmol/L (98-107); CREATININE 0.3 mg/dL (0.6-1.3); GLUCOSE 132 mg/dL (74-106); MAGNESIUM 1.9 mg/dL (1.8-2.4); PHOSPHORUS 2.9 mg/dL (2.5-4.9); POTASSIUM 3.8 mmol/L (3.5-5.1); SODIUM SERUM 137 mmol/L (136-145); UREA NITROGEN, BLOOD 27 mg/dL (7-18)
[2022-08-11 06:08] LABS: CARBON DIOXIDE 41 mmol/L (21-32)
[2022-08-11] MEDS: BLOOD SUGAR DIAGNOSTIC 1 EACH STRIP IN SCH ×3 (07:21→17:03)
[2022-08-11] MEDS: methylPREDNISolone SOD SUCC 125 MG/2ML VIAL IV SCH ×2 (08:10→17:02)
[2022-08-11] MEDS: ENOXAPARIN SODIUM 30 MG/0.3 ML DISP.SYRIN SQ SCH (08:11)
[2022-08-11 08:37] LABS: ABG BASE EXCESS 12.3 mmol/L; ABG OXYGEN SATURATION 99.1 % (92.0-98.5); ABG PCO2 58.5 mmHg (35.0-45.0); ABG PH 7.436 (7.350-7.450); AaDO2 93.7 mmHg; COHb 0.3 % (0.5-1.5); MetHb 0.1 % (0.0-1.5); O2Hb 98.7 % (94.0-97.0); PEEP,BG 5 cm H2O; SITE, ABG Right Radial; VT, ABG 350 mL
[2022-08-11] MEDS: DAKINS QUARTER STRENGTH (0.125%) 480 ML BOTTLE TOP SCH (10:14)
[2022-08-11] MEDS: Z GUARD REMEDY 4 OZ OINT TP SCH (10:15)
[2022-08-11] MEDS: SILVER SULFADIAZINE 50 GM JAR TP SCH ×2 (10:16→17:03)
[2022-08-11] MEDS: THERAHONEY GEL 1.5 OZ TUBE TP SCH (10:16)
--- NOTE | 2022-08-11 11:31 | NUR ---
RN OPENING NOTE PT RECEIVED FROM ALMA KRAMER. PT RECEIVED IN BED ON MECHANICAL VENT WITH ALL PRESCRIBED SETTINGS TOLERATING WELL WITH NO SIGNS OF DISTRESS OR LABORED BREATHING O2 SAT 98%. PT IS SEDATED AT THIS TIME WITH DIPRIVAN @10MCG. OG TUBE IS IN PLACE WAITING ON XRAY TO CONFIRM POSITIVE PLACE. FC IS IN PLACE DRAINING URINE TO GRAVITY. IV ACCESS R UA MIDLINE. BED IS LOCKED IN LOWEST POSITION X2 BED RAILS UP AND ALL HOSPITAL SAFETY MEASURES ARE IN PLACE WILL CONTINUE TO MONITOR THIS SHIFT.
--- NOTE | 2022-08-11 11:31 | NUR ---
RN PAGE GAVE REPORT TO ALMA HARDING FOR JULIA
[2022-08-11] MEDS: INSULIN REGULAR, HUMAN 100 UNIT/ML 3 ML VIAL SQ PRN ×2 (13:00→17:09)
[2022-08-11] MEDS: DIGOXIN INJ 0.5 MG/2 ML AMPUL IV SCH (13:00)
--- NOTE | 2022-08-11 13:00 | NUR ---
RN NOTE: ACCUCHECK PT BS IS 89. PER SLIDING SCALE, NO COVERAGE NEEDED AT THIS TIME.
[2022-08-11] MEDS: JEVITY 1.2 CAL 1,000 ML BOTTLE GT PRN (13:50)
[2022-08-11] MEDS: ETHAMBUTOL HCL (400 MG) 400 MG TABLET PO SCH (17:02)
[2022-08-11] MEDS: PROPOFOL 100 ML IV PRN (17:02)
--- NOTE | 2022-08-11 19:29 | NUR ---
RN CLOSING NOTE PT IN BED ON MECHANICAL VENT WITH ALL PRESCRIBED SETTINGS TOLERATING WELL WITH NO SIGNS OF DISTRESS OR LABORED BREATHING O2 SAT 985%. PT IS SEDATED AT THIS TIME WITH DIPRIVAN @10MCG. OG TUBE IS IN PLACE WAITING ON XRAY TO CONFIRM POSITIVE PLACE. FC IS IN PLACE DRAINING URINE TO GRAVITY. IV ACCESS R UA MIDLINE. BED IS LOCKED IN LOWEST POSITION X2 BED RAILS UP AND ALL HOSPITAL SAFETY MEASURES ARE IN PLACE WILL CONTINUE TO MONITOR THIS SHIFT. Addendum: 08/11/22 at 1930 by MEHDI RESTREPO RN RN CLOSING NOTE PT IN BED ON MECHANICAL VENT WITH ALL PRESCRIBED SETTINGS TOLERATING WELL WITH NO SIGNS OF DISTRESS OR LABORED BREATHING O2 SAT 95%. PT IS SEDATED AT THIS TIME WITH DIPRIVAN @10MCG. OG TUBE IS IN PLACE WITH POSITIVE PLACEMENT INFUSING WITH JEVITY 1.2 @20ML/HR TOLERATING WELL. FC IS IN PLACE DRAINING URINE TO GRAVITY. IV ACCESS R UA MIDLINE. BED IS LOCKED IN LOWEST POSITION X2 BED RAILS UP AND ALL HOSPITAL SAFETY MEASURES ARE IN PLACE WILL ENDORSE TO GAS STOVE SERVICER HELPER FOR JULIA.
--- NOTE | 2022-08-11 20:23 | NUR ---
ICU/CHEMICAL RESEARCH ENGINEER YELLOW METAL RING WAS TAKEN OFF GIVEN TO [employer] OPERATIONS SPECIALIST JEFFERY AT BEDSIDE. ALSO SIGNED THE BELONGINGS LIST.
[2022-08-11] MEDS: CEFTRIAXONE 1 G in IV D5W 50 ML IV SCH (22:07)
[2022-08-12] VITALS (44 sets, daily range): BP systolic 100–149; BP diastolic 52–75
[2022-08-12] MEDS: BLOOD SUGAR DIAGNOSTIC 1 EACH STRIP IN SCH ×5 (00:04→23:37)
[2022-08-12] MEDS: IPRATROPIUM NEB FS 0.5 MG/2.5 ML AMPUL.NEB NEB SCH ×4 (01:31→20:10)
[2022-08-12] MEDS: ALBUTEROL FS 2.5 MG/3 ML VIAL.NEB NEB SCH ×4 (01:31→20:10)
--- NOTE | 2022-08-12 04:19 | NUR ---
ICU/GLASS WASHER AND CARRIER RIGHT ARM WHERE IV'S ARE AT LOOKS RED AND SWOLLEN, MADE CHARGE NURSE AWARE WHO THEN PLACED ORDER FOR NEW LINE AND ALSO DOPPLER STUDY TO R/O DVT.
[2022-08-12 04:45] LABS: BASOPHILS % (AUTO) 0.5 % (0.0-2.0); EOSINOPHILS % (AUTO) 0.1 % (0.0-6.0); HEMATOCRIT 31 % (33-45); HEMOGLOBIN 10.3 g/dL (11.5-14.8); LYMPHOCYTES # (AUTO) 0.3 K/uL (0.8-4.8); LYMPHOCYTES % (AUTO) 2.7 % (20.0-44.0); MEAN CORPUSCULAR HGB CONC 34 g/dl (31.0-36.0); MEAN CORPUSCULAR VOLUME 92 fL (82-100); MONOCYTES # (AUTO) 0.6 K/uL (0.1-1.30); MONOCYTES % (AUTO) 6.2 % (2.0-12.0); NEUTROPHILS # (AUTO) 8.6 K/uL (1.8-8.9); NEUTROPHILS % (AUTO) 90.5 % (43.0-81.0); PLATELET COUNT (AUTO) 256 K/uL (150-450); RED BLOOD CELL COUNT(AUTO) 3.36 MIL/uL (4.0-5.2); WHITE BLOOD COUNT (AUTO) 9.5 K/uL (4.3-11.0)
[2022-08-12 05:07] LABS: ALANINE AMINOTRANSFERASE 17 U/L (12-78); ALBUMIN 2.1 g/dL (3.4-5.0); ALKALINE PHOSPHATASE 70 U/L (46-116); ASPARTATE AMINOTRANSFERASE 19 U/L (15-37); BILIRUBIN,TOTAL 0.2 mg/dL (0.2-1.0); CALCIUM, SERUM 8.6 mg/dL (8.5-10.1); CHLORIDE 98 mmol/L (98-107); CREATININE 0.2 mg/dL (0.6-1.3); GLUCOSE 132 mg/dL (74-106); PHOSPHORUS 3.3 mg/dL (2.5-4.9); POTASSIUM 4.3 mmol/L (3.5-5.1); SODIUM SERUM 138 mmol/L (136-145); TOTAL PROTEIN, SERUM 5.6 g/dL (6.4-8.2); UREA NITROGEN, BLOOD 22 mg/dL (7-18)
[2022-08-12 05:18] LABS: CARBON DIOXIDE 41 mmol/L (21-32)
[2022-08-12] MEDS: PROPOFOL 100 ML IV PRN (06:20)
[2022-08-12] MEDS: INSULIN REGULAR, HUMAN 100 UNIT/ML 3 ML VIAL SQ PRN ×4 (06:32→23:38)
--- NOTE | 2022-08-12 07:52 | NUR ---
RN OPENING NOTE PT IS SEDATED WITH CAREGIVER AT BEDSIDE. PT ON ORDERED VENT SETTINGS. TELE READS SR. IV ACCESS NOTED AT DENNIS MIDLINE RUNNING PROPOFOL AT 10MCG AND NS TKO. ALL SAFETY MEASURES IN PLACE, FALL PRECAUTIONS N PLACE. WILL CONT. TO MONITOR THROUGHOUT SHIFT.
[2022-08-12] MEDS: methylPREDNISolone SOD SUCC 125 MG/2ML VIAL IV SCH ×2 (08:06→16:03)
[2022-08-12] MEDS: DAKINS QUARTER STRENGTH (0.125%) 480 ML BOTTLE TOP SCH (08:08)
[2022-08-12] MEDS: Z GUARD REMEDY 4 OZ OINT TP SCH (08:08)
[2022-08-12] MEDS: SILVER SULFADIAZINE 50 GM JAR TP SCH ×2 (08:09→16:03)
[2022-08-12] MEDS: THERAHONEY GEL 1.5 OZ TUBE TP SCH (08:09)
[2022-08-12] MEDS: ENOXAPARIN SODIUM 30 MG/0.3 ML DISP.SYRIN SQ SCH (08:12)
--- NOTE | 2022-08-12 10:00 | NUR ---
SEDATION VACATION PROVIDED WHILE CHANGING TUBING. PT AROUSABLE, AWAKENS IN TIMELY FASHION.
[2022-08-12] MEDS: DIGOXIN INJ 0.5 MG/2 ML AMPUL IV SCH (12:53)
[2022-08-12] MEDS: IV NS 0.9% 250 ML IV PRN (18:12)
--- NOTE | 2022-08-12 20:00 | NUR ---
Received patient intubated to mechanical vent with prescribed settings.Sedated on Diprivan gtt low dose.No acute distress noted.DX: Acute Respiratory Failure.Afebrile.SR.Normotensive.Nutrition via OGT infusing and well tolerated.OGT placement verified.No residual noted.Maintain HOB elevated. FC to gravity.Turned and repositioned.information systems administrator at bedside.
[2022-08-12] MEDS: CEFTRIAXONE 1 G in IV D5W 50 ML IV SCH (21:30)
[2022-08-13] VITALS (39 sets, daily range): BP systolic 95–143; BP diastolic 44–72
[2022-08-13] MEDS: PROPOFOL 100 ML IV PRN ×2 (01:16→18:00)
[2022-08-13] MEDS: ALBUTEROL FS 2.5 MG/3 ML VIAL.NEB NEB SCH ×4 (01:54→19:29)
[2022-08-13] MEDS: IPRATROPIUM NEB FS 0.5 MG/2.5 ML AMPUL.NEB NEB SCH ×4 (01:54→19:29)
[2022-08-13 04:17] LABS: BASOPHILS % (AUTO) 0.1 % (0.0-2.0); HEMATOCRIT 32 % (33-45); HEMOGLOBIN 10.4 g/dL (11.5-14.8); LYMPHOCYTES # (AUTO) 0.3 K/uL (0.8-4.8); LYMPHOCYTES % (AUTO) 2.3 % (20.0-44.0); MEAN CORPUSCULAR HGB CONC 32 g/dl (31.0-36.0); MEAN CORPUSCULAR VOLUME 92 fL (82-100); MONOCYTES # (AUTO) 0.9 K/uL (0.1-1.30); MONOCYTES % (AUTO) 6.6 % (2.0-12.0); NEUTROPHILS # (AUTO) 12.9 K/uL (1.8-8.9); PLATELET COUNT (AUTO) 227 K/uL (150-450); RED BLOOD CELL COUNT(AUTO) 3.49 MIL/uL (4.0-5.2); WHITE BLOOD COUNT (AUTO) 14.2 K/uL (4.3-11.0)
[2022-08-13 04:37] LABS: ALANINE AMINOTRANSFERASE 22 U/L (12-78); ALBUMIN 2.1 g/dL (3.4-5.0); ALKALINE PHOSPHATASE 74 U/L (46-116); ASPARTATE AMINOTRANSFERASE 18 U/L (15-37); BILIRUBIN,TOTAL 0.3 mg/dL (0.2-1.0); CALCIUM, SERUM 8.5 mg/dL (8.5-10.1); CHLORIDE 101 mmol/L (98-107); CREATININE 0.3 mg/dL (0.6-1.3); GLUCOSE 131 mg/dL (74-106); MAGNESIUM 2.2 mg/dL (1.8-2.4); PHOSPHORUS 3.6 mg/dL (2.5-4.9); SODIUM SERUM 139 mmol/L (136-145); TOTAL PROTEIN, SERUM 5.7 g/dL (6.4-8.2); UREA NITROGEN, BLOOD 19 mg/dL (7-18)
[2022-08-13 04:53] LABS: CARBON DIOXIDE 42 mmol/L (21-32)
[2022-08-13] MEDS: INSULIN REGULAR, HUMAN 100 UNIT/ML 3 ML VIAL SQ PRN ×2 (05:29→23:46)
[2022-08-13] MEDS: BLOOD SUGAR DIAGNOSTIC 1 EACH STRIP IN SCH ×4 (06:15→23:46)
[2022-08-13] MEDS: JEVITY 1.2 CAL 1,000 ML BOTTLE GT PRN (06:16)
--- NOTE | 2022-08-13 06:30 | NUR ---
Patient remains intubated and sedated with Diprivan gtt at 10 mcg.SR.VS remains stable. Tolerating OGT feeding well.wound care done.AM care done.Turned and repositioned q 2 hrs. No bm noted.No significant changes noted during the shift.
--- NOTE | 2022-08-13 08:15 | NUR ---
RN NOTES TITRATED SEDATION DIPRIVAN AT THIS TIME PER PROTOCOL FOR WEANING FROM VENT. PATIENT CALM AND COOPERATIVE, STOP FEEDING WELL, NO ACUTE RESPIRATORY DISTRESS. BP 111/46, P-65. PRIVET DEEP SUBMERGENCE VEHICLE OPERATOR NEXT TO THE BED. WILL FOLLOW UP.
[2022-08-13] MEDS: THERAHONEY GEL 1.5 OZ TUBE TP SCH (08:41)
[2022-08-13] MEDS: SILVER SULFADIAZINE 50 GM JAR TP SCH ×2 (08:42→17:29)
[2022-08-13] MEDS: Z GUARD REMEDY 4 OZ OINT TP PRN (08:42)
[2022-08-13] MEDS: DAKINS QUARTER STRENGTH (0.125%) 480 ML BOTTLE TOP SCH (08:43)
[2022-08-13] MEDS: Z GUARD REMEDY 4 OZ OINT TP SCH (08:43)
[2022-08-13] MEDS: methylPREDNISolone SOD SUCC 125 MG/2ML VIAL IV SCH ×2 (08:46→17:30)
[2022-08-13] MEDS: ENOXAPARIN SODIUM 30 MG/0.3 ML DISP.SYRIN SQ SCH (08:50)
--- NOTE | 2022-08-13 09:00 | NUR ---
RN NOTES PATIENT ON SIMV MODE AT THIS TIME VIA RT. PATIERNT AWAKE, EYES IS OPEN. EXPLAINED TO STAY CALM, BILATERAL WRIST RESTRIAN CIRCULATION RECHECKED.. COOLING TOWER TECHNICIAN NEXT TO THE BED. WILL FOLLOW UP.
--- NOTE | 2022-08-13 11:32 | NUR ---
RN NOTES PATIENT BACK TO THE AC MODE. ABG RESULT PCO2-50.5, PO2-61.8, HCO3-40.[address] OLEARY AND GET RESPOND BACK TO THE AC MODE NOW , AND RESUME SEDATION NECESSARRY, MD WILL DISCUSS PATIENT FAMILY ABUTE PATIENT CONDITION OF EXTUBATION.
[2022-08-13] MEDS: DIGOXIN INJ 0.5 MG/2 ML AMPUL IV SCH (12:18)
--- NOTE | 2022-08-13 12:18 | NUR ---
RN NOTES SEEN PATIENT VIA HOSPITALIST Dr KENT GET NEW ORDER INCREASE FEEDING TO THE 50ML/HR, AND FREE WATER FLASH 200 ML Q6HR. ORDER TAKEN AND CARRIED OUT.
[2022-08-13 16:11] LABS: ABG BASE EXCESS 15.2 mmol/L; ABG OXYGEN SATURATION 92.6 % (92.0-98.5); ABG PCO2 50.5 mmHg (35.0-45.0); ABG PH 7.518 (7.350-7.450); ABG PO2 61.8 mmHg (75.0-100.0); AaDO2 92.8 mmHg; COHb 0.5 % (0.5-1.5); MetHb 0.2 % (0.0-1.5); SITE, ABG Left Radial
[2022-08-13] MEDS: IV NS 0.9% 250 ML IV PRN (18:00)
--- NOTE | 2022-08-13 18:01 | NUR ---
RT PATIENT REMAINS ORALLY INTUBATED ON MECH VENT. WEANING TRIAL FAILED. CONT CURRENT PLAN OF RESP CARE. Addendum: 08/13/22 at 1803 by LANA CARDOZO RT Amended: Links added.
--- NOTE | 2022-08-13 18:19 | NUR ---
RN NOTES PM CARE DONE, SUCTION SMALL AMOUNT OF SECRITION, MOUTH CARE DONE , DUE MEDICATION ADMINISTERED, BS-127MG/DL. TITRATED DIPRIVAN PER PROTOCOL 15MCG/KG/MIN, URINE OUTPU WAS 250 ML, FLASH NGT VIA 200ML FREE WATER Q 6 HR PRESCRIBED, ASSIST TURN AND REPOSTION Q 2 HR. ENDORSED ONCOMING NURSE JULIA.
--- NOTE | 2022-08-13 20:30 | NUR ---
CRYPTOGRAPHIC MACHINE OPERATOR REMOVED BSWR PLACE PT IS CALM AND COOPERATIVE; PT HAS GAREGIVER AT BEDSIDE FOR 24 HRS. PROPOFOL AT 15 MCG/KG/MIN.
[2022-08-13] MEDS: CEFTRIAXONE 1 G in IV D5W 50 ML IV SCH (21:30)
[2022-08-14] VITALS (26 sets, daily range): BP systolic 90–178; BP diastolic 39–65
[2022-08-14] MEDS: IPRATROPIUM NEB FS 0.5 MG/2.5 ML AMPUL.NEB NEB SCH ×4 (01:35→19:42)
[2022-08-14] MEDS: ALBUTEROL FS 2.5 MG/3 ML VIAL.NEB NEB SCH ×4 (01:35→19:42)
[2022-08-14] MEDS: PROPOFOL 100 ML IV PRN ×2 (04:32→17:50)
[2022-08-14] MEDS: JEVITY 1.2 CAL 1,000 ML BOTTLE GT PRN (04:32)
[2022-08-14 04:54] LABS: BASOPHILS # (AUTO) 0.1 K/uL (0.0-0.2); BASOPHILS % (AUTO) 0.5 % (0.0-2.0); EOSINOPHILS % (AUTO) 0.1 % (0.0-6.0); HEMATOCRIT 32 % (33-45); HEMOGLOBIN 10.3 g/dL (11.5-14.8); LYMPHOCYTES # (AUTO) 0.4 K/uL (0.8-4.8); LYMPHOCYTES % (AUTO) 2.6 % (20.0-44.0); MEAN CORPUSCULAR HGB CONC 33 g/dl (31.0-36.0); MEAN CORPUSCULAR VOLUME 93 fL (82-100); MONOCYTES # (AUTO) 1.1 K/uL (0.1-1.30); MONOCYTES % (AUTO) 7.7 % (2.0-12.0); NEUTROPHILS # (AUTO) 12.9 K/uL (1.8-8.9); NEUTROPHILS % (AUTO) 89.1 % (43.0-81.0); PLATELET COUNT (AUTO) 262 K/uL (150-450); RED BLOOD CELL COUNT(AUTO) 3.39 MIL/uL (4.0-5.2); WHITE BLOOD COUNT (AUTO) 14.4 K/uL (4.3-11.0)
[2022-08-14 05:10] LABS: ALANINE AMINOTRANSFERASE 22 U/L (12-78); ALBUMIN 2.1 g/dL (3.4-5.0); ALKALINE PHOSPHATASE 72 U/L (46-116); ASPARTATE AMINOTRANSFERASE 28 U/L (15-37); BILIRUBIN,TOTAL 0.3 mg/dL (0.2-1.0); CALCIUM, SERUM 8.2 mg/dL (8.5-10.1); CHLORIDE 99 mmol/L (98-107); CREATININE 0.3 mg/dL (0.6-1.3); GLUCOSE 131 mg/dL (74-106); MAGNESIUM 2.2 mg/dL (1.8-2.4); PHOSPHORUS 3.7 mg/dL (2.5-4.9); POTASSIUM 5.6 mmol/L (3.5-5.1); SODIUM SERUM 136 mmol/L (136-145); TOTAL PROTEIN, SERUM 5.7 g/dL (6.4-8.2); UREA NITROGEN, BLOOD 22 mg/dL (7-18)
[2022-08-14 05:13] LABS: CARBON DIOXIDE 40 mmol/L (21-32)
[2022-08-14] MEDS: BLOOD SUGAR DIAGNOSTIC 1 EACH STRIP IN SCH ×4 (05:25→23:24)
[2022-08-14] MEDS: INSULIN REGULAR, HUMAN 100 UNIT/ML 3 ML VIAL SQ PRN ×2 (05:27→23:33)
--- NOTE | 2022-08-14 08:00 | NUR ---
RN NOTES RECEIVED PATIENT INTUBATED NO ACUTE RESPIRATORY DISTRESS, FIO2-30, PEEP-5. PATIENT SEDATED DIPRIVAN 10MCG/KG/MIN. OGT INTACT, RUNNING JAVITY 1.2 @55ML/HR NO RESIDUAL, FLASHED 200ML OF FREE WATER, PATIENT HAS POOR URINE OUTPUT. DUE MEDICATION ADMINISTERED, VSS. ASSIST TURN AND REPOSTION Q 2 HR. KEEP HOB ELEVATED FOR ASPIRATION PRECAUTION. SEEN HOSPITALIST WILL FOLLOW UP.
[2022-08-14] MEDS: IV NS 0.9% 250 ML IV PRN (10:00)
[2022-08-14] MEDS: methylPREDNISolone SOD SUCC 125 MG/2ML VIAL IV SCH ×2 (10:13→17:09)
[2022-08-14] MEDS: DAKINS QUARTER STRENGTH (0.125%) 480 ML BOTTLE TOP SCH (10:14)
[2022-08-14] MEDS: Z GUARD REMEDY 4 OZ OINT TP SCH (10:14)
[2022-08-14] MEDS: SILVER SULFADIAZINE 50 GM JAR TP SCH ×2 (10:15→17:08)
[2022-08-14] MEDS: THERAHONEY GEL 1.5 OZ TUBE TP SCH (10:15)
[2022-08-14] MEDS: ENOXAPARIN SODIUM 30 MG/0.3 ML DISP.SYRIN SQ SCH (10:18)
[2022-08-14] MEDS: DIGOXIN INJ 0.5 MG/2 ML AMPUL IV SCH (12:07)
--- NOTE | 2022-08-14 12:45 | NUR ---
RN NOTES STOP SEDATION AT THIS TIME. RT NEXT TO THE BED FOR CPAP 5 / ps 10 @ 30% fio2 PER dR OLEARY FOR WEANING FROM VENT. FAMILY AND DISTRICT FIRE CHIEF NEXT TO THE BED. STOP OGT FEEDING WELL. PATIENT HAS NO ACUTE RESPIRATORY DISTRESS.
--- NOTE | 2022-08-14 12:50 | NUR ---
pt. is awake and follow commands @ 1250 placed into cpap 5 / ps 10 @ 30% fio2 per dr. davis for weaning trial. Addendum: 08/14/22 at 1252 by GIOVANNI TRISTAN RT Amended: Links added.
[2022-08-14 13:40] LABS: ABG BASE EXCESS 4.7 mmol/L; ABG OXYGEN SATURATION 96.5 % (92.0-98.5); ABG PCO2 64.1 mmHg (35.0-45.0); ABG PH 7.321 (7.350-7.450); ABG PO2 96.6 mmHg (75.0-100.0); COHb 0.6 % (0.5-1.5); MetHb 0.3 % (0.0-1.5); O2Hb 95.6 % (94.0-97.0); SITE, ABG Right Radial; VENT MODE, BG CPAP 5 / PS 10
--- NOTE | 2022-08-14 15:10 | NUR ---
PT. IS AWAKE AND ALERT PLACED BACK TO AC 22, VT 350 ML, FIO2 30%, PEEP + [address] PELEG. MARQUEZ NOTIFIED. Addendum: 08/14/22 at 1511 by GIOVANNI TRISTAN RT Amended: Links added.
--- NOTE | 2022-08-14 15:12 | NUR ---
RN NOTES PATIENT BACK TO THE AN AC MODE AFTER ABG RESULT PER DR GONZALEZ ORDER, AND PRN SEDATION. WILL FOLLOW UP.
[2022-08-14] MEDS: ETHAMBUTOL HCL (400 MG) 400 MG TABLET PO SCH (15:31)
[2022-08-14] MEDS: ACETAMINOPHEN 650 MG/20.3 ML UDC NG PRN ×2 (17:09→23:24)
--- NOTE | 2022-08-14 17:09 | NUR ---
RN NOTES ADMINISTERED TYLENOL 650 MG /ML VIA OGT FOR PAIN PER PATIENT REQUEST.
--- NOTE | 2022-08-14 18:38 | NUR ---
RN NOTES MEDICATION WERE ADMINISTERED FOR PAIN EFFECTIVE, RESUMED DIPRIVAN DRIP INFUSING 10MCG/KG/MIN. VSS, NO ACUTE RESPIRATROY DISTRESS, DUE MEDICATION ADMINISTERED, PM CARE DONE, SUCTION, MOUTH CARE DONE, ASSIST TURN AND REPOSTION Q 2 HR. DRESSING CHANGED, BINGO WORKER NEXT TO THE BED. URINE OUTPUT WAS 880 ML ENTIRE SHIFT, FLASHER FREE WATER 200ML VIA OGT. ENDORSED ONCOMING NURSE FOLLOW PLAN OF CARE.
[2022-08-14] MEDS ORDERED: SODIUM POLYSTYRENE SULFONATE 15 G/60 ML BOTTLE PO ONE (19:00)
[2022-08-14] MEDS: CEFTRIAXONE 1 G in IV D5W 50 ML IV SCH (22:08)
[2022-08-15] VITALS (30 sets, daily range): BP systolic 93–164; BP diastolic 40–79
[2022-08-15] MEDS: IPRATROPIUM NEB FS 0.5 MG/2.5 ML AMPUL.NEB NEB SCH ×4 (02:17→19:35)
[2022-08-15] MEDS: ALBUTEROL FS 2.5 MG/3 ML VIAL.NEB NEB SCH ×4 (02:17→19:35)
[2022-08-15 04:01] LABS: BASOPHILS % (AUTO) 0.3 % (0.0-2.0); HEMATOCRIT 27 % (33-45); LYMPHOCYTES # (AUTO) 0.2 K/uL (0.8-4.8); LYMPHOCYTES % (AUTO) 2.1 % (20.0-44.0); MEAN CORPUSCULAR HGB CONC 33 g/dl (31.0-36.0); MEAN CORPUSCULAR VOLUME 93 fL (82-100); MONOCYTES # (AUTO) 0.7 K/uL (0.1-1.30); MONOCYTES % (AUTO) 6.6 % (2.0-12.0); NEUTROPHILS # (AUTO) 9.5 K/uL (1.8-8.9); PLATELET COUNT (AUTO) 211 K/uL (150-450); RED BLOOD CELL COUNT(AUTO) 2.93 MIL/uL (4.0-5.2); WHITE BLOOD COUNT (AUTO) 10.5 K/uL (4.3-11.0)
[2022-08-15 04:40] LABS: ALANINE AMINOTRANSFERASE 19 U/L (12-78); ALBUMIN 1.8 g/dL (3.4-5.0); ALKALINE PHOSPHATASE 57 U/L (46-116); ASPARTATE AMINOTRANSFERASE 16 U/L (15-37); BILIRUBIN,TOTAL 0.2 mg/dL (0.2-1.0); CHLORIDE 102 mmol/L (98-107); CREATININE 0.3 mg/dL (0.6-1.3); GLUCOSE 131 mg/dL (74-106); MAGNESIUM 2.1 mg/dL (1.8-2.4); PHOSPHORUS 3.9 mg/dL (2.5-4.9); POTASSIUM 4.9 mmol/L (3.5-5.1); SODIUM SERUM 139 mmol/L (136-145); UREA NITROGEN, BLOOD 19 mg/dL (7-18)
[2022-08-15 05:20] LABS: CARBON DIOXIDE 41 mmol/L (21-32)
[2022-08-15] MEDS: IV NS 0.9% 250 ML IV PRN (05:50)
[2022-08-15] MEDS: BLOOD SUGAR DIAGNOSTIC 1 EACH STRIP IN SCH ×4 (05:57→23:42)
[2022-08-15] MEDS: PROPOFOL 100 ML IV PRN ×2 (05:57→15:57)
[2022-08-15] MEDS: JEVITY 1.2 CAL 1,000 ML BOTTLE GT PRN ×2 (06:03→22:01)
--- NOTE | 2022-08-15 07:45 | NUR ---
ICU/RN PT IS INTUBATED ON THE VENT AC MODE ,FIO2-30%,SAT O2-98%.V/S STABLE.AFEBRILE.NO PAIN REPORTED AT THIS TIME. ON DIPRIVAN DRIP CALM AND COOPERATIVE.RIGHT UPPER ARM MIDLINE.F/C IN PLACE.DRAINING WITH MINIMAL AMOUNT OF URINE.GENERELISED EDEMA PRESENT.MULTIPLY WOUNDS AND BRUISES NOTED ALL OVER THE BODY.SITTER AT BEDSIDE.LABS REVIEW.MD AWARE.REPOSITION FOR COMFORT.CONTINUE MONITORING.
[2022-08-15] MEDS: methylPREDNISolone SOD SUCC 125 MG/2ML VIAL IV SCH ×2 (08:07→16:34)
[2022-08-15] MEDS: DAKINS QUARTER STRENGTH (0.125%) 480 ML BOTTLE TOP SCH (08:07)
[2022-08-15] MEDS: Z GUARD REMEDY 4 OZ OINT TP SCH (08:08)
[2022-08-15] MEDS: SILVER SULFADIAZINE 50 GM JAR TP SCH ×2 (08:09→16:35)
[2022-08-15] MEDS: THERAHONEY GEL 1.5 OZ TUBE TP SCH (08:09)
[2022-08-15] MEDS: ENOXAPARIN SODIUM 30 MG/0.3 ML DISP.SYRIN SQ SCH (08:10)
--- NOTE | 2022-08-15 09:01 | NUR ---
ICU/RN DUE MEDS ARE GIVEN ORDERED. DR OLEARY SEEN THE PT.
--- NOTE | 2022-08-15 11:45 | NUR ---
ICU/RN DIPRIVAN STOP.PT IS AWAKE ,ALERT.PLACED ON CPAP MODE.CONTINUE MONITORING.
[2022-08-15] MEDS: ACETAMINOPHEN 650 MG/20.3 ML UDC NG PRN (12:03)
[2022-08-15] MEDS: DIGOXIN INJ 0.5 MG/2 ML AMPUL IV SCH (14:24)
--- NOTE | 2022-08-15 16:00 | NUR ---
ICU/RN PT IS NOT TOLERATING CPAP MODE.BP INCREASED,PT HAS SOB,C/O OF PAIN ,SAT O2 DECREASED TO 88%.PLACED BACK TO AC MODE.DIPRIVAN RESTARTED.REPOSITION FOR COMFORT.CONTINUE MONITORING.
--- NOTE | 2022-08-15 17:18 | NUR ---
RT PATIENT REMAINS ORALLY INTUBATED ON MECH VENT. WEANING TRIAL FAILED AFTER 2 HRS AND PLACED BACK ON AC MODE. CONT CURRENT PLAN OF CARE. Addendum: 08/15/22 at 1722 by LANA CARDOZO RT Amended: Links added.
--- NOTE | 2022-08-15 18:00 | NUR ---
ICU/RN PM CARE PROVIDED.WOUND DRESSING DONE ORDERED. DUE MEDS ARE GIVEN SUCTION PROVIDED.REPOSITION FOR COMFORT.PT IS BACK TO AC MODE.DIPRIVAN RESTARTED. SITTER AT BEDSIDE.CONTINUE MONITORING.
[2022-08-15] MEDS: INSULIN REGULAR, HUMAN 100 UNIT/ML 3 ML VIAL SQ PRN ×2 (18:04→23:28)
[2022-08-15 18:42] LABS: ABG BASE EXCESS 9.6 mmol/L; ABG OXYGEN SATURATION 93.4 % (92.0-98.5); ABG PCO2 65.8 mmHg (35.0-45.0); ABG PH 7.369 (7.350-7.450); ABG PO2 72.1 mmHg (75.0-100.0); AaDO2 64.5 mmHg; COHb 0.7 % (0.5-1.5); MetHb 0.3 % (0.0-1.5); O2Hb 92.5 % (94.0-97.0); SITE, ABG Right Radial
--- NOTE | 2022-08-15 19:56 | NUR ---
MEDICAL ASSISTANT FLOAT OPENING NOTE RECEIVED PT IN BED ON MECHANICAL VENT WITH PRESCRIBED SETTINGS TOLERATING WELL, NO S/SX OF DISTRESS NOTED, BREATHING EVEN AND UNLABORED CURRENTLY SATING 98%. PT IS SEDATED AT THIS TIME WITH DIPRIVAN @10MCG. OG TUBE IS IN PLACE WITH POSITIVE PLACEMENT INFUSING WITH JEVITY 1.2 @55ML/HR TOLERATING WELL. FC IS IN PLACE DRAINING URINE TO GRAVITY. IV ACCESS R UA MIDLINE AND KITA MIDLINE INTACT, PATENT ANF FLUSHES WELL, BED IS LOCKED AND IN LOWEST POSITION, X2 BED RAILS UP AND ALL HOSPITAL SAFETY MEASURES ARE IN PLACE, SITTER AT BEDSIDE, WILL CONTINUE TO MONITOR THROUGHOUT THE SHIFT.
[2022-08-15] MEDS: CEFTRIAXONE 1 G in IV D5W 50 ML IV SCH (21:48)
--- NOTE | 2022-08-15 23:42 | NUR ---
RN NOTE BS CHECKED AT 147 MG/DL, 2 UNITS OF INSULIN GIVEN PER SLIDING SCALE. SITTER AT BEDSIDE. WILL CONT TO MONITOR.
[2022-08-16] VITALS (36 sets, daily range): BP systolic 111–151; BP diastolic 52–75
[2022-08-16] MEDS: IPRATROPIUM NEB FS 0.5 MG/2.5 ML AMPUL.NEB NEB SCH ×4 (01:14→19:31)
[2022-08-16] MEDS: ALBUTEROL FS 2.5 MG/3 ML VIAL.NEB NEB SCH ×4 (01:14→19:31)
[2022-08-16] MEDS: BLOOD SUGAR DIAGNOSTIC 1 EACH STRIP IN SCH ×3 (06:20→18:03)
[2022-08-16] MEDS: INSULIN REGULAR, HUMAN 100 UNIT/ML 3 ML VIAL SQ PRN (06:21)
[2022-08-16] MEDS: IV NS 0.9% 250 ML IV PRN (06:41)
--- NOTE | 2022-08-16 07:02 | NUR ---
SECURITY OFFICER SUPERVISOR CLOSING NOTE PT IN BED ON MECHANICAL VENT WITH PRESCRIBED SETTINGS TOLERATING WELL, NO S/SX OF DISTRESS NOTED, BREATHING EVEN AND UNLABORED CURRENTLY SATING 99%. PT IS SEDATED AT THIS TIME WITH DIPRIVAN @10MCG. OG TUBE IS IN PLACE WITH POSITIVE PLACEMENT INFUSING WITH JEVITY 1.2 @55ML/HR TOLERATING WELL. FC IS IN PLACE DRAINING URINE TO GRAVITY. IV ACCESS KITA MIDLINE AND R UA MIDLINE INTACT AND PATENT RUNNING NS AT TKO, ALL DUE MEDS GIVEN, KEPT DRY AND CLEAN, BED IS LOCKED AND IN LOWEST POSITION, BED RAILS UP AND ALL HOSPITAL SAFETY MEASURES ARE IN PLACE , WILL ENDORSE TO AM SHIFT NURSE.
--- NOTE | 2022-08-16 07:15 | NUR ---
POWER SWITCHBOARD OPERATOR OPENING NOTE: RECEIVED PT. IN BED, IS A/O X1-2, NON-VERBAL, ON VENT VIA ETT, ABLE TO ANSWER YES/NO QUESTIONS BY NODDING AND SHAKING HEAD. CURRENTLY SEDATED WITH DIPRIVAN AT 10MCG/KG/MIN. CALM AND COOPERATIVE. NO COMPLAINTS OF PAIN/DISCOMFORT AT THIS TIME. ETT - 06/18, AC - 22; VT - 350; FIO2 - 30%; PEEP - 5. NO S/S OF RESPIRATORY DISTRESS. ROBOTICS TECHNOLOGIST READS NSR @ 60 BPM. AFEBRILE, VS STABLE. PT. HAS OG-TUBE, NO GASTRIC RESIDUAL NOTED, WITH JEVITY RUNNING AT 55 ML/HR, DRESSING C/D/I AND NO S/S OF INFECTION. MULTIPLE SKIN ISSUES NOTED, WILL DO WOUND TREATMENT ORDERED. PT. HAS KITA MIDLINE WITH DIPRIVAN AT 10MCG/KG/MIN, DENNIS MIDLINE WITH NS AT TKO. IV SITE DRESSINGS C/D/I, NO S/S OF INFILTRATION. SAFETY MEASURES IN PLACE: BED IN LOWEST AND LOCKED POSITION, HOB ELEVATED, BED ALARM ON, CALL LIGHT WITHIN REACH, WILL TURN AND REPOSITION AT LEAST Q2H. WILL CONTINUE TO MONITOR PT. FOR ANY CHANGES.
[2022-08-16] MEDS: PROPOFOL 100 ML IV PRN (07:20)
[2022-08-16] MEDS: THERAHONEY GEL 1.5 OZ TUBE TP SCH (09:00)
[2022-08-16] MEDS: DAKINS QUARTER STRENGTH (0.125%) 480 ML BOTTLE TOP SCH (10:13)
[2022-08-16] MEDS: Z GUARD REMEDY 4 OZ OINT TP SCH (10:13)
[2022-08-16] MEDS: SILVER SULFADIAZINE 50 GM JAR TP SCH ×2 (10:14→16:53)
[2022-08-16] MEDS: methylPREDNISolone SOD SUCC 125 MG/2ML VIAL IV SCH ×2 (10:18→16:53)
[2022-08-16] MEDS: ENOXAPARIN SODIUM 30 MG/0.3 ML DISP.SYRIN SQ SCH (10:19)
[2022-08-16] MEDS: DIGOXIN INJ 0.5 MG/2 ML AMPUL IV SCH (13:00)
--- NOTE | 2022-08-16 13:27 | NUR ---
BRANCH OPERATION EVALUATION MANAGER NOTE: DIGOXIN 0.125 MG SCHEDULED AT 1300 HELD DUE TO HR OF 57 BPM. WILL CONTINUE TO MONITOR PT.'S HEMODYNAMIC STATUS.
[2022-08-16] MEDS: ETHAMBUTOL HCL (400 MG) 400 MG TABLET PO SCH (14:56)
--- NOTE | 2022-08-16 19:20 | NUR ---
STATISTICAL MODELER CLOSING NOTE: PT. REMAINS IN BED, IS A/O X1-2, NON-VERBAL, ON VENT VIA ETT, ABLE TO ANSWER YES/NO QUESTIONS BY NODDING AND SHAKING HEAD. STILL SEDATED WITH DIPRIVAN AT 10MCG/KG/MIN. PT. REMAINS CALM AND COOPERATIVE. NO SEDATION VACATION TODAY PER DR. OLEARY'S ORDER. PLAN FOR EXTUBATION TOMORROW WILL BE POSTPONED FOR ANOTHER DAY. FAMILY MADE AWARE. NO COMPLAINTS OF PAIN/DISCOMFORT AT THIS TIME. NO INSULIN COVERAGE THIS SHIFT. VENT SETTING REMAIN THE SAME. NO S/S OF RESPIRATORY DISTRESS. WATER ANALYST READS SINUS MAITE/NSR @ 50'S-60'S BPM THIS SHIFT. PT. TOLERATING TUBE FEEDING WELL. FLUSHED OG TUBE WITH WATER ORDERED. LEONARDO CATH DRAINED 450 ML CLEAR YELLOW URINE WITH SEDIMENTS. WOUND TREATMENT DONE ORDERED. PT. HAS KITA MIDLINE WITH DIPRIVAN STILL RUNNING AT 10MCG/KG/MIN, DENNIS MIDLINE WITH NS AT TKO. IV SITE DRESSINGS C/D/I, NO S/S OF INFILTRATION. SAFETY MEASURES MAINTAINED: BED IN LOWEST AND LOCKED POSITION, HOB ELEVATED, BED ALARM ON, CALL LIGHT WITHIN REACH, TURNED AND REPOSITIONED AT LEAST Q2H. WILL ENDORSE CONTINUITY OF CARE TO WHOLESALE PARTS SALESPERSON RN.
--- NOTE | 2022-08-16 20:02 | NUR ---
RN OPENING NOTES RECEIVED CARE OF PATIENT FROM AM NURSE, PATIENT IN BED, OPENS EYES, CALM, UNDER SEDATION WITH DIPRIVAN AT 10 MCG/KG/MIN. PATIENT INTUBATED, UNDER MECHANICAL VENTILATION WITH ORDERED SETTINGS, TOLERATING WELL, NO SOB NOTED, O2 SAT 97%. TELE MONITOR READING NSR WITH BBB, HR OF 61, NO DISTRESS NOTED ON PATIENT. OGT NOTED RUNNING WITH JEVITY 1.2 AT 55ML/HR, AUSCULTATED FOR POSITIVE PLACEMENT, NO RESIDUAL NOTED. PATIENT NOTED WITH LEONARDO DRAINING TO GRAVITY. SAFETY MEASURES IMPLEMENTED PER HOSPITAL PROTOCOLS. WILL CARRY OUT PLAN OF CARE.
--- NOTE | 2022-08-16 20:05 | NUR ---
RECEIVED PT INTUBATED 7.0 ETT SECURED AT 24 CM AT LIP. NO RESP DISTRESS NOTED. PT TOLERATING VENT SETTINGS. VENT ALARMS SET AND AUDIBLE. CONTINUE TO MONITOR. Addendum: 08/16/22 at 2006 by MALACHI WHITMORE RT Amended: Links added.
[2022-08-16] MEDS: CEFTRIAXONE 1 G in IV D5W 50 ML IV SCH (21:19)
[2022-08-16] MEDS: JEVITY 1.2 CAL 1,000 ML BOTTLE GT PRN (22:43)
[2022-08-17] VITALS (25 sets, daily range): BP systolic 111–168; BP diastolic 51–76
[2022-08-17] MEDS: BLOOD SUGAR DIAGNOSTIC 1 EACH STRIP IN SCH ×4 (00:10→18:39)
[2022-08-17] MEDS: INSULIN REGULAR, HUMAN 100 UNIT/ML 3 ML VIAL SQ PRN ×2 (00:11→06:30)
[2022-08-17] MEDS: ALBUTEROL FS 2.5 MG/3 ML VIAL.NEB NEB SCH ×4 (01:17→19:29)
[2022-08-17] MEDS: IPRATROPIUM NEB FS 0.5 MG/2.5 ML AMPUL.NEB NEB SCH ×4 (01:17→19:29)
[2022-08-17] MEDS: PROPOFOL 100 ML IV PRN ×2 (02:06→17:55)
[2022-08-17 04:34] LABS: CALCIUM, SERUM 8.1 mg/dL (8.5-10.1); CHLORIDE 99 mmol/L (98-107); CREATININE 0.3 mg/dL (0.6-1.3); GLUCOSE 149 mg/dL (74-106); POTASSIUM 4.6 mmol/L (3.5-5.1); SODIUM SERUM 138 mmol/L (136-145); UREA NITROGEN, BLOOD 23 mg/dL (7-18)
[2022-08-17 05:00] LABS: CARBON DIOXIDE 40 mmol/L (21-32)
--- NOTE | 2022-08-17 07:22 | NUR ---
RN CLOSING NOTES ENDORSED CARE OF PATIENT TO MORNING SHIFT NURSE. PLAN OF CARE CARRIED OUT FOR GOLF SHOE SPIKE ASSEMBLER. NO SIGNIFICANT FINDINGS UPON ALL NURSING ASSESSMENTS. SAFETY MEASURES KEPT IN PLACE PER HOSPITAL PROTOCOLS. ENDORSED CARE OF PATIENT TO AM NURSE FOR CONTINUITY OF CARE.
--- NOTE | 2022-08-17 08:02 | NUR ---
RN/ICU OPENING PT AWAKE AND ALERT ABLE TO NOD YES AND NO. PT IS INTUBATED BUT AWAKE BREATHING EVENLY AND UNLABORED NO S/S OF DISTRESS OR ANXIETY. ON DIPRIVAN DRIP CURRENTLY ON 5 MCG/KG/MIN. BEDSIDE MONITOR SHOWS SINUS MAITE IS BASELINE BP WNL, SAT 93%. IV PATENT AND FLUSHED INFUSING MEDICATION AND A TKO.. LEONARDO CATHETER IN PLACE AND DRAINING URINE. HOB ELEVATED PT ON FIRST STEP AIR MATTRESS.
[2022-08-17] MEDS: methylPREDNISolone SOD SUCC 125 MG/2ML VIAL IV SCH ×2 (09:01→16:48)
[2022-08-17] MEDS: DAKINS QUARTER STRENGTH (0.125%) 480 ML BOTTLE TOP SCH (09:02)
[2022-08-17] MEDS: Z GUARD REMEDY 4 OZ OINT TP SCH (09:03)
[2022-08-17] MEDS: SILVER SULFADIAZINE 50 GM JAR TP SCH ×2 (09:04→16:48)
[2022-08-17] MEDS: THERAHONEY GEL 1.5 OZ TUBE TP SCH (09:05)
[2022-08-17] MEDS: ENOXAPARIN SODIUM 40 MG/0.4 ML DISP.SYRIN SQ SCH (09:18)
--- NOTE | 2022-08-17 09:30 | NUR ---
vent settings changed to CPAP
[2022-08-17 10:56] LABS: ABG BASE EXCESS 8.1 mmol/L; ABG PCO2 70.4 mmHg (35.0-45.0); ABG PO2 74.7 mmHg (75.0-100.0); AaDO2 56.5 mmHg; COHb 0.8 % (0.5-1.5); MetHb 0.3 % (0.0-1.5); SITE, ABG Right Radial; VENT MODE, BG CPAP PS 10 +5 30%
[2022-08-17] MEDS: DIGOXIN INJ 0.5 MG/2 ML AMPUL IV SCH (12:42)
--- NOTE | 2022-08-17 19:28 | NUR ---
RN/ICU CLOSING PT ABUSABLE AND RESPONDS TO NAME AND TOUCH. BREATHING IS EVEN AND UNLABORED ON CPAP NO S/S OF DISTRESS AND DENIES PAIN. PT TURNED AND POSITIONED LINES PATENT NO S/S OF INFILTRATION. WOUNDS DRESSED PER MD ORDER. LEONARDO CATHETER PUT OUT 900ML YELLOW URINE 1 BM. HOB ELEVATED
--- NOTE | 2022-08-17 19:40 | NUR ---
RN OPENING NOTES RECEIVED CARE OF PATIENT FROM AM NURSE WHILE PATIENT IS AWAKE, ALERT, ABLE TO COMMUNICATE WITH FACIAL EXPRESSIONS. PATIENT IS INTUBATED WITH ETT ON CPAP WITH ORDERED SETTINGS, TOLERATING WELL, NO SOB NOTED, O2 SAT 94%. TELE MONITOR READS NSR WITH HR OF 71, NO DISTRESS NOTED ON PATIENT. AM SHIFT NURSE WAS RUNNING DIPRIVAN DRIP AT 20 MCG/KG/MIN WHILE PATIENT ON CPAP, ICU PHARMACY CARE COORDINATOR NURSE ADVISED AM SHIFT NURSE THAT DIPRIVAN UNDER THESE CONDITIONS IS NOT DEEMED NECESSARY, AM SHIFT NURSE STOPPED DIPRIVAN INFUSION. PATIENT REMAINS IN BED, CALM, COOPERATIVE. SAFETY MEASURES IMPLEMENTED PER HOSPITAL PROTOCOLS. WILL CARRY OUT PLAN OF CARE.
--- NOTE | 2022-08-17 23:50 | NUR ---
RN NOTES MILD AGGITATION NOTED ON PATIENT. RELAXATION TECHNIQUES AND REPOSITIONING ARE NOT EFFECTIVE. HOSPITALIST CLINICAL OB, DOCTOR AME MADE AWARE, ORDER ATIVAN 1 MG PO Q6H PRN FOR ANXIETY, DOCTOR SAYS IT IS OKAY TO ADMINISTER THROUGH PATIENT'S OGT. WILL CARRY OUT ORDER AND REASSESS ACCORDINGLY.
[2022-08-17] MEDS: JEVITY 1.2 CAL 1,000 ML BOTTLE GT PRN (23:56)
[2022-08-17] MEDS: LORAZEPAM 1 MG TABLET PO PRN (23:58)
[2022-08-18] VITALS (26 sets, daily range): BP systolic 99–150; BP diastolic 48–78
[2022-08-18] MEDS: BLOOD SUGAR DIAGNOSTIC 1 EACH STRIP IN SCH ×5 (00:24→22:20)
[2022-08-18] MEDS: INSULIN REGULAR, HUMAN 100 UNIT/ML 3 ML VIAL SQ PRN ×2 (00:25→06:04)
[2022-08-18] MEDS: IV NS 0.9% 250 ML IV PRN ×2 (01:00→17:25)
[2022-08-18] MEDS: IPRATROPIUM NEB FS 0.5 MG/2.5 ML AMPUL.NEB NEB SCH ×4 (01:05→19:34)
[2022-08-18] MEDS: ALBUTEROL FS 2.5 MG/3 ML VIAL.NEB NEB SCH ×4 (01:06→19:34)
[2022-08-18 04:33] LABS: BASOPHILS % (AUTO) 0.2 % (0.0-2.0); HEMATOCRIT 30 % (33-45); HEMOGLOBIN 9.9 g/dL (11.5-14.8); LYMPHOCYTES # (AUTO) 0.2 K/uL (0.8-4.8); LYMPHOCYTES % (AUTO) 1.5 % (20.0-44.0); MEAN CORPUSCULAR HGB CONC 33 g/dl (31.0-36.0); MEAN CORPUSCULAR VOLUME 95 fL (82-100); MONOCYTES # (AUTO) 0.5 K/uL (0.1-1.30); NEUTROPHILS % (AUTO) 93.3 % (43.0-81.0); PLATELET COUNT (AUTO) 281 K/uL (150-450); RED BLOOD CELL COUNT(AUTO) 3.21 MIL/uL (4.0-5.2); WHITE BLOOD COUNT (AUTO) 10.7 K/uL (4.3-11.0)
[2022-08-18 04:44] LABS: CALCIUM, SERUM 8.5 mg/dL (8.5-10.1); CHLORIDE 101 mmol/L (98-107); CREATININE 0.3 mg/dL (0.6-1.3); GLUCOSE 126 mg/dL (74-106); POTASSIUM 4.8 mmol/L (3.5-5.1); SODIUM SERUM 140 mmol/L (136-145); UREA NITROGEN, BLOOD 23 mg/dL (7-18)
[2022-08-18 05:16] LABS: CARBON DIOXIDE 42 mmol/L (21-32)
--- NOTE | 2022-08-18 07:20 | NUR ---
RN OPENING NOTES RECEIVED CARE OF PATIENT FROM NIGHT SIFT NURSE . PATIENT IS AWAKE, ALERT, ABLE TO COMMUNICATE WITH FACIAL EXPRESSIONS. PATIENT IS INTUBATED WITH ETT ON CPAP WITH ORDERED SETTINGS, TOLERATING WELL, NO SOB NOTED, O2 SAT 94%. TELE MONITOR READS NSR WITH HR OF 71, NO DISTRESS NOTED ON PATIENT. . PATIENT REMAINS IN BED, CALM, COOPERATIVE. SAFETY MEASURES IMPLEMENTED PER HOSPITAL PROTOCOLS. WILL CARRY OUT PLAN OF CARE.
--- NOTE | 2022-08-18 07:27 | NUR ---
RN CLOSING NOTES ENDORSED CARE OF PATIENT TO MORNING SHIFT NURSE. PLAN OF CARE CARRIED OUT FOR BUTCHER. NO SIGNIFICANT FINDINGS UPON ALL NURSING ASSESSMENTS. SAFETY MEASURES KEPT IN PLACE PER HOSPITAL PROTOCOLS. ENDORSED CARE OF PATIENT TO AM NURSE FOR CONTINUITY OF CARE.
[2022-08-18 08:34] LABS: ABG BASE EXCESS 3.7 mmol/L; ABG OXYGEN SATURATION 94.9 % (92.0-98.5); ABG PCO2 76.1 mmHg (35.0-45.0); ABG PH 7.252 (7.350-7.450); ABG PO2 87.4 mmHg (75.0-100.0); AaDO2 37.1 mmHg; COHb 0.6 % (0.5-1.5); MetHb 0.4 % (0.0-1.5); SITE, ABG Right Radial; VENT MODE, BG CPAP +5 PS10 30%
--- NOTE | 2022-08-18 09:00 | NUR ---
placed on ac mode per Dr Kinjal pimentel results. Addendum: 08/18/22 at 1716 by JITENDRA JIMÉNEZ RT Amended: Links added.
[2022-08-18] MEDS: Z GUARD REMEDY 4 OZ OINT TP SCH (10:23)
[2022-08-18] MEDS: DAKINS QUARTER STRENGTH (0.125%) 480 ML BOTTLE TOP SCH (10:23)
[2022-08-18] MEDS: methylPREDNISolone SOD SUCC 125 MG/2ML VIAL IV SCH ×2 (10:26→16:22)
[2022-08-18] MEDS: ENOXAPARIN SODIUM 40 MG/0.4 ML DISP.SYRIN SQ SCH (10:27)
[2022-08-18] MEDS: SILVER SULFADIAZINE 50 GM JAR TP SCH ×2 (10:40→16:23)
[2022-08-18] MEDS: THERAHONEY GEL 1.5 OZ TUBE TP SCH (10:41)
--- NOTE | 2022-08-18 11:48 | NUR ---
RN NOTE NO DEXTROS AVAILABLE , CALLED PHARMACY NOT AVAILABLE , PATIENT HAS BS 58 MG/DL , CHARGE NURSE RECOMMENDED ADMINISTER 8 OZ OF THE ORANGE JUICE
[2022-08-18] MEDS: DIGOXIN INJ 0.5 MG/2 ML AMPUL IV SCH (13:39)
[2022-08-18] MEDS: ETHAMBUTOL HCL (400 MG) 400 MG TABLET PO SCH (14:30)
[2022-08-18] MEDS: ACETAMINOPHEN 650 MG/20.3 ML UDC NG PRN (16:53)
[2022-08-18] MEDS: LORAZEPAM 1 MG TABLET PO PRN (17:03)
--- NOTE | 2022-08-18 19:25 | NUR ---
RN/ICU CLOSING PT IS ALERT AND RESPONDS TO NAME AND TOUCH. BREATHING IS EVEN AND UNLABORED ON MECHANICAL VENTILATION NO S/S OF DISTRESS AND DENIES PAIN. PT TURNED AND REPOSITIONED HAS IV MID LINE ON DENNIS AND KITA , FLUSHED FREELY PATENT NO S/S OF INFILTRATION. WOUNDS DRESSED PER MD ORDER. LEONARDO CATHETER IN PLACE DRAINING CLEAR YELLOW URINE .HOB ELEVATED . ALL MEDICATIONS WERE ADMINISTERED , ALL NEEDS ARE MET . WILL ENDORSE NIGHT SHIDT TO FALLOW POC
[2022-08-18] MEDS: JEVITY 1.2 CAL 1,000 ML BOTTLE GT PRN (21:00)
[2022-08-19] VITALS (24 sets, daily range): BP systolic 116–173; BP diastolic 50–71
[2022-08-19] MEDS: ALBUTEROL FS 2.5 MG/3 ML VIAL.NEB NEB SCH ×4 (00:55→19:12)
[2022-08-19] MEDS: IPRATROPIUM NEB FS 0.5 MG/2.5 ML AMPUL.NEB NEB SCH ×4 (00:55→19:12)
[2022-08-19] MEDS: BLOOD SUGAR DIAGNOSTIC 1 EACH STRIP IN SCH ×3 (05:56→17:01)
[2022-08-19] MEDS: JEVITY 1.2 CAL 1,000 ML BOTTLE GT PRN (05:57)
--- NOTE | 2022-08-19 07:15 | NUR ---
SALES AND DISTRIBUTION CLERK Bedside report taken from [facility] nurse Mckeon. Pt intubated, no sedation, pt opens eyes perrla 2/ sluggish, pt AAOx1 follows commands, moves bue 1/1 and ble 0/1, pt intubated on ac vent setting with fio2 30%. azul lung sounds diminished. pt has ogt on tube feeding with jevity at 55 ml/hr tolerating well. bowel sounds present. pt has nelson intact and draining clear yellow urine. pt has multiple wounds noted in bue, ble and buttocs/sacral area, see flowsheet. pt has generalized edema in bue and ble. all lines traced. all drips verified. safety measures in place, healthcare management at bedside. vitasl stable. no signs of acute distress at this time. will continue to monitor.
[2022-08-19] MEDS: methylPREDNISolone SOD SUCC 125 MG/2ML VIAL IV SCH ×2 (08:18→16:48)
[2022-08-19] MEDS: DAKINS QUARTER STRENGTH (0.125%) 480 ML BOTTLE TOP SCH (08:19)
[2022-08-19] MEDS: Z GUARD REMEDY 4 OZ OINT TP SCH (08:19)
[2022-08-19] MEDS: ENOXAPARIN SODIUM 40 MG/0.4 ML DISP.SYRIN SQ SCH (09:59)
[2022-08-19] MEDS: SILVER SULFADIAZINE CREAM 25 GM TUBE TP SCH ×2 (10:29→16:48)
[2022-08-19] MEDS: THERAHONEY GEL 1.5 OZ TUBE TP SCH (10:29)
--- NOTE | 2022-08-19 11:55 | NUR ---
SEQUINS SLINGER Spoke to Dr Davis on phone and telephone orders taken and entered per md: 1. Extubate 2. Extubate and place on venturi mask start with 50% and titrate to saturation of 88-90% 3. ABG 2 hours after extubation and text dr davis with results 4. IPAP 19/04 for rescue purposes and every night from 7pm- 7 am 5. Remove OGT 6. Pharmacy to start TPN 7. swallow evalutation 08/20 8. progress per speech therapy 9. no reintubation / no cpr 10. If distressed dispite bipap rescue ok to give morphine 3 mg iv push and start morphine drip at 5 mg/hr and titrate for comfort- this order entered as nursing communication per MD so that there is no confusion about morphine order and when morphine is to be given as last result and no improvement on resusitative measures on bipap and pt is in distress. spoke to pt son Garry and at bedside verbalized understanding of plan as they have discussed with Dr Davis via phone prior to my phone conversation. charge nurse Amy MARQUEZ aware of discussion, plan and all orders entered and verified with Amy MARQUEZ. .
[2022-08-19] MEDS ORDERED: DC PROPOFOL WHEN EXTUBATED XX PRN (12:00)
--- NOTE | 2022-08-19 12:25 | NUR ---
SURVEYOR HELPER Dr Deng at bedside talking to pt son Garry and aware of changes in pt plan of care.
--- NOTE | 2022-08-19 12:29 | NUR ---
BATTER MIXER HELPER Per pt son [facility] he spoke to pt primary ID Dr Caro, per pt son he asked mother if she is extubated and starts to go into respiratory distress does she want to be reintubated and per pt son pt wants to be reintubated, Charge nurse Amy RN at bedside confirming pt son request. Dr Maldonado orders for no reintubation , No CPR and morphine drips not entered, Dr Layton informed and made aware of pt son changes in plan of care.
[2022-08-19] MEDS ORDERED: TPN/PPN PER PHARMACY IV PRN (12:30)
--- NOTE | 2022-08-19 13:00 | NUR ---
pt extubated per md order placed on venti-mask 50%. pt able to fallow commands. b/s equal. zero distress noted. rn aware.
--- NOTE | 2022-08-19 13:05 | NUR ---
POWER ELECTRONICS RESEARCH ENGINEER Pt extubated by Anton SOL and placed on venturi mask per Dr Layton orders. pt awake, alert and tolerating well. vitals stable. will continue to monitor. son, and caregiver at bedside.
[2022-08-19] MEDS: DIGOXIN INJ 0.5 MG/2 ML AMPUL IV SCH (13:21)
[2022-08-19 13:28] LABS: EOSINOPHILS % (AUTO) 0.1 % (0.0-6.0); HEMATOCRIT 33 % (33-45); HEMOGLOBIN 10.5 g/dL (11.5-14.8); LYMPHOCYTES # (AUTO) 0.3 K/uL (0.8-4.8); LYMPHOCYTES % (AUTO) 1.4 % (20.0-44.0); MEAN CORPUSCULAR HGB CONC 32 g/dl (31.0-36.0); MEAN CORPUSCULAR VOLUME 94 fL (82-100); MONOCYTES # (AUTO) 0.8 K/uL (0.1-1.30); MONOCYTES % (AUTO) 3.7 % (2.0-12.0); NEUTROPHILS # (AUTO) 19.3 K/uL (1.8-8.9); NEUTROPHILS % (AUTO) 94.8 % (43.0-81.0); PLATELET COUNT (AUTO) 349 K/uL (150-450); RED BLOOD CELL COUNT(AUTO) 3.49 MIL/uL (4.0-5.2); WHITE BLOOD COUNT (AUTO) 20.4 K/uL (4.3-11.0)
[2022-08-19] MEDS ORDERED: PPN BAG #1 IV SCH ×4 (14:00)
[2022-08-19 14:09] LABS: PREALBUMIN 18.7 MG/DL (18.0-35.7)
[2022-08-19 14:14] LABS: ALBUMIN 2.1 g/dL (3.4-5.0); CALCIUM, SERUM 8.6 mg/dL (8.5-10.1); CARBON DIOXIDE 37 mmol/L (21-32); CHLORIDE 101 mmol/L (98-107); CREATININE 0.3 mg/dL (0.6-1.3); GLUCOSE 135 mg/dL (74-106); PHOSPHORUS 3.7 mg/dL (2.5-4.9); SODIUM SERUM 136 mmol/L (136-145); UREA NITROGEN, BLOOD 28 mg/dL (7-18)
--- NOTE | 2022-08-19 15:04 | NUR ---
METAL BONDING ASSEMBLER ABG done , results sent to Dr Layton by Anton SOL
[2022-08-19 15:07] LABS: ABG BASE EXCESS 9.5 mmol/L; ABG OXYGEN SATURATION 95.6 % (92.0-98.5); ABG PCO2 67.7 mmHg (35.0-45.0); ABG PH 7.358 (7.350-7.450); ABG PO2 85.4 mmHg (75.0-100.0); AaDO2 85.5 mmHg; COHb 0.8 % (0.5-1.5); MetHb 0.2 % (0.0-1.5); O2Hb 94.6 % (94.0-97.0); SITE, ABG Right Radial; VENT MODE, BG VENTI-MASK 35%
--- NOTE | 2022-08-19 16:05 | NUR ---
COLD ROLLING MACHINE SETTER Pt bathed and cleaned. linen change done. skin check done, no new wounds noted. wound care and dressing changes done per protocol. pt tolerated well. vitals stable. will continue to monitor.
--- NOTE | 2022-08-19 19:00 | NUR ---
SOCIAL SERVICES DIRECTOR Bedside report given to [facility] nurse Mckeon. Pt on venturi mask tolerating well spo2 96%. pt awake, resting comfortable with caregiver at bedside. all lines traced. all drips verified. pt clean and dry. vitals stable. safety measures in place. no signs of acute distress at this time. All Dr Maldonado orders reviewed and endorsed to [facility] nurse.
--- NOTE | 2022-08-19 19:12 | NUR ---
RT NOTE PT RECEIVED ON VENTURI MASK. PT PLACED ON BIPAP WITH CURRENT SETTINGS OF 25/5, BUR 12, 30%. PT TOLERATING WELL. BIPAP PLUGGED TO RED OUTLET. NO RESPIRATORY DISTRESS NOTED. WILL CONTINUE TO MONITOR CLOSELY.
--- NOTE | 2022-08-19 19:15 | NUR ---
ICU/FILTER ASSEMBLER RECEIVED REPORT FROM DAY NURSE. SEE FLOWSHEET FOR ASSESSMENT. FOR TPN SEE IV SPREAD SHEET. PT HAS MANY WOUND WHICH ARE ADDRESSED ON THE FLOWSHEET ALONG WITH INTERVENTIONS TO EACH. PT WAS TUBED AND REPOSITIONED FOR COMFORT AND CARE.
--- NOTE | 2022-08-19 20:25 | NUR ---
ICU/MEASURING MACHINE TENDER PER PT'S PRIVATE MENDER HAND, SHE SAID PT WAS UNCOMFORTABLE WITH CURRENT BIPAP MASK. CALLED RT TO HAVE THIS CHANGED OUT.
--- NOTE | 2022-08-19 21:40 | NUR ---
ICU/WRAPPER LAYER SPOKE WITH FAMILY AND GAVE SON AN UPDATE. SON ASKED FOR SLEEPER FOR HIS MOTHER. EXPLAINED THAT UNABLE TO DO THIS BECAUSE PT NEEDS TO BE MORE AWAKE TO BREATH RATHER THAN DECREASE HER BREATHING AND PT COULD BE RE INTUBATED. SON THEN SAID HE AGREED WITH THIS.
--- NOTE | 2022-08-19 23:15 | NUR ---
ICU/ELECTRONICS ENGINEERING MANAGER KENNETH ASKED FOR A SLEEPING PILL FOR PT, TOLD HER NO BECAUSE WE WANT HER AWAKE ENOUGH TO BREATH.
[2022-08-20] VITALS (25 sets, daily range): BP systolic 115–188; BP diastolic 54–78
[2022-08-20] MEDS: BLOOD SUGAR DIAGNOSTIC 1 EACH STRIP IN SCH ×4 (00:03→17:29)
--- NOTE | 2022-08-20 00:30 | NUR ---
ICU/PROCESS IMPROVEMENT ENGINEER MIDNIGHT BLOOD SUGAR IS 118, NO COVERAGE FOR THIS. WILL CONTINUE TO MONITOR THIS PT'S SUGAR ORDERED BY
[2022-08-20] MEDS: IPRATROPIUM NEB FS 0.5 MG/2.5 ML AMPUL.NEB NEB SCH ×4 (01:52→19:39)
[2022-08-20] MEDS: ALBUTEROL FS 2.5 MG/3 ML VIAL.NEB NEB SCH ×4 (01:52→19:39)
--- NOTE | 2022-08-20 02:00 | NUR ---
RN NOTE RECEIVED REPORT FROM BIRD. PT HAS 24 HOUR CAREGIVER AT BEDSIDE, PT A/OX3, ON BIPAP, TOLERATING SETTINGS WELL, IV ACCESS KITA MIDLINE, AND DENNIS MIDLINE, CURRENTLY RUNNING TPN @55 ML/HR. LEONARDO CATHETER DRAINING YELLOW URINE. PT HAS MULTIPLE WOUNDS ALL DOCUMENTED IN FLOWSHEET. WILL CONTINUE TO MONITOR THROUGHOUT SHIFT.
[2022-08-20 05:03] LABS: HEMATOCRIT 27 % (33-45); HEMOGLOBIN 8.6 g/dL (11.5-14.8); LYMPHOCYTES # (AUTO) 0.2 K/uL (0.8-4.8); LYMPHOCYTES % (AUTO) 1.9 % (20.0-44.0); MEAN CORPUSCULAR HGB CONC 32 g/dl (31.0-36.0); MEAN CORPUSCULAR VOLUME 94 fL (82-100); MONOCYTES # (AUTO) 0.4 K/uL (0.1-1.30); MONOCYTES % (AUTO) 4.5 % (2.0-12.0); NEUTROPHILS # (AUTO) 8.6 K/uL (1.8-8.9); NEUTROPHILS % (AUTO) 93.6 % (43.0-81.0); PLATELET COUNT (AUTO) 281 K/uL (150-450); RED BLOOD CELL COUNT(AUTO) 2.85 MIL/uL (4.0-5.2); WHITE BLOOD COUNT (AUTO) 9.2 K/uL (4.3-11.0)
[2022-08-20 05:35] LABS: CHOLESTEROL 183 mg/dL (<200); HDL CHOLESTEROL 72 mg/dL (40-60); LDL 97 mg/dL (0-99); TRIGLYCERIDES 58 mg/dL (30-150)
[2022-08-20 05:36] LABS: CALCIUM, SERUM 8.1 mg/dL (8.5-10.1); CARBON DIOXIDE 37 mmol/L (21-32); CHLORIDE 101 mmol/L (98-107); CREATININE 0.2 mg/dL (0.6-1.3); GLUCOSE 127 mg/dL (74-106); MAGNESIUM 2.3 mg/dL (1.8-2.4); PHOSPHORUS 3.5 mg/dL (2.5-4.9); POTASSIUM 4.5 mmol/L (3.5-5.1); SODIUM SERUM 136 mmol/L (136-145); UREA NITROGEN, BLOOD 30 mg/dL (7-18)
[2022-08-20] MEDS: INSULIN REGULAR, HUMAN 100 UNIT/ML 3 ML VIAL SQ PRN (06:00)
--- NOTE | 2022-08-20 06:01 | NUR ---
RN NOTE 0600 BS 102 NO INSULIN COVERAGE
--- NOTE | 2022-08-20 06:50 | NUR ---
RN CLOSING NOTE PT HAS 24 HOUR CAREGIVER AT BEDSIDE, PT A/OX3, ABLE TO MAKE NEEDS KNOWN. ON BIPAP UNTIL 0700, TOLERATING SETTINGS WELL, IV ACCESS KITA MIDLINE, AND DENNIS MIDLINE, CURRENTLY RUNNING TPN @55 ML/HR. LEONARDO CATHETER DRAINING YELLOW URINE OUTPUT WAS 410ML. PT'S MULTIPLE WOUNDS WERE REDRESSED. ALL DUE MEDS GIVEN. WILL ENDORSE TO MORNING SHIFT FOR CONTINUOUS CARE.
--- NOTE | 2022-08-20 07:10 | NUR ---
DAYCARE PROVIDER Bedside report taken from [facility] nurse Mckeon. Pt on bipap, tolerating well. pt opens eyes perrla 2/ sluggish, pt AAOx3 follows commands, moves bue 1/1 and ble 0/1. azul lung sounds diminished. pt npo but on TPN. pt has bowel sounds present. pt has nelson, intact and draining clear yellow urine. pt has multiple wounds noted in bue, ble and buttocs/sacral area, see flowsheet. pt has generalized edema in bue and ble. all lines traced. all drips verified. safety measures in place, body care manager at bedside. vitasl stable. no signs of acute distress at this time. will continue to monitor.
--- NOTE | 2022-08-20 07:20 | NUR ---
CONFIGURATION ANALYST Pt awake, alert and oriented. pt taken off bipap and placed on 2L n/c by Glenn SOL, pt tolerating well. vitals stable. will continue to monitor.
[2022-08-20] MEDS ORDERED: PPN BAG #2 IV SCH ×2 (08:00)
[2022-08-20] MEDS: methylPREDNISolone SOD SUCC 125 MG/2ML VIAL IV SCH ×2 (08:15→17:29)
[2022-08-20] MEDS: THERAHONEY GEL 1.5 OZ TUBE TP SCH (08:18)
[2022-08-20] MEDS: DAKINS QUARTER STRENGTH (0.125%) 480 ML BOTTLE TOP SCH (08:18)
[2022-08-20] MEDS: Z GUARD REMEDY 4 OZ OINT TP SCH (08:18)
[2022-08-20] MEDS: SILVER SULFADIAZINE CREAM 25 GM TUBE TP SCH ×2 (08:18→17:29)
[2022-08-20] MEDS: ENOXAPARIN SODIUM 40 MG/0.4 ML DISP.SYRIN SQ SCH (09:05)
--- NOTE | 2022-08-20 10:11 | NUR ---
CLINICAL ORTHOPTIST Emmanuel RUBBER WASHER messaged and made aware that pt has stomach pain and pt has tylenol ordered but is npo, awaiting for response and or new orders.
--- NOTE | 2022-08-20 10:51 | NUR ---
DBA MANAGER Emmanuel RADIAGRAPH OPERATOR messaged for second time and made aware that pt has stomach pain and pt has tylenol ordered but is npo, awaiting for response and or new orders.
--- NOTE | 2022-08-20 10:57 | NUR ---
VASCULAR ULTRASOUND TECHNOLOGIST protonix iv push daily entered per Emmanuel OUTBOARD MOTOR INSPECTOR give first dose now.
[2022-08-20] MEDS: PANTOPRAZOLE 40 MG VIAL IV SCH (11:26)
--- NOTE | 2022-08-20 13:10 | NUR ---
FAMILY CONSUMER SCIENTIST Dr Deng at bedside assessing pt and updated on pt status. md talking to pt and updating on pt condition. aware that pt anxious. Glenn OSL at bedside doing breathing treatment at this time. pt tolerating well. spo2 100%, No new orders at this time.
[2022-08-20] MEDS: DIGOXIN INJ 0.5 MG/2 ML AMPUL IV SCH (13:18)
--- NOTE | 2022-08-20 13:44 | NUR ---
RT PATIENT BECAME ANXIOUS WHEN ARRIVED CAUSING HER MILD DISTRESS. PLACED BACK ON BIPAP TO SUPPORT HER BREATHING UNTIL THE CAUSE OF THE ANXIETY RESOLVES ITSELF. Addendum: 08/20/22 at 1346 by LANA CARDOZO RT Amended: Links added.
--- NOTE | 2022-08-20 17:34 | NUR ---
ESCROW MANAGER Pt bathed and cleaned. linen change done. skin check done no new wounds noted. wound care done per protocol and md orders. pt awake, alert and tolerating well. vitals stable. safety measures in place. no signs of acute distress at this time. pt son at bedside. RT called to bedside to answer sons questions regarding bipap machine, RT to be at bedside shortly.
--- NOTE | 2022-08-20 19:00 | NUR ---
WATER CHEMIST Bedside report given to [facility] nurse Mckeon. pt awake, alert and resting comfortable in bed. pt on bipap, tolerating well. all lines traced. all drips verified. pt clean and dry. safety measures in place. vitals stable. no signs of acute distress at this time. personal career manager at bedside.
--- NOTE | 2022-08-20 19:45 | NUR ---
ICU/SHADE CLOTH FINISHER RECEIVED REPORT FROM DAY NURSE. SEE FLOWSHEET FOR ASSESSMENT. FOR TPN SEE IV SPREAD SHEET. PT HAS MANY WOUND WHICH ARE ADDRESSED ON THE FLOWSHEET ALONG WITH INTERVENTIONS TO EACH. PT WAS TUBED AND REPOSITIONED FOR COMFORT AND CARE. WILL CONTINUE TO MONITOR THIS PT.
[2022-08-21] VITALS (24 sets, daily range): BP systolic 103–163; BP diastolic 38–73
[2022-08-21] MEDS: BLOOD SUGAR DIAGNOSTIC 1 EACH STRIP IN SCH ×4 (00:42→18:14)
[2022-08-21] MEDS: ALBUTEROL FS 2.5 MG/3 ML VIAL.NEB NEB SCH ×4 (01:29→19:34)
[2022-08-21] MEDS: IPRATROPIUM NEB FS 0.5 MG/2.5 ML AMPUL.NEB NEB SCH ×4 (01:29→19:34)
[2022-08-21] MEDS ORDERED: PPN BAG #3 IV SCH ×2 (02:00)
[2022-08-21 04:42] LABS: BASOPHILS % (AUTO) 0.2 % (0.0-2.0); EOSINOPHILS % (AUTO) 0.1 % (0.0-6.0); HEMATOCRIT 32 % (33-45); HEMOGLOBIN 10.5 g/dL (11.5-14.8); LYMPHOCYTES # (AUTO) 0.2 K/uL (0.8-4.8); LYMPHOCYTES % (AUTO) 1.9 % (20.0-44.0); MEAN CORPUSCULAR HGB CONC 33 g/dl (31.0-36.0); MEAN CORPUSCULAR VOLUME 95 fL (82-100); MONOCYTES # (AUTO) 0.4 K/uL (0.1-1.30); MONOCYTES % (AUTO) 4.6 % (2.0-12.0); NEUTROPHILS # (AUTO) 8.7 K/uL (1.8-8.9); NEUTROPHILS % (AUTO) 93.2 % (43.0-81.0); PLATELET COUNT (AUTO) 266 K/uL (150-450); RED BLOOD CELL COUNT(AUTO) 3.36 MIL/uL (4.0-5.2); WHITE BLOOD COUNT (AUTO) 9.3 K/uL (4.3-11.0)
[2022-08-21 05:03] LABS: CALCIUM, SERUM 8.5 mg/dL (8.5-10.1); CARBON DIOXIDE 35 mmol/L (21-32); CHLORIDE 100 mmol/L (98-107); CREATININE 0.3 mg/dL (0.6-1.3); GLUCOSE 133 mg/dL (74-106); MAGNESIUM 2.4 mg/dL (1.8-2.4); PHOSPHORUS 4.2 mg/dL (2.5-4.9); POTASSIUM 4.7 mmol/L (3.5-5.1); SODIUM SERUM 134 mmol/L (136-145); UREA NITROGEN, BLOOD 31 mg/dL (7-18)
--- NOTE | 2022-08-21 06:49 | NUR ---
ICU/FINANCIAL ADMINISTRATIVE ASSISTANT PT REMAINED ON BIPAP AND TOLERATED THE SETTINGS WELL. PT APPEARS TO HAVE FALLEN ASLEEP TONIGHT FINALLY, AFTER MANY NIGHTS BEING AWAKE. NO ACUTE DISTRESS SEEN AT THIS TIME.
--- NOTE | 2022-08-21 07:05 | NUR ---
MARKETING TECHNOLOGIST Bedside report taken from [facility] nurse Mckeon. Pt on bipap, tolerating well. pt opens eyes perrla 2/ sluggish, pt AAOx3 follows commands, moves bue 1/1 and ble 0/1. azul lung sounds diminished. pt npo but on TPN. pt has bowel sounds present. pt has nelson, intact and draining clear yellow urine. pt has multiple wounds noted in bue, ble and buttocs/sacral area, see flowsheet. pt has generalized edema in bue and ble. all lines traced. all drips verified. safety measures in place, career education teacher at bedside. vitasl stable. no signs of acute distress at this time. will continue to monitor.
[2022-08-21] MEDS: PANTOPRAZOLE 40 MG VIAL IV SCH (08:30)
[2022-08-21] MEDS: Z GUARD REMEDY 4 OZ OINT TP SCH (08:30)
[2022-08-21] MEDS: methylPREDNISolone SOD SUCC 125 MG/2ML VIAL IV SCH ×2 (08:30→16:41)
[2022-08-21] MEDS: SILVER SULFADIAZINE CREAM 25 GM TUBE TP SCH ×2 (08:30→16:41)
--- NOTE | 2022-08-21 08:30 | NUR ---
ENGRAVER COPPERPLATE Speech therapy at bedside working with pt. pt awake, alert, oriented and cooperative. pt tolerating well. no visible signs of aspiration noted. will continue to monitor.
[2022-08-21] MEDS: DAKINS QUARTER STRENGTH (0.125%) 480 ML BOTTLE TOP SCH (08:31)
--- NOTE | 2022-08-21 08:52 | NUR ---
IRON INSTALLER Dr Cruz at bedside assessing pt and updated on pt status. md aware pt completed swallow eval and recommendations are puree with honey thick liquid diet. md also aware that pt hr 45-55 , ok per md. md aware that pt has digoxin scheduled at 1pm, digoxin order discontinued per md . no other orders at this time.
[2022-08-21] MEDS: THERAHONEY GEL 1.5 OZ TUBE TP SCH (10:52)
[2022-08-21] MEDS: ENOXAPARIN SODIUM 40 MG/0.4 ML DISP.SYRIN SQ SCH (10:52)
--- NOTE | 2022-08-21 13:10 | NUR ---
CORRECTIVE THERAPY AIDE Pt sitting up in bed, rehab care assistant feeding pt lunch tray. pt tolerating well. no visible signs of aspiration noted. vitals stable. will continue to monitor.
[2022-08-21] MEDS: ETHAMBUTOL HCL (400 MG) 400 MG TABLET PO SCH (14:12)
[2022-08-21] MEDS ORDERED: TPN BAG #4 IV SCH ×4 (16:00)
--- NOTE | 2022-08-21 17:45 | NUR ---
TEMPLATE WORKER Pt bathed and cleaned. linen change done. skin check done , no new wounds noted. wounds care and dressing changes done per protocol. pt tolerated well. vitals stable. will continue to monitor.
[2022-08-21] MEDS: ACETAMINOPHEN 650 MG/20.3 ML UDC NG PRN (18:11)
--- NOTE | 2022-08-21 18:27 | NUR ---
BODY FINISHER Pt sitting up in bed, director career services feeding pt dinner tray. pt tolerating well. no visible signs of aspiration noted. vitals stable. will continue to monitor.
--- NOTE | 2022-08-21 19:10 | NUR ---
BUILDING EQUIPMENT INSPECTOR Bedside report given to [facility] nurse Jessica MARQUEZ. pt asleep, easily arousable. pt on 2 L n/c tolerating well. all lines traced. all drips verified. pt clean and dry. safety measures in place. no signs of acute distress at this time. caregiver at bedside.
--- NOTE | 2022-08-21 19:40 | NUR ---
DAMPENER OPERATOR OPENING NOTES: RECEIVED PT IN BED, AWAKE, A/O X2-3 AND RESPONSIVE TO PAINFUL STIMULI. ON O2 AT 2L/MIN VIA N/C AND PT TOLERATED WELL. O2 SAT 100%. WILL HAVE NOCTURNAL BIPAP. IV ACCESS ON KITA MID LINE AND DENNIS MIDLINE INTACT AND PATENT. RUNNING TPN 80CC/HR. PT TOLERATED WELL. NO FACIAL GRIMACING NOTED. NO ACUTE DISTRESS. LEONARDO CATHETER IN PLACE. DRAINING BY GRAVITY.ALL SAFETY MEASURES IN PLACE. BED IN LOWEST POSITION AND LOCKED. SIDE RAILS UP X3, PLACE CALL LIGHT WITH IN REACH. WILL CONTINUE TO MONITOR.
[2022-08-22] VITALS (27 sets, daily range): BP systolic 111–211; BP diastolic 41–74
[2022-08-22] MEDS: BLOOD SUGAR DIAGNOSTIC 1 EACH STRIP IN SCH ×5 (00:13→23:31)
[2022-08-22] MEDS: INSULIN REGULAR, HUMAN 100 UNIT/ML 3 ML VIAL SQ PRN ×4 (00:14→23:32)
--- NOTE | 2022-08-22 00:14 | NUR ---
RN NOTES: PT'S BLOOD SUGAR 114. NO COVERAGE NEEDED. NO S/S OF HYPER/HYPOGLYCEMIA. WILL CONTINUE TO MONITOR
[2022-08-22] MEDS: IPRATROPIUM NEB FS 0.5 MG/2.5 ML AMPUL.NEB NEB SCH ×4 (00:57→19:44)
[2022-08-22] MEDS: ALBUTEROL FS 2.5 MG/3 ML VIAL.NEB NEB SCH ×4 (00:57→19:44)
[2022-08-22] MEDS: ACETAMINOPHEN 650 MG/20.3 ML UDC NG PRN (04:18)
--- NOTE | 2022-08-22 04:27 | NUR ---
RN NOTES: NOTED PT WITH FACIAL GRIMACING WHILE GIVING HER BED BATH. TYLENOL 650 MG/20.3 ML GIVEN AND PT TOLERATED WELL. WILL CONTINUE TO MONITOR
--- NOTE | 2022-08-22 05:55 | NUR ---
RN NOTES: PT'S BLOOD SUGAR 98. NO COVERAGE NEEDED. NO S/S OF HYPER/HYPOGLYCEMIA. WILL CONTINUE TO MONITOR
[2022-08-22 06:12] LABS: ABG BASE EXCESS 7.4 mmol/L; ABG OXYGEN SATURATION 96.1 % (92.0-98.5); ABG PCO2 63.7 mmHg (35.0-45.0); ABG PH 7.355 (7.350-7.450); ABG PO2 88.4 mmHg (75.0-100.0); AaDO2 50.7 mmHg; COHb 0.6 % (0.5-1.5); MetHb 0.2 % (0.0-1.5); O2Hb 95.3 % (94.0-97.0); SITE, ABG Right Radial; VENT MODE, BG S/T 12 15/5 30%
--- NOTE | 2022-08-22 06:33 | NUR ---
ELECTRIC TRACK SWITCH MAINTAINER CLOSING NOTES: PT IN BED, AWAKE, A/O X2-3 AND RESPONSIVE TO PAINFUL STIMULI. ON NOCTURNAL BIPAP ON AND PT TOLERATED WELL. O2 SAT 97%. IV ACCESS ON KITA MID LINE AND DENNIS MIDLINE INTACT AND PATENT. RUNNING TPN 80CC/HR. PT TOLERATED WELL. NO FACIAL GRIMACING NOTED. NO ACUTE DISTRESS. LEONARDO CATHETER IN PLACE. DRAINING BY GRAVITY. ALL WOUND CARE DONE. ALL SAFETY MEASURES IN PLACE. BED IN LOWEST POSITION AND LOCKED. SIDE RAILS UP X3, PLACE CALL LIGHT WITH IN REACH. WILL ENDORSE TO MORNING SHIFT NURSE.
[2022-08-22 06:34] LABS: MAGNESIUM 2.4 mg/dL (1.8-2.4); PHOSPHORUS 3.3 mg/dL (2.5-4.9)
--- NOTE | 2022-08-22 06:37 | NUR ---
RN NOTES: SUPERVISOR FIBERGLASS BOAT ASSEMBLY AT BEDSIDE. STAYED OVER NIGHT.
--- NOTE | 2022-08-22 07:30 | NUR ---
RN NOTES PT FOUND SEMI FOWLERS DISPLAYING NO S/S OF DISTRESS, PT ENDORSES NO PAIN AND IS BREATHING EVEN AND UNLABORED ON 2L O2 NC. NOCTURNAL BIPAP RECENTLY REMOVED BY RT. CAREGIVER, LIUDMILA, AT BEDSIDE, PT PLACED AT HIGH FOWLERS AND SUPPLIED THICKENING AGENTS FOR PUREE DIET. L UA ML AND R UA ML ARE PATIENT AND INTACT. TPN INFUSION ONGOING. LEONARDO CATHETER RESERVOIR BELOW PATIENT DRAINING BY GRAVITY. RN WILL CONTINUE CARE PLAN AND ANTICIPATE NEEDS. SAFETY MEASURES IN PLACE, BED LOCKED AND IN LOWEST POSITION, SIDE RAILS UPX2, CALL LIGHT WITHIN REACH, BED ALARM ARMED, CAREGIVER AT BEDSIDE.
[2022-08-22] MEDS: hydrALAZINE HCL IV 20 MG VIAL IV PRN (07:57)
[2022-08-22] MEDS: LORAZEPAM 1 MG TABLET PO PRN (08:14)
--- NOTE | 2022-08-22 08:15 | NUR ---
RN NOTE RT CALLED, STATED WILL BE THERE SHORTLY.
[2022-08-22 08:22] LABS: CALCIUM, SERUM 8.3 mg/dL (8.5-10.1); CARBON DIOXIDE 28 mmol/L (21-32); CHLORIDE 99 mmol/L (98-107); CREATININE 0.3 mg/dL (0.6-1.3); GLUCOSE 117 mg/dL (74-106); POTASSIUM 4.6 mmol/L (3.5-5.1); SODIUM SERUM 133 mmol/L (136-145); UREA NITROGEN, BLOOD 29 mg/dL (7-18)
[2022-08-22] MEDS: PANTOPRAZOLE 40 MG VIAL IV SCH (08:28)
[2022-08-22] MEDS: DAKINS QUARTER STRENGTH (0.125%) 480 ML BOTTLE TOP SCH (08:29)
[2022-08-22] MEDS: methylPREDNISolone SOD SUCC 125 MG/2ML VIAL IV SCH ×2 (08:29→17:06)
[2022-08-22] MEDS: THERAHONEY GEL 1.5 OZ TUBE TP SCH (08:30)
[2022-08-22] MEDS: SILVER SULFADIAZINE CREAM 25 GM TUBE TP SCH ×2 (08:30→17:07)
[2022-08-22] MEDS: Z GUARD REMEDY 4 OZ OINT TP SCH (08:31)
--- NOTE | 2022-08-22 09:40 | NUR ---
MD COMMUNICATION RN SPOKE TO DR OLEARY MD WAS PERFORMING ASSESSMENT. MD GAVE ORDERS: TITRATE O2 NC TO 88-92% SPO2, CHANGE DOSE OF PRN ATIVAN FROM 1 MG PO TO 0.25 MG. RN ACKNOWLEDGED AND WILL EXECUTE ORDERS.
[2022-08-22] MEDS ORDERED: LORAZEPAM 0.5 MG TABLET PO PRN (10:00)
[2022-08-22] MEDS: ENOXAPARIN SODIUM 40 MG/0.4 ML DISP.SYRIN SQ SCH (10:02)
[2022-08-22] MEDS ORDERED: TPN BAG #5 IV SCH ×2 (16:00)
--- NOTE | 2022-08-22 19:15 | NUR ---
RN NOTES PT FOUND SEMI FOWLERS DISPLAYING NO S/S OF DISTRESS, PT ENDORSES NO PAIN AND IS BREATHING EVEN AND UNLABORED ON 2L O2 NC. L UA ML AND R UA ML ARE PATIENT AND INTACT. TPN INFUSION ONGOING. LEONARDO CATHETER RESERVOIR BELOW PATIENT DRAINING BY GRAVITY. SBAR AND REPORT GIVEN TO SKATESMAN RN, ALL QUESTIONS ANSWERED. SAFETY MEASURES IN PLACE, BED LOCKED AND IN LOWEST POSITION, SIDE RAILS UPX2, CALL LIGHT WITHIN REACH, BED ALARM ARMED, CAREGIVER AT BEDSIDE. PT ENDORSED IN STABLE CONDITION FOR JULIA.
--- NOTE | 2022-08-22 19:25 | NUR ---
FINISH OPENER NOTE, RECEIVED PATIENT IN THE BED AWAKE ORIENTED TO SELF, ON 2LPM VIA NC, WITH O2 WNL, BIPAP AT NIGHT, RT TO PLACE PATIENT SOON ON BIPAP, NORMAL SINUS RHYTHM WITH HR 70S-80S, DENNIS AND LEFT UA MIDLINES IN PLACED, BOTH PATENT AND INTACT, CAREGIVER AT BEDSIDE, BED LOCKED AND LOWEST POSITION, ALL SAFETY MEASURES IMPLEMENTED, WILL CONTINUE TO MONITOR CLOSELY.
[2022-08-23] VITALS (44 sets, daily range): BP systolic 129–177; BP diastolic 50–90
--- NOTE | 2022-08-23 | NUR ---
RN NOTES: BLOOD SUGAR 116 AT THIS TIME, NO COVERAGE PER SLIDING SCALE, WILL CONTINUE TO MONITOR.
[2022-08-23] MEDS: IPRATROPIUM NEB FS 0.5 MG/2.5 ML AMPUL.NEB NEB SCH ×4 (01:54→19:32)
[2022-08-23] MEDS: ALBUTEROL FS 2.5 MG/3 ML VIAL.NEB NEB SCH ×4 (01:54→19:32)
[2022-08-23 04:43] LABS: CALCIUM, SERUM 9.1 mg/dL (8.5-10.1); CARBON DIOXIDE 38 mmol/L (21-32); CHLORIDE 97 mmol/L (98-107); CREATININE 0.3 mg/dL (0.6-1.3); GLUCOSE 127 mg/dL (74-106); MAGNESIUM 2.2 mg/dL (1.8-2.4); PHOSPHORUS 2.9 mg/dL (2.5-4.9); SODIUM SERUM 133 mmol/L (136-145); UREA NITROGEN, BLOOD 38 mg/dL (7-18)
[2022-08-23] MEDS: BLOOD SUGAR DIAGNOSTIC 1 EACH STRIP IN SCH ×4 (06:01→23:31)
[2022-08-23] MEDS: INSULIN REGULAR, HUMAN 100 UNIT/ML 3 ML VIAL SQ PRN (06:02)
--- NOTE | 2022-08-23 06:37 | NUR ---
METHANE GAS COLLECTION SYSTEM OPERATOR NOTE, PATIENT IN THE BED ASLEEP AT THIS TIME, AROUSES TO VERBAL STIMULI, CONTINUE ON NOCTURNAL BIPAP, NORMAL SINUS RHYTHM WITH HR 50S-80S, DENNIS AND LEFT UA MIDLINES IN PLACED, BOTH PATENT AND INTACT, CONTINUE ON TPN AT 80ML/H, PATIENT TOLERATED WELL, WOUND TREATMENT DONE, PATIENT WEEPING FROM BUE, NO SIGNIFICANT CHANGE IN CONDITION DURING THE NIGHT, VITAL SINGS STABLE, , NO INSULIN ADMINISTERED PER SLIDING COVERAGE, THIS MORNING BLOOD SUGAR 97MG/DL, BED LOCKED AND LOWEST POSITION, ALL SAFETY MEASURES IMPLEMENTED, WILL ENDORSE CONTINUITY OF CARE TO ONCOMING NURSE.
--- NOTE | 2022-08-23 08:17 | NUR ---
PT. IS AWAKE AND ALERT PLACED INTO NASAL CANNULA @ 0.5 LPM O2 FLOW ORDER DURING THE DAY. RN NOTIFIED. Addendum: 08/23/22 at 0819 by GIOVANNI TRISTAN RT Amended: Links added.
[2022-08-23] MEDS: PANTOPRAZOLE 40 MG VIAL IV SCH (08:32)
[2022-08-23] MEDS: ACETAMINOPHEN 650 MG/20.3 ML UDC NG PRN (08:32)
[2022-08-23] MEDS: methylPREDNISolone SOD SUCC 125 MG/2ML VIAL IV SCH (08:32)
[2022-08-23] MEDS: THERAHONEY GEL 1.5 OZ TUBE TP SCH (08:48)
[2022-08-23] MEDS: DAKINS QUARTER STRENGTH (0.125%) 480 ML BOTTLE TOP SCH (08:48)
[2022-08-23] MEDS: SILVER SULFADIAZINE CREAM 25 GM TUBE TP SCH ×2 (08:49→16:32)
[2022-08-23] MEDS: Z GUARD REMEDY 4 OZ OINT TP SCH (08:53)
[2022-08-23] MEDS: ENOXAPARIN SODIUM 40 MG/0.4 ML DISP.SYRIN SQ SCH (10:31)
[2022-08-23] MEDS: hydrALAZINE HCL IV 20 MG VIAL IV PRN (12:40)
[2022-08-23] MEDS: ETHAMBUTOL HCL (400 MG) 400 MG TABLET PO SCH (14:48)
[2022-08-23] MEDS ORDERED: TPN BAG #6 IV SCH ×4 (16:00)
--- NOTE | 2022-08-23 20:00 | NUR ---
RN NOTE RECEIVED PT AWAKE ALERT, CAREGIVER AT BEDSIDE. PT DENIES ANY PAIN OR SOB AT THIS TIME. O2 AT 1.5L VIA NC SATING AT 90-91%. ON TPN AT 80ML/HR, INFUSING WELL. WOUND DRESSINGS INTACT, LEONARDO CATH IN PLACE. WILL CONTINUE TO MONITOR.
--- NOTE | 2022-08-23 21:10 | NUR ---
RN NOTE PT PLACED ON NOCTURNAL BIPAP BY RT, TOLERATING, NO DISTRESS NOTED. WILL CONTINUE TO MONITOR.
--- NOTE | 2022-08-23 21:18 | NUR ---
PT PLACED ON NOC BIPAP. CONTINUE TO MONITOR.
[2022-08-24] VITALS (35 sets, daily range): BP systolic 117–157; BP diastolic 43–67
[2022-08-24] MEDS: IPRATROPIUM NEB FS 0.5 MG/2.5 ML AMPUL.NEB NEB SCH ×4 (01:22→19:28)
[2022-08-24] MEDS: ALBUTEROL FS 2.5 MG/3 ML VIAL.NEB NEB SCH ×4 (01:23→19:27)
[2022-08-24 04:53] LABS: CALCIUM, SERUM 8.5 mg/dL (8.5-10.1); CARBON DIOXIDE 37 mmol/L (21-32); CHLORIDE 98 mmol/L (98-107); CREATININE 0.3 mg/dL (0.6-1.3); GLUCOSE 106 mg/dL (74-106); PHOSPHORUS 2.3 mg/dL (2.5-4.9); POTASSIUM 3.6 mmol/L (3.5-5.1); SODIUM SERUM 133 mmol/L (136-145); UREA NITROGEN, BLOOD 38 mg/dL (7-18)
[2022-08-24] MEDS: BLOOD SUGAR DIAGNOSTIC 1 EACH STRIP IN SCH ×4 (06:05→23:44)
--- NOTE | 2022-08-24 06:57 | NUR ---
RN NOTE PT CONTINUE ON BIPAP, TOLERATING. PT AWAKE, NO SIGNS OF DISTRESS, DENIES ANY PAIN OR SOB AT THIS TIME. CONTINUE ON TPN AT 80ML/HR, NO S/SX OF INFILTRATION NOTED. WOUND TX DONE ORDERED. TURNED AND REPOSITIONED. WILL ENDORSE TO NEXT SHIFT NURSE FOR JULIA.
--- NOTE | 2022-08-24 07:36 | NUR ---
PT. IS AWAKE AND ALERT PLACED INTO NASAL CANNULA @ 1 LPM O2 FLOW. BIPAP ON STAND BY @ BEDSIDE. Addendum: 08/24/22 at 0737 by GIOVANNI TRISTAN RT Amended: Links added.
--- NOTE | 2022-08-24 07:40 | NUR ---
RN NOTE PT RECEIVED IN BED, WITH NOCTURNAL BIPAP IN PLACE, NOT IN RESPI DISTRESS. WITH O2 SAT OF 99. PT VERBALLY RESPONSIVE TO STIMULI. LEONARDO CATH IN PLACE DRAINING WELL. PT WITH KITA AND DENNIS MIDLINE WITH TPN RUNNING AT 80CC/HR. SAFETY MEASURES FOLLOWED. WILL CONTINUE TO MONITOR.
[2022-08-24] MEDS: PANTOPRAZOLE 40 MG VIAL IV SCH (08:06)
[2022-08-24] MEDS: methylPREDNISolone SOD SUCC 40 MG/ML VIAL IV SCH (08:07)
--- NOTE | 2022-08-24 10:44 | NUR ---
RN NOTE COVID 19 ANTIGEN SPECIMEN COLLECTED AND SENT TO LAB.
[2022-08-24] MEDS: ENOXAPARIN SODIUM 40 MG/0.4 ML DISP.SYRIN SQ SCH (11:24)
[2022-08-24] MEDS: THERAHONEY GEL 1.5 OZ TUBE TP SCH (11:29)
[2022-08-24] MEDS: DAKINS QUARTER STRENGTH (0.125%) 480 ML BOTTLE TOP SCH (11:29)
[2022-08-24] MEDS: Z GUARD REMEDY 4 OZ OINT TP SCH (11:31)
--- NOTE | 2022-08-24 12:46 | NUR ---
pt requested to go back to [facility]. @ bedside Addendum: 08/24/22 at 1247 by GIOVANNI TRISTAN RT Amended: Links added.
[2022-08-24] MEDS ORDERED: Sodium Phosphate 15 MMOL in IV NS 0.9% 245 ML IV SCH (14:00)
[2022-08-24] MEDS: SILVER SULFADIAZINE CREAM 25 GM TUBE TP SCH ×2 (15:37→17:06)
[2022-08-24] MEDS ORDERED: TPN BAG #7 IV SCH ×4 (16:00)
[2022-08-24] MEDS ORDERED: IPRATROPIUM NEB FS 0.5 MG/2.5 ML AMPUL.NEB NEB PRN (18:00)
--- NOTE | 2022-08-24 19:39 | NUR ---
RN NOTE PT RESTINGIN BED,ON NOCTURNAL BIPAP IN PLACE, NOT IN RESPI DISTRESS. WITH O2 SAT OF 95. PT VERBALLY RESPONSIVE TO STIMULI. LEONARDO CATH IN PLACE DRAINING WELL. PT WITH KITA AND DENNIS MIDLINE WITH TPN RUNNING AT 80CC/HR. SAFETY MEASURES FOLLOWED. WILL CONTINUE TO MONITOR. DUE MEDICATIONS GIVEN. AM/PM CARE DONE.
--- NOTE | 2022-08-24 20:57 | NUR ---
FIO2 INCREASED TO 35% DUE TO SPO2 84%-85%.
--- NOTE | 2022-08-24 21:00 | NUR ---
RN NOTE RECEIVED PT ON BIPAP FIO2 AT 30%. O2SAT WAS 84%-85%, PT RESPONDS TO STIMULI, DENIES SOB. NO DISTRESS NOTED, RT INCREASED FIO2 TO 35%. ALSO NOTED WITH TEMP 95.9, PLACED CHARBEL WHIPPLE, HEMA AT BEDSIDE. TPN AT 80ML/HR WITH ORDER TO TAPER OFF. WILL CONTINUE TO MONITOR.
[2022-08-25] VITALS (32 sets, daily range): BP systolic 100–139; BP diastolic 44–64
[2022-08-25] MEDS: IPRATROPIUM NEB FS 0.5 MG/2.5 ML AMPUL.NEB NEB SCH ×4 (01:26→19:39)
[2022-08-25] MEDS: ALBUTEROL FS 2.5 MG/3 ML VIAL.NEB NEB SCH ×4 (01:26→19:39)
[2022-08-25 04:40] LABS: CALCIUM, SERUM 8.3 mg/dL (8.5-10.1); CARBON DIOXIDE 34 mmol/L (21-32); CHLORIDE 96 mmol/L (98-107); CREATININE 0.2 mg/dL (0.6-1.3); GLUCOSE 97 mg/dL (74-106); MAGNESIUM 1.9 mg/dL (1.8-2.4); PHOSPHORUS 2.9 mg/dL (2.5-4.9); POTASSIUM 3.4 mmol/L (3.5-5.1); SODIUM SERUM 131 mmol/L (136-145); UREA NITROGEN, BLOOD 44 mg/dL (7-18)
[2022-08-25] MEDS: BLOOD SUGAR DIAGNOSTIC 1 EACH STRIP IN SCH ×3 (05:51→17:28)
--- NOTE | 2022-08-25 06:57 | NUR ---
RN NOTE RT TITRATED FIO2 BACK TO 30% AT AROUND 0130. PT TOLERATING, O2 SAT AT97-99%. NO SIGNS OF DISTRESS. TPN OFF AT 0530, BS 93. REMAIN AFEBRILE. WILL ENDORSE TO NEXT SHIFT NURSE FOR JULIA.
--- NOTE | 2022-08-25 07:15 | NUR ---
RN OPENING NOTE PT RECEIVED IN BED ASLEEP BUT EASILY AROUSABLE. WITH NOCTURNAL BIPAP IN PLACE, NOT IN RESPI DISTRESS. WITH O2 SAT OF 97%. LEONARDO CATH IN PLACE AND DRAINING WELL TO A CLEAR YELLOW COLORED URINE. WITH KITA AND DENNIS MIDLINE INTACT AND PATENT. ALL HOSPITAL SAFETY MEASURES IN PLACE. BED IS LOCKED IN LOWEST POSITION, 3 SIDE RAILS UP, CALL LIGHT WITHIN REACH. WILL CONTINUE TO MONITOR THROUGHOUT SHIFT.
--- NOTE | 2022-08-25 08:00 | NUR ---
RN NOTE PATIENT OFF BIPAP, BUT O2 SATURATION WENT DOWN TO 40S. PLACED BACK ON BIPAP, O2 SAT NOW AT 93%. WILL CONTINUE TO MONITOR.
[2022-08-25] MEDS: methylPREDNISolone SOD SUCC 40 MG/ML VIAL IV SCH (08:48)
[2022-08-25] MEDS: PANTOPRAZOLE 40 MG/PACK PACK NG SCH ×2 (09:00→10:20)
[2022-08-25] MEDS: THERAHONEY GEL 1.5 OZ TUBE TP SCH (09:07)
[2022-08-25] MEDS: SILVER SULFADIAZINE CREAM 25 GM TUBE TP SCH ×2 (09:08→16:53)
[2022-08-25] MEDS: Z GUARD REMEDY 4 OZ OINT TP PRN (09:50)
[2022-08-25] MEDS: DAKINS QUARTER STRENGTH (0.125%) 480 ML BOTTLE TOP SCH (09:50)
[2022-08-25] MEDS: Z GUARD REMEDY 4 OZ OINT TP SCH (09:51)
[2022-08-25] MEDS: POTASSIUM CHLORIDE 20 MEQ POWDER PACKET NG SCH ×2 (10:00→10:20)
[2022-08-25] MEDS: ENOXAPARIN SODIUM 40 MG/0.4 ML DISP.SYRIN SQ SCH (10:22)
[2022-08-25] MEDS: METOPROLOL TARTRATE 25 MG TABLET PO SCH ×2 (10:30→20:46)
--- NOTE | 2022-08-25 10:53 | NUR ---
RN NOTE PATIENT TOO WEAK TO SWALLOW AND UNABLE TO TAKE PO MEDS. DR. VEGAS MADE AWARE. AWAITING NEW ORDERS FROM MD.WILL CONTINUE TO MONITOR. Addendum: 08/25/22 at 1054 by LUIS ANTONIO JETT RN OPENED MEDS DISCARDED PER PROTOCOL
--- NOTE | 2022-08-25 11:00 | NUR ---
RN NOTE INFORMED DR VEGAS THAT DUE MEDS INCLUDING KLOR-CON POWDER WAS NOT GIVEN DUE TO PATIENT TOO WEAK TO TAKE ORAL MEDS AND PATIENT CURRENTLY ON BIPAP. PER HOLD PO MEDS FOR NOW.
--- NOTE | 2022-08-25 12:30 | NUR ---
RT pt off bipap for trial. placed on 2LNC
--- NOTE | 2022-08-25 14:27 | NUR ---
RT placed pt back on bipap due to increased wob. abg will not be done for pt is back on bipap
[2022-08-25] MEDS: ETHAMBUTOL HCL (400 MG) 400 MG TABLET PO SCH (14:30)
--- NOTE | 2022-08-25 14:52 | NUR ---
RN NOTE DUE ETHAMBUTOL NOT GIVEN DUE TO PATIENT TOO WEAK FOR ORAL INTAKE. PATIENT STILL ON BIPAP. WILL CONTINUE TO MONITOR.
[2022-08-25] MEDS ORDERED: IV 10% DEXTROSE 1,000 ML IV PRN (15:30)
[2022-08-25] MEDS: Sodium Chloride 154 MEQ in IV 10% DEXTROSE 1,000 ML IV SCH (16:43)
--- NOTE | 2022-08-25 19:00 | NUR ---
RN CLOSING NOTE PATIENT REMAINS ON BIPAP, O2 SATURATION AT 99%. IV LINE REMAINS INTACT AND PATENT INFUSING WITH D10NS AT 80 CC/HR. LEONARDO CATHETER REMAINS INTACT DRAINING TO A CLEAR YELLOW URINE. ALL HOSPITAL SAFETY MEASURES IN PLACE. WILL ENDORSE TO CARGO AGENT NURSE.
--- NOTE | 2022-08-25 20:46 | NUR ---
ICU/SERVICE TECH PT IS NPO AT THIS TIME DUE TO THE FACT PT IS CURRENTLY ON BIPAP AND PT APPEARS TO BE LETHARGIC. WILL CONTINUE TO MONITOR THIS PT.
[2022-08-26] VITALS (26 sets, daily range): BP systolic 112–166; BP diastolic 40–69
[2022-08-26] MEDS: BLOOD SUGAR DIAGNOSTIC 1 EACH STRIP IN SCH ×4 (00:35→17:40)
[2022-08-26] MEDS: IPRATROPIUM NEB FS 0.5 MG/2.5 ML AMPUL.NEB NEB SCH ×4 (00:59→19:42)
[2022-08-26] MEDS: ALBUTEROL FS 2.5 MG/3 ML VIAL.NEB NEB SCH ×4 (00:59→19:42)
[2022-08-26] MEDS: Sodium Chloride 154 MEQ in IV 10% DEXTROSE 1,000 ML IV SCH ×2 (05:18→17:40)
[2022-08-26 05:53] LABS: CALCIUM, SERUM 8.3 mg/dL (8.5-10.1); CARBON DIOXIDE 37 mmol/L (21-32); CHLORIDE 102 mmol/L (98-107); CREATININE 0.3 mg/dL (0.6-1.3); GLUCOSE 152 mg/dL (74-106); POTASSIUM 3.7 mmol/L (3.5-5.1); SODIUM SERUM 138 mmol/L (136-145); UREA NITROGEN, BLOOD 25 mg/dL (7-18)
--- NOTE | 2022-08-26 07:52 | NUR ---
ICU/RN PT RECEIVED IN BED, RESTING. PT ON BIPAP FIO2 30% AT THIS TIME, NO SIGNS OF LABORED BREATHING, SAT 96% ON BESIDE MONITOR, RESTING PEACEFULLY. PRIVATE COOPERATIVE EDUCATION COORDINATOR AT BEDSIDE. PT SB AT 56 HR AFIB. LEONARDO CATH IN PLACE, PATENT AND DRAINING. RIGHT UA AND LEFT UA MIDLINE IN PLACE RUNNING D10NS AT 80ML/HR. PT NPO AT THIS TIME DUE TO THE BIPAP, UNABLE TO GIVE PO MEDICATION THIS AM. BED LOCKED AND IN LOWEST POSITION, CALL LIGHT WITHIN REACH, 3 SIDE RAILS UP.
[2022-08-26] MEDS: METOPROLOL TARTRATE 25 MG TABLET PO SCH ×2 (08:12→21:34)
[2022-08-26] MEDS: DAKINS QUARTER STRENGTH (0.125%) 480 ML BOTTLE TOP SCH (08:12)
[2022-08-26] MEDS: PANTOPRAZOLE 40 MG/PACK PACK NG SCH (08:12)
[2022-08-26] MEDS: methylPREDNISolone SOD SUCC 40 MG/ML VIAL IV SCH (08:12)
[2022-08-26] MEDS: SILVER SULFADIAZINE CREAM 25 GM TUBE TP SCH ×2 (08:13→16:14)
[2022-08-26] MEDS: Z GUARD REMEDY 4 OZ OINT TP SCH (08:13)
[2022-08-26] MEDS: THERAHONEY GEL 1.5 OZ TUBE TP SCH (08:13)
--- NOTE | 2022-08-26 09:50 | NUR ---
ICU/RN TALKED TO GUERA LUIS ([phone]). SON AGREES TO NGT PLACEMENT IF NC TRAIL FAILS AND PT HAS TO REMAIN ON BIPAP WILL INITIATE NC TRIAL NOW PER DR. VEGAS VERBAL ORDER. GUERA MI AWARE.
[2022-08-26] MEDS: ENOXAPARIN SODIUM 40 MG/0.4 ML DISP.SYRIN SQ SCH (10:02)
--- NOTE | 2022-08-26 10:14 | NUR ---
ICU/RN PT TOLERATING 6L NC AT THIS TIME, SAT BETWEEN 92-98%. PT IS REPORTING LUNG PAIN SINCE BIPAP IS OFF. DR. VEGAS NOTIFIED. NO ABG NEEDED AT THIS TIME PER DR. VEGAS. NO NEW ORDER.
--- NOTE | 2022-08-26 10:19 | NUR ---
Pt. was placed on NC 6LPM no respiratory distress noted. Spo2 94-96%. Will keep monitor the pt.
--- NOTE | 2022-08-26 10:35 | NUR ---
ICU/RN ORDERED FROM DR. RAMIREZ TO DRAW ABG. ORDER PLACED STAT. PT HAS BEEN OFF OF BIPAP FOR 40 MINUTES. SAT 92% ON BEDSIDE MONITOR.
[2022-08-26 10:54] LABS: ABG BASE EXCESS 3.9 mmol/L; ABG OXYGEN SATURATION 87.8 % (92.0-98.5); ABG PCO2 86.8 mmHg (35.0-45.0); ABG PH 7.212 (7.350-7.450); ABG PO2 61.9 mmHg (75.0-100.0); AaDO2 152.9 mmHg; COHb 0.6 % (0.5-1.5); MetHb 0.5 % (0.0-1.5); O2Hb 86.8 % (94.0-97.0); SITE, ABG Right Radial; VENT MODE, BG NC 6LPM 44%
--- NOTE | 2022-08-26 11:11 | NUR ---
ICU/RN PT BACK ON BIPAP PER ORDERED, ABG SENT TO HIM AND TO DR. VEGAS. SON WOULD LIKE TO TALK TO PRIMARY REGARDING NGT AND FEEDING OPTIONS. SON'S NUMBER SHARED WITH DR. VEGAS.
--- NOTE | 2022-08-26 12:03 | NUR ---
ICU/RN DR. VEGAS TALKED TO SON MI. ORDERED TO INSERT NGT AT THIS TIME AND TO INITIATE FEEDING, DIETARY RECOMMENDED ALREADY AVAILABLE IN PT'S CHART.
--- NOTE | 2022-08-26 12:33 | NUR ---
ICU/RN NGT PLACED IN RIGHT NARES, 55CM READING AT THE NOSE TIP. STAT CXR ORDERED.
--- NOTE | 2022-08-26 12:56 | NUR ---
Titrate FiO2 40%.
[2022-08-26] MEDS: JEVITY 1.2 CAL 1,000 ML BOTTLE GT PRN (14:11)
--- NOTE | 2022-08-26 17:00 | NUR ---
ICU/RN PT TOLERATING TUBE FEEDING WELL, NO RESIDUAL. TUBE FEEDING INCREASED FROM 20ML/HR TO 30ML/HR. GOAL OF 55ML/HR
[2022-08-26] MEDS: INSULIN REGULAR, HUMAN 100 UNIT/ML 3 ML VIAL SQ PRN (17:47)
--- NOTE | 2022-08-26 18:55 | NUR ---
ICU/RN PT REMAINS IN BED, RESTING. PT ON BIPAP FIO2 40% AT THIS TIME, NO SIGNS OF LABORED BREATHING, SAT 98% ON BESIDE MONITOR, RESTING PEACEFULLY. PRIVATE CARPET INSTALLATION SPECIALIST AT BEDSIDE. PT SR HR 67 AFIB. LEONARDO CATH IN PLACE, PATENT AND DRAINING. RIGHT UA AND LEFT UA MIDLINE IN PLACE RUNNING D10NS AT 80ML/HR. RIGHT NARES NGT IN PLACE, PATENT AND IN PLACE, RUNNING JEVITY 1.2 AT 30ML/HR, NO RESIDUAL. BED LOCKED AND IN LOWEST POSITION, CALL LIGHT WITHIN REACH, 3 SIDE RAILS UP. WILL ENDORSE TO BASIN FINISH OPERATOR TIG WELDER NURSE FOR JULIA.
--- NOTE | 2022-08-26 20:30 | NUR ---
RN NOTE RECEIVED PT ON BIPAP, RT TITRATED DOWN TO 30%, NO DISTRESS NOTED. NGT IN PLACE, NO RESIDUALS NOTED, INCREASED GT FEEDING RATE TO 40ML/HR WITH GOAL RATE OF 55ML/HR. KEPT HOB ELEVATED. IVFLUIDS OF D10NS AT 80ML/HR. WILL CONTINUE TO MONITOR. CAREGIVER AT BEDSIDE.
[2022-08-27] VITALS (28 sets, daily range): BP systolic 108–158; BP diastolic 45–67
--- NOTE | 2022-08-27 00:10 | NUR ---
RN NOTE PT TOLERATING TUBE FEEDING, NO RESIDUALS NOTED. INCREASED RATE TO 55ML/HR, GOAL RATE. WILL CONTINUE TO MONITOR.
[2022-08-27] MEDS: BLOOD SUGAR DIAGNOSTIC 1 EACH STRIP IN SCH ×4 (00:11→17:12)
[2022-08-27] MEDS: INSULIN REGULAR, HUMAN 100 UNIT/ML 3 ML VIAL SQ PRN ×4 (00:13→17:19)
[2022-08-27] MEDS: ALBUTEROL FS 2.5 MG/3 ML VIAL.NEB NEB SCH ×4 (01:39→19:42)
[2022-08-27] MEDS: IPRATROPIUM NEB FS 0.5 MG/2.5 ML AMPUL.NEB NEB SCH ×4 (01:39→19:42)
[2022-08-27 05:00] LABS: CALCIUM, SERUM 8.7 mg/dL (8.5-10.1); CARBON DIOXIDE 37 mmol/L (21-32); CHLORIDE 104 mmol/L (98-107); CREATININE 0.3 mg/dL (0.6-1.3); GLUCOSE 172 mg/dL (74-106); POTASSIUM 4.1 mmol/L (3.5-5.1); SODIUM SERUM 140 mmol/L (136-145); UREA NITROGEN, BLOOD 22 mg/dL (7-18)
--- NOTE | 2022-08-27 05:00 | NUR ---
rt called to pt bedside at about 0500 for decreased spo2 pt found on bipap with mask connected spo2 below 80% with good wave form. fio2 increased to 100%. pt began to slowly take deep breaths and spo2 increased to 99%. fio2 adjusted to previous settings over 20minutes and pt appears to be comfortable at this time
[2022-08-27] MEDS: Sodium Chloride 154 MEQ in IV 10% DEXTROSE 1,000 ML IV SCH ×2 (06:22→19:10)
--- NOTE | 2022-08-27 07:15 | NUR ---
RN NOTE PT CONTINUE ON BIPAP SETTINGS, NO DISTRESS NOTED. DENIES ANY SOB OR PAIN AT THIS TIME. GT FEEDING TOLERATING WELL AT 55ML/HR. NO RESIDUALS NOTED. KEPT HOB ELEVATED. CAREGIVER AT BEDSIDE.
[2022-08-27 08:08] LABS: BASOPHILS # (AUTO) 0.1 K/uL (0.0-0.2); BASOPHILS % (AUTO) 0.5 % (0.0-2.0); EOSINOPHILS % (AUTO) 0.2 % (0.0-6.0); HEMATOCRIT 28 % (33-45); HEMOGLOBIN 9.2 g/dL (11.5-14.8); LYMPHOCYTES # (AUTO) 0.2 K/uL (0.8-4.8); LYMPHOCYTES % (AUTO) 1.5 % (20.0-44.0); MEAN CORPUSCULAR HGB CONC 33 g/dl (31.0-36.0); MEAN CORPUSCULAR VOLUME 96 fL (82-100); MONOCYTES # (AUTO) 0.5 K/uL (0.1-1.30); MONOCYTES % (AUTO) 3.6 % (2.0-12.0); NEUTROPHILS # (AUTO) 13.3 K/uL (1.8-8.9); NEUTROPHILS % (AUTO) 94.2 % (43.0-81.0); PLATELET COUNT (AUTO) 231 K/uL (150-450); RED BLOOD CELL COUNT(AUTO) 2.97 MIL/uL (4.0-5.2); WHITE BLOOD COUNT (AUTO) 14.1 K/uL (4.3-11.0)
[2022-08-27] MEDS: PANTOPRAZOLE 40 MG/PACK PACK NG SCH (08:25)
[2022-08-27] MEDS: METOPROLOL TARTRATE 25 MG TABLET PO SCH ×2 (08:25→21:38)
[2022-08-27] MEDS: methylPREDNISolone SOD SUCC 40 MG/ML VIAL IV SCH (08:25)
[2022-08-27] MEDS: DAKINS QUARTER STRENGTH (0.125%) 480 ML BOTTLE TOP SCH (08:26)
[2022-08-27] MEDS: Z GUARD REMEDY 4 OZ OINT TP SCH (08:26)
[2022-08-27] MEDS: SILVER SULFADIAZINE CREAM 25 GM TUBE TP SCH ×2 (08:26→16:16)
[2022-08-27] MEDS: THERAHONEY GEL 1.5 OZ TUBE TP SCH (08:27)
[2022-08-27] MEDS: ENOXAPARIN SODIUM 40 MG/0.4 ML DISP.SYRIN SQ SCH (09:34)
[2022-08-27] MEDS: LISINOPRIL (20MG) 20 MG TABLET PO SCH (09:34)
--- NOTE | 2022-08-27 09:51 | NUR ---
RT BIPAP REMOVED AND PATIENT PLACED ON 12L 40% VENTI MASK. TOLERATING WELL AT THE MOMENT WITH NO DISTRESS AT THIS TIME. Addendum: 08/27/22 at 0952 by LANA CARDOZO RT Amended: Links added.
[2022-08-27] MEDS: ACETAMINOPHEN 650 MG/20.3 ML UDC NG PRN (14:41)
[2022-08-27] MEDS: JEVITY 1.2 CAL 1,000 ML BOTTLE GT PRN (14:47)
--- NOTE | 2022-08-27 19:02 | NUR ---
ICU/RN HR DOWN TO 38. RT CALLED AT BEDSIDE. PT LETHARGIC, UNRESPONSIVE TO VOCAL OR TOUCH STIMULI. PT PLACED ON BIPAP. O2 SAT IN THE LOW 90S. HR STABILIZED IN THE 60S.
--- NOTE | 2022-08-27 19:30 | NUR ---
LINE PAINTING MACHINE OPERATOR RCD PT LETHARGIC AND PALE; NSR ON MONITOR; COLD TO TOUCH TEMP 96.3; EPISODES OF BEING UNABLE TO ACCURATELY READ SPO2 SENSOR; BIPAP 15/5 RATE 12 30%.
[2022-08-28] VITALS (26 sets, daily range): BP systolic 81–125; BP diastolic 31–62
[2022-08-28] MEDS: BLOOD SUGAR DIAGNOSTIC 1 EACH STRIP IN SCH ×5 (00:03→23:58)
[2022-08-28] MEDS: IPRATROPIUM NEB FS 0.5 MG/2.5 ML AMPUL.NEB NEB SCH ×4 (02:01→20:02)
[2022-08-28] MEDS: ALBUTEROL FS 2.5 MG/3 ML VIAL.NEB NEB SCH ×4 (02:01→20:02)
--- NOTE | 2022-08-28 07:32 | NUR ---
RN OPENING NOTE RECEIVED PATIENT IN BED, OPEN EYES A/OX1 RAISING HER LEFT HAND SAYING HI. KITA MIDLINE NS 80ML/HR RUNNING. NO SIGN AND SYMPTOMS OF DISTRESS. HOB ELEVATED. JEVITY 1.2 55 ML/HR. WILL CONTINUE MOITOR THE PATIENT.
[2022-08-28] MEDS: Sodium Chloride 154 MEQ in IV 10% DEXTROSE 1,000 ML IV SCH ×2 (09:00→22:19)
[2022-08-28] MEDS: SILVER SULFADIAZINE CREAM 25 GM TUBE TP SCH ×2 (09:11→15:53)
[2022-08-28] MEDS: DAKINS QUARTER STRENGTH (0.125%) 480 ML BOTTLE TOP SCH (09:11)
[2022-08-28] MEDS: THERAHONEY GEL 1.5 OZ TUBE TP SCH (09:11)
[2022-08-28] MEDS: Z GUARD REMEDY 4 OZ OINT TP SCH (09:11)
[2022-08-28] MEDS: PANTOPRAZOLE 40 MG/PACK PACK NG SCH (09:19)
[2022-08-28] MEDS: ACETAMINOPHEN 650 MG/20.3 ML UDC NG PRN (09:19)
[2022-08-28] MEDS: LISINOPRIL (20MG) 20 MG TABLET PO SCH (09:19)
[2022-08-28] MEDS: methylPREDNISolone SOD SUCC 40 MG/ML VIAL IV SCH ×3 (09:19→20:53)
[2022-08-28] MEDS: METOPROLOL TARTRATE 25 MG TABLET PO SCH ×2 (09:20→20:54)
[2022-08-28] MEDS: ENOXAPARIN SODIUM 40 MG/0.4 ML DISP.SYRIN SQ SCH (10:08)
[2022-08-28 10:56] LABS: ABG BASE EXCESS 6.8 mmol/L; ABG OXYGEN SATURATION 99.5 % (92.0-98.5); ABG PCO2 64.8 mmHg (35.0-45.0); ABG PH 7.336 (7.350-7.450); ABG PO2 364.2 mmHg (75.0-100.0); MetHb 0.4 % (0.0-1.5); O2Hb 99.1 % (94.0-97.0); SITE, ABG Right Brachial; VENT MODE, BG 25/5 100% rr 20
[2022-08-28] MEDS ORDERED: IV NS 0.9% 500 ML IV ONE (11:00)
[2022-08-28] MEDS: ETHAMBUTOL HCL (400 MG) 400 MG TABLET PO SCH (14:43)
--- NOTE | 2022-08-28 15:58 | NUR ---
RT WHEN TAKING OFF BIPAP ONLY PLACE ON VENTURI MASK PER FAMILY REQ
[2022-08-28] MEDS: INSULIN REGULAR, HUMAN 100 UNIT/ML 3 ML VIAL SQ PRN ×2 (17:24→23:59)
--- NOTE | 2022-08-28 18:00 | NUR ---
RN: Shift Note Cont with Bipap as tolerated. Pt presented with hypoxic episode this am while on nasal cannula. Dr Layton @ bedside during episode and aware. Chest x-ray follow up per MD. address ABG abnormality with Bipap changes currently NSR via monitor Discoloration noted via peripheral extremities. Hx of Peripheral vascular disease Remains Bedbound / bedrest with a history of polio Cont to address Severe malnutrition. Cont Tube feeds as tolerated. Condition remains guarded with poor prognosis per MD Family (Son and ) updated by
--- NOTE | 2022-08-28 18:35 | NUR ---
ICU/RN OPENING NOTES: RECEIVED PT IN BED, A/O X1, LETHARGIC. PT IS ON BIPAP AT 25/5GZQ0-66% AND PT TOLERATED WELL. CAREGIVER AT BEDSIDE. DENNIS MIDLINE AND KITA MIDLINE INTACT AND PATENT. RUNNING D10 NS AT 80CC/HR. NGT PRESENTED AT RT NARES. FEEDING RUNNING JEVITY 1.2 AT 55CC/HR. NO RESIDUAL NOTED. NO FACIAL GRIMACING NOTED. NO ACUTE DISTRESS. LEONARDO CATHETER IN PLACE. DRAINING BY GRAVITY. ALL SAFETY MEASURES IN PLACE. SIDE RAILS UP X3, BED IN LOWEST POSITION AND LOCKED. PLACE CALL LIGHT WITH IN REACH. WILL CONTINUE TO MONITOR
[2022-08-28] MEDS: GLUCERNA 1.2 1,000 ML BOTTLE GT SCH (23:21)
--- NOTE | 2022-08-28 23:59 | NUR ---
RN NOTES: PT'S BLOOD SUGAR 112. NO COVERAGE NEEDED. NO S/S OF HYPER/HYPOGLYCEMIA. WILL CONTINUE TO MONITOR
[2022-08-29] VITALS (27 sets, daily range): BP systolic 99–149; BP diastolic 49–75
[2022-08-29] MEDS: IPRATROPIUM NEB FS 0.5 MG/2.5 ML AMPUL.NEB NEB SCH ×4 (01:16→20:16)
[2022-08-29] MEDS: ALBUTEROL FS 2.5 MG/3 ML VIAL.NEB NEB SCH ×4 (01:16→20:16)
[2022-08-29] MEDS: BLOOD SUGAR DIAGNOSTIC 1 EACH STRIP IN SCH ×3 (06:07→18:08)
[2022-08-29] MEDS: INSULIN REGULAR, HUMAN 100 UNIT/ML 3 ML VIAL SQ PRN (06:08)
--- NOTE | 2022-08-29 06:30 | NUR ---
ICU/RN CLOSING NOTES: PT IN BED, A/O X1, LETHARGIC. PT IS ON BIPAP AT 25/5, FIO2-30% AND PT TOLERATED WELL. CAREGIVER AT BEDSIDE. DENNIS MIDLINE AND KITA MIDLINE INTACT AND PATENT. RUNNING D10 NS AT 80CC/HR. NGT AT RT NARES. FEEDING RUNNING JEVITY 1.2 AT 55CC/HR. NO RESIDUAL NOTED. NO FACIAL GRIMACING NOTED. NO ACUTE DISTRESS. LEONARDO CATHETER IN PLACE. DRAINING BY GRAVITY.ALL DUE MEDS GIVEN ORDER. ALL SAFETY MEASURES IN PLACE. SIDE RAILS UP X3, BED IN LOWEST POSITION AND LOCKED. PLACE CALL LIGHT WITH IN REACH. WILL ENDORSE TO MORNING SHIFT NURSE.
[2022-08-29] MEDS: PANTOPRAZOLE 40 MG/PACK PACK NG SCH (08:12)
[2022-08-29] MEDS: methylPREDNISolone SOD SUCC 40 MG/ML VIAL IV SCH ×2 (08:12→21:12)
[2022-08-29] MEDS: DAKINS QUARTER STRENGTH (0.125%) 480 ML BOTTLE TOP SCH (08:13)
[2022-08-29] MEDS: METOPROLOL TARTRATE 25 MG TABLET PO SCH ×2 (08:13→21:12)
[2022-08-29] MEDS: SILVER SULFADIAZINE CREAM 25 GM TUBE TP SCH ×2 (08:14→17:02)
[2022-08-29] MEDS: Z GUARD REMEDY 4 OZ OINT TP SCH (08:14)
[2022-08-29] MEDS: THERAHONEY GEL 1.5 OZ TUBE TP SCH (08:15)
[2022-08-29] MEDS: ENOXAPARIN SODIUM 40 MG/0.4 ML DISP.SYRIN SQ SCH (08:19)
[2022-08-29] MEDS: PROSOURCE / PROSTAT (PYXIS) 30 ML UDC GT SCH (09:30)
[2022-08-29] MEDS: ACETAMINOPHEN 650 MG/20.3 ML UDC NG PRN ×2 (09:50→17:25)
[2022-08-29] MEDS: Sodium Chloride 154 MEQ in IV 10% DEXTROSE 1,000 ML IV SCH (12:33)
--- NOTE | 2022-08-29 17:58 | NUR ---
RT PER DR OLEARY PATIENT REMAINED ON THE BIPAP THROUGHOUT THE DAY. PATIENT WAS UNABLE TO TOLERATE BIPAP TO BE REMOVED WITHOUT GOING INTO DISTRESS. Addendum: 08/29/22 at 1759 by LANA CARDOZO RT Amended: Links added.
[2022-08-29] MEDS: GLUCERNA 1.2 1,000 ML BOTTLE GT SCH (21:29)
--- NOTE | 2022-08-29 23:02 | NUR ---
GASOLINE DRAGLINE OPERATOR. INITIAL ASSESSMENT. RECEIVED THE PW REST IN BED HOB ELEVATED, BIPAP SETTINGS TOLERATED WELL, fc patent. ngt feeding tolerated well. sat 97%. no acute distress noted. compliance monitor showing nsr. will continue to monitor vitals.
[2022-08-30] VITALS (31 sets, daily range): BP systolic 112–153; BP diastolic 58–82
--- NOTE | 2022-08-30 00:10 | NUR ---
RT NOTE NASOTRACHEAL SUCTION DONE, LARGE THICK GARCIA SECRETIONS NOTED. B/S IMPROVED POST TX. RN ELIDA NOTIFIED.
[2022-08-30] MEDS: BLOOD SUGAR DIAGNOSTIC 1 EACH STRIP IN SCH ×5 (01:26→23:42)
[2022-08-30] MEDS: ALBUTEROL FS 2.5 MG/3 ML VIAL.NEB NEB SCH ×4 (01:51→19:39)
[2022-08-30] MEDS: IPRATROPIUM NEB FS 0.5 MG/2.5 ML AMPUL.NEB NEB SCH ×4 (01:52→19:39)
[2022-08-30] MEDS: Sodium Chloride 154 MEQ in IV 10% DEXTROSE 1,000 ML IV SCH ×2 (01:53→12:50)
--- NOTE | 2022-08-30 02:26 | NUR ---
MANIFEST/ORDER ORGANIZER PRINT ORDERS. AM CARE GIVEN. REMAINING SAME BIPAP SETTINGS TOLERATED WELL. SAT 98%. NO ACUTE DISTRESS NOTED. ACADEMIC DEPARTMENT CHAIR SHOWING NSR. IV RT AND LT UPPER ARM MID LINE. IVF D10NS 80 ML/H. FC PATENT. NGT FEEDING TOLERATED WELL. WILL CONTINUE TO MONITOR VITALS.
[2022-08-30 05:13] LABS: BASOPHILS % (AUTO) 0.3 % (0.0-2.0); HEMATOCRIT 28 % (33-45); HEMOGLOBIN 8.8 g/dL (11.5-14.8); LYMPHOCYTES # (AUTO) 0.1 K/uL (0.8-4.8); LYMPHOCYTES % (AUTO) 0.5 % (20.0-44.0); MEAN CORPUSCULAR HGB CONC 32 g/dl (31.0-36.0); MEAN CORPUSCULAR VOLUME 96 fL (82-100); MONOCYTES # (AUTO) 0.4 K/uL (0.1-1.30); MONOCYTES % (AUTO) 2.2 % (2.0-12.0); NEUTROPHILS # (AUTO) 17.2 K/uL (1.8-8.9); PLATELET COUNT (AUTO) 177 K/uL (150-450); RED BLOOD CELL COUNT(AUTO) 2.86 MIL/uL (4.0-5.2); WHITE BLOOD COUNT (AUTO) 17.7 K/uL (4.3-11.0)
[2022-08-30 05:24] LABS: CALCIUM, SERUM 8.5 mg/dL (8.5-10.1); CARBON DIOXIDE 39 mmol/L (21-32); CHLORIDE 108 mmol/L (98-107); CREATININE 0.3 mg/dL (0.6-1.3); GLUCOSE 166 mg/dL (74-106); POTASSIUM 4.5 mmol/L (3.5-5.1); SODIUM SERUM 144 mmol/L (136-145); UREA NITROGEN, BLOOD 27 mg/dL (7-18)
[2022-08-30] MEDS: INSULIN REGULAR, HUMAN 100 UNIT/ML 3 ML VIAL SQ PRN ×2 (06:26→12:06)
--- NOTE | 2022-08-30 07:05 | NUR ---
OPENING NOTES RECEIVED PATIENT REPORT FROM NIGHTSCTFT. PATIENT IN STABLE CONDITION. IV ACCESS ON RIGHT UPPER ARM AND LEFT UPPER ARM, BOTH MIDLINES BOTH FLUSHING WITH NO RESISTANCE. ON BIPAP WITH OXYGEN SATURATION IN HIGH 90S. NORMAL SINUS RHYTHM ON THE MONITOR. NASOGASTRIC TUBE ON RIGHT NARE, PLACEMENT CONFIRMED. SAFETY MEASURES IMPLEMENTED. WILL CONTINUE PLAN OF CARE AND ANTICIPATE NEEDS.
[2022-08-30] MEDS: Z GUARD REMEDY 4 OZ OINT TP SCH (09:06)
[2022-08-30] MEDS: DAKINS QUARTER STRENGTH (0.125%) 480 ML BOTTLE TOP SCH (09:06)
[2022-08-30] MEDS: THERAHONEY GEL 1.5 OZ TUBE TP SCH (09:06)
[2022-08-30] MEDS: SILVER SULFADIAZINE CREAM 25 GM TUBE TP SCH ×2 (09:06→17:44)
[2022-08-30] MEDS: PANTOPRAZOLE 40 MG/PACK PACK NG SCH (09:41)
[2022-08-30] MEDS: methylPREDNISolone SOD SUCC 40 MG/ML VIAL IV SCH ×2 (09:41→21:19)
[2022-08-30] MEDS: PROSOURCE / PROSTAT (PYXIS) 30 ML UDC GT SCH (09:41)
[2022-08-30] MEDS: METOPROLOL TARTRATE 25 MG TABLET PO SCH ×2 (09:42→21:24)
[2022-08-30] MEDS: ENOXAPARIN SODIUM 40 MG/0.4 ML DISP.SYRIN SQ SCH (09:43)
[2022-08-30] MEDS ORDERED: FUROSEMIDE 20 MG/2 ML VIAL IV ONE (11:35)
[2022-08-30] MEDS: ETHAMBUTOL HCL (400 MG) 400 MG TABLET PO SCH (14:23)
[2022-08-30 15:12] LABS: ABG BASE EXCESS 7.9 mmol/L; ABG PCO2 70.3 mmHg (35.0-45.0); ABG PH 7.324 (7.350-7.450); ABG PO2 85.1 mmHg (75.0-100.0); AaDO2 46.2 mmHg; COHb 0.3 % (0.5-1.5); MetHb 0.4 % (0.0-1.5); O2Hb 95.3 % (94.0-97.0); SITE, ABG Left Radial
[2022-08-30] MEDS ORDERED: NEUTRA PHOS 1 POWD.PACKET GT ONE (16:00)
[2022-08-30] MEDS: GLUCERNA 1.2 1,000 ML BOTTLE GT SCH (17:45)
--- NOTE | 2022-08-30 19:05 | NUR ---
CLOSING NOTES PATIENT IN STABLE CONDITION. IV ACCESS ON RIGHT UPPER ARM AND LEFT UPPER ARM, BOTH MIDLINES BOTH FLUSHING WITH NO RESISTANCE. ON BIPAP WITH OXYGEN SATURATION IN HIGH 90S. NORMAL SINUS RHYTHM ON THE MONITOR. NASOGASTRIC TUBE ON RIGHT NARE, PLACEMENT CONFIRMED. SAFETY MEASURES IMPLEMENTED. WILL ENDORSE TO NIGHTSHIFT FOR CONTINUATION OF CARE.
--- NOTE | 2022-08-30 19:39 | NUR ---
RCVD PT ON BIPAP 18/, RR 20, FIO2 30%. BREATHING TX GIVEN PER MD'S ORDER. NO ADVERSE REACTION NOTED. BIPAP PLUGGED INTO RED OUTLET. ALARMS ON AND AUDIBLE. NO RESPIRATORY DISTRESS NOTED AT THIS TIME. WILL CONTINUE TO MONITOR T/O SHIFT.
--- NOTE | 2022-08-30 21:55 | NUR ---
BOAT PULLER OPENING NOTE PT RECEIVED IN BED, A&O X0, LETHARGIC. PT IS ON BIPAP WITH O2SAT OF 95%; NO S/S OF RESP DISTRESS, NO SOB OR COUGH, NON-LABORED AND EQUAL BREATHING; APPEARS COMFORTABLE OVERALL. PT ATTACHED TO EXTERNAL MONITOR, SR WITH HR OF 75. MIDLINE ON BOTH DENNIS AND KITA, INTACT AND PATENT, FLUSHES EASILY WITH NO RESISTANCE, D10 NS INFUSING AT 80 ML/HR. LEONARDO INTACT AND PATENT, DRAINING CLEAR AND YELLOW URINE. BED IN LOWEST POSITION, CALL LIGHT WITHIN REACH, SIDE RAILS UP X3. WILL CONTINUE TO MONITOR THROUGHOUT THE NIGHT.
[2022-08-31] VITALS (28 sets, daily range): BP systolic 102–192; BP diastolic 60–98
[2022-08-31] MEDS: Sodium Chloride 154 MEQ in IV 10% DEXTROSE 1,000 ML IV SCH ×2 (01:03→14:55)
[2022-08-31] MEDS: IPRATROPIUM NEB FS 0.5 MG/2.5 ML AMPUL.NEB NEB SCH ×4 (01:15→19:40)
[2022-08-31] MEDS: ALBUTEROL FS 2.5 MG/3 ML VIAL.NEB NEB SCH ×4 (01:15→19:40)
[2022-08-31 04:07] LABS: BASOPHILS % (AUTO) 0.3 % (0.0-2.0); HEMATOCRIT 27 % (33-45); HEMOGLOBIN 8.5 g/dL (11.5-14.8); LYMPHOCYTES # (AUTO) 0.1 K/uL (0.8-4.8); LYMPHOCYTES % (AUTO) 0.6 % (20.0-44.0); MEAN CORPUSCULAR HGB CONC 32 g/dl (31.0-36.0); MEAN CORPUSCULAR VOLUME 96 fL (82-100); MONOCYTES # (AUTO) 0.3 K/uL (0.1-1.30); MONOCYTES % (AUTO) 1.9 % (2.0-12.0); NEUTROPHILS # (AUTO) 15.9 K/uL (1.8-8.9); NEUTROPHILS % (AUTO) 97.2 % (43.0-81.0); PLATELET COUNT (AUTO) 170 K/uL (150-450); WHITE BLOOD COUNT (AUTO) 16.3 K/uL (4.3-11.0)
[2022-08-31 04:33] LABS: CALCIUM, SERUM 8.4 mg/dL (8.5-10.1); CARBON DIOXIDE 39 mmol/L (21-32); CHLORIDE 107 mmol/L (98-107); CREATININE 0.3 mg/dL (0.6-1.3); GLUCOSE 145 mg/dL (74-106); MAGNESIUM 1.9 mg/dL (1.8-2.4); PHOSPHORUS 2.8 mg/dL (2.5-4.9); POTASSIUM 4.7 mmol/L (3.5-5.1); SODIUM SERUM 143 mmol/L (136-145); UREA NITROGEN, BLOOD 31 mg/dL (7-18)
[2022-08-31] MEDS: BLOOD SUGAR DIAGNOSTIC 1 EACH STRIP IN SCH ×4 (05:34→23:32)
[2022-08-31] MEDS: INSULIN REGULAR, HUMAN 100 UNIT/ML 3 ML VIAL SQ PRN ×3 (05:39→23:34)
[2022-08-31] MEDS: hydrALAZINE HCL IV 20 MG VIAL IV PRN ×2 (06:51→17:22)
--- NOTE | 2022-08-31 06:55 | NUR ---
RN NOTE PT NOTED TO HAVE BP OF 177/117 HR 79. PT ADMINISTERED HYDRALAZINE 10 MG IV.
--- NOTE | 2022-08-31 07:10 | NUR ---
PLATEN PRESS OPERATOR APPRENTICE OPENING NOTE: RECEIVED PT. IN BED, LETHARGIC, ORIENTED TO SELF AND PLACE ONLY. NO S/S OF PAIN/DISCOMFORT. PT. ON BIPAP 18/5; RATE - 20; FIO2 - 30%. SATURATING AT 96% AT THIS TIME. WOOD PILER READS NSR WITH HR OF 82 BPM. HAS LEONARDO CATH DRAINING CLEAR YELLOW URINE VIA GRAVITY. MULTIPLE SKIN ISSUES NOTED. WILL DO WOUND TREATMENT ORDERED. NG TUBE IN R NARE WITH GLUCERNA RUNNING AT 55ML/HR. NO GASTRIC RESIDUAL NOTED. IV ACCESS DENNIS MIDLINE, SALINE LOCKED; KITA MIDLINE WITH D10 SODIUM CHLORIDE 154 MEQ RUNNING AT 80ML/HR. IV DRESSINGS C/D/I WITH NO S/S OF INFILTRATION. SAFETY MEASURES IN PLACE: BED IN LOWEST AND LOCKED POSITION, HOB ELEVATED AT 30 DEGREES, BED ALARM ON, CALL LIGHT WITHIN REACH. WILL TURN AND REPOSITION AT LEAST Q2H AND WILL CONTINUE TO MONITOR FOR ANY CHANGES.
--- NOTE | 2022-08-31 07:35 | NUR ---
CLOTH REELER CLOSING NOTE PT REMAINS IN BED, A&O X4, LETHARGIC. CONTINUES TO BE ON BIPAP WITH O2SAT IN THE HIGH 90S-100%; NO S/S OF RESP DISTRESS, NO SOB OR COUGH, NON-LABORED AND EQUAL BREATHING. PT ATTACHED TO EXTERNAL MONITOR, SR WITH PVCS. WOUNDS CLEANSED AND NEW DRESSINGS APPLIED. LEONARDO INTACT AND PATENT. KITA AND DENNIS MIDLINE WITH D5NS INFUSING AT 80 ML/HR. ALL DUE MEDS ADMINISTERED DURING THE NIGHT. BED IN LOWEST POSITION, CALL LIGHT WITHIN REACH, SIDE RAILS UP X3. WILL ENDORSE TO DAYSHIFT NURSE TO CONTINUE CARE.
[2022-08-31] MEDS: PROSOURCE / PROSTAT (PYXIS) 30 ML UDC GT SCH (09:00)
[2022-08-31] MEDS: DAKINS QUARTER STRENGTH (0.125%) 480 ML BOTTLE TOP SCH (09:01)
[2022-08-31] MEDS: THERAHONEY GEL 1.5 OZ TUBE TP SCH (09:01)
[2022-08-31] MEDS: Z GUARD REMEDY 4 OZ OINT TP SCH (09:03)
[2022-08-31] MEDS: SILVER SULFADIAZINE CREAM 25 GM TUBE TP SCH ×2 (09:03→17:21)
[2022-08-31] MEDS: PANTOPRAZOLE 40 MG/PACK PACK NG SCH (09:04)
[2022-08-31] MEDS: METOPROLOL TARTRATE 25 MG TABLET PO SCH ×2 (09:04→20:30)
[2022-08-31] MEDS: methylPREDNISolone SOD SUCC 40 MG/ML VIAL IV SCH ×2 (09:04→20:30)
[2022-08-31] MEDS: ENOXAPARIN SODIUM 40 MG/0.4 ML DISP.SYRIN SQ SCH (09:05)
[2022-08-31] MEDS: GLUCERNA 1.2 1,000 ML BOTTLE GT SCH (13:06)
--- NOTE | 2022-08-31 19:10 | NUR ---
FAMILY PRACTITIONER CLOSING NOTE: PT. REMAINS IN BED, LETHARGIC, ORIENTED TO SELF AND PLACE ONLY. FAMILY DECIDED TO CHANGE CODE STATUS TO DNR/DNI AFTER SPEAKING WITH DR. OLEARY AND DR. ERNST REGARDING PROGNOSIS. NO S/S OF PAIN/DISCOMFORT. PT. ON BIPAP 18/5; RATE - 20; FIO2 - 30%. SATURATING AT 94% AT THIS TIME. SALES SUPPORT ADVISOR READS NSR WITH HR OF 69 BPM. HYDRALAZINE GIVEN AT 1722 FOR BP OF 192/94. BP NOW IS 159/80. LEONARDO CATH DRAINED 480 CLOUDY YELLOW URINE THIS SHIFT. WOUND TREATMENT DONE ORDERED. NG TUBE IN R NARE WITH GLUCERNA RUNNING AT 55ML/HR. NO GASTRIC RESIDUAL NOTED. IV ACCESS DENNIS MIDLINE, SALINE LOCKED; KITA MIDLINE WITH D10 SODIUM CHLORIDE 154 MEQ RUNNING AT 80ML/HR. IV DRESSINGS C/D/I WITH NO S/S OF INFILTRATION. SAFETY MEASURES MAINTAINED: BED IN LOWEST AND LOCKED POSITION, HOB ELEVATED AT 30 DEGREES, BED ALARM ON, CALL LIGHT WITHIN REACH. TURNED AND REPOSITIONED AT LEAST Q2H. ENDORSED CONTINUITY OF CARE TO WIRE SAW OPERATOR RN.
--- NOTE | 2022-08-31 19:30 | NUR ---
RN NOTES PT RECEIVED IN BED OPEN EYES ABLE TO RESPOND YES AND NO WHEN ASKED. PT IS ON BIPAP WITH O2SAT OF 96%; NO S/S OF RESP DISTRESS, NO SOB OR COUGH, NON-LABORED AND EQUAL BREATHING; APPEARS COMFORTABLE OVERALL. PT ATTACHED TO EXTERNAL MONITOR, SR WITH HR OF 65. MIDLINE ON BOTH DENNIS AND KITA, INTACT AND PATENT, FLUSHES EASILY WITH NO RESISTANCE, D10 SODIUM CHLORIDE 154 MEQ INFUSING AT 80 ML/HR. LEONARDO INTACT AND PATENT, DRAINING CLEAR AND YELLOW URINE. BED IN LOWEST POSITION, CALL LIGHT WITHIN REACH, SIDE RAILS UP X3. WILL CONTINUE TO MONITOR THROUGHOUT THE NIGHT.
[2022-09-01] VITALS (16 sets, daily range): BP systolic 94–131; BP diastolic 47–94
[2022-09-01] MEDS: ALBUTEROL FS 2.5 MG/3 ML VIAL.NEB NEB SCH ×3 (01:09→13:11)
[2022-09-01] MEDS: IPRATROPIUM NEB FS 0.5 MG/2.5 ML AMPUL.NEB NEB SCH ×3 (01:09→13:11)
[2022-09-01] MEDS: Sodium Chloride 154 MEQ in IV 10% DEXTROSE 1,000 ML IV SCH (03:45)
[2022-09-01] MEDS: BLOOD SUGAR DIAGNOSTIC 1 EACH STRIP IN SCH ×2 (05:41→11:54)
[2022-09-01] MEDS: INSULIN REGULAR, HUMAN 100 UNIT/ML 3 ML VIAL SQ PRN ×2 (05:45→11:58)
--- NOTE | 2022-09-01 06:52 | NUR ---
RN CLOSING NOTE PT REMAINS IN BED, A&O X1, LETHARGIC. CONTINUES TO BE ON BIPAP WITH O2SAT IN THE HIGH 90S-100%; NO S/S OF RESP DISTRESS, NO SOB OR COUGH, NON-LABORED AND EQUAL BREATHING. PT ATTACHED TO EXTERNAL MONITOR, SR. WOUNDS CLEANSED AND NEW DRESSINGS APPLIED. LEONARDO INTACT AND PATENT. KITA AND DENNIS MIDLINE WITH D10 SODIUM CHLORIDE 154 MEQ INFUSING AT 80 ML/HR. ALL DUE MEDS ADMINISTERED DURING THE NIGHT. BED IN LOWEST POSITION, CALL LIGHT WITHIN REACH, SIDE RAILS UP X3. CAREGIVER AT BEDSIDE AT ALL TIMES WILL ENDORSE TO DAYSHIFT NURSE TO CONTINUE CARE.
--- NOTE | 2022-09-01 07:10 | NUR ---
BENCH ASSEMBLER OPENING NOTE: RECEIVED PT. IN BED, LETHARGIC, ORIENTED TO SELF AND PLACE ONLY. NO S/S OF PAIN/DISCOMFORT. PT. ON BIPAP 18/5; RATE - 20; FIO2 - 30%. SATURATING AT 97% AT THIS TIME. VAULT MANAGER READS NSR WITH HR OF 62 BPM. HAS LEONARDO CATH DRAINING CLOUDY YELLOW URINE VIA GRAVITY. MULTIPLE SKIN ISSUES NOTED. WILL DO WOUND TREATMENT ORDERED. NG TUBE IN R NARE WITH GLUCERNA RUNNING AT 55ML/HR. NO GASTRIC RESIDUAL NOTED. IV ACCESS DENNIS MIDLINE, SALINE LOCKED; KITA MIDLINE WITH D10 SODIUM CHLORIDE 154 MEQ RUNNING AT 80ML/HR. IV DRESSINGS C/D/I WITH NO S/S OF INFILTRATION. SAFETY MEASURES IN PLACE: BED IN LOWEST AND LOCKED POSITION, HOB ELEVATED AT 30 DEGREES, BED ALARM ON, CALL LIGHT WITHIN REACH. WILL TURN AND REPOSITION AT LEAST Q2H AND WILL CONTINUE TO MONITOR FOR ANY CHANGES.
--- NOTE | 2022-09-01 08:10 | NUR ---
WEB PRESS OPERATOR HELPER OFFSET NOTE: PT. NOTED TO HAVE A RECTAL TEMP OF 94.9F. CHARBEL HUGGER APPLIED. OTHER VITAL SIGNS STABLE OTHERWISE. WILL CONTINUE TO MONITOR PT.'S TEMPERATURE.
[2022-09-01] MEDS: METOPROLOL TARTRATE 25 MG TABLET PO SCH (09:00)
[2022-09-01] MEDS: DAKINS QUARTER STRENGTH (0.125%) 480 ML BOTTLE TOP SCH (09:15)
[2022-09-01] MEDS: THERAHONEY GEL 1.5 OZ TUBE TP SCH (09:15)
[2022-09-01] MEDS: SILVER SULFADIAZINE CREAM 25 GM TUBE TP SCH (09:15)
[2022-09-01] MEDS: Z GUARD REMEDY 4 OZ OINT TP SCH (09:16)
[2022-09-01] MEDS: methylPREDNISolone SOD SUCC 40 MG/ML VIAL IV SCH (09:18)
[2022-09-01] MEDS: PANTOPRAZOLE 40 MG/PACK PACK NG SCH (09:18)
[2022-09-01] MEDS: PROSOURCE / PROSTAT (PYXIS) 30 ML UDC GT SCH (09:18)
[2022-09-01] MEDS: ENOXAPARIN SODIUM 40 MG/0.4 ML DISP.SYRIN SQ SCH (09:20)
--- NOTE | 2022-09-01 09:22 | NUR ---
MECHANICAL EXPERT NOTE: LOPRESSOR 25MG SCHEDULED AT 0900 HELD DUE TO BP OF 104/47 AND HR OF 62. WILL CONTINUE TO MONITOR PT.'S HEMODYNAMIC STATUS.
[2022-09-01] MEDS: GLUCERNA 1.2 1,000 ML BOTTLE GT SCH (10:16)
[2022-09-01] MEDS ORDERED: IPRA0.2S9 NEB (11:07)
[2022-09-01] MEDS ORDERED: ALBUT2 NEB (11:07)
--- NOTE | 2022-09-01 14:30 | NUR ---
CONTRACT MANAGERHOT PUNCH PRESS OPERATOR NOTE: REPORT GIVEN TO 3 AMBULANCE STAFF. PT. WILL BE DISCHARGED HOME WITH HOSPICE CARE. PT. REMAINS LETHARGIC, ORIENTED TO SELF AND PLACE ONLY. NO S/S OF PAIN/DISCOMFORT AT THIS TIME. PT. STILL ON BIPAP 18/5; RATE - 20; FIO2 - 30%. SATURATING AT 95% AT THIS TIME. RECTAL TEMP IS NOW 96.7F. ENTERER READS NSR WITH HR OF 75 BPM. LEONARDO CATH WILL BE KEPT PER HOSPICE CARE PLAN. DRAINED 130 ML OF CLOUDY YELLOW URINE THIS SHIFT. WOUND TREATMENT DONE ORDERED. NG TUBE IN R NARE WAS REMOVED. NO S/S OF BLEEDING OR ASPIRATION NOTED. IV ACCESS DENNIS MIDLINE REMOVED, PRESSURE APPLIED, NO S/S OF BLEEDING; KITA MIDLINE WILL BE KEPT PER HOSPICE CARE PLAN. IV DRESSING C/D/I WITH NO S/S OF INFILTRATION. PT. BELONGING LIST AND DISCHARGE INSTRUCTIONS SIGNED BY GUERA STARK. EDUCATED HIM ON DISCHARGE PLAN AND NEW MEDICATIONS. VERBALIZED UNDERSTANDING. PT. LEFT THE UNIT WITH 3 AMBULANCE STAFF AT 1420, ON BIPAP, WITH SAME SETTINGS MENTIONED ABOVE.
== END 2022-09-01 15:32 | disposition hospice, home (50) | DRG 207 ==
LOC: ER 19:20 → TRANSITION 08-04 00:59 → ICU 08-04 10:21
PROVIDERS: ADMIT Nurse Practitioner Acute Care; ATTEND Nurse Practitioner Acute Care
PROC: 5A09557 Assistance with Respiratory Ventilation, Greater than 96 Consecutive Hours, Continuous Positive Airway Pressure (ICD-10-PCS; principal; 2022-08-03)
PROC: 05HB33Z Insertion of Infusion Device into Right Basilic Vein, Percutaneous Approach (ICD-10-PCS; 2022-08-05)
PROC: 5A1955Z Respiratory Ventilation, Greater than 96 Consecutive Hours (ICD-10-PCS; 2022-08-11)
PROC: 0BH18EZ Insertion of Endotracheal Airway into Trachea, Via Natural or Artificial Opening Endoscopic (ICD-10-PCS; 2022-08-11)
PROC: 05HA33Z Insertion of Infusion Device into Left Brachial Vein, Percutaneous Approach (ICD-10-PCS; 2022-08-12)
DX: J69.0 Pneumonitis due to inhalation of food and vomit (principal); E43 Unspecified severe protein-calorie malnutrition; J96.21 Acute and chronic respiratory failure with hypoxia; I50.33 Acute on chronic diastolic (congestive) heart failure; J96.22 Acute and chronic respiratory failure with hypercapnia; N17.0 Acute kidney failure with tubular necrosis; E87.1 Hypo-osmolality and hyponatremia; J44.1 Chronic obstructive pulmonary disease with (acute) exacerbation; R64 Cachexia; N39.0 Urinary tract infection, site not specified; L97.929 Non-pressure chronic ulcer of unspecified part of left lower leg with unspecified severity; L97.919 Non-pressure chronic ulcer of unspecified part of right lower leg with unspecified severity; D68.59 Other primary thrombophilia; Z68.1 Body mass index [BMI] 19.9 or less, adult; J98.11 Atelectasis; J90 Pleural effusion, not elsewhere classified; E87.4 Mixed disorder of acid-base balance; L92.9 Granulomatous disorder of the skin and subcutaneous tissue, unspecified; J15.9 Unspecified bacterial pneumonia; D64.9 Anemia, unspecified; E87.5 Hyperkalemia; J98.4 Other disorders of lung; I70.0 Atherosclerosis of aorta; I11.0 Hypertensive heart disease with heart failure; I48.0 Paroxysmal atrial fibrillation; E86.0 Dehydration; Z20.822 Contact with and (suspected) exposure to COVID-19; Z88.5 Allergy status to narcotic agent; Z88.2 Allergy status to sulfonamides; Z79.51 Long term (current) use of inhaled steroids; Z79.899 Other long term (current) drug therapy; I35.0 Nonrheumatic aortic (valve) stenosis; E88.09 Other disorders of plasma-protein metabolism, not elsewhere classified; Z51.5 Encounter for palliative care; Z66 Do not resuscitate; F41.9 Anxiety disorder, unspecified; L89.159 Pressure ulcer of sacral region, unspecified stage; L89.326 Pressure-induced deep tissue damage of left buttock; L89.316 Pressure-induced deep tissue damage of right buttock; Z90.710 Acquired absence of both cervix and uterus; G14 Postpolio syndrome; Z74.01 Bed confinement status; M62.562 Muscle wasting and atrophy, not elsewhere classified, left lower leg; M62.561 Muscle wasting and atrophy, not elsewhere classified, right lower leg; E83.39 Other disorders of phosphorus metabolism; I70.239 Atherosclerosis of native arteries of right leg with ulceration of unspecified site; I70.249 Atherosclerosis of native arteries of left leg with ulceration of unspecified site
CPT/HCPCS: 31720; 36410; 36415; 36600; 71045-TC; 76770-TC; 80048-TC; 80053-TC; 80061-TC; 80076-TC; 81001; 82040-TC; 82272-TC; 82803-TC; 82962-TC; 83605-TC; 83735-TC; 84100-TC; 84134-TC; 84478-TC; 84484-TC; 85025-TC; 85730-TC; 87040-TC; 87081-TC; 87086-TC; 92526; 92611-TC; 93970-TC; 94002-TC; 94003-TC; 94660; 94760-TC; 94762-TC; 94799-TC; A6253; A6403; A9563; C9113; C9803; G0378; J0360; J0456; J0696; J1160; J1650; J1815; J1940; J2920; J2930; J3490; J7030; J7040; J7042; J7050; J7060